=== PATIENT | male | born 1940 | race Caucasian/White ===

== ENCOUNTER 2017-05-02 20:25 | Emergency (ER) | payer BC ==
[~2017-05-02 20:25] MED LIST: AMLO-110 PO; ASPI81TA28 PO; ATEN50TA8 PO; ATOR-24 PO; CLOP1TAB15 PO; MULT-506 PO
[2017-05-02 20:30] VITALS: TEMP 36.4
[2017-05-02] MEDS ORDERED: SODIUM CHLORIDE 0.9% 1000ML 1,000 ML IV STA (20:40)
--- NOTE | 2017-05-02 20:45 | EMERGENCY ROOM VISIT NOTE ---
History Report prepared by Freddieibbolivar: Meri Farias Under the Supervision of: Dr. Brandon Hermosillo M.D. First contact with patient: 20:34 Chief Complaint: HIP PAIN Stated Complaint: R HIP PAIN History of Present Illness The patient is a 76 year old male who presents to the Emergency Room with complaints of persistent right hip pain. He reports he was working on a ladder this afternoon when he fell 4 feet to the ground, and landed on "some boulders" . He states he hit his back, right hip and right arm area when he landed. He complains of right hip and right arm pain, rating his discomfort as a 4/10 in severity. He is still able to move his legs normally and can lift his right leg without difficulty. The patient experienced a syncopal episode in the waiting room here in the ED, and was immediately brought back to . He admits he does take daily Plavix. Source of History: patient Onset: 1500 today Position: other (right hip) Symptom Intensity: 4/10 Timing: other (persistent) Review of Systems See HPI for pertinent positives & negatives. A total of 10 systems reviewed and were otherwise negative. Past Medical & Surgical Medical Problems: (1) Hypertension (2) Transient ischemic attack (TIA) Family History FH: coronary artery disease FATHER MOTHER Social History Smoking Status: Never Smoker Drug Use: none Marital Status: Housing Status: lives with family Occupation Status: retired Current/Historical Medications Scheduled Amlodipine Besylate (Norvasc), 5 MG PO DAILY Aspirin (Aspirin Ec), 81 MG PO DAILY Atenolol (Tenormin), 50 MG PO DAILY Atorvastatin (Lipitor), 40 MG PO DAILY Clopidogrel (Plavix), 75 MG PO DAILY Multivitamin (Multivitamin), 1 TAB PO DAILY Allergies Coded Allergies: No Known Allergies (Unverified , 01/25/16) Physical Exam Vital Signs Date Time Temp Pulse Resp B/P (MAP) Pulse Ox O2 Delivery O2 Flow Rate FiO2 05/02/17 23:13 87 18 125/67 95 05/02/17 22:31 125/67 05/02/17 22:25 76 19 99 05/02/17 22:01 113/68 05/02/17 21:55 63 16 94 05/02/17 21:31 150/68 05/02/17 21:28 129/68 128/76 05/02/17 21:25 73 14 05/02/17 20:52 97 Room Air 05/02/17 20:49 126/65 05/02/17 20:41 69 05/02/17 20:36 112/63 05/02/17 20:30 36.4 57 20 66/46 98 Room Air Physical Exam GENERAL: Patient is a healthy-appearing well-nourished HEAD: Normocephalic atraumatic EYES: Ocular movements intact pupils equal and react to light OROPHARYNX mucous membranes are moist no exudates present no erythema or edema present NECK: Supple no nuchal rigidity CHEST: Good equal expansion LUNGS: Clear and equal to auscultation CARDIAC: Normal S1 and S2 ABDOMEN: Soft nontender no guarding BACK: Large hematoma to right lumbar area. No CVA tenderness EXTREMITIES: No pain upon palpation normal muscle strength in all groups no clubbing cyanosis or edema NEURO: Patient is following commands is answering questions appropriately. Alert and oriented x3 Cranial Nerves 2-12 grossly intact Medical Decision & Procedures ER Provider Diagnostic Interpretation: Radiology results as stated below per my review and radiologist interpretation: ABD/PELVIS IV CONTRAST ONLY CT DOSE: HISTORY: Trauma Pt c/o Rt flank hematoma after fall TECHNIQUE: Multiaxial CT images of the abdomen and pelvis were performed following the use of intravenous contrast. A dose lowering technique was utilized adhering to the principles of ALARA. COMPARISON STUDY: 08/06/2010 FINDINGS: Lung bases are considered generally clear. Soft tissue edematous change and/or post traumatic contusion over the right flank and right posterior gluteal musculature. This extends from the lateral aspect of the right chest posteriorly to the right flank and extending approximately to level of the right acetabulum. Fractures of the right transverse processes of L2-L4. The intra-abdominal structures show liver spleen and pancreas to be unremarkable. The kidneys enhance uniformly. Liver spleen and pancreas are unremarkable. No free fluid within the abdomen or pelvic region. Bladder is midline. No free fluid within the pelvic cul-de-sac. All remaining osseous structures are negative for additional acute bony abnormality. IMPRESSION: 1. Right flank hematoma/contusion extending from the lower chest on the right to the level of the right acetabulum. 2. Fractures of the right transverse processes of L2, L3, and L4. 3. No acute intra-abdominal or intrapelvic abnormality The above report was generated using voice recognition software. It may contain grammatical, syntax or spelling errors. Electronically signed by: Pola Fu M.D. 05/02/2017 9:30 PM CHEST ONE VIEW PORTABLE CLINICAL HISTORY: Pt c/o Rt arm pain s/p fall trauma. Pain. COMPARISON STUDY: 01/25/2016 FINDINGS: The bones soft tissues and hemidiaphragms are normal. The cardiomediastinal silhouette is normal. The lungs are clear. The pulmonary vasculature is normal. IMPRESSION: Negative chest. The above report was generated using voice recognition software. It may contain grammatical, syntax or spelling errors. Electronically signed by: Pola Fu M.D. 05/02/2017 9:31 PM HEAD WITHOUT CONTRAST (CT) CT DOSE: 767.83 mGy.cm HISTORY: Trauma Pt c/o fall TECHNIQUE: Multiaxial CT images of the head were performed without the use of intravenous contrast. A dose lowering technique was utilized adhering to the principles of ALARA. Comparison: 01/25/2016 Findings: The paranasal sinuses and mastoid air cells are clear. The calvarium and skull base are intact. The ventricles and sulci are within normal limits. There is no mass, hematoma, midline shift, or acute infarct. Stable asymmetric atrophy. Stable chronic small vessel change. Impression: Chronic and age-related change. No acute process. The above report was generated using voice recognition software. It may contain grammatical, syntax or spelling errors. Electronically signed by: Pola Fu M.D. 05/02/2017 9:21 PM R HUMERUS MIN 2 VIEWS ROUTINE CLINICAL HISTORY: Pt c/o RT arm pain trauma COMPARISON: None. DISCUSSION: The bones and joint spaces appear intact. There is no evidence of fracture, dislocation or bony disease. There is no evidence for soft tissue swelling. IMPRESSION: Negative study. The above report was generated using voice recognition software. It may contain grammatical, syntax or spelling errors. Electronically signed by: Pola Fu M.D. 05/02/2017 9:32 PM LUMBAR SPINE WITHOUT CT DOSE: 480.29 mGy.cm HISTORY: Pain. Trauma. Pt c/o Rt sided flank pain s/p fall TECHNIQUE: Multiaxial CT images of the lumbar spine were performed and reformatted in the sagittal and coronal plane without the use of contrast. A dose lowering technique was utilized adhering to the principles of ALARA. COMPARISON: None. FINDINGS: Fractures right transverse processes of L2-L3 and L4. Vertebral body stature is unremarkable. Moderate degenerative disc change throughout. All remaining structures of the posterior arch. Intact at all levels. No significant surrounding soft tissue hematoma. IMPRESSION: 1. Fracture right transverse process of L2-L3 and L4. 2. Moderate degenerative change throughout the remainder the lumbar region with no additional acute bony abnormality. The above report was generated using voice recognition software. It may contain grammatical, syntax or spelling errors. Electronically signed by: Pola Fu M.D. 05/02/2017 9:26 PM Laboratory Results 05/02/17 20:40 Red Blood Count 4.04, Mean Corpuscular Volume 90.1, Mean Corpuscular Hemoglobin 30.7, Mean Corpuscular Hemoglobin Concent 34.1, Mean Platelet Volume 10.1, Neutrophils (%) (Auto) 81.4, Lymphocytes (%) (Auto) 10.9, Monocytes (%) (Auto) 5.8, Eosinophils (%) (Auto) 1.3, Basophils (%) (Auto) 0.3, Neutrophils # (Auto) 11.65, Lymphocytes # (Auto) 1.56, Monocytes # (Auto) 0.83, Eosinophils # (Auto) 0.18, Basophils # (Auto) 0.05 05/02/17 20:40 Test 05/02/17 20:40 05/02/17 20:52 White Blood Count 14.32 K/uL (4.8-10.8) Red Blood Count 4.04 M/uL (4.7-6.1) Hemoglobin 12.4 g/dL (14.0-18.0) Hematocrit 36.4 % (42-52) Mean Corpuscular Volume 90.1 fL (80-100) Mean Corpuscular Hemoglobin 30.7 pg (25-34) Mean Corpuscular Hemoglobin Concent 34.1 g/dl (32-36) Platelet Count 194 K/uL (130-400) Mean Platelet Volume 10.1 fL (7.4-10.4) Neutrophils (%) (Auto) 81.4 % Lymphocytes (%) (Auto) 10.9 % Monocytes (%) (Auto) 5.8 % Eosinophils (%) (Auto) 1.3 % Basophils (%) (Auto) 0.3 % Neutrophils # (Auto) 11.65 K/uL (1.4-6.5) Lymphocytes # (Auto) 1.56 K/uL (1.2-3.4) Monocytes # (Auto) 0.83 K/uL (0.11-0.59) Eosinophils # (Auto) 0.18 K/uL (0-0.5) Basophils # (Auto) 0.05 K/uL (0-0.2) RDW Standard Deviation 43.7 fL (36.4-46.3) RDW Coefficient of Variation 13.3 % (11.5-14.5) Immature Granulocyte % (Auto) 0.3 % Immature Granulocyte # (Auto) 0.05 K/uL (0.00-0.02) Prothrombin Time 11.0 SECONDS (9.0-12.0) Prothromb Time International Ratio 1.0 (0.9-1.1) Estimated GFR () 48.5 Estimated GFR (Non- 41.8 BUN/Creatinine Ratio 10.3 (10-20) Calcium Level 9.3 mg/dl (8.5-10.1) Total Bilirubin 0.5 mg/dl (0.2-1) Direct Bilirubin 0.1 mg/dl (0-0.2) Aspartate Amino Transf (AST/SGOT) 19 U/L (15-37) Alanine Aminotransferase (ALT/SGPT) 26 U/L (12-78) Alkaline Phosphatase 49 U/L (45-117) Total Protein 6.6 gm/dl (6.4-8.2) Albumin 3.6 gm/dl (3.4-5.0) Bedside Hemoglobin 12.2 g/dl (14.0-18.0) Bedside Hematocrit 36 % (42-52) Bedside Sodium 139 mEq/L (135-144) Bedside Potassium 3.6 mEq/L (3.3-5.0) Bedside Chloride 101 mEq/L (101-112) Bedside Total CO2 24 mEq/l (24-31) Anion Gap 19.0 mmol/L (16-25) Bedside Blood Urea Nitrogen 18 mg/dl (7-18) Bedside Creatinine 1.6 mg/dl (0.6-1.3) Bedside Glucose (other) 150 mg/dl (70-99) Bedside Ionized Calcium (Macario) 1.24 mmol/l (1.12-1.32) Labs reviewed by ED physician. Medications Administered Medications (Trade) Dose Ordered Sig/Lawrence Route Start Time Stop Time Status Last Admin Dose Admin Sodium Chloride 1,000 ml @ 999 mls/hr Q1H1M STAT IV 05/02/17 20:40 05/02/17 21:40 DC 05/02/17 20:40 999 MLS/HR Hydromorphone HCl (Dilaudid Inj) 0.5 mg NOW STAT IV 05/02/17 21:59 05/02/17 22:00 DC 05/02/17 22:24 0.5 MG Ondansetron HCl (Zofran Inj) 4 mg NOW STAT IV 05/02/17 21:59 05/02/17 22:00 DC 05/02/17 22:24 4 MG ED Course 2034: Past medical records reviewed. The patient was evaluated in room A1. A complete history and physical examination was performed. 2039: A FAST was performed. No evidence of free fluid. 2039: NSS 1000 ml @ 999 mls/hr IV. 2129: I reevaluated the patient. His blood pressure is now 150/70. 2148: I discussed the patients case with Dr. Cuellar, [facility] patient has been accepted as a transfer to [facility]. 2157: I reevaluated the patient. He is resting comfortably. I discussed my recommendation he be transferred to a trauma center for further treatment and evaluation and he is agreeable with this plan. Medical Decision Prior records/ancillary studies reviewed. Triage Nursing notes reviewed. The patient's history was concerning for traumatic injury Differential diagnosis: Etiologies such as fracture, dislocation, intra-abdominal, pneumothorax, intrathoracic , intracranial, neurologic, as well as other traumatic pathologies were entertained. This is a 76-year-old male who presents emergency department complaining of a fall off a ladder at home. The patient is on Plavix. He has a large amount of swelling to his right flank area. A FAST exam was performed in the emergency department and did not reveal any evidence of intra-abdominal fluid however based on the mechanism of injury as well as the large amount of swelling the patient was sent for CAT scan of the abdomen and pelvis as well as lumbar spine. This showed a very large hematoma along with back fractures to L2-L3 and L4. Based on the fact that the patient is on Plavix along with the fact that he was hypotensive and had a significant drop in his hemoglobin I felt he would be better served at a trauma center area and based on the patient's insurance the family elected to go to [facility]. I did discuss the case with the trauma surgeon at [facility] who asked that the rest of the patient be scanned including back and chest. This did not show any significant abnormalities. The patient's pain was controlled here with Dilaudid. Based on the fact that the patient's blood pressure improved and he was asymptomatic I felt that he could be transferred via ambulance. Medication Reconcilliation Current Medication List: was personally reviewed by me Blood Pressure Screening Patient's blood pressure: Low blood pressure Low blood pressure was felt to be situational. Consults Time Called: 2139 Consulting Physician: Dr. Cuellar, [facility] Returned Call: 2148 I discussed the patients case with Dr. Cuellar, [facility]. The patient has been accepted as a transfer to [facility]. Impression Primary Impression: Fall Additional Impressions: L2 vertebral fracture L3 vertebral fracture L4 vertebral fracture Hematoma Critical Care I have personally spent greater than 90 minutes of critical care time in the direct management of this patient. This includes bedside care, interpretation of diagnostic studies, and testing, discussion with consultants, patient, and family members, and other required patient management activities. This 90 minutes is in excess of all separately billable procedures. Scribe Attestation The scribe's documentation has been prepared under my direction and personally reviewed by me in its entirety. I confirm that the note above accurately reflects all work, treatment, procedures, and medical decision making performed by me. Departure Information Dispostion Transfer Acute Care Facility (The patient has been accepted as a transfer to [facility]) Referrals Dillon La D.O. (PCP) Patient Instructions My [facility] Problem Qualifiers Primary Impression: Fall Encounter type: initial encounter Qualified Codes: W19.XXXA - Unspecified fall, initial encounter Additional Impressions: L2 vertebral fracture Encounter type: initial encounter Fracture type: closed Fracture morphology : unspecified fracture morphology Qualified Codes: S32.029A - Unspecified fracture of second lumbar vertebra, initial encounter for closed fracture L3 vertebral fracture Encounter type: initial encounter Fracture type: closed Fracture morphology : unspecified fracture morphology Qualified Codes: S32.039A - Unspecified fracture of third lumbar vertebra, initial encounter for closed fracture L4 vertebral fracture Encounter type: initial encounter Fracture type: closed Fracture morphology : unspecified fracture morphology Qualified Codes: S32.049A - Unspecified fracture of fourth lumbar vertebra, initial encounter for closed fracture
[2017-05-02 20:52] VITALS: O2SAT 97
[2017-05-02 20:59] LABS: BASO % 0.3 %; BASO ABS # 0.05 K/uL (0-0.2); COMPLETE YES; EOS % 1.3 %; HEMATOCRIT 36.4 % (42-52); IG% 0.3 %; LYMPH % 10.9 %; LYMPH ABS # 1.56 K/uL (1.2-3.4); MEAN CELL VOLUME 90.1 fL (80-100); MEAN CORPUSCULAR HEMOGLOBIN 30.7 pg (25-34); MEAN CORPUSCULAR HGB CONC 34.1 g/dl (32-36); MEAN PLATELET VOLUME 10.1 fL (7.4-10.4); MONO % 5.8 %; NEUT % 81.4 %; PLATELET COUNT 194 K/uL (130-400); RED BLOOD COUNT 4.04 M/uL (4.7-6.1); WHITE BLOOD COUNT 14.32 K/uL (4.8-10.8)
[2017-05-02 21:05] LABS: ISTAT CREATININE 1.6 mg/dl (0.6-1.3); ISTAT HEMOGLOBIN 12.2 g/dl (14.0-18.0); ISTAT IONIZED CALCIUM 1.24 mmol/l (1.12-1.32)
[2017-05-02 21:11] LABS: ALT/SGPT 26 U/L (12-78); BLOOD UREA NITROGEN 17 mg/dl (7-18); BUN/CREATININE RATIO 10.3 (10-20); CALCIUM 9.3 mg/dl (8.5-10.1); CARBON DIOXIDE 27 mmol/L (21-32); CHLORIDE 105 mmol/L (98-107); GLUCOSE 148 mg/dl (70-99); POTASSIUM 3.6 mmol/L (3.5-5.1); SODIUM 140 mmol/L (136-145)
[2017-05-02 21:14] LABS: ALKALINE PHOSPHATASE 49 U/L (45-117); AST/SGOT 19 U/L (15-37)
--- NOTE | 2017-05-02 21:23 | DIAGNOSTIC IMAGING REPORT ---
HEAD WITHOUT CONTRAST (CT) CT DOSE: 767.83 mGy.cm HISTORY: Trauma Pt c/o fall TECHNIQUE: Multiaxial CT images of the head were performed without the use of intravenous contrast. A dose lowering technique was utilized adhering to the principles of ALARA. Comparison: 01/25/2016 Findings: The paranasal sinuses and mastoid air cells are clear. The calvarium and skull base are intact. The ventricles and sulci are within normal limits. There is no mass, hematoma, midline shift, or acute infarct. Stable asymmetric atrophy. Stable chronic small vessel change. Impression: Chronic and age-related change. No acute process. The above report was generated using voice recognition software. It may contain grammatical, syntax or spelling errors. Electronically signed by: Pola Fu M.D. 05/02/2017 9:21 PM Dictated Date/Time: 05/02/2017 9:20 PM
--- NOTE | 2017-05-02 21:27 | DIAGNOSTIC IMAGING REPORT ---
LUMBAR SPINE WITHOUT CT DOSE: 480.29 mGy.cm HISTORY: Pain. Trauma. Pt c/o Rt sided flank pain s/p fall TECHNIQUE: Multiaxial CT images of the lumbar spine were performed and reformatted in the sagittal and coronal plane without the use of contrast. A dose lowering technique was utilized adhering to the principles of ALARA. COMPARISON: None. FINDINGS: Fractures right transverse processes of L2-L3 and L4. Vertebral body stature is unremarkable. Moderate degenerative disc change throughout. All remaining structures of the posterior arch. Intact at all levels. No significant surrounding soft tissue hematoma. IMPRESSION: 1. Fracture right transverse process of L2-L3 and L4. 2. Moderate degenerative change throughout the remainder the lumbar region with no additional acute bony abnormality. The above report was generated using voice recognition software. It may contain grammatical, syntax or spelling errors. Electronically signed by: Pola Fu M.D. 05/02/2017 9:26 PM Dictated Date/Time: 05/02/2017 9:22 PM
[2017-05-02] MEDS ORDERED: OPTIRAY 320 IV PRN ×2 (21:30→22:30)
--- NOTE | 2017-05-02 21:32 | DIAGNOSTIC IMAGING REPORT ---
ABD/PELVIS IV CONTRAST ONLY CT DOSE: HISTORY: Trauma Pt c/o Rt flank hematoma after fall TECHNIQUE: Multiaxial CT images of the abdomen and pelvis were performed following the use of intravenous contrast. A dose lowering technique was utilized adhering to the principles of ALARA. COMPARISON STUDY: 08/06/2010 FINDINGS: Lung bases are considered generally clear. Soft tissue edematous change and/or post traumatic contusion over the right flank and right posterior gluteal musculature. This extends from the lateral aspect of the right chest posteriorly to the right flank and extending approximately to level of the right acetabulum. Fractures of the right transverse processes of L2-L4. The intra-abdominal structures show liver spleen and pancreas to be unremarkable. The kidneys enhance uniformly. Liver spleen and pancreas are unremarkable. No free fluid within the abdomen or pelvic region. Bladder is midline. No free fluid within the pelvic cul-de-sac. All remaining osseous structures are negative for additional acute bony abnormality. IMPRESSION: 1. Right flank hematoma/contusion extending from the lower chest on the right to the level of the right acetabulum. 2. Fractures of the right transverse processes of L2, L3, and L4. 3. No acute intra-abdominal or intrapelvic abnormality The above report was generated using voice recognition software. It may contain grammatical, syntax or spelling errors. Electronically signed by: Pola Fu M.D. 05/02/2017 9:30 PM Dictated Date/Time: 05/02/2017 9:26 PM
--- NOTE | 2017-05-02 21:32 | DIAGNOSTIC IMAGING REPORT ---
CHEST ONE VIEW PORTABLE CLINICAL HISTORY: Pt c/o Rt arm pain s/p fall trauma. Pain. COMPARISON STUDY: 01/25/2016 FINDINGS: The bones soft tissues and hemidiaphragms are normal. The cardiomediastinal silhouette is normal. The lungs are clear. The pulmonary vasculature is normal. IMPRESSION: Negative chest. The above report was generated using voice recognition software. It may contain grammatical, syntax or spelling errors. Electronically signed by: Pola Fu M.D. 05/02/2017 9:31 PM Dictated Date/Time: 05/02/2017 9:31 PM
--- NOTE | 2017-05-02 21:33 | DIAGNOSTIC IMAGING REPORT ---
R HUMERUS MIN 2 VIEWS ROUTINE CLINICAL HISTORY: Pt c/o RT arm pain trauma COMPARISON: None. DISCUSSION: The bones and joint spaces appear intact. There is no evidence of fracture, dislocation or bony disease. There is no evidence for soft tissue swelling. IMPRESSION: Negative study. The above report was generated using voice recognition software. It may contain grammatical, syntax or spelling errors. Electronically signed by: Pola Fu M.D. 05/02/2017 9:32 PM Dictated Date/Time: 05/02/2017 9:31 PM
[2017-05-02] MEDS ORDERED: ONDANSETRON INJ 2 MG/ML 2 ML VIAL IV STA (21:59)
[2017-05-02] MEDS ORDERED: HYDROmorphone INJ 0.5 MG/0.5 ML SYR IV STA (21:59)
[2017-05-02] MEDS ORDERED: AMLO5TAB2 PO (22:02)
--- NOTE | 2017-05-02 22:26 | DIAGNOSTIC IMAGING REPORT ---
CERVICAL SPINE W/O CT DOSE: HISTORY: Trauma Pt c/o back pain TECHNIQUE: Multiaxial CT images of the cervical spine were performed and reformatted in the sagittal and coronal plane without the use of contrast. A dose lowering technique was utilized adhering to the principles of ALARA. COMPARISON: None. FINDINGS: No fractures. No subluxation. Prevertebral soft tissues and the C1-C2 interval are intact. No pneumothorax. Degenerative change most prominent from C5 through C7. Moderate degenerative change posterior elements. IMPRESSION: Degenerative change. No acute process. The above report was generated using voice recognition software. It may contain grammatical, syntax or spelling errors. Electronically signed by: Pola Fu M.D. 05/02/2017 10:25 PM Dictated Date/Time: 05/02/2017 10:23 PM
--- NOTE | 2017-05-02 22:28 | DIAGNOSTIC IMAGING REPORT ---
THORACIC SPINE WITHOUT CT DOSE: 1399.96 mGy.cm HISTORY: Pain Pt c/o flank pain TECHNIQUE: Multiaxial CT images of the thoracic spine were performed and reformatted in the sagittal and coronal plane without the use of contrast. A dose lowering technique was utilized adhering to the principles of ALARA. COMPARISON: None. FINDINGS: No fractures. No subluxation. Paraspinal soft tissues are unremarkable. Moderate degenerative disc changes throughout. No evidence for compression deformity. IMPRESSION: Moderate degenerative change. No acute process. The above report was generated using voice recognition software. It may contain grammatical, syntax or spelling errors. Electronically signed by: Pola Fu M.D. 05/02/2017 10:27 PM Dictated Date/Time: 05/02/2017 10:26 PM
--- NOTE | 2017-05-02 22:30 | DIAGNOSTIC IMAGING REPORT ---
(CHEST) THORAX WITH CT DOSE: HISTORY: Pain Pt c/o rt flank pain TECHNIQUE: Multiaxial CT images of the chest were performed following the intravenous administration of contrast. A dose lowering technique was utilized adhering to the principles of ALARA. COMPARISON: None. FINDINGS: The lungs are clear. The mediastinal vascular structures are within normal limits. No mediastinal or hilar lymphadenopathy. No pleural effusion or pneumothorax. Limited views of the upper abdomen demonstrate a normal liver and spleen. IMPRESSION: No significant abnormality identified within the chest. The above report was generated using voice recognition software. It may contain grammatical, syntax or spelling errors. Electronically signed by: Pola Fu M.D. 05/02/2017 10:29 PM Dictated Date/Time: 05/02/2017 10:27 PM
[2017-05-02] MEDS ORDERED: HYDROmorphone INJ 0.5 MG/0.5 ML SYR IV PRN (22:45)
[2017-05-02 23:13] VITALS: BP 125/67; PULSE 87; O2SAT 95
== END 2017-05-02 23:13 | disposition short-term general hospital (02) ==
LOC: C.EDB 20:26 → C.ED 23:13
DX: S32.029A Unspecified fracture of second lumbar vertebra, initial encounter for closed fracture (principal); S32.039A Unspecified fracture of third lumbar vertebra, initial encounter for closed fracture; S32.049A Unspecified fracture of fourth lumbar vertebra, initial encounter for closed fracture; S30.0XXA Contusion of lower back and pelvis, initial encounter; M25.551 Pain in right hip; M79.601 Pain in right arm; R55 Syncope and collapse; I10 Essential (primary) hypertension; Z79.02 Long term (current) use of antithrombotics/antiplatelets; Z79.82 Long term (current) use of aspirin; Z79.899 Other long term (current) drug therapy; Z86.73 Personal history of transient ischemic attack (TIA), and cerebral infarction without residual deficits; Z82.49 Family history of ischemic heart disease and other diseases of the circulatory system; W11.XXXA Fall on and from ladder, initial encounter

== ENCOUNTER 2018-12-14 19:19 | Inpatient (IN) ==
--- OUTSIDE RECORDS SUMMARY | 2018-12-14 19:22 | External Medical Summary | Continuity of Care Document ---
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 Refills: 0 Atenolol 50 MG Oral Tablet; TAKE 1 TABLET DAILY. Quantity: 90 Refills: 3 Aspirin 81 MG TABS; TAKE 1 TABLET DAILY. Refills: 0 amLODIPine Besylate 5 MG Oral Tablet; TAKE 1 TABLET EV [place] Start: 05-May-2014 Quantity: 90 Refills: 3 Flaxseed Oil 1000 MG Oral Capsule; TAKE 2 CAPSULE Daily Refills: 0 Clopidogrel Bisulfate 75 MG Oral Tablet; TAKE 1 TABLET DAILY . Refills: 0 Atorvastatin Calcium 40 MG Oral Tablet; TAKE 1 TABLET DAILY DIRECTED. Refills: 0 Procedures History of Eye Surgery Status: Completed Immunizations Immunizations not documented Social History - Smoking Status Former smoker Plan of Treatment Planned Observations Planned Goals not documented Results No Known Results Results not documented
[2018-12-14] MEDS ORDERED: VALACYCLOVIR HCL 500 MG TABLET PO ONE (19:36)
[2018-12-14] MEDS ORDERED: SODIUM CHLORIDE 0.9% 1000ML 1,000 ML IV SCH (19:45)
[2018-12-14 20:20] LABS: Basophils # (auto) 0.04 K/uL (0-0.2); Basophils % (auto) 0.3 %; Eosinophils # (auto) 0.02 K/uL (0-0.5); Eosinophils % (auto) 0.1 %; Hematocrit (blood only) 41.6 % (42-52); Hemoglobin 14.9 g/dL (14.0-18.0); Immature Granulocytes # (auto) 0.04 K/uL (0.00-0.02); Immature Granulocytes % (auto) 0.3 %; Lymphocytes # (auto) 0.92 K/uL (1.2-3.4); Lymphocytes % (auto) 5.9 %; Mean Corpuscular Hgb Conc 35.8 g/dL (32-36); Mean Corpuscular Volume 88.5 fL (80-100); Mean Platelet Volume 10.2 fL (7.4-10.4); Monocytes # (auto) 0.89 K/uL (0.11-0.59); Monocytes % (auto) 5.7 %; Neutrophils # (auto) 13.68 K/uL (1.4-6.5); Neutrophils % (auto) 87.7 %; Platelet Count 212 K/uL (130-400); RDW Coefficient of Variation 13.6 % (11.5-14.5); RDW Standard Deviation 44.7 fL (36.4-46.3); White Blood Count 15.59 K/uL (4.8-10.8)
--- NOTE | 2018-12-14 20:22 | XRay Report ---
XR chest 1V portable HISTORY: 78 years-old Male weakness acute weakness COMPARISON: Chest radiograph and CT chest 05/02/2017 TECHNIQUE: Portable AP view of the chest FINDINGS: Cardiomediastinal and hilar silhouettes are within normal limits. There is no pneumothorax, pleural e ffusion, lobar airspace consolidation or overt pulmonary edema. Segmental atelectasis/scarring about the lung bases. Small hiatal hernia. Degenerative changes of the shoulders and spine. IMPRESSION: 1. Mild subsegmental atelectasis/scarring of the left lung base. 2. Small hiatal hernia. The above report was generated using voice recognition software. It may contain grammatical, syntax o r spelling errors. Electronically signed by: Fidel Newsome M.D. 12/14/2018 8:20 PM
[2018-12-14 20:38] LABS: Albumin Level 3.6 gm/dl (3.4-5.0); BUN Creatinine Ratio 8.8 (10-20); Calcium 9.1 mg/dl (8.5-10.1); Creatinine Clr Calc Pharmacy 42.9 ml/min; Est GFR (African American) 49.7; Est GFR (Non-African American) 42.8; Potassium 4.1 mmol/L (3.5-5.1)
[2018-12-14 20:49] LABS: Albumin Globulin Ratio 0.8 (0.9-2); Bilirubin,Total 0.9 mg/dl (0.2-1); Globulin 4.4 gm/dl (2.5-4.0)
[2018-12-14] MEDS ORDERED: cefTRIAXone SODIUM 1,000 MG in DEXTROSE 5% 50 ML IV STA (20:54)
[2018-12-14] MEDS ORDERED: SULFAMETHOXAZOLE/TRIMETHOPRIM DS 800/160MG TAB PO ONE (20:54)
--- NOTE | 2018-12-14 20:54 | CT Scan Report ---
CT head/brain wo con CLINICAL HISTORY: 78 years-old Male with Pt c/o headache. Acute headache TECHNIQUE: Multiple axial CT images of the head were obtained without contrast. A dose lowering tech nique was utilized adhering to the principles of ALARA. CT DOSE: 537.48 mGy.cm COMPARISON: CT head 05/02/2017. FINDINGS: No acute intracranial hemorrhage, midline shift, intracranial mass, hydrocephalus, territorial ischem ia or new abnormal extra-axial collection. Age-related involutional changes. Prominent CSF space abou t the right vertebral convexity is unchanged and may reflect a chronic subdural hygroma. Patchy white matter hypodensities suggest chronic microvascular ischemic disease. Cerebral vascular calcification s are noted. The calvarium is intact. Large right marifer bullosa. The paranasal sinuses, mastoid air cells, and mi ddle ear cavities are clear. IMPRESSION: No acute intracranial abnormality. The above report was generated using voice recognition software. It may contain grammatical, syntax o r spelling errors. Electronically signed by: Fidel Newsome M.D. 12/14/2018 8:53 PM
[2018-12-14] MEDS ORDERED: cefTRIAXone SODIUM 1000MG/50ML D5W ONE (21:04)
[2018-12-15] MEDS ORDERED: DOCUSATE SODIUM 100 MG CAP PO PRN (00:07)
[2018-12-15] MEDS ORDERED: VANCOMYCIN CONSULT ACTIVE PRN (00:07)
[2018-12-15] MEDS ORDERED: VANCOMYCIN HCL 2,250 MG in SODIUM CHLORIDE 0.9% 500 ML IV ONE (00:45)
[2018-12-15 01:27] LABS: Phosphorus 2.5 mg/dl (2.5-4.9)
--- NOTE | 2018-12-15 06:20 | History & Physical Report ---
Date of Service December 14, 2018 Assessment & Plan (1) Cellulitis of face: ?cellulitis. Patient is afebrile, hemodynamically stable -Follow culutres -Pola area daily to assess for progression -Empiric antibiotics with Vanc and Ceftriaxone Present on Admission?: Yes (2) Dyslipidemia: Chronic -Continue Lipitor 40mg po daily (3) History of CVA (cerebrovascular accident): Chronic. Neurologically intact. -Continue ASA, Plavix and Statin (4) Hypertension: Blood pressure well controlled. Continue Tenormin 50mg po daily and Amlodipine 5mg po daily. History of Present Illness Chief Complaint: facial redness Primary Care Provider: Dillon La, DO 78yo C male with history of HTN, HLP, prior CVA presenting with facial redness which started today. Patient with two days of weakness and fatigue as well as frontal headache. Seen by PCP today and found to have warmth, redness and pain of right face. Patient denies trauma. No recent dental procedures. No change in detergents or facial products. He has chronic eczema, however, new to the face over the last two days. Also worsening eye drainage. ER Course: Ceftriaxone, NSS, Bactrim, Valcyte Allergies Allergy/AdvReac Type Severity Reaction Status Date / Time No Known Allergies Allergy Unverified 01/25/16 09:42 Home Medications Home Medications Medication Instructions Recorded Confirmed Type amlodipine 5 mg PO DAILY 12/14/18 12/14/18 History aspirin 81 mg PO DAILY 12/14/18 12/14/18 History atenolol 50 mg PO DAILY 12/14/18 12/14/18 History atorvastatin 40 mg PO DAILY 12/14/18 12/14/18 History clopidogrel 75 mg PO DAILY 12/14/18 12/14/18 History multivitamin 1 tab PO DAILY 12/14/18 12/14/18 History Past Med/Surg History Medical History Hypertension (Chronic) Dehydration (Acute) Dyslipidemia History of CVA (cerebrovascular accident) Surgical History S/P eye surgery Family History Other Family history non-contributory Social History Preferred Language: [place] Communication Ability: Effective Purchasing Expeditor Required: No Beliefs That Will Affect Care: None Current Living Situation: Spouse Other Information That Helps Us Care for You: No Feels Safe at Home: Yes Safety Concerns: Feels Safe At This Time Smoking Status: Former smoker Tobacco Type: cigarettes Do You Dip or Chew Tobacco: No Smoking End Date: pt was 28 years old when he quit smoking Second Hand Exposure: No Hx Alcohol Use: No Hx Substance Use: No Review of Systems Review of Systems: All systems reviewed & are unremarkable except as noted in HPI & below +Chills +Nausea +Buttock soreness Physical Exam Physical Exam: General: patient resting comfortably, NAD, non-toxic in appearance, AA&O x 4 Skin: warm, dry, intact, redness and warmth of right face with eczema at the jaw, scant amount of purulent eye drainage HEENT: NC/AT, PERRL, EOMI, anicteric sclera, conjunctiva without injection, external ear normal to inspection and nontender, nares patent, moist mucus membranes, dentition intact, no oropharyngeal lesions, neck supple, trachea midline, no LAD, no thyromegaly, no JVD Heart: +S1/S2, regular, no m/r/g Lungs: equal air entry bilaterally, no rales/rhonchi/wheezes Abd: +BS, soft, NT/ND, no masses/organomegaly/ascites Ext: warm, 2+ pulses in UE/LE bilaterally, no clubbing/cyanosis or edema Neuro: nonfocal, patient AA&O x 4, speech intact, no facial droop, moving all extremities on command with equal strength 5/5 Results & Data Vital Signs (Past 12 Hours) Vital Signs Temp Pulse Pulse Resp BP BP Pulse Ox 12/15/18 01:14 37.0 C 90 16 126/89 96 12/14/18 23:12 90 14 106/51 L 95 12/14/18 19:21 36.7 C 95 H 18 158/74 H 97 Laboratory Results Lab Results 12/14/18 12/14/18 12/15/18 Range/Units 20:00 20:00 00:45 WBC 15.59 H (4.8-10.8) K/uL RBC 4.70 (4.7-6.1) M/uL Hgb 14.9 (14.0-18.0) g/dL Hct 41.6 L (42-52) % MCV 88.5 (80-100) fL MCH 31.7 (25-34) pg MCHC 35.8 (32-36) g/dL RDW Std Deviation 44.7 (36.4-46.3) fL RDW Coeff of Anne-Marie 13.6 (11.5-14.5) % Plt Count 212 (130-400) K/uL MPV 10.2 (7.4-10.4) fL Immature Gran % (Auto) 0.3 % Neut % (Auto) 87.7 % Lymph % (Auto) 5.9 % Gillespie % (Auto) 5.7 % Eos % (Auto) 0.1 % Baso % (Auto) 0.3 % Immature Gran # (Auto) 0.04 H (0.00-0.02) K/uL Neut # (Auto) 13.68 H (1.4-6.5) K/uL Lymph # (Auto) 0.92 L (1.2-3.4) K/uL Gillespie # (Auto) 0.89 H (0.11-0.59) K/uL Eos # (Auto) 0.02 (0-0.5) K/uL Baso # (Auto) 0.04 (0-0.2) K/uL Sodium 133 L (136-145) mmol/L Potassium 4.1 (3.5-5.1) mmol/L Chloride 101 (98-107) mmol/L Carbon Dioxide 26 (21-32) mmol/L Anion Gap 6.0 (3-11) BUN 14 (7-18) mg/dl Creatinine 1.55 H (0.6-1.4) mg/dl Est Cr Clr Drug Dosing 42.9 ml/min Est GFR ( Amer) 49.7 Est GFR (Non-Af Amer) 42.8 BUN/Creatinine Ratio 8.8 L (10-20) Glucose 132 H (70-99) mg/dl Calcium 9.1 (8.5-10.1) mg/dl Phosphorus 2.5 (2.5-4.9) mg/dl Magnesium 2.0 (1.8-2.4) mg/dl Total Bilirubin 0.9 (0.2-1) mg/dl AST 12 L (15-37) U/L ALT 24 (12-78) U/L Alkaline Phosphatase 62 (45-117) U/L Total Creatine Kinase 110 (39-308) U/L Total Protein 8.0 (6.4-8.2) gm/dl Albumin 3.6 (3.4-5.0) gm/dl Globulin 4.4 H (2.5-4.0) gm/dl Albumin/Globulin Ratio 0.8 L (0.9-2) TSH 0.431 (0.300-4.500) uIu/ml Diagnostic Findings XR chest 1V portable HISTORY: 78 years-old Male weakness acute weakness COMPARISON: Chest radiograph and CT chest 05/02/2017 TECHNIQUE: Portable AP view of the chest FINDINGS: Cardiomediastinal and hilar silhouettes are within normal limits. There is no pneumothorax, pleural effusion, lobar airspace consolidation or overt pulmonary edema. Segmental atelectasis/scarring about the lung bases. Small hiatal hernia. Degenerative changes of the shoulders and spine. IMPRESSION: 1. Mild subsegmental atelectasis/scarring of the left lung base. 2. Small hiatal hernia. The above report was generated using voice recognition software. It may contain grammatical, syntax or spelling errors. Electronically signed by: Fidel Newsome M.D. 12/14/2018 8:20 PM Dictated: 12/14/182018 Transcribed: 12/14/182018 CT head/brain wo con CLINICAL HISTORY: 78 years-old Male with Pt c/o headache. Acute headache TECHNIQUE: Multiple axial CT images of the head were obtained without contrast. A dose lowering technique was utilized adhering to the principles of ALARA. CT DOSE: 537.48 mGy.cm COMPARISON: CT head 05/02/2017. FINDINGS: No acute intracranial hemorrhage, midline shift, intracranial mass, hydrocephalus, territorial ischemia or new abnormal extra-axial collection. Age- related involutional changes. 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 Patchy white matter hypodensities suggest chronic microvascular ischemic disease. Cerebral vascular calcifications are noted. The calvarium is intact. Large right marifer bullosa. The paranasal sinuses, mastoid air cells, and middle ear cavities are clear. IMPRESSION: No acute intracranial abnormality. The above report was generated using voice recognition software. It may contain grammatical, syntax or spelling errors. Electronically signed by: Fidel Newsome M.D. 12/14/2018 8:53 PM Dictated: 12/14/182049 Transcribed: 12/14/182049 ECG Additional Comments: NSR at 89, no acute ischemic changes Code Status & VTE Plan Code Status FULL
[2018-12-15 06:29] LABS: Appearance Urine Clear (Clear); Bilirubin Urine Negative (Negative); Blood Urine Negative (Negative); Color Urine Yellow; Glucose Urine UA Negative (Negative); Ketones Urine Negative (Negative); Leukocyte Esterase Urine Negative (Negative); Nitrite Urine Negative (Negative); Protein Urine Negative (Negative); Specific Gravity Urine 1.013 (1.000-1.030); Urobilinogen Urine Negative (Negative); pH Urine 6.5 (4.5-7.5)
[2018-12-15] MEDS ORDERED: PNEUMOCOCCAL ADMINISTRATION CHARGE ONE (08:30)
[2018-12-15] MEDS ORDERED: PNEUMOCOCCAL POLYSACCHARIDES 25 MCG/0.5 ML VIAL/SYR IM ONE (08:30)
[2018-12-15 09:04] LABS: Basophils # (auto) 0.04 K/uL (0-0.2); Basophils % (auto) 0.3 %; Eosinophils # (auto) 0.21 K/uL (0-0.5); Eosinophils % (auto) 1.4 %; Hematocrit (blood only) 37.5 % (42-52); Hemoglobin 12.9 g/dL (14.0-18.0); Immature Granulocytes # (auto) 0.04 K/uL (0.00-0.02); Immature Granulocytes % (auto) 0.3 %; Lymphocytes % (auto) 7.5 %; Mean Corpuscular Hgb Conc 34.4 g/dL (32-36); Mean Corpuscular Volume 89.1 fL (80-100); Monocytes # (auto) 1.03 K/uL (0.11-0.59); Monocytes % (auto) 7.1 %; Neutrophils # (auto) 12.18 K/uL (1.4-6.5); Neutrophils % (auto) 83.4 %; Platelet Count 202 K/uL (130-400); RDW Coefficient of Variation 13.8 % (11.5-14.5); RDW Standard Deviation 45.2 fL (36.4-46.3); Red Blood Count 4.21 M/uL (4.7-6.1)
[2018-12-15] MEDS: AMLODIPINE BESYLATE 5 MG TAB PO SCH (09:15)
[2018-12-15] MEDS: CLOPIDOGREL BISULFATE 75 MG TAB PO SCH (09:15)
[2018-12-15] MEDS: ATORVASTATIN 40 MG TAB PO SCH (09:16)
[2018-12-15] MEDS: ATENOLOL 50 MG TABLET PO SCH (09:16)
[2018-12-15] MEDS: MULTIVITAMIN TAB PO SCH (09:16)
[2018-12-15] MEDS: ASPIRIN 81 MG ECTAB PO SCH (09:16)
[2018-12-15 09:39] LABS: BUN Creatinine Ratio 9.8 (10-20); Calcium 8.7 mg/dl (8.5-10.1); Creatinine Clr Calc Pharmacy 50.7 ml/min; Est GFR (African American) 60.9; Est GFR (Non-African American) 52.5; Potassium 3.8 mmol/L (3.5-5.1)
--- NOTE | 2018-12-15 14:28 | Pharmacy Report ---
Pharmacy Abx Dose Short Note - Date of Service December 15, 2018 - Assessment & Plan Assessment * Mr Ingram is a 78 year old M receiving Vancomycin/Rocephin for treatment of facial cellulitis. * Patient with two days of weakness/fatigue/headache. When seen by PCP, face was found to be warm/red. Patient also reports increased eye drainage. * Today, face remains warm/red and appears to be swollen. * On admission: WBC 15.6, SCr 1.55, patient has been afebrile Plan Vancomycin * Loading dose: Vanc 2250mg (~25mg/kg) IV x1 dose, then: * Vancomycin 1250mg (~14mg/kg) IV q18h * Patient's estimated p'kinetic parameters (based on CrCl ~ 51mL/min): * Vd ~ 0.7L/kg Cash ~ 0.047/hr t1/2 ~ 14.7hr * Goal trough level for SSTI: 10 to 15 mcg/mL * Trough level ordered for: 12/17 prior to the 3rd maintenance dose -- this will not yet be steady-state Ceftriaxone 2gm IV q24h Pharmacy will continue to follow and will adjust dose/frequency as necessary. Thank you.
--- NOTE | 2018-12-15 15:51 | Medical Student Progress Note ---
Date of Service December 15, 2018 Assessment & Plan (1) Cellulitis of face: Facial erythema and edema likely to be erysipelas since the erythema has more of a raised appearance and a clear line of demarcation more consistent with erysipelas than cellulitis, although pt does not have butterfly involvement which is the classic presentation of erysipelas. Pt also has associated sx of chills, malaise, and headache which are more associated with cellulitis than erysipelas. Pt has been started on vancomycin & ceftriaxone Difficult to determine how the erysipelas has progressed since being started on empiric therapy since pt was not aware of the facial erythema initially and the cellulitis had been described as unilateral but seems to be on both sides of the head. Line of demarcation has been drawn out with a marker so that the erythema can be better assessed in morning. Plan is to discontinue vancomycin once infx seems to start subsiding. Pt has been made aware of the complication of loss of vision, was advised to please tell nursing if he experiences any change in vision. (2) Venous insufficiency: Purple discoloration of R & L foot likely to be due to venous insufficiency, which was exacerbated by pt's position of sitting. Discoloration did subside upon re-examining pt for a second time. Line of demarcation was drawn out with marker in case discoloration is sign of a separate infxn. Pt does not have a previous hx of venous insufficiency. Both feet were dry and cool to the touch. Pulses were palpable and all digits could be moved. (3) History of CVA (cerebrovascular accident): stable, no neurological deficits continue aspirin and clopidegrol therapy (4) Dyslipidemia: continue atorvastatin (5) Hypertension: continue amlodopine and atenolol Supervising Attestation See my note for details Subjective Pt is a 78 yo M w/ hx of CVA, htn, hld, and eczema on day 1 of admission for fascial redness due to erysipelas of the face. Pt states he did not notice the facial redness as he had initially gone to his PCP due to fatigue, malaise, and new onset headache. Pt's PCP noticed the facial redness and made the recomendation for a direct admission. Today, the pt states he feels better. He no longer has the head and states the fatigue and weakness has subsided. Pt does feel a tightness in is face, but denies pruritis, burning, stinging, or pain upon touching or moving his face. Pt denies any changes in vision. Pt has been ambulating during his stay and is eating well. No bm today. ROS: negative, pt denies fever/ chills, headache, dizziness, vision changes, n/v, sob, cp, abd pain, constipation, diarrhea, change in bowel movements Physical Exam Vital Signs (Past 24 Hours): Last Vital Signs Temp 37.3 C 12/15/18 15:26 Pulse 78 12/15/18 15:26 Resp 20 12/15/18 15:26 BP 119/74 12/15/18 15:26 Pulse Ox 91 12/15/18 15:26 Constitutional: WD/WN, vitals as above Eyes: PERRL, conjunctivae normal, anicteric sclerae ENMT: erythematous R. external ear Neck: trachea midline, no thyromegaly Respiratory: normal respiratory effort, lungs clear to auscultation Cardiovascular: RRR, no murmur, no edema Gastrointestinal (Abdomen): normal bowel sounds, soft, nontender, no hepatosplenomegaly Musculoskeletal: purple discoloration of R & L foot noted, resolving upon second exam Results & Data Laboratory Results Wbc: 14.6 Rbc: 4.21 Hgb: 12.9 Hct: 37.5 Na: 138 K 3.8 Cl 106 HCO3: 23 BUN 13 Cr 1.31 Glu 113 Diagnostic Findings U/A: normal CXR: unremarkable, minimal subsegmental atelectasis Head CT: unremarkable for acute intracranial abnormality ECG: T wave inversions not present when compared to ECG from Jan 2016
--- NOTE | 2018-12-15 16:12 | Hospitalist Progress Note ---
Date of Service December 15, 2018 Assessment & Plan (1) Cellulitis of face: ?cellulitis. Patient is afebrile, hemodynamically stable -no open region to cx -Empiric antibiotics with Vanc and Ceftriaxone started on 12/14 Marker placed on 12/15, pt is uncertain of full extent of discoloration, but state s tightness is improved and headache is resolved suggesting overall improvement WBC improved d/c vanco 12/15 and monitor on ceftriaxone CT head neg (2) Dyslipidemia: Chronic -Continue Lipitor 40mg po daily (3) History of CVA (cerebrovascular accident): Chronic. Neurologically intact. -Continue ASA, Plavix and Statin (4) Hypertension: Blood pressure well controlled. Continue Tenormin 50mg po daily and Amlodipine 5mg po daily. (5) Venous insufficiency: Seems likely position dependent given improvement in the hour interval between time noted by med student and pt being seen by myself Pulses intact, temp is WNL Monitor for now Subjective Pt states he has no hx of pain to his face and he had not noted the redness prior. He states that the area under and around his R eye had felt "tight" since yesterday and that this is better today. Denies vision changes at any point. Pt denies fever, SOB, chest pain, abd pain, n/v/c/d, LE pain or swelling. He had a headache yesterday but this is now gone. He does feel somewhat weak. He states that he ate without issue. Pt states he has an issue with eczema on his R cheek. It does not itch, but he does shave over it regularly. He uses [place] oatmeal lotion on other areas, but has never used it on his face. Med student noted b/l R>L foot discoloration, more of a purple color when she took off pt's socks. They were not cold and she felt pulses were WNL. Pt had no pain in his feet. He denies that this had been the appearance of his feet in the past. This was a surprise to the pt. When I came in to examine pt, he was sitting in the same chair as when the student examined him, however they both agreed that the discoloration was much improved. It was almost gone on the L foot and had decreased from the ankle to just the bridge of the R foot and was labor representative. Review of Systems Review of Systems: Pertinent positives and negatives reviewed in HPI--all others negative Physical Exam Constitutional: WD/WN, vitals as above Eyes: normal visual richards by confrontation and + anicteric sclerae Neck: normal visual inspection and trachea midline Respiratory: normal respiratory effort, lungs clear to auscultation Cardiovascular: Rate/Rhythm: regular rate and regular rhythm Gastrointestinal (Abdomen): Inspection/Auscultation: abdomen not distended Percussion/Palpation: abdomen soft; abdomen nontender Musculoskeletal: Head/Neck/Chest: normocephalic and head atraumatic feet negative for edema, peripheral pulses intact Warm to the touch, moving toes Skin: Redness noted along entire R side of face moving across frontal region and around scalp to base of skull posteriorly. NonTTP, not warm. No lines placed prior to determine if this is improving or worsening. R foot with light purple discoloration inferior to ankle, mostly on dorsal surface. L has a trace purple discoloration along dorsal surface. Neurologic: awake; not confused Speech / Cognition: normal speech Psychiatric: A+Ox3, euthymic affect Results & Data Vital Signs (Past 12 Hours) Vital Signs Temp Pulse Resp BP Pulse Ox 12/15/18 15:26 37.3 C 78 20 119/74 91 12/15/18 07:00 37.2 C 81 18 106/66 95
[2018-12-15] MEDS ORDERED: VANCOMYCIN HCL 1,250 MG in SODIUM CHLORIDE 0.9% 250 ML IV SCH (20:00)
[2018-12-15] MEDS ORDERED: cefTRIAXone SODIUM 1,000 MG in DEXTROSE 5% 50 ML IV SCH (21:00)
[2018-12-15] MEDS: cefTRIAXone SODIUM 2,000 MG in DEXTROSE 5% 50 ML IV SCH (21:24)
[2018-12-16] MEDS: CLOPIDOGREL BISULFATE 75 MG TAB PO SCH (08:05)
[2018-12-16] MEDS: ATORVASTATIN 40 MG TAB PO SCH (08:05)
[2018-12-16] MEDS: MULTIVITAMIN TAB PO SCH (08:05)
[2018-12-16] MEDS: ASPIRIN 81 MG ECTAB PO SCH (08:06)
[2018-12-16] MEDS: AMLODIPINE BESYLATE 5 MG TAB PO SCH (08:06)
[2018-12-16] MEDS: ATENOLOL 50 MG TABLET PO SCH (08:06)
[2018-12-16] MEDS ORDERED: VANCOMYCIN CONSULT ACTIVE PRN (15:29)
[2018-12-16] MEDS ORDERED: VANCOMYCIN HCL 1,000 MG in SODIUM CHLORIDE 0.9% 250 ML IV SCH (15:30)
[2018-12-16] MEDS ORDERED: VANCOMYCIN HCL 2,000 MG in SODIUM CHLORIDE 0.9% 500 ML IV ONE (16:00)
[2018-12-16] MEDS: TRIAMCINOLONE ACET 0.1% CR 80 GM TUBE EXT SCH ×2 (16:08→21:02)
[2018-12-16] MEDS: EUCERIN CR 120 GM JAR EXT SCH ×2 (16:08→21:02)
[2018-12-16] MEDS: LACTOBACILLUS ACIDOPHILUS (FLORANEX) TAB PO SCH (16:51)
[2018-12-16] MEDS: cefTRIAXone SODIUM 2,000 MG in DEXTROSE 5% 50 ML IV SCH (21:00)
--- NOTE | 2018-12-16 21:44 | Hospitalist Progress Note ---
Date of Service December 16, 2018 Assessment & Plan (1) Cellulitis of face: RIGHT. Slowly improving per pt's account. Add back IV vanco to cover MRSA. Cont rocephin. Present on Admission?: Yes (2) Eczema: eucerin cream with triamcinolone cream TID to dorsum of both feet. (3) Hypertension: cont home meds (4) Dyslipidemia: statin (5) History of CVA (cerebrovascular accident): noted cont asa, plavix for secondary prevention cont statin (6) DVT prophylaxis: add lovenox 40mg daily starting tomorrow am Subjective pt feels right facial cellulitis is improved. less "tightness", less erythema. erythema on feet resolved. has known eczema. eating well -- no other issues. Review of Systems Constitutional: no fever and no chills Respiratory: no cough and no dyspnea Cardiovascular: no chest pain Gastrointestinal: no diarrhea/loose stools Physical Exam Constitutional: WD/WN, vitals as above Eyes: mild swelling of right eyelids but not a true periorbital cellulitis Respiratory: normal respiratory effort, lungs clear to auscultation Cardiovascular: RRR, no murmur, no edema Heart Sounds: normal S1 and normal S2 Vessels: posterior tibial pulses present and dorsalis pedis pulses present Gastrointestinal (Abdomen): normal bowel sounds, soft, nontender, no hepatosplenomegaly Skin: mild right facial cellulitis with slight warmth/erythema; no tenderness; mild background scaly skin on cheek b/l feet with dry skin/eczema Psychiatric: A+Ox3, euthymic affect Results & Data Vital Signs (Past 12 Hours) Vital Signs Temp Pulse Resp BP Pulse Ox 12/16/18 15:33 36.6 C 69 18 118/78 99 (1) Eczema Eczema type: unspecified Qualified Code(s): L30.9 - Dermatitis, unspecified (2) Hypertension Hypertension type: essential hypertension Qualified Code(s): I10 - Essential (primary) hypertension
--- NOTE | 2018-12-16 23:40 | Emergency Department Note ---
Entered by Jeremias Jones acting as a scribe for Brandon Hermosillo MD History of Present Illness General Chief complaint: Skin Problem Stated complaint: SENT FROM , CT SCAN, INFECTION IN FACE Time Seen by Provider: 12/14/18 19:27 Source: patient History of Present Illness Provider complaint: Infection Onset (ago): hour(s) (Today) Location: face Pain Consistency: + other (Worsening) Maximum Pain Intensity: 2 Relieved By: + none Exacerbated By: + none Associated symptoms: + headaches and + rash; no fever/chills The patient is a 78 year old male who presents to the Emergency Room with complaints of an infection that started today and has worsened. The patient has a rash that is on his face, especially on the right side and spreads across his forehead. The patient notes the rash is not itchy and he has not used any new detergents or soaps. He also has a headache that is localized across his forehead, but he denies any eye pain or discharge. The patient has not taken any medication for his headache. He is on blood thinners. Home Medications Home Medications Medication Instructions Recorded Confirmed Type amlodipine 5 mg PO DAILY 12/14/18 12/14/18 History aspirin 81 mg PO DAILY 12/14/18 12/14/18 History atenolol 50 mg PO DAILY 12/14/18 12/14/18 History atorvastatin 40 mg PO DAILY 12/14/18 12/14/18 History clopidogrel 75 mg PO DAILY 12/14/18 12/14/18 History multivitamin 1 tab PO DAILY 12/14/18 12/14/18 History Allergies Allergy/AdvReac Type Severity Reaction Status Date / Time No Known Allergies Allergy Unverified 01/25/16 09:42 Past Med/Surg History Medical History Hypertension (Chronic) Dehydration (Acute) Dyslipidemia History of CVA (cerebrovascular accident) Surgical History S/P eye surgery Family History Other Family history non-contributory Social History Preferred Language: Belarusian Communication Ability: Effective [employer] Required: No Beliefs That Will Affect Care: None Current Living Situation: Spouse Other Information That Helps Us Care for You: No Feels Safe at Home: Yes Safety Concerns: Feels Safe At This Time Smoking Status: Former smoker Tobacco Type: cigarettes Do You Dip or Chew Tobacco: No Smoking End Date: pt was 28 years old when he quit smoking Second Hand Exposure: No Hx Alcohol Use: No Hx Substance Use: No Review of Systems See HPI for pertinent positives & negatives. and A total of 10 systems reviewed and were otherwise negative Physical Exam Vital Signs Vital Signs - 24 hr 12/16/18 00:00 12/16/18 07:19 12/16/18 15:33 Temperature 36.7 C 36.3 C L 36.6 C Temperature Source Oral Oral Oral Pulse Rate [Right Finger] 72 71 69 Respiratory Rate 20 16 18 Respiratory Depth Normal Blood Pressure [Left Arm] 111/69 146/74 H 118/78 Blood Pressure [Right Arm] Blood Pressure Mean [Left Arm] 83 98 91 Blood Pressure Mean [Right Arm] Blood Pressure Position [Left Arm] Lying Lying Lying Blood Pressure Position [Right Arm] Pulse Oximetry 96 100 99 Oxygen Delivery Method Room Air Room Air 12/16/18 23:35 Temperature 36.4 C L Temperature Source Oral Pulse Rate [Right Finger] 68 Respiratory Rate 18 Respiratory Depth Blood Pressure [Left Arm] Blood Pressure [Right Arm] 137/72 Blood Pressure Mean [Left Arm] Blood Pressure Mean [Right Arm] 93 Blood Pressure Position [Left Arm] Blood Pressure Position [Right Arm] Lying Pulse Oximetry 98 Oxygen Delivery Method Room Air GENERAL: Awake, alert, well-appearing, in no distress HENT: Normocephalic, atraumatic. Oropharynx unremarkable. EYES: Normal conjunctiva. Sclera non-icteric. NECK: Supple. No nuchal rigidity. FROM. No masses. RESPIRATORY: Clear to auscultation. No wheezes. No rales. Normal respiratory effort. CARDIAC: Normal rate. Normal rhythm. No murmurs. No rubs. Extremities warm and well perfused. Pulses equal. No JVD. GI: Soft, non-distended. No tenderness to palpation. No rebound or guarding. No masses. RECTAL: Deferred. MUSCULOSKELETAL: Atraumatic. Chest examination reveals no tenderness. The back is symmetrical on inspection without obvious abnormality. There is no CVA tenderness to palpation. No joint edema. LOWER EXTREMITIES: Calves are equal size bilaterally and non-tender. No edema. No discoloration. NEURO: Normal sensorium. No sensory or motor deficits noted. SKIN: Facial rash on the right side of his face that spreads across the forehead with blisters present. Course 1929: The patient was evaluated in room B06, and a complete history and physical examination were performed. 2039: I updated the patient on results and we discussed the treatment plan. 2119: I spoke to Dr. Angelito Junior [facility] Hospitalist about the patient's case and she is going to accept him for further evaluation. Consultations Consultation #1: I spoke to Dr. Angelito Junior [facility] Hospitalist about the patient's case and she is going to accept him for further evaluation. Time: 21:20 Administered Medications Amlodipine Besylate (Norvasc) 5 mg PO DAILY [facility] Stop: 01/14/19 08:59 Last Admin: 12/16/18 08:06 Dose: 5 mg Documented by: [id number] Admin: 12/15/18 09:15 Dose: 5 mg Documented by: [id number] Aspirin (Ecotrin Ectab) 81 mg PO DAILY [facility] Stop: 01/14/19 08:59 Last Admin: 12/16/18 08:06 Dose: 81 mg Documented by: [id number] Admin: 12/15/18 09:16 Dose: 81 mg Documented by: [id number] Atenolol (Tenormin) 50 mg PO DAILY [facility] Stop: 01/14/19 08:59 Last Admin: 12/16/18 08:06 Dose: 50 mg Documented by: [id number] Admin: 12/15/18 09:16 Dose: 50 mg Documented by: [id number] Atorvastatin Calcium (Lipitor) 40 mg PO DAILY [facility] Stop: 01/14/19 08:59 Last Admin: 12/16/18 08:05 Dose: 40 mg Documented by: [id number] Admin: 12/15/18 09:16 Dose: 40 mg Documented by: [id number] Clopidogrel Bisulfate (Plavix) 75 mg PO DAILY [facility] Stop: 01/14/19 08:59 Last Admin: 12/16/18 08:05 Dose: 75 mg Documented by: [id number] Admin: 12/15/18 09:15 Dose: 75 mg Documented by: [id number] Ceftriaxone Sodium 2,000 mg/ (Dextrose) 70 mls @ 100 mls/hr IV Q24H [facility]; Protocol Stop: 12/25/18 20:59 Last Infusion: 12/16/18 22:16 Dose: 0 mls/hr Documented by: [id number] Admin: 12/16/18 21:00 Dose: 100 mls/hr Documented by: [id number] Infusion: 12/15/18 22:30 Dose: 0 mls/hr Documented by: [id number] Admin: 12/15/18 21:24 Dose: 100 mls/hr Documented by: [id number] Lactobacillus Acidophilus (Floranex) 4 tab PO TIDM [facility] Stop: 01/15/19 16:59 Last Admin: 12/16/18 16:51 Dose: 4 tab Documented by: [id number] Multi-Ingredient Cream (Hydrocerin) 1 appln EXT TID [facility]NIE Stop: 01/15/19 15:29 Last Admin: 12/16/18 21:02 Dose: 1 appln Documented by: [id number] Admin: 12/16/18 16:08 Dose: 1 appln Documented by: [id number] Multivitamins (Multivitamin Tab) 1 tab PO DAILY [facility] Stop: 01/14/19 08:59 Last Admin: 12/16/18 08:05 Dose: 1 tab Documented by: [id number] Admin: 12/15/18 09:16 Dose: 1 tab Documented by: [id number] Triamcinolone Acetonide (Aristocort 0.1%) 1 appln EXT TID RONNIE Stop: 01/15/19 15:34 Last Admin: 12/16/18 21:02 Dose: 1 appln Documented by: [id number] Admin: 12/16/18 16:08 Dose: 1 appln Documented by: [id number] Discontinued Medications Ceftriaxone Sodium (Rocephin) Confirm Administered Dose 1,000 mg .ROUTE .STK-MED ONE Stop: 12/14/18 21:05 Last Admin: 12/14/18 21:05 Dose: 1,000 mg Documented by: [id number] Sodium Chloride (Nss 1000ml) 1,000 mls @ 999 mls/hr IV .Q1H1M [facility] Stop: 12/14/18 20:45 Last Infusion: 12/14/18 21:41 Dose: 0 mls/hr Documented by: [id number] Admin: 12/14/18 19:59 Dose: 999 mls/hr Documented by: [id number] Ceftriaxone Sodium 1,000 mg/ (Dextrose) 60 mls @ 100 mls/hr IV NOW STA Stop: 12/14/18 21:29 Last Admin: 12/14/18 21:05 Dose: Not Given Documented by: [id number] Vancomycin HCl 2,250 mg/ (Sodium Chloride) 545 mls @ 200 mls/hr IV ONE ONE; Protocol Stop: 12/15/18 03:28 Last Infusion: 12/15/18 04:25 Dose: 0 mls/hr Documented by: [id number] Admin: 12/15/18 01:10 Dose: 200 mls/hr Documented by: [id number] Vancomycin HCl 2,000 mg/ (Sodium Chloride) 540 mls @ 200 mls/hr IV TODAY@1600 ONE Stop: 12/16/18 18:41 Last Infusion: 12/16/18 20:04 Dose: 0 mls/hr Documented by: [id number] Admin: 12/16/18 16:48 Dose: 200 mls/hr Documented by: [id number] Trimethoprim/Sulfamethoxazole (Septra Ds 800/160mg Tab) 1 tab PO NOW ONE Stop: 12/14/18 20:55 Last Admin: 12/14/18 21:05 Dose: 1 tab Documented by: [id number] Valacyclovir HCl (Valtrex) 1,000 mg PO NOW ONE Stop: 12/14/18 19:37 Last Admin: 12/14/18 19:59 Dose: 1,000 mg Documented by: [id number] Medical Decision Making Differential Diagnosis Differential Diagnosis includes but is not limited to headache, tension headache, cluster headache, migraine, subarachnoid hemorrhage, meningitis, mass, central venous thrombus, concussion, trauma and epidural/subdural hemorrhage. Medical Records Attestation: I reviewed the patient's medical records. Home Medications Current Medication List: was personally reviewed by me Laboratory Data Attestation: I reviewed the patient's lab results. Result diagrams: 12/15/18 08:24 12/15/18 08:24 Lab Results 12/14/18 12/14/18 12/15/18 Range/Units 20:00 20:00 00:45 WBC 15.59 H (4.8-10.8) K/uL RBC 4.70 (4.7-6.1) M/uL Hgb 14.9 (14.0-18.0) g/dL Hct 41.6 L (42-52) % MCV 88.5 (80-100) fL MCH 31.7 (25-34) pg MCHC 35.8 (32-36) g/dL RDW Std Deviation 44.7 (36.4-46.3) fL RDW Coeff of Anne-Marie 13.6 (11.5-14.5) % Plt Count 212 (130-400) K/uL MPV 10.2 (7.4-10.4) fL Immature Gran % (Auto) 0.3 % Neut % (Auto) 87.7 % Lymph % (Auto) 5.9 % [place] % (Auto) 5.7 % Eos % (Auto) 0.1 % Baso % (Auto) 0.3 % Immature Gran # (Auto) 0.04 H (0.00-0.02) K/uL Neut # (Auto) 13.68 H (1.4-6.5) K/uL Lymph # (Auto) 0.92 L (1.2-3.4) K/uL [place] # (Auto) 0.89 H (0.11-0.59) K/uL Eos # (Auto) 0.02 (0-0.5) K/uL Baso # (Auto) 0.04 (0-0.2) K/uL Sodium 133 L (136-145) mmol/L Potassium 4.1 (3.5-5.1) mmol/L Chloride 101 (98-107) mmol/L Carbon Dioxide 26 (21-32) mmol/L Anion Gap 6.0 (3-11) BUN 14 (7-18) mg/dl Creatinine 1.55 H (0.6-1.4) mg/dl Est Cr Clr Drug Dosing 42.9 ml/min Est GFR ( Amer) 49.7 Est GFR (Non-Af Amer) 42.8 BUN/Creatinine Ratio 8.8 L (10-20) Glucose 132 H (70-99) mg/dl Calcium 9.1 (8.5-10.1) mg/dl Phosphorus 2.5 (2.5-4.9) mg/dl Magnesium 2.0 (1.8-2.4) mg/dl Total Bilirubin 0.9 (0.2-1) mg/dl AST 12 L (15-37) U/L ALT 24 (12-78) U/L Alkaline Phosphatase 62 (45-117) U/L Total Creatine Kinase 110 (39-308) U/L Total Protein 8.0 (6.4-8.2) gm/dl Albumin 3.6 (3.4-5.0) gm/dl Globulin 4.4 H (2.5-4.0) gm/dl Albumin/Globulin Ratio 0.8 L (0.9-2) TSH 0.431 (0.300-4.500) uIu/ml Urine Color Urine Appearance (Clear) Urine pH (4.5-7.5) Ur Specific [place] (1.000-1.030) Urine Protein (Negative) Urine Glucose (UA) (Negative) Urine Ketones (Negative) Urine Blood (Negative) Urine Nitrite (Negative) Urine Bilirubin (Negative) Urine Urobilinogen (Negative) Ur Leukocyte Esterase (Negative) 12/15/18 12/15/18 12/15/18 Range/Units 05:30 08:24 08:24 WBC 14.60 H (4.8-10.8) K/uL RBC 4.21 L (4.7-6.1) M/uL Hgb 12.9 L (14.0-18.0) g/dL Hct 37.5 L (42-52) % MCV 89.1 (80-100) fL MCH 30.6 (25-34) pg MCHC 34.4 (32-36) g/dL RDW Std Deviation 45.2 (36.4-46.3) fL RDW Coeff of Anne-Marie 13.8 (11.5-14.5) % Plt Count 202 (130-400) K/uL MPV 10.0 (7.4-10.4) fL Immature Gran % (Auto) 0.3 % Neut % (Auto) 83.4 % Lymph % (Auto) 7.5 % [place] % (Auto) 7.1 % Eos % (Auto) 1.4 % Baso % (Auto) 0.3 % Immature Gran # (Auto) 0.04 H (0.00-0.02) K/uL Neut # (Auto) 12.18 H (1.4-6.5) K/uL Lymph # (Auto) 1.10 L (1.2-3.4) K/uL [place] # (Auto) 1.03 H (0.11-0.59) K/uL Eos # (Auto) 0.21 (0-0.5) K/uL Baso # (Auto) 0.04 (0-0.2) K/uL Sodium 138 (136-145) mmol/L Potassium 3.8 (3.5-5.1) mmol/L Chloride 106 (98-107) mmol/L Carbon Dioxide 23 (21-32) mmol/L Anion Gap 9.0 (3-11) BUN 13 (7-18) mg/dl Creatinine 1.31 (0.6-1.4) mg/dl Est Cr Clr Drug Dosing 50.7 ml/min Est GFR ( Amer) 60.9 Est GFR (Non-Af Amer) 52.5 BUN/Creatinine Ratio 9.8 L (10-20) Glucose 113 H (70-99) mg/dl Calcium 8.7 (8.5-10.1) mg/dl Phosphorus (2.5-4.9) mg/dl Magnesium (1.8-2.4) mg/dl Total Bilirubin (0.2-1) mg/dl AST (15-37) U/L ALT (12-78) U/L Alkaline Phosphatase (45-117) U/L Total Creatine Kinase (39-308) U/L Total Protein (6.4-8.2) gm/dl Albumin (3.4-5.0) gm/dl Globulin (2.5-4.0) gm/dl Albumin/Globulin Ratio (0.9-2) TSH (0.300-4.500) uIu/ml Urine Color Yellow Urine Appearance Clear (Clear) Urine pH 6.5 (4.5-7.5) Ur Specific [place] 1.013 (1.000-1.030) Urine Protein Negative (Negative) Urine Glucose (UA) Negative (Negative) Urine Ketones Negative (Negative) Urine Blood Negative (Negative) Urine Nitrite Negative (Negative) Urine Bilirubin Negative (Negative) Urine Urobilinogen Negative (Negative) Ur Leukocyte Esterase Negative (Negative) Imaging Data Radiologist's Impression: Radiology results as stated below per my review and the radiologist's interpretation: XR chest 1V portable HISTORY: 78 years-old Male weakness acute weakness COMPARISON: Chest radiograph and CT chest 05/02/2017 TECHNIQUE: Portable AP view of the chest FINDINGS: Cardiomediastinal and hilar silhouettes are within normal limits. There is no pneumothorax, pleural effusion, lobar airspace consolidation or overt pulmonary edema. Segmental atelectasis/scarring about the lung bases. Small hiatal hernia. Degenerative changes of the shoulders and spine. IMPRESSION: 1. Mild subsegmental atelectasis/scarring of the left lung base. 2. Small hiatal hernia. The above report was generated using voice recognition software. It may contain grammatical, syntax or spelling errors. Electronically signed by: Fidel Newsome M.D. 12/14/2018 8:[address] head/brain wo con CLINICAL HISTORY: 78 years-old Male with Pt c/o headache. Acute headache TECHNIQUE: Multiple axial CT images of the head were obtained without contrast. A dose lowering technique was utilized adhering to the principles of ALARA. CT DOSE: 537.48 mGy.cm COMPARISON: CT head 05/02/2017. FINDINGS: No acute intracranial hemorrhage, midline shift, intracranial mass, hydrocephalus, territorial ischemia or new abnormal extra-axial collection. Age- related involutional changes. 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 Patchy white matter hypodensities suggest chronic microvascular ischemic disease. Cerebral vascular calcifications are noted. The calvarium is intact. Large right marifer bullosa. The paranasal sinuses, mastoid air cells, and middle ear cavities are clear. IMPRESSION: No acute intracranial abnormality. The above report was generated using voice recognition software. It may contain grammatical, syntax or spelling errors. Electronically signed by: Fidel Newsome M.D. 12/14/2018 8:53 PM Blood Pressure Blood Pressure Findings: Elevated blood pressure Blood Pressure Disposition: further management by hospitalist MDM Narrative This is a 78-year-old male who presents emergency department complaining of right-sided facial cellulitis that extends across the forehead. The patient also almost presents like this is shingles however he does have an elevation in his white blood cell count and has chills based on this cultures were obtained and the patient was started on Rocephin as well as vancomycin. Because of the involvement of a significant amount of the face I did discuss the case with the hospitalist service who agreed to admit the patient. Patient was in agreement with the treatment plan. Impression & Plan Cellulitis of face Discharge Plan Visit Data *Final* Discharge Date/Time: 12/14/18 23:39 Chief Complaint: Skin Problem Stated Complaint: SENT FROM DR, CT SCAN, INFECTION IN FACE Other Complaint: Illness ED Provider: Brandon Hermosillo Discharge Problem: Cellulitis of face Patient Disposition: Admitted As Inpatient Discharge Instructions Interventions: ED Discharge Assessment Last Done: 12/14/18 23:39 The scribe's documentation has been prepared under my direction and personally reviewed by me in its entirety. I confirm that the note above accurately reflects all work, treatment, procedures, and medical decision making performed by me.
[2018-12-17] MEDS ORDERED: VANCOMYCIN TROUGH ONE (07:30)
[2018-12-17] MEDS: LACTOBACILLUS ACIDOPHILUS (FLORANEX) TAB PO SCH ×3 (07:57→17:58)
[2018-12-17] MEDS: TRIAMCINOLONE ACET 0.1% CR 80 GM TUBE EXT SCH ×3 (07:58→21:17)
[2018-12-17] MEDS: EUCERIN CR 120 GM JAR EXT SCH ×3 (07:58→21:17)
[2018-12-17] MEDS: AMLODIPINE BESYLATE 5 MG TAB PO SCH (07:59)
[2018-12-17] MEDS: CLOPIDOGREL BISULFATE 75 MG TAB PO SCH (07:59)
[2018-12-17] MEDS: ATENOLOL 50 MG TABLET PO SCH (07:59)
[2018-12-17] MEDS: MULTIVITAMIN TAB PO SCH (07:59)
[2018-12-17] MEDS: ATORVASTATIN 40 MG TAB PO SCH (07:59)
[2018-12-17] MEDS: ASPIRIN 81 MG ECTAB PO SCH (08:00)
[2018-12-17 08:27] LABS: INR 1.1 (0.9-1.1); Partial Thromboplastin Ratio 0.9; Partial Thromboplastin Time 25.7 Seconds (21.0-31.0); Prothrombin Time 10.8 Seconds (9.0-12.0)
[2018-12-17 08:46] LABS: Creatinine Clr Calc Pharmacy 49.6 ml/min; Est GFR (African American) 59.2; Est GFR (Non-African American) 51.1
[2018-12-17] MEDS: ENOXAPARIN INJ 40 MG/0.4 ML SYR SQ SCH (10:13)
[2018-12-17] MEDS: VANCOMYCIN HCL 1,250 MG in SODIUM CHLORIDE 0.9% 250 ML IV SCH (10:14)
[2018-12-17] MEDS: cefTRIAXone SODIUM 2,000 MG in DEXTROSE 5% 50 ML IV SCH (21:17)
--- NOTE | 2018-12-17 22:16 | Hospitalist Progress Note ---
Date of Service December 17, 2018 Assessment & Plan (1) Cellulitis of face: RIGHT. Continues to improve. MRSA swab +. Cont rocephin and vanco. Hopefully transition to PO abx tomorrow. (2) Eczema: eucerin cream with triamcinolone cream TID to dorsum of both feet. (3) Hypertension: cont home meds (4) Dyslipidemia: statin (5) History of CVA (cerebrovascular accident): noted 2016 - right sided hemispheric embolic strokes on MRI from that admission cont asa, plavix for secondary prevention cont statin (6) DVT prophylaxis: lovenox 40mg daily updated by phone today Subjective right facial cellulitis improved less "tight" feeling rash on feet improved no diarrhea hoping for d/c today Review of Systems Constitutional: no fever and no chills Respiratory: no dyspnea Cardiovascular: no chest pain Physical Exam Constitutional: WD/WN, vitals as above no acute distress Respiratory: normal respiratory effort, lungs clear to auscultation Cardiovascular: RRR, no murmur, no edema Heart Sounds: normal S1 and normal S2 Vessels: posterior tibial pulses present and dorsalis pedis pulses present Gastrointestinal (Abdomen): normal bowel sounds, soft, nontender, no hepatosplenomegaly Skin: right facial cellulitis much improved; less redness and swelling; edema around right eye also improved; eczema on both feet (dorsum) improved Psychiatric: A+Ox3, euthymic affect Results & Data Vital Signs (Past 12 Hours) Vital Signs Temp Pulse Resp BP Pulse Ox 12/17/18 15:18 36.7 C 62 18 121/74 95 Laboratory Results Laboratory Results - last 24 hr 12/17/18 12/17/18 12/17/18 07:32 07:36 Unknown PT 10.8 INR 1.1 APTT 25.7 PTT Ratio 0.9 Creatinine 1.34 Est Cr Clr Drug Dosing 49.6 Est GFR ( Amer) 59.2 Est GFR (Non-Af Amer) 51.1 Nasal Screen MRSA (PCR) Positive A (1) Eczema Eczema type: unspecified Qualified Code(s): L30.9 - Dermatitis, unspecified (2) Hypertension Hypertension type: essential hypertension Qualified Code(s): I10 - Essential (primary) hypertension
[2018-12-18] MEDS: VANCOMYCIN HCL 1,250 MG in SODIUM CHLORIDE 0.9% 250 ML IV SCH (05:00)
[2018-12-18] MEDS: LACTOBACILLUS ACIDOPHILUS (FLORANEX) TAB PO SCH (09:14)
[2018-12-18] MEDS: MULTIVITAMIN TAB PO SCH (09:14)
[2018-12-18] MEDS: ENOXAPARIN INJ 40 MG/0.4 ML SYR SQ SCH (09:15)
[2018-12-18] MEDS: ASPIRIN 81 MG ECTAB PO SCH (09:15)
[2018-12-18] MEDS: CLOPIDOGREL BISULFATE 75 MG TAB PO SCH (09:15)
[2018-12-18] MEDS: ATENOLOL 50 MG TABLET PO SCH (09:15)
[2018-12-18] MEDS: ATORVASTATIN 40 MG TAB PO SCH (09:15)
[2018-12-18] MEDS: AMLODIPINE BESYLATE 5 MG TAB PO SCH (09:15)
[2018-12-18] MEDS: EUCERIN CR 120 GM JAR EXT SCH (09:16)
[2018-12-18] MEDS: TRIAMCINOLONE ACET 0.1% CR 80 GM TUBE EXT SCH (09:16)
[2018-12-18 09:43] LABS: Calcium 9.1 mg/dl (8.5-10.1); Creatinine Clr Calc Pharmacy 49.6 ml/min; Est GFR (African American) 59.2; Est GFR (Non-African American) 51.1; Potassium 3.9 mmol/L (3.5-5.1)
[2018-12-20] MEDS ORDERED: VANCOMYCIN TROUGH ONE (09:30)
--- NOTE | 2018-12-24 08:58 | Discharge Summary ---
Date of Service date of admission - December 15, 2018 date of discharge - December 18, 2018 Admission HPI Per Admitting Provider 78yo C male with history of HTN, hyperlipidemia, and prior CVA presenting with facial redness which started today. Patient reported two days of weakness and fatigue as well as frontal headache. Seen by PCP today and found to have warmth, redness and pain of right face. Patient denies trauma. No recent dental procedures. No change in detergents or facial products. He has chronic eczema, however, new to the face over the last two days. Also worsening eye drainage. ER Course: Ceftriaxone, NSS, Bactrim Principal Diagnosis right-sided facial cellulitis Discharge Exam Constitutional WD/WN, vitals as above no acute distress Respiratory normal respiratory effort, lungs clear to auscultation Cardiovascular RRR, no murmur, no edema Heart Sounds: normal S1 and normal S2 Vessels: posterior tibial pulses present and dorsalis pedis pulses present Gastrointestinal (Abdomen) normal bowel sounds, soft, nontender, no hepatosplenomegaly Skin minimal right-sided facial erythema (pink at most) particularly from the right methodist down to the jaw; mild scaling noted primarily over the right cheek; eczema patches b/l feet (dorsum) Psychiatric A+Ox3, euthymic affect Lymphatic no cervical lymphadenopathy Discharge Data Allergies Allergy/AdvReac Type Severity Reaction Status Date / Time No Known Allergies Allergy Unverified 01/25/16 09:[address] head - FINDINGS: No acute intracranial hemorrhage, midline shift, intracranial mass, hydrocephalus, territorial ischemia or new abnormal extra-axial collection. Age- related involutional changes. 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 Patchy white matter hypodensities suggest chronic microvascular ischemic disease. Cerebral vascular calcifications are noted. The calvarium is intact. Large right marifer bullosa. The paranasal sinuses, mastoid air cells, and middle ear cavities are clear. IMPRESSION: No acute intracranial abnormality. Hospital Course (1) Cellulitis of face: RIGHT. MRSA [employer] swab was indeed POSITIVE. He received a combination of IV rocephin and vancomycin during his stay with steady clinical improvement. He had a significant amount of scaling skin on the face - it was uncertain if this was due to strep or staph infection, or if from baseline eczema. Either way he clinically improved and will discharge home on a 7-day course of KEFLEX, BACTRIM, AND PROBIOTICS. He will have follow-up within 3 days of discharge to re-examine the face and ensure clinical resolution. (2) Eczema: Eucerin cream with triamcinolone cream TID to dorsum of both feet. Improved with such while here. May have had a component of eczema to the face as well. (3) Hypertension: Controlled. He will continue his usual medications post-discharge. (4) Dyslipidemia: Continue statin agent. (5) History of CVA (cerebrovascular accident): Occurred in 2016 - right sided hemispheric embolic strokes were noted on MRI from that admission. cont asa, plavix for secondary prevention. cont statin. (6) Abnormal head CT: There was mention of a possible subdural hygroma but there is no history of trauma or prior SDH. Outpatient follow-up advised. Total Time Total Time Spent Total Time Spent (In Minutes): 30 Total Time Includes: Examination of the Patient, Discharge Planning and Medication Reconciliation Discharge Plan Discharge Items Patient Disposition: Home - Self-Care Reason For Visit: FACIAL CELLULITIS Discharge Diagnosis: right-sided facial cellulitis Discharge Goals: Diagnostic testing and Therapeutic intervention Activity: Resume your previous activity Non-emergency contact: Primary Care Provider Call non-emergency contact if: you have any medication questions, your symptoms worsen and your temperature is above 100.5 Follow-up/Referrals: Dillon La, [Primary Care Provider] - 12/21/18 12:50 pm (Please, follow up at Dr. La's office with his associate, Dr. Jett, on FridayDecember 21 at 12:50 pm. *If you need to change this appointment, call the office at [phone].) Diet: Heart Healthy Add Provider Instructions: From Toni Amador - Hospitalist- You were treated for right-sided facial cellulitis (skin infection). You improved nicely with 4 days of IV antibiotics. We tested you for a common bacterium called "MRSA" (methicillin-resistant staph aureus) via a nasal swab and this returned positive. About 2-3% of Americans will test positive in the nose for MRSA at any given time. You can have the nasal MRSA test repeated in the future to determine if your body has "cleared" it from the nose or if you are a carrier of it. Your primary care doctor can repeat this for you. At this time please - 1. take cephalexin antibiotic THREE TIMES A DAY for 7 days; start this TONIGHT at bedtime. 2. take bactrim (sulfa-trimethoprim) antibiotic TWICE A DAY for 7 days; start this TONIGHT at bedtime. 3. take probiotics (saccharomyces) for 10 days. These may help prevent diarrhea from your 2 antibiotics. Eat plenty of yogurt the next few days. 4. ok to apply small amount of moisturizer to the scaly areas on the right side of your face. 5. with respect to your feet - continue the triamcinolone steroid cream three times a day in thin amounts for another 3-4 days. You can mix the steroid cream with any moisturizer of your choosing. 6. with respect to the MRSA - you don't have to "isolate" yourself at home b ecause of testing positive for this. Remember this organism is EVERYWHERE in our environment and community (schools, churches, grocery store, etc). Try to avoid, however, touching your nose. Practice good handwashing on a regular basis at home. Follow-up -- see your family doctor THIS FRIDAY. Return to [facility] if -- * you have fevers over 100.5 degrees * you have worsening redness, swelling, pain, drainage, etc from the face * you develop severe diarrhea * any other concerns Prescriptions: New triamcinolone acetonide 0.1 % Cream 1 applic EXT TID Qty: 1 RF: 0 sulfamethoxazole-trimethoprim [Bactrim DS] 800-160 mg tablet 1 tab PO BID 7 Days Qty: 14 RF: 0 cephalexin [Keflex] 500 mg capsule 500 mg PO TID 7 Days Qty: 21 RF: 0 Saccharomyces boulardii 250 mg capsule 250 mg PO DAILY 10 Days Qty: 10 RF: 0 Continued multivitamin Tablet 1 tab PO DAILY RF: 0 atorvastatin 40 mg tablet 40 mg PO DAILY RF: 0 clopidogrel 75 mg tablet 75 mg PO DAILY RF: 0 amlodipine 5 mg tablet 5 mg PO DAILY RF: 0 aspirin 81 mg Tablet,Delayed Release (Dr/Ec) 81 mg PO DAILY RF: 0 atenolol 50 mg Tablet 50 mg PO DAILY RF: 0 Stand-Alone Forms: My [facility] Discharge Orders: Discharge Order (Routine); Ordered 12/18/18 Ordered By: Toni Amador Admission Data Admit Date/Time: 12/14/18 23:02 Attending Provider: Toni Amador Admit Provider: Hollie Eaton Primary Care Provider: Dillon La Service: Medical Other Interventions: Discharge Summary Assessment (RN) Last Done: 12/18/18 11:54 Pending Studies at Discharge: No DC Date/Time DO NOT enter until pt leaves facility: 12/18/18 13:29
== END 2018-12-18 13:29 | disposition home or self-care (01) | DRG 603 ==
LOC: ED 19:19 → SUATTDRO 23:02 → 4W 23:02
DX: Z86.73 Personal history of transient ischemic attack (TIA), and cerebral infarction without residual deficits; Z79.899 Other long term (current) drug therapy; E78.5 Hyperlipidemia, unspecified; Z79.82 Long term (current) use of aspirin; I87.2 Venous insufficiency (chronic) (peripheral); L30.9 Dermatitis, unspecified; I10 Essential (primary) hypertension; Z79.02 Long term (current) use of antithrombotics/antiplatelets; A46 Erysipelas; L03.211 Cellulitis of face

== ENCOUNTER 2019-03-27 08:07 | Inpatient (IN) ==
[2019-03-27] MEDS ORDERED: VANCOMYCIN CONSULT ACTIVE PRN ×2 (08:48→11:23)
[2019-03-27] MEDS ORDERED: CEFEPIME 2,000 MG/20 ML VIAL IV STA (08:48)
[2019-03-27] MEDS ORDERED: VANCOMYCIN HCL 2,250 MG in SODIUM CHLORIDE 0.9% 500 ML IV ONE (08:48)
--- NOTE | 2019-03-27 08:52 | Emergency Department Note ---
ED Provider Note CHIEF COMPLAINT: Left ear pain, redness, swelling HISTORY OF PRESENTING ILLNESS: This is a 78-year-old male with past medical history significant for hypertension, dyslipidemia, CVA, and recent hospitalization for facial cellulitis and MRSA infection 3 months ago, who presents to the emergency department by private vehicle with complaint of 2 days of left ear pain, redness, and swelling. The patient states a few days ago he was taking in the left ear to get earwax out, he thinks may be scratch the inside of the ear. He has had increasing pain in the left ear since yesterday, and today when he woke up his entire ear and the side of his face was red and swollen, and is also somewhat painful. He has had some associated chills with this, but is unsure of any fevers and has not checked his temperature. He describes the pain is here as constant, aching and throbbing, and rates it as 3/10. He has taken Tylenol and ibuprofen for his symptoms, his last dose was this morning at 2 AM. He denies any headaches, blurry or double vision, neck pain or stiffness, chest pain, shortness of breath, dizziness or syncope, abdominal pain, nausea or vomiting urinary complaints, or unusual rash. He denies any known insect bites or tick bites. REVIEW OF SYSTEMS: A complete 10 point review of systems was reviewed with the patient with pertinent positives and negatives as per history of present illness. All else were negative. PAST MEDICAL HISTORY: Hypertension, dyslipidemia, history of CVA, history of MRSA cellulitis SOCIAL HISTORY: Lives at home with his , denies tobacco use ALLERGIES: No known allergies PHYSICAL EXAM: CONSTITUTIONAL: Pleasant and cooperative. Nontoxic-appearing and in no acute distress. Well appearing and well nourished. HEENT: Normocephalic, atraumatic. PERRL, EOMI. TMs not visualized bilaterally due to cerumen impaction. The left ear canal is narrowed and slightly edematous, but does not appear erythematous. It is tender to palpation. The entire left external ear is edematous, erythematous, warm to the touch, and tender to palpation. There is some preauricular adenopathy and tenderness. Th ere is surrounding erythema and induration extending anteriorly and posteriorly of the ear which appears consistent with cellulitis. Pharynx normal. Airway patent. NECK: Supple, full active range of motion without discomfort. No cervical adenopathy. RESPIRATORY: Clear to auscultation bilaterally with no wheezing, crackles, rhonchi or stridor. Equal expansion bilaterally. CARDIOVASCULAR: Regular rate and rhythm with no murmurs, rubs or gallops. Normal peripheral perfusion. No edema. GASTROINTESTINAL: Soft, nontender, nondistended. No palpable masses or HSM. Bowel sounds present in all quadrants. MUSCULOSKELETAL: Full range of motion of all joints without discomfort. INTEGUMENTARY: No rash or other significant dermatologic conditions noted. NEUROLOGIC: Alert and oriented X 4 with normal affect. Cranial nerves II-XII grossly intact, no facial droop. No focal neurologic deficits noted. Normal strength and sensation in all 4 extremities. Normal speech. Normal gait observed. ED COURSE AND MEDICAL DECISION MAKING: CC: Patient presenting with complaint of left ear swelling, redness, pain DIFFERENTIAL DIAGNOSIS: Includes, but not limited to cellulitis, mastoiditis, otitis media, otitis externa, bacteremia/sepsis, among others. INTERPRETATION OF LABS: No leukocytosis, no anemia, normal platelets, no significant electrolyte abnormalities, elevated creatinine (appears consistent with baseline), normal liver enzymes. Lactic acid within normal limits. Procalcitonin pending IMAGING: CT mastoid wo con CT DOSE: 639.24 mGy.cm CLINICAL HISTORY: left ear and face cellulitis TECHNIQUE: Unenhanced images were acquired through the mastoids. Sagittal and axial reformatted images were reviewed. A dose lowering technique was utilized adhering to the principles of ALARA. COMPARISON STUDY: Noncontrast head CT dated 12/14/2018 FINDINGS: The mastoid air cells are symmetrically aerated. The middle ear cavities are well aerated. The scutum appears intact bilaterally. There is prominent soft tissue edema involving the left ear. IMPRESSION: 1. No evidence of acute mastoiditis 2. No abnormalities the middle ear cavities are visualized 3. Prominent soft tissue edema of the left ear MEDICATION RECONCILIATION: I attest that I have personally reviewed the patient's current medication list. INITIAL VITAL SIGNS REVIEW: I reviewed the patient's initial vital signs and interpret them as follows: T: Afebrile; BP: Hypertensive; HR: Within normal limits; RR: Within normal limits; Pulse Ox: Within normal limits on room air. Blood pressure screening: The patient was found to have an elevated blood pressure, which was felt to be situational. MDM SUMMARY: Patient was evaluated at bedside, history and physical exam performed. Patient is alert and oriented, in no acute distress, resting calmly on the stretcher. The left external ear is significantly swollen, erythematous, and warm to the touch. The left ear canal is slightly swollen, but no significant erythema or drainage noted. There is erythema and induration extending anteriorly and posteriorly around the which appears consistent with cellulitis. The patient is nontoxic-appearing and afebrile. He is neurologically intact. Orders were placed at bedside for labs, blood cultures x2, lactic acid, CT mastoid to evaluate for mastoiditis/your cellulitis. Patient discussed with Dr. zuluaga, who also evaluated the patient and agrees with my assessment, plan, and disposition. Labs and imaging reviewed as above, no leukocytosis and lactic acid within normal limits. CT findings noting prominent soft tissue edema of the left ear consistent with cellulitis, but no evidence of acute mastoiditis. Cefepime and vancomycin were ordered for broad coverage of cellulitis, given the patient's recent facial cellulitis admission and positive MRSA in the past. Given the ear involvement, pseudomonal coverage was also included with the cefepime. Patient reassessed multiple times throughout ED stay, he has remained hemodynamically stable and afebrile. I spoke on the phone with Dr. Ibarra, [facility] service, who agrees to evaluate the patient for admission. The patient was updated on all results and plan for admission, he verbalized understanding and was agreeable to this plan. The patient was stable at time of admission. The chart was completed utilizing [employer] Speech voice recognition software. Grammatical errors, random word insertions, pronoun errors, and incomplete se ntences are an occasional consequence of this system due to software limitations, ambient noise, and hardware issues. Any formal questions or concerns about the content, text, or information contained within the body of this dictation should be directly addressed to the nurse practitioner for janina vazquez. Impression & Plan Cellulitis of face, Cellulitis of helix of left ear Past Med/Surg History Medical History Hypertension (Chronic) Dehydration (Acute) Dyslipidemia History of CVA (cerebrovascular accident) Surgical History (Reviewed 03/27/19 @ 10:32 by CORKY Wheeler S/P eye surgery Family History Other Family history non-contributory Social History Preferred Language: Armenian Communication Ability: Effective Filer Metal Patterns Required: No Beliefs That Will Affect Care: None marital status: Current Living Situation: Spouse and Family Feels Safe at Home: Yes Smoking Status: Former smoker Tobacco Type: cigarettes ; Age Quit Using To bacco: 28 ; Second Hand Exposure: No ; Hx Alcohol Use: No Hx Substance Use: No Results & Data Vital Signs Vital Signs - 24 hr 03/27/19 08:08 Temperature 36.9 C Temperature Source Oral Sepsis Recent Fever Within 48 Hours No Sepsis Action Taken by Nursing No Action Required Pulse Rate 82 Respiratory Rate 20 Respiratory Effort / Characteristics Non-Labored Respiratory Depth Normal Blood Pressure 161/79 H Blood Pressure Mean 106 Pulse Oximetry 99 Oxygen Delivery Method Room Air Laboratory Data Result diagrams: 03/31/19 06:33 03/31/19 06:33 Lab Results 03/27/19 03/27/19 03/27/19 Range/Units 08:34 08:34 08:34 WBC 10.33 (4.8-10.8) K/uL RBC 4.68 L (4.7-6.1) M/uL Hgb 14.3 (14.0-18.0) g/dL Hct 41.4 L (42-52) % MCV 88.5 (80-100) fL MCH 30.6 (25-34) pg MCHC 34.5 (32-36) g/dL RDW Std Deviation 44.8 (36.4-46.3) fL RDW Coeff of Anne-Marie 13.9 (11.5-14.5) % Plt Count 160 (130-400) K/uL MPV 10.0 (7.4-10.4) fL Immature Gran % (Auto) 0.2 % Neut % (Auto) 82.2 % Lymph % (Auto) 7.6 % Tift % (Auto) 7.3 % Eos % (Auto) 2.4 % Baso % (Auto) 0.3 % Immature Gran # (Auto) 0.02 (0.00-0.02) K/uL Neut # (Auto) 8.49 H (1.4-6.5) K/uL Lymph # (Auto) 0.79 L (1.2-3.4) K/uL Tift # (Auto) 0.75 H (0.11-0.59) K/uL Eos # (Auto) 0.25 (0-0.5) K/uL Baso # (Auto) 0.03 (0-0.2) K/uL Sodium 140 (136-145) mmol/L Potassium 3.7 (3.5-5.1) mmol/L Chloride 108 H (98-107) mmol/L Carbon Dioxide 29 (21-32) mmol/L Anion Gap 4.0 (3-11) BUN 16 (7-18) mg/dl Creatinine 1.46 H (0.6-1.4) mg/dl Est Cr Clr Drug Dosing Not Reportable Est GFR ( Amer) 53.4 Est GFR (Non-Af Amer) 46.1 BUN/Creatinine Ratio 10.6 (10-20) Glucose 114 H (70-99) mg/dl Lactate (0.4-2.0) mmol/L Calcium 8.7 (8.5-10.1) mg/dl Total Bilirubin 0.5 (0.2-1) mg/dl AST 13 L (15-37) U/L ALT 23 (12-78) U/L Alkaline Phosphatase 47 (45-117) U/L Total Protein 7.5 (6.4-8.2) gm/dl Albumin 3.5 (3.4-5.0) gm/dl Globulin 4.0 (2.5-4.0) gm/dl Albumin/Globulin Ratio 0.9 (0.9-2) Procalcitonin 0.15 (0-0.5) ng/ml 03/27/19 Range/Units 09:00 WBC (4.8-10.8) K/uL RBC (4.7-6.1) M/uL Hgb (14.0-18.0) g/dL Hct (42-52) % MCV (80-100) fL MCH (25-34) pg MCHC (32-36) g/dL RDW Std Deviation (36.4-46.3) fL RDW Coeff of Anne-Marie (11.5-14.5) % Plt Count (130-400) K/uL MPV (7.4-10.4) fL Immature Gran % (Auto) % Neut % (Auto) % Lymph % (Auto) % Tift % (Auto) % Eos % (Auto) % Baso % (Auto) % Immature Gran # (Auto) (0.00-0.02) K/uL Neut # (Auto) (1.4-6.5) K/uL Lymph # (Auto) (1.2-3.4) K/uL Tift # (Auto) (0.11-0.59) K/uL Eos # (Auto) (0-0.5) K/uL Baso # (Auto) (0-0.2) K/uL Sodium (136-145) mmol/L Potassium (3.5-5.1) mmol/L Chloride (98-107) mmol/L Carbon Dioxide (21-32) mmol/L Anion Gap (3-11) BUN (7-18) mg/dl Creatinine (0.6-1.4) mg/dl Est Cr Clr Drug Dosing Est GFR ( Amer) Est GFR (Non-Af Amer) BUN/Creatinine Ratio (10-20) Glucose (70-99) mg/dl Lactate 1.2 (0.4-2.0) mmol/L Calcium (8.5-10.1) mg/dl Total Bilirubin (0.2-1) mg/dl AST (15-37) U/L ALT (12-78) U/L Alkaline Phosphatase (45-117) U/L Total Protein (6.4-8.2) gm/dl Albumin (3.4-5.0) gm/dl Globulin (2.5-4.0) gm/dl Albumin/Globulin Ratio (0.9-2) Procalcitonin (0-0.5) ng/ml Administered Medications Discontinued Medications Acetaminophen (Tylenol) 650 mg PO Q4H PRN PRN Reason: pain/fever Stop: 04/26/19 11:22 Last Admin: 03/27/19 23:48 Dose: 650 mg Documented by: [id number] Amlodipine Besylate (Norvasc) 5 mg PO [facility] Stop: 04/27/19 08:59 Last Admin: 03/31/19 08:45 Dose: 5 mg Documented by: [id number] Admin: 03/30/19 08:42 Dose: 5 mg Documented by: [id number] Admin: 03/29/19 09:04 Dose: 5 mg Documented by: [id number] Admin: 03/28/19 08:54 Dose: 5 mg Documented by: [id number] Cosigned by: [id number] Aspirin (Ecotrin Ectab) 81 mg PO [facility] Stop: 04/27/19 08:59 Last Admin: 03/31/19 08:45 Dose: 81 mg Documented by: [id number] Admin: 03/30/19 08:41 Dose: 81 mg Documented by: [id number] Admin: 03/29/19 09:04 Dose: 81 mg Documented by: [id number] Admin: 03/28/19 08:54 Dose: 81 mg Documented by: [id number] Cosigned by: [id number] Atenolol (Tenormin) 50 mg PO [facility] Stop: 04/27/19 08:59 Last Admin: 03/31/19 08:45 Dose: 50 mg Documented by: [id number] Admin: 03/30/19 08:42 Dose: 50 mg Documented by: [id number] Admin: 03/29/19 09:04 Dose: 50 mg Documented by: [id number] Admin: 03/28/19 08:54 Dose: 50 mg Documented by: [id number] Cosigned by: [id number] Atorvastatin Calcium (Lipitor) 40 mg PO [facility] Stop: 04/27/19 08:59 Last Admin: 03/31/19 08:46 Dose: 40 mg Documented by: [id number] Admin: 03/30/19 08:42 Dose: 40 mg Documented by: [id number] Admin: 03/29/19 09:04 Dose: 40 mg Documented by: [id number] Admin: 03/28/19 08:54 Dose: 40 mg Documented by: [id number] Cosigned by: [id number] Ciprofloxacin/Hydrocortisone (Cipro Hc Otic) 4 drops OT BID [facility] Stop: 04/29/19 20:59 Last Admin: 03/31/19 08:46 Dose: 4 drops Documented by: [id number] Admin: 03/30/19 20:26 Dose: 4 drops Documented by: [id number] Clopidogrel Bisulfate (Plavix) 75 mg PO [facility] Stop: 04/27/19 08:59 Last Admin: 03/31/19 08:45 Dose: 75 mg Documented by: [id number] Admin: 03/30/19 08:42 Dose: 75 mg Documented by: [id number] Admin: 03/29/19 09:04 Dose: 75 mg Documented by: [id number] Admin: 03/28/19 08:54 Dose: 75 mg Documented by: [id number] Cosigned by: [id number] Vancomycin HCl 2,250 mg/ (Sodium Chloride) 545 mls @ 200 mls/hr IV NOW ONE Stop: 03/27/19 11:31 Last Infusion: 03/27/19 12:32 Dose: 0 mls/hr Documented by: [id number] Admin: 03/27/19 09:48 Dose: 200 mls/hr Documented by: [id number] Cefepime HCl (Maxipime) 2,000 mg in 20 mls @ 5 mls/min IV NOW STA; Protocol Stop: 03/27/19 08:51 Last Admin: 03/27/19 09:20 Dose: 5 mls/min Documented by: [id number] Potassium Chloride/Sodium Chloride (Normal Saline W/20 Meq Kcl) 20 meq in 1,000 mls @ 80 mls/hr IV .[id number] RONNIE Stop: 04/26/19 12:59 Last Admin: 03/31/19 04:19 Dose: 80 mls/hr Documented by: [id number] Infusion: 03/31/19 04:19 Dose: 80 mls/hr Documented by: [id number] Admin: 03/30/19 16:19 Dose: 80 mls/hr Documented by: [id number] Infusion: 03/30/19 16:19 Dose: 80 mls/hr Documented by: [id number] Infusion: 03/30/19 15:14 Dose: 80 mls/hr Documented by: [id number] Admin: 03/30/19 04:01 Dose: 80 mls/hr Documented by: [id number] Infusion: 03/30/19 04:01 Dose: 80 mls/hr Documented by: [id number] Admin: 03/29/19 15:40 Dose: 80 mls/hr Documented by: [id number] Infusion: 03/29/19 15:26 Dose: 80 mls/hr Documented by: [id number] Infusion: 03/29/19 14:16 Dose: 80 mls/hr Documented by: [id number] Admin: 03/29/19 02:56 Dose: 80 mls/hr Documented by: [id number] Infusion: 03/29/19 02:56 Dose: 80 mls/hr Documented by: [id number] Admin: 03/28/19 14:56 Dose: 80 mls/hr Documented by: [id number] Cosigned by: [id number] Infusion: 03/28/19 14:56 Dose: 80 mls/hr Documented by: [id number] Cosigned by: [id number] Admin: 03/28/19 02:34 Dose: 80 mls/hr Documented by: [id number] Infusion: 03/28/19 01:51 Dose: 80 mls/hr Documented by: [id number] Admin: 03/27/19 13:21 Dose: 80 mls/hr Documented by: [id number] Vancomycin HCl 1,250 mg/ (Sodium Chloride) 275 mls @ 125 mls/hr IV Q20H RONNIE Stop: 04/07/19 05:59 Last Infusion: 03/28/19 08:57 Dose: 0 mls/hr Documented by: [id number] Cosigned by: [id number] Admin: 03/28/19 06:32 Dose: 125 mls/hr Documented by: [id number] Cefepime HCl 2,000 mg/ Syringe 20 mls @ 5.5 mls/min IV Q24H RONNIE; Protocol Stop: 04/07/19 08:59 Last Admin: 03/29/19 09:05 Dose: 5.5 mls/min Documented by: [id number] Admin: 03/28/19 08:54 Dose: 5.5 mls/min Documented by: [id number] Cosigned by: [id number] Vancomycin HCl 1,250 mg/ (Sodium Chloride) 275 mls @ 125 mls/hr IV Q18H RONNIE Stop: 04/07/19 05:59 Last Infusion: 03/29/19 02:10 Dose: 0 mls/hr Documented by: [id number] Admin: 03/28/19 23:58 Dose: 125 mls/hr Documented by: [id number] Piperacillin Sod/Tazobactam (Sod 4.5 gm/ Dextrose) 120 mls @ 200 mls/hr IV ONE ONE; Protocol Stop: 03/29/19 13:20 Last Infusion: 03/29/19 14:17 Dose: 0 mls/hr Documented by: [id number] Admin: 03/29/19 13:30 Dose: 200 mls/hr Documented by: [id number] Piperacillin Sod/Tazobactam (Sod 3.375 gm/ Dextrose) 115 mls @ 28.75 mls/hr IV Q8H RONNIE; Protocol Stop: 04/07/19 17:59 Last Admin: 03/31/19 10:25 Dose: 28.8 mls/hr Documented by: [id number] Infusion: 03/31/19 05:23 Dose: 0 mls/hr Documented by: [id number] Admin: 03/31/19 01:16 Dose: 28.8 mls/hr Documented by: [id number] Infusion: 03/30/19 22:28 Dose: 0 mls/hr Documented by: [id number] Admin: 03/30/19 18:08 Dose: 28.8 mls/hr Documented by: [id number] Infusion: 03/30/19 13:00 Dose: 0 mls/hr Documented by: [id number] Admin: 03/30/19 08:43 Dose: 28.8 mls/hr Documented by: [id number] Infusion: 03/30/19 06:27 Dose: 0 mls/hr Documented by: [id number] Admin: 03/30/19 02:27 Dose: 28.8 mls/hr Documented by: [id number] Infusion: 03/29/19 21:50 Dose: 0 mls/hr Documented by: [id number] Admin: 03/29/19 18:06 Dose: 28.8 mls/hr Documented by: [id number] Vancomycin HCl 1,250 mg/ (Sodium Chloride) 275 mls @ 125 mls/hr IV Q12H RONNIE Stop: 04/07/19 15:59 Last Infusion: 03/30/19 06:13 Dose: 0 mls/hr Documented by: [id number] Admin: 03/30/19 04:01 Dose: 125 mls/hr Documented by: [id number] Infusion: 03/29/19 18:01 Dose: 0 mls/hr Documented by: [id number] Admin: 03/29/19 15:40 Dose: 125 mls/hr Documented by: [id number] Vancomycin HCl 1,250 mg/ (Sodium Chloride) 275 mls @ 125 mls/hr IV Q12H RONNIE Stop: 04/07/19 16:29 Last Infusion: 03/31/19 06:32 Dose: 0 mls/hr Documented by: [id number] Admin: 03/31/19 04:19 Dose: 125 mls/hr Documented by: [id number] Infusion: 03/30/19 19:24 Dose: 0 mls/hr Documented by: [id number] Admin: 03/30/19 17:01 Dose: 125 mls/hr Documented by: [id number] Lactobacillus Acidophilus (Floranex) 4 tab PO TIDM RONNIE Stop: 04/26/19 12:59 Last Admin: 03/31/19 08:45 Dose: 4 tab Documented by: [id number] Admin: 03/30/19 17:02 Dose: 4 tab Documented by: [id number] Admin: 03/30/19 13:10 Dose: 4 tab Documented by: [id number] Admin: 03/30/19 08:41 Dose: 4 tab Documented by: [id number] Admin: 03/29/19 18:07 Dose: 4 tab Documented by: [id number] Admin: 03/29/19 13:05 Dose: 4 tab Documented by: [id number] Admin: 03/29/19 09:03 Dose: 4 tab Documented by: [id number] Admin: 03/28/19 16:40 Dose: 4 tab Documented by: [id number] Admin: 03/28/19 11:49 Dose: 4 tab Documented by: [id number] Cosigned by: [id number] Admin: 03/28/19 08:54 Dose: 4 tab Documented by: [id number] Cosigned by: [id number] Admin: 03/27/19 16:46 Dose: 4 tab Documented by: [id number] Admin: 03/27/19 13:21 Dose: 4 tab Documented by: [id number] Miscellaneous (Patient's Height And/Or Weight Needed) 1 ea N/A Q2H RONNIE Stop: 04/26/19 12:44 Last Admin: 03/27/19 13:22 Dose: 1 ea Documented by: [id number] Multivitamins (Multivitamin Tab) 1 tab PO QAM RONNIE Stop: 04/27/19 08:59 Last Admin: 03/31/19 08:46 Dose: 1 tab Documented by: [id number] Admin: 03/30/19 08:41 Dose: 1 tab Documented by: [id number] Admin: 03/29/19 09:03 Dose: 1 tab Documented by: [id number] Admin: 03/28/19 08:54 Dose: 1 tab Documented by: [id number] Cosigned by: [id number] Mupirocin (Bactroban 2%) 1 appln EXT BID RONNIE Stop: 04/03/19 20:59 Last Admin: 03/31/19 08:46 Dose: 1 appln Documented by: [id number] Admin: 03/30/19 20:26 Dose: 1 appln Documented by: [id number] Admin: 03/30/19 08:42 Dose: 1 appln Documented by: [id number] Admin: 03/29/19 20:25 Dose: 1 appln Documented by: [id number] Discharge Plan Visit Data *Final* Discharge Date/Time: 03/27/19 11:10 Chief Complaint: Ear Pain/Problem Stated Complaint: LEFT EAR SWELLING ED Provider: Doni Zuluaga ED Midlevel Provider: Carissa Franks Discharge Problem: Cellulitis of face, Cellulitis of helix of left ear Patient Disposition: Admitted As Inpatient Condition: Good Discharge Instructions Interventions: ED Discharge Assessment Last Done: 03/27/19 11:10
[2019-03-27 09:17] LABS: Basophils # (auto) 0.03 K/uL (0-0.2); Basophils % (auto) 0.3 %; Eosinophils # (auto) 0.25 K/uL (0-0.5); Eosinophils % (auto) 2.4 %; Hematocrit (blood only) 41.4 % (42-52); Hemoglobin 14.3 g/dL (14.0-18.0); Immature Granulocytes # (auto) 0.02 K/uL (0.00-0.02); Immature Granulocytes % (auto) 0.2 %; Lymphocytes # (auto) 0.79 K/uL (1.2-3.4); Lymphocytes % (auto) 7.6 %; Mean Corpuscular Hgb Conc 34.5 g/dL (32-36); Mean Corpuscular Volume 88.5 fL (80-100); Monocytes # (auto) 0.75 K/uL (0.11-0.59); Monocytes % (auto) 7.3 %; Neutrophils # (auto) 8.49 K/uL (1.4-6.5); Neutrophils % (auto) 82.2 %; Platelet Count 160 K/uL (130-400); RDW Coefficient of Variation 13.9 % (11.5-14.5); RDW Standard Deviation 44.8 fL (36.4-46.3); Red Blood Count 4.68 M/uL (4.7-6.1); White Blood Count 10.33 K/uL (4.8-10.8)
[2019-03-27 09:34] LABS: Alanine Aminotransferase 23 U/L (12-78); Albumin Level 3.5 gm/dl (3.4-5.0); Aspartate Aminotransferase 13 U/L (15-37); BUN Creatinine Ratio 10.6 (10-20); Blood Urea Nitrogen 16 mg/dl (7-18); Calcium 8.7 mg/dl (8.5-10.1); Carbon Dioxide 29 mmol/L (21-32); Chloride 108 mmol/L (98-107); Est GFR (African American) 53.4; Est GFR (Non-African American) 46.1; Glucose 114 mg/dl (70-99); Potassium 3.7 mmol/L (3.5-5.1); Sodium 140 mmol/L (136-145)
[2019-03-27 09:37] LABS: Albumin Globulin Ratio 0.9 (0.9-2); Alkaline Phosphatase 47 U/L (45-117); Bilirubin,Total 0.5 mg/dl (0.2-1); Total Protein 7.5 gm/dl (6.4-8.2)
--- NOTE | 2019-03-27 09:56 | CT Scan Report ---
CT mastoid wo con CT DOSE: 639.24 mGy.cm CLINICAL HISTORY: left ear and face cellulitis TECHNIQUE: Unenhanced images were acquired through the mastoids. Sagittal and axial reformatted image s were reviewed. A dose lowering technique was utilized adhering to the principles of ALARA. COMPARISON STUDY: Noncontrast head CT dated 12/14/2018 FINDINGS: The mastoid air cells are symmetrically aerated. The middle ear cavities are well aerated. The scutum appears intact bilaterally. There is prominent soft tissue edema involving the left ear. IMPRESSION: 1. No evidence of acute mastoiditis 2. No abnormalities the middle ear cavities are visualized 3. Prominent soft tissue edema of the left ear Electronically signed by: Yoel Green M.D. 03/27/2019 9:54 AM
--- NOTE | 2019-03-27 10:39 | History & Physical Report ---
Date of Service March 27, 2019 Assessment & Plan (1) Cellulitis of face: Likely otitis externa given substantial pain of external ear CT noted Started on vanco/cefepime in the ED, will continue WBC WNL, afebrile Monitor Will not involve ENT yet given likely external nature Pt with recent hx of MRSA facial cellulitis that was tx with keflex and bactrim Add probiotic (2) ARF (acute renal failure): Cr was 1.3 on last admission Likely mild dehydration related to infection and heat Monitor with gentle IVF (3) Hypertension: continue home meds (4) History of CVA (cerebrovascular accident): continue home meds (5) Dyslipidemia: continue home meds (6) DVT prophylaxis: SCDs, will avoid Rx given pt is ambulatory to avoid GIB as pt takes aspirin 81mg/plavix at baseline History of Present Illness Primary Care Provider: Dillon La, DO 78 y/o M c/o L ear pain. Pt states that he was using his fingernail to try to remove wax from his L ear on Friday. He had a sudden sharp pain like he had scratched his ear, so he stopped attempting the wax removal. Later that night he noted chills and the onset of L ear pain inside his ear. He felt fine otherwise. He continued to feel more tired than usual over the next day. Yesterday he started to have L ear pain, redness, and swelling that increased over the day. This was worse this AM so he came to the ED for evaluation. Pt denies bleeding or other drainage from the ear. He has been able to eat without issues chewing. No changes in hearing. He feels fine otherwise. Pt denies fever, SOB, chest pain, abd pain, n/v/c/d, LE pain or swelling. Pt was d/c'd on 12/24/18 after being tx for MRSA facial cellulitis. This was on the R side of his face and did not involve his ear. He did finish his outpt abx course and had no further issues related to this infection. Pt feels unchanged s/p abx in the the ED. Allergies Allergy/AdvReac Type Severity Reaction Status Date / Time No Known Allergies Allergy Unverified 03/27/19 09:21 Home Medications Home Medications Medication Instructions Recorded Confirmed Type amlodipine 5 mg PO QAM 12/14/18 03/27/19 History aspirin 81 mg PO QAM 12/14/18 03/27/19 History atenolol 50 mg PO QAM 12/14/18 03/27/19 History atorvastatin 40 mg PO QAM 12/14/18 03/27/19 History clopidogrel 75 mg PO QAM 12/14/18 03/27/19 History multivitamin 1 tab PO QAM 12/14/18 03/27/19 History Equate Allergy Medication 2 tab PO QAM 03/27/19 03/27/19 History acetaminophen [Tylenol Extra 500 mg PO Q6H PRN 03/27/19 03/27/19 History Strength] Past Med/Surg History Medical History Hypertension (Chronic) Dehydration (Acute) Dyslipidemia History of CVA (cerebrovascular accident) Surgical History S/P eye surgery Family History Other Family history non-contributory Social History Preferred Language: Lebanese Communication Ability: Effective Computer Installer Required: No Beliefs That Will Affect Care: None Current Living Situation: Spouse Feels Safe at Home: Yes Smoking Status: Former smoker Tobacco Type: cigarettes ; Age Quit Using Tobacco: 28 ; Second Hand Exposure: No ; Hx Alcohol Use: No Hx Substance Use: No Review of Systems Review of Systems: Pertinent positives and negatives reviewed in HPI--all others negative Physical Exam Constitutional: WD/WN, vitals as above Eyes: normal visual richards by confrontation and + anicteric sclerae ENMT: Ears: + unable to visualize TM (due to pain of outer ear); no hearing impairment External ear is red and swollen, very painful to touch with redness moving into temporal and mandibular region--I did outline in ED Neck: normal visual inspection and trachea midline Respiratory: normal respiratory effort, lungs clear to auscultation Cardiovascular: Rate/Rhythm: regular rate and regular rhythm Gastrointestinal (Abdomen): Inspection/Auscultation: abdomen not distended Percussion/Palpation: abdomen soft; abdomen nontender Musculoskeletal: Head/Neck/Chest: normocephalic and head atraumatic negative for edema, peripheral pulses intact Skin: no rashes, warm and dry Neurologic: awake; not confused Speech / Cognition: normal speech Psychiatric: A+Ox3, euthymic affect Results & Data Vital Signs (Past 12 Hours) Vital Signs Temp Pulse Pulse Resp BP BP Pulse Ox 03/27/19 10:13 82 20 142/68 H 96 03/27/19 08:08 36.9 C 82 20 161/[address] mastoids: neg for mastoiditis, noted for L ear soft tissue swelling Code Status & VTE Plan Code Status Full code VTE Prophylaxis Plan VTE Prophylaxis will be ordered: Yes PG Care Time/CCT Total # of Minutes Spent Total Time Spent with Patient: Total time spent is greater than 50% in coordination of care (as documented) at patient's floor/unit and/or counseling patient: (1) Hypertension Hypertension type: essential hypertension Qualified Code(s): I10 - Essential (primary) hypertension
[2019-03-27] MEDS ORDERED: MAGNESIUM HYDROXIDE SUSP 30 ML UDC PO PRN (11:23)
[2019-03-27] MEDS ORDERED: ACETAMINOPHEN 325 MG TAB PO PRN (11:23)
[2019-03-27] MEDS ORDERED: ACETAMINOPHEN 500 MG TAB PO PRN (11:23)
[2019-03-27] MEDS ORDERED: ONDANSETRON INJ 2 MG/ML 2 ML VIAL IV PRN (11:23)
[2019-03-27] MEDS ORDERED: PATIENT'S HEIGHT AND/OR WEIGHT NEEDED SCH (12:45)
[2019-03-27] MEDS: NSS + 20MEQ KCL 20 MEQ/1,000 ML BAG IV SCH (13:21)
[2019-03-27] MEDS: LACTOBACILLUS ACIDOPHILUS (FLORANEX) TAB PO SCH ×2 (13:21→16:46)
[2019-03-27] MEDS ORDERED: VANCOMYCIN HCL 1,000 MG in SODIUM CHLORIDE 0.9% 250 ML IV SCH (15:00)
--- NOTE | 2019-03-27 16:13 | Pharmacy Report ---
Pharmacy Abx Initial Consult - Date of Service March 27, 2019 - Pharmacy Dosing Scope Date of Consult: 03/27/19 Consultation requested by: Dr. Ibarra Pharmacy is consulted to initiate Vancomycin IV dosing therapy, order appropriate labs and adjust drug dose/frequency. - Subjective The patient is a 78 year old M admitted on 03/27/19 10:13. - Objective Height: 5 ft 7 in Weight: 85.5 kg (BMI 29.5) Vital Signs (Past 12hrs): Vital Signs Temp Pulse Pulse Resp BP BP BP 03/27/19 15:00 36.2 C L 86 20 112/71 03/27/19 11:24 36.8 C 80 18 122/53 L 03/27/19 10:13 82 20 142/68 H 03/27/19 08:08 36.9 C 82 20 161/79 H Pulse Ox 03/27/19 15:00 93 03/27/19 11:24 96 03/27/19 10:13 96 03/27/19 08:08 99 Lab Results (24hrs): Laboratory Tests (24 Hours) 03/27/19 03/27/19 03/27/19 08:34 08:34 08:34 WBC 10.33 Neut # (Auto) 8.49 H Creatinine 1.46 H Est Cr Clr Drug Dosing Not Reportable Procalcitonin 0.15 Micro Results: 03/27/19 08:34 Aerobic Blood Culture - Pending Blood Anaerobic Blood Culture - Pending 03/27/19 09:00 Aerobic Blood Culture - Pending Blood Anaerobic Blood Culture - Pending - Risk Factors for Resistance * Hospitalization for 48 hours or more within the past 90 days * 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 Pt was getting wax out of ear with fingernail when he noticed pain. He stopped and that evening began having chills and pain in left ear. Yesterday, patient noted left ear pain, redness, and swelling that increased over the day. * Was admitted in December 2018 for right sided facial cellulitis. Plan Vancomcyin for treatment of cellulitis Vancomycin IV * Estimated PK Parameters: Vd 0.7 L/kg, Cash 0.038 hr-1, t1/2 18.2 hr * Loading dose: 2250 mg (26.3 mg/kg) * Maintenance dose: 1250 mg IV (14.6 mg/kg) every 20 hours * Goal trough level for cellulitis : ~ 15 mcg/mL * Will order trough on 03/28/19. Want to see if renal function improves. Cefepime: (not consulted) * Was ordered 2gm IV q12h. * Due to renal function, decreased dose to 2gm IV q24h. Will make adjusments to dosing schedule if renal function improves. Pharmacy will continue to follow and will adjust dose/frequency as necessary. Thank you.
[2019-03-27] MEDS ORDERED: CEFEPIME 2,000 MG in SYRINGE 7.5 ML IV SCH (21:00)
[2019-03-28] MEDS: NSS + 20MEQ KCL 20 MEQ/1,000 ML BAG IV SCH ×2 (02:34→14:56)
[2019-03-28] MEDS ORDERED: VANCOMYCIN HCL 1,250 MG in SODIUM CHLORIDE 0.9% 250 ML IV SCH (06:00)
[2019-03-28 07:23] LABS: BUN Creatinine Ratio 11.2 (10-20); Calcium 8.3 mg/dl (8.5-10.1); Creatinine Clr Calc Pharmacy 52.9 ml/min; Est GFR (Non-African American) 56.1; Potassium 3.9 mmol/L (3.5-5.1)
[2019-03-28] MEDS: MULTIVITAMIN TAB PO SCH (08:54)
[2019-03-28] MEDS: AMLODIPINE BESYLATE 5 MG TAB PO SCH (08:54)
[2019-03-28] MEDS: ATENOLOL 50 MG TABLET PO SCH (08:54)
[2019-03-28] MEDS: ASPIRIN 81 MG ECTAB PO SCH (08:54)
[2019-03-28] MEDS: CLOPIDOGREL BISULFATE 75 MG TAB PO SCH (08:54)
[2019-03-28] MEDS: ATORVASTATIN 40 MG TAB PO SCH (08:54)
[2019-03-28] MEDS: LACTOBACILLUS ACIDOPHILUS (FLORANEX) TAB PO SCH ×3 (08:54→16:40)
[2019-03-28] MEDS: CEFEPIME 2,000 MG in SYRINGE 7.5 ML IV SCH (08:54)
[2019-03-28] MEDS ORDERED: [UNRECOGNIZED DRUG - REMARK] PO SCH (09:00)
--- NOTE | 2019-03-28 12:18 | Pharmacy Report ---
Pharmacy Abx Dose Short Note - Date of Service March 28, 2019 - Assessment & Plan Assessment 78 year old M receiving Vancomycin for treatment of facial cellulitis Day # 2 of antimicrobial therapy. Plan Vancomycin * Patient's renal function improved from 40mL/min -----> 53mL/min * Changed dosing interval from q20h to q18h based on new Pk parameters * PK estimates: Cash 0.048 hr-1; t1/2 14.4 hr; initially had been Cash 0.038hr-1; t1/2 18.2hr * Goal trough level for cellulitis : ~15 mcg/mL * Trough level ordered for: 03/29/19 @ 1730 Cefepime: * Even with improvement in renal function will continue with Cefepime 2gm IV q24h. Pharmacy will continue to follow and will adjust dose/frequency as necessary. Thank you.
--- NOTE | 2019-03-28 22:48 | Hospitalist Progress Note ---
Date of Service March 28, 2019 Assessment & Plan (1) Cellulitis of face: Likely otitis externa given substantial pain of external ear CT noted Started on vanco/cefepime in the ED, will continue WBC WNL, afebrile Monitor Will not involve ENT yet given likely external nature Pt with recent hx of MRSA facial cellulitis that was tx with keflex and bactrim Add probiotic. On 03/28, lesion does not appear to be pink and patient states ear is less swollen. Will continue to monitor. PLaced skin marker in room and delineated lesion. will monitor. (2) ARF (acute renal failure): improved. likely pre renal Monitor with gentle IVF (3) Hypertension: continue home meds B/P at goal. (4) History of CVA (cerebrovascular accident): continue home meds (5) Dyslipidemia: continue home meds (6) DVT prophylaxis: SCDs, will avoid Rx given pt is ambulatory to avoid GIB as pt takes aspirin 81mg/plavix at baseline Subjective pleasant 78 yo male. He reports no pain in his face. He ststaes he looked in the mirror today but does not recall if it is spreading or not. He does state that the ear is less swollen. He denies any pain except for when the red area is touched. Review of Systems Review of Systems: All systems reviewed & are unremarkable except as noted in HPI & below Physical Exam Physical Exam: Constitutional: WD/WN, vitals as above Eyes: normal visual richards by confrontation and + anicteric sclerae ENMT: Ears: + unable to visualize TM (due to pain of outer ear); no hearing impairment External ear is red (dark hue), less painful to touch with redness moving into temporal and mandibular region. Unable to se delinieation from prior day. Area again was delineated on 03/28. Neck: normal visual inspection and trachea midline Respiratory: normal respiratory effort, lungs clear to auscultation Cardiovascular: Rate/Rhythm: regular rate and regular rhythm Gastrointestinal (Abdomen): Inspection/Auscultation: abdomen not distended Percussion/Palpation: abdomen soft; abdomen nontender Musculoskeletal: Head/Neck/Chest: normocephalic and head atraumatic negative for edema, peripheral pulses intact Skin: no rashes, warm and dry Neurologic: awake; not confused Speech / Cognition: normal speech Psychiatric: A+Ox3, euthymic affect Results & Data Vital Signs (Past 12 Hours) Vital Signs Temp Pulse Resp BP Pulse Ox 03/28/19 15:43 36.8 C 70 17 104/67 93 PG Care Time/CCT Total # of Minutes Spent Total Time Spent with Patient: Total time spent is greater than 50% in coordination of care (as documented) at patient's floor/unit and/or counseling patient: (1) Hypertension Hypertension type: essential hypertension Qualified Code(s): I10 - Essential (primary) hypertension
[2019-03-29] MEDS ORDERED: VANCOMYCIN HCL 1,250 MG in SODIUM CHLORIDE 0.9% 250 ML IV SCH
[2019-03-29] MEDS: NSS + 20MEQ KCL 20 MEQ/1,000 ML BAG IV SCH ×2 (02:56→15:40)
[2019-03-29 06:28] LABS: Creatinine Clr Calc Pharmacy 59.1 ml/min; Est GFR (African American) 74.4; Est GFR (Non-African American) 64.2
[2019-03-29] MEDS: MULTIVITAMIN TAB PO SCH (09:03)
[2019-03-29] MEDS: LACTOBACILLUS ACIDOPHILUS (FLORANEX) TAB PO SCH ×3 (09:03→18:07)
[2019-03-29] MEDS: ASPIRIN 81 MG ECTAB PO SCH (09:04)
[2019-03-29] MEDS: CLOPIDOGREL BISULFATE 75 MG TAB PO SCH (09:04)
[2019-03-29] MEDS: ATENOLOL 50 MG TABLET PO SCH (09:04)
[2019-03-29] MEDS: ATORVASTATIN 40 MG TAB PO SCH (09:04)
[2019-03-29] MEDS: AMLODIPINE BESYLATE 5 MG TAB PO SCH (09:04)
[2019-03-29] MEDS: CEFEPIME 2,000 MG in SYRINGE 7.5 ML IV SCH (09:05)
[2019-03-29] MEDS ORDERED: PIPERACILL/TAZOBAC CONSULT ACTIVE PRN (12:35)
[2019-03-29] MEDS ORDERED: PIPERACILLIN/TAZOBACTAM 4.5 GM in DEXTROSE 5% 100 ML IV ONE (12:45)
--- NOTE | 2019-03-29 13:39 | Hospitalist Progress Note ---
Date of Service March 29, 2019 Assessment & Plan (1) Cellulitis of face: Pt with recent hx of MRSA facial cellulitis that was tx with keflex and bactrim Likely otitis externa given substantial pain of external ear on admission CT showing prominent soft tissue edema of the left ear Started on vanco/cefepime in the ED, will continue WBC WNL, afebrile (2) ARF (acute renal failure): Resolved (3) Hypertension: continue atenolol (4) History of CVA (cerebrovascular accident): continue atorvastatin, aspirin, clopidegral (5) Dyslipidemia: continue atorvatatin (6) DVT prophylaxis: SCDs, will avoid Rx given pt is ambulatory to avoid GIB as pt takes aspirin 81mg/plavix at baseline Supervising Physician Co-Signing Physician Notes I have seen and examined pt and agree with JACQUELYN Salinas exam , assessment and plan. Subjective Mr. Ingram is having a small amount of improvement of his cellulitis but it is improving very slowly. Review of Systems Review of Systems: All systems reviewed & are unremarkable except as noted in HPI & below Physical Exam Physical Exam: General: no distress Eyes: normal inspection, PERLL Respiratory: chest non tender, clear to auscultation, normal breath sounds, no respiratory distress, no accessory muscle use Cardiac: regular rate and rhythm, no rub or gallop, no murmur, no edema, no jvd GI/: active bowel sounds, no abd pain or tenderness, soft, non distended Extremities: normal range of motion, normal strength, non tender Neuro/Psych: alert and oriented x 3, normal mood and affect Skin: normal color, dry, left face, ear, to posterior base of left skull eryt hematous, edematous and warm, mild improvement of erythema from line of demarcation Results & Data Vital Signs (Past 12 Hours) Vital Signs Temp Pulse Resp BP Pulse Ox 03/29/19 07:56 36.3 C L 75 18 124/79 96 PG Care Time/CCT Total # of Minutes Spent Total Time Spent with Patient: Total time spent is greater than 50% in coordination of care (as documented) at patient's floor/unit and/or counseling patient: (1) Hypertension Hypertension type: essential hypertension Qualified Code(s): I10 - Essential (primary) hypertension
--- NOTE | 2019-03-29 15:30 | Pharmacy Report ---
Pharmacy Abx Dose Short Note - Date of Service March 29, 2019 - Assessment & Plan Assessment 78 year old M receiving IV Vancomycin and Zosyn for treatment of L ear cellulitis vs L otitis externa Day #3 of antimicrobial therapy Patient does have a h/o R facial MRSA cellulitis treated with Keflex/Bactrim Per attending, patient's cellulitis is slow to improve so patient was switched from cefepime to zosyn today Given improvement in renal function, re-calculated PK parameters today: Vd 0.7 L/kg, Cash 0.059 hr^-1, t1/2 13.1 hrs Elected to order a random vancomycin level at 14 hours since last administered dose to ensure patient was not subtherapeutic and required a dose Plan Vancomycin * Random level of 9.5 mcg/mL is subtherapeutic * Change to 1250 mg IV every 12 hours (elected for aggressive dosing regimen given slow improvement in cellulitis which could be secondary to subtherapeutic vancomycin level, especially in a patient with h/o of MRSA cellulitis) * Goal trough level for cellulitis w/ h/o MRSA: 15 to 20 mcg/mL * Trough level ordered for: 03/30/19 prior to the 3rd dose to ensure patient does not go supratherapeutic with current dosing regimen Zosyn * Patient was switched from cefepime to zosyn today per attending given slow improvement in cellulitis and possibility of anaerobic infxn * Zosyn 4.5 gm IV x 1 followed by 3.375 gm IV every 8 hours Pharmacy will continue to follow and will adjust dose/frequency as necessary. Thank you.
[2019-03-29] MEDS: VANCOMYCIN HCL 1,250 MG in SODIUM CHLORIDE 0.9% 250 ML IV SCH (15:40)
[2019-03-29] MEDS ORDERED: VANCOMYCIN TROUGH ONE (17:30)
[2019-03-29] MEDS: PIPERACILLIN/TAZOBACTAM 3.375 GM in DEXTROSE 5% 100 ML IV SCH (18:06)
[2019-03-29] MEDS: MUPIROCIN 2% OINT 22 GM TUBE EXT SCH (20:25)
[2019-03-30] MEDS: PIPERACILLIN/TAZOBACTAM 3.375 GM in DEXTROSE 5% 100 ML IV SCH ×3 (02:27→18:08)
[2019-03-30] MEDS: VANCOMYCIN HCL 1,250 MG in SODIUM CHLORIDE 0.9% 250 ML IV SCH ×2 (04:01→17:01)
[2019-03-30] MEDS: NSS + 20MEQ KCL 20 MEQ/1,000 ML BAG IV SCH ×2 (04:01→16:19)
[2019-03-30 07:09] LABS: Hemoglobin 13.9 g/dL (14.0-18.0); Mean Corpuscular Hgb Conc 35.6 g/dL (32-36); Mean Corpuscular Volume 86.7 fL (80-100); Mean Platelet Volume 9.9 fL (7.4-10.4); Platelet Count 204 K/uL (130-400); RDW Coefficient of Variation 13.9 % (11.5-14.5); RDW Standard Deviation 44.3 fL (36.4-46.3)
[2019-03-30 07:54] LABS: BUN Creatinine Ratio 12.8 (10-20); Calcium 8.5 mg/dl (8.5-10.1); Creatinine Clr Calc Pharmacy 52.1 ml/min; Est GFR (African American) 63.8; Potassium 4.1 mmol/L (3.5-5.1)
[2019-03-30] MEDS: LACTOBACILLUS ACIDOPHILUS (FLORANEX) TAB PO SCH ×3 (08:41→17:02)
[2019-03-30] MEDS: ASPIRIN 81 MG ECTAB PO SCH (08:41)
[2019-03-30] MEDS: MULTIVITAMIN TAB PO SCH (08:41)
[2019-03-30] MEDS: AMLODIPINE BESYLATE 5 MG TAB PO SCH (08:42)
[2019-03-30] MEDS: ATORVASTATIN 40 MG TAB PO SCH (08:42)
[2019-03-30] MEDS: CLOPIDOGREL BISULFATE 75 MG TAB PO SCH (08:42)
[2019-03-30] MEDS: MUPIROCIN 2% OINT 22 GM TUBE EXT SCH ×2 (08:42→20:26)
[2019-03-30] MEDS: ATENOLOL 50 MG TABLET PO SCH (08:42)
--- NOTE | 2019-03-30 12:53 | Hospitalist Progress Note ---
Date of Service March 30, 2019 Assessment & Plan (1) Cellulitis of face: Pt with recent hx of MRSA facial cellulitis that was tx with keflex and bactrim Likely otitis externa given substantial pain of external ear on admission CT showing prominent soft tissue edema of the left ear Started on vanco/cefepime in the ED - changed to Zosyn/vanc due to slow progression of healing Mupiricin for nares MRSA colonization WBC WNL, afebrile (2) ARF (acute renal failure): Resolved (3) Hypertension: continue atenolol (4) History of CVA (cerebrovascular accident): continue atorvastatin, aspirin, clopidegral (5) Dyslipidemia: continue atorvastatin (6) DVT prophylaxis: SCDs, ambulation - will avoid Rx given pt is ambulatory to avoid GIB as pt takes aspirin 81mg/plavix at baseline Supervising Physician Co-Signing Physician Notes I have seen and examined pt with JACQUELYN Salinas and agree with her exam, assessment and plan. Subjective Mr. Ingram's cellulitis is improving today. He denies any pain. Review of Systems Review of Systems: All systems reviewed & are unremarkable except as noted in HPI & below Physical Exam Physical Exam: General: no distress Eyes: normal inspection, PERLL Respiratory: chest non tender, clear to auscultation, normal breath sounds, no respiratory distress, no accessory muscle use Cardiac: regular rate and rhythm, no rub or gallop, no murmur, no edema, no jvd GI/: active bowel sounds, no abd pain or tenderness, soft, non distended Extremities: normal range of motion, normal strength, non tender Neuro/Psych: alert and oriented x 3, normal mood and affect Skin: normal color, dry, erythema and edema left side of head and ear Results & Data Vital Signs (Past 12 Hours) Vital Signs Temp Pulse Resp BP Pulse Ox 03/30/19 07:00 36.6 C 59 L 18 129/79 96 PG Care Time/CCT Total # of Minutes Spent Total Time Spent with Patient: Total time spent is greater than 50% in coordination of care (as documented) at patient's floor/unit and/or counseling patient: (1) Hypertension Hypertension type: essential hypertension Qualified Code(s): I10 - Essential (primary) hypertension
[2019-03-30] MEDS ORDERED: VANCOMYCIN TROUGH ONE (15:30)
--- NOTE | 2019-03-30 16:31 | Pharmacy Report ---
Pharmacy Abx Dose Short Note - Date of Service March 30, 2019 - Assessment & Plan Assessment 78 year old M receiving IV Vancomycin and Zosyn for treatment of L ear cellulitis Day # 4 of antimicrobial therapy. Plan Vancomycin * Trough level of 14.0 mcg/mL is subtherapeutic * Continue dose of 1250 mg IV every 12 hours as trough level was prior to 3rd dose * Goal trough level for cellulitis with h/o MRSA: 15 to 20 mcg/mL * Trough level ordered for: 03/31/19 prior to the 5th dose at steady state Pharmacy will continue to follow and will adjust dose/frequency as necessary. Thank you.
[2019-03-30] MEDS: CIPRO 0.2%/HYDROCORTISONE 1% OTIC SUSP 10 ML BTL OT SCH (20:26)
[2019-03-31] MEDS: PIPERACILLIN/TAZOBACTAM 3.375 GM in DEXTROSE 5% 100 ML IV SCH ×2 (01:16→10:25)
[2019-03-31] MEDS: NSS + 20MEQ KCL 20 MEQ/1,000 ML BAG IV SCH (04:19)
[2019-03-31] MEDS: VANCOMYCIN HCL 1,250 MG in SODIUM CHLORIDE 0.9% 250 ML IV SCH (04:19)
[2019-03-31 06:59] LABS: Hematocrit (blood only) 41.2 % (42-52); Hemoglobin 14.2 g/dL (14.0-18.0); Mean Corpuscular Hgb Conc 34.5 g/dL (32-36); Mean Corpuscular Volume 87.7 fL (80-100); Mean Platelet Volume 10.1 fL (7.4-10.4); Platelet Count 203 K/uL (130-400); RDW Coefficient of Variation 13.8 % (11.5-14.5); RDW Standard Deviation 44.5 fL (36.4-46.3); White Blood Count 5.52 K/uL (4.8-10.8)
[2019-03-31 07:31] LABS: BUN Creatinine Ratio 13.4 (10-20); Calcium 8.6 mg/dl (8.5-10.1); Creatinine Clr Calc Pharmacy 50.9 ml/min; Est GFR (Non-African American) 53.5; Potassium 4.3 mmol/L (3.5-5.1)
[2019-03-31] MEDS: CLOPIDOGREL BISULFATE 75 MG TAB PO SCH (08:45)
[2019-03-31] MEDS: ATENOLOL 50 MG TABLET PO SCH (08:45)
[2019-03-31] MEDS: ASPIRIN 81 MG ECTAB PO SCH (08:45)
[2019-03-31] MEDS: AMLODIPINE BESYLATE 5 MG TAB PO SCH (08:45)
[2019-03-31] MEDS: LACTOBACILLUS ACIDOPHILUS (FLORANEX) TAB PO SCH (08:45)
[2019-03-31] MEDS: MUPIROCIN 2% OINT 22 GM TUBE EXT SCH (08:46)
[2019-03-31] MEDS: CIPRO 0.2%/HYDROCORTISONE 1% OTIC SUSP 10 ML BTL OT SCH (08:46)
[2019-03-31] MEDS: MULTIVITAMIN TAB PO SCH (08:46)
[2019-03-31] MEDS: ATORVASTATIN 40 MG TAB PO SCH (08:46)
--- NOTE | 2019-03-31 11:41 | Discharge Summary ---
Date of Service March 31, 2019 Admission HPI Per Admitting Provider 78 y/o M c/o L ear pain. Pt states that he was using his fingernail to try to remove wax from his L ear on Friday. He had a sudden sharp pain like he had scratched his ear, so he stopped attempting the wax removal. Later that night he noted chills and the onset of L ear pain inside his ear. He felt fine otherwise. He continued to feel more tired than usual over the next day. Yesterday he started to have L ear pain, redness, and swelling that increased over the day. This was worse this AM so he came to the ED for evaluation. Pt denies bleeding or other drainage from the ear. He has been able to eat without issues chewing. No changes in hearing. He feels fine otherwise. Pt denies fever, SOB, chest pain, abd pain, n/v/c/d, LE pain or swelling. Pt was d/c'd on 12/24/18 after being tx for MRSA facial cellulitis. This was on the R side of his face and did not involve his ear. He did finish his outpt abx course and had no further issues related to this infection. Pt feels unchanged s/p abx in the the ED. Principal Diagnosis Cellulitis of the face Discharge Exam Constitutional WD/WN, vitals as above ENMT left ear edema and skin flaking, canal without edema, ear wax blocking tympanic membrane visualization, outer ear and canal non tender to manipulation Respiratory normal respiratory effort, lungs clear to auscultation Cardiovascular RRR, no murmur, no edema Gastrointestinal (Abdomen) Inspection/Auscultation: abdomen normal to inspection and normal bowel sounds; abdomen not distended Percussion/Palpation: abdomen soft; abdomen nontender Musculoskeletal no cyanosis or clubbing, extremities motor strength 5/5 Skin much improved left face cellulitis, decreased edema and erythema left face, ear, base of left skull Neurologic moves all extremities and awake Psychiatric A+Ox3, euthymic affect Discharge Data Allergies Allergy/AdvReac Type Severity Reaction Status Date / Time No Known Allergies Allergy Unverified 03/27/19 09:21 Consultations 03/27/19 10:03 ED Decision to Admit Stat 03/27/19 11:23 Consult Case Management - Discharge Planning Routine Ordered Studies 03/27/19 08:25 CT mastoid wo con Stat Hospital Course (1) Cellulitis of face: Pt with recent hx of MRSA facial cellulitis that was tx with keflex and bactrim - MRSA nares + Likely otitis externa given substantial pain of external ear on admission CT showing prominent soft tissue edema of the left ear Started on vanco/cefepime in the ED - changed to Zosyn/vanc due to slow progression of healing - will discharge with Augmentin and Bactrim for total of 10 days of treatment Mupiricin for nares MRSA colonization x 5 days WBC WNL, afebrile (2) ARF (acute renal failure): Resolved (3) Hypertension: continue atenolol (4) History of CVA (cerebrovascular accident): continue atorvastatin, aspirin, clopidegral (5) Dyslipidemia: continue atorvastatin (6) DVT prophylaxis: SCDs, ambulation -avoid Rx given pt is ambulatory to avoid GIB as pt takes aspirin 81mg/plavix at baseline Total Time Total Time Spent Total Time Spent (In Minutes): greater than 30 minutes Discharge Plan Discharge Items Patient Disposition: Home - Self-Care Reason For Visit: FACIAL CELLULITIS, MRSA HX Discharge Diagnosis: Facial cellulitis Condition: Good Discharge Goals: Decrease discomfort Activity: Resume your previous activity Non-emergency contact: Primary Care Provider Call non-emergency contact if: you have any medication questions, your symptoms worsen, your pain is not controlled and you have a fever Follow-up/Referrals: Dillon aL DO [Primary Care Provider] - 04/05/19 12:50 pm (Please, follow up at Dr. La's office with his associate, Dr. Jairon Plummer, on FridayApril 05 at 12:50 pm. *If you need to change this appointment, call their office at [phone].) Diet: Heart Healthy Addtl Provider Instructions: Please take the tube of Mupirocin from the hospital home with you and continue using twice per day for 3 more days. You can also use some over the counter cream like Cetaphil or Eucerin on your outer ear to help with the peeling as it heals. Please let your provider know right away if you notice the rash worsening again or if you have a return of pain to your ear or if you are running a fever. Prescriptions: New amoxicillin-pot clavulanate [Augmentin] 875-125 mg tablet 1 tab PO BID Qty: 11 RF: 0 sulfamethoxazole-trimethoprim [Bactrim DS] 800-160 mg tablet 1 tab PO BID 5 Days Qty: 11 RF: 0 mupirocin 2 % Ointment 1 applic EXT BID 3 Days Qty: 1 RF: 0 Continued multivitamin Tablet 1 tab PO QAM RF: 0 atorvastatin 40 mg tablet 40 mg PO QAM RF: 0 clopidogrel 75 mg tablet 75 mg PO QAM RF: 0 amlodipine 5 mg tablet 5 mg PO QAM RF: 0 aspirin 81 mg Tablet,Delayed Release (Dr/Ec) 81 mg PO QAM RF: 0 atenolol 50 mg Tablet 50 mg PO QAM RF: 0 acetaminophen [Tylenol Extra Strength] 500 mg Tablet 500 mg PO Q6H PRN (Reason: Pain) RF: 0 Equate Allergy Medication 2 tab PO QAM RF: 0 Stand-Alone Forms: [facility]/Other Patient Handouts: Cotrimoxazole, Amoxicillin Trihydrate Clavulanate Potassium Oral tablet Discharge Orders: Discharge Order (Routine); Ordered 03/31/19 Ordered By: Carissa Dowell Admission Data Admit Date/Time: 03/27/19 10:13 Attending Provider: Niko Washington Admit Provider: Danielle Ibarra Primary Care Provider: Dillon La Other Providers: Niko Washington Service: Medical
[2019-03-31] MEDS ORDERED: VANCOMYCIN TROUGH ONE (15:30)
--- NOTE | 2019-03-31 22:04 | Emergency Department Note ---
ED Visit Note ED visit 03/27/2019: HPI: 78M with left ear/facial redness, swelling, and warmth. AFVSS, NAD WBC wnl. CT head negative for middle ear involvement or mastoiditis. AP: Severe facial/ear cellulitis. IV ABX with Vanc and Cefepime for MRSA and Pseudomonal coverage, respectively. Admit. I reviewed the patient's past medical history, medications, and visit nursing notes. I discussed the case with the physician college sports assistant, examined the patient, and agree with the findings and plan as documented in VALENTIN Franks's note. .
== END 2019-03-31 12:38 | disposition home or self-care (01) | DRG 155 ==
LOC: ED 08:07 → 3N 10:13 → SUATTDRO 10:13 → 3N 11:10

== ENCOUNTER 2020-03-24 10:00 | Inpatient (IN) ==
[2020-03-24] MEDS ORDERED: SODIUM CHLORIDE 0.9% 1000ML 500 ML IV ONE (10:28)
[2020-03-24] MEDS ORDERED: SODIUM CHLORIDE 0.9% 1000ML 1,000 ML IV STA (10:28)
[2020-03-24 11:13] LABS: Basophils # (auto) 0.03 K/uL (0-0.2); Basophils % (auto) 0.3 %; Eosinophils # (auto) 0.21 K/uL (0-0.5); Eosinophils % (auto) 1.9 %; Hematocrit (blood only) 35.1 % (42-52); Immature Granulocytes # (auto) 0.03 K/uL (0.00-0.02); Immature Granulocytes % (auto) 0.3 %; Lymphocytes # (auto) 0.65 K/uL (1.2-3.4); Lymphocytes % (auto) 5.9 %; Mean Corpuscular Hemoglobin 25.5 pg (25-34); Mean Corpuscular Hgb Conc 31.3 g/dL (32-36); Mean Corpuscular Volume 81.3 fL (80-100); Mean Platelet Volume 9.7 fL (7.4-10.4); Monocytes # (auto) 1.03 K/uL (0.11-0.59); Monocytes % (auto) 9.4 %; Neutrophils # (auto) 8.98 K/uL (1.4-6.5); Neutrophils % (auto) 82.2 %; Platelet Count 482 K/uL (130-400); RDW Coefficient of Variation 14.8 % (11.5-14.5); RDW Standard Deviation 44.1 fL (36.4-46.3); Red Blood Count 4.32 M/uL (4.7-6.1); White Blood Count 10.93 K/uL (4.8-10.8)
[2020-03-24 11:22] LABS: Alanine Aminotransferase 14 U/L (12-78); Albumin Level 2.5 gm/dl (3.4-5.0); Aspartate Aminotransferase 13 U/L (15-37); BUN Creatinine Ratio 17.3 (10-20); Blood Urea Nitrogen 18 mg/dl (7-18); Calcium 8.4 mg/dl (8.5-10.1); Carbon Dioxide 27 mmol/L (21-32); Chloride 104 mmol/L (98-107); Creatinine Clr Calc Pharmacy 52.2 ml/min; Est GFR (African American) 80.8; Est GFR (Non-African American) 69.7; Glucose 126 mg/dl (70-99); Lipase 191 U/L (73-393); Potassium 3.3 mmol/L (3.5-5.1); Sodium 137 mmol/L (136-145)
[2020-03-24 11:26] LABS: Albumin Globulin Ratio 0.5 (0.9-2); Alkaline Phosphatase 66 U/L (45-117); Bilirubin,Total 0.4 mg/dl (0.2-1); Globulin 5.1 gm/dl (2.5-4.0); Total Protein 7.6 gm/dl (6.4-8.2); Troponin I < 0.015 ng/ml (0-0.045)
[2020-03-24] MEDS ORDERED: IOVERSOL 100ml IV ONE (12:40)
--- NOTE | 2020-03-24 13:02 | CT Scan Report ---
CT chest w con CT DOSE: 381.48 mGy.cm HISTORY: Dysphagia dysphagia, wt loss TECHNIQUE: Multiaxial CT images of the chest were performed following the intravenous administration of contrast. A dose lowering technique was utilized adhering to the principles of ALARA. COMPARISON: 05/02/2017 Moderate rather significant wall thickening of the mid to distal esophagus. There is been interval de velopment of bulky subcarinal adenopathy which is incontinuity with the thickened esophageal wall. Maximum diameter of the esophageal wall is 5 cm distally. The lumen of the esophagus is compromised a nd narrowed. There is air-fluid level within the proximal aspect esophagus presumably on an obstructive basis. This mass extends over a length of 10 cm in a cephalocaudal dimension to the level of the gastric fun dus. There is moderate infiltrative change of the paraesophageal fat superior to the gastroesophageal junc tion. Several nodes are present in a retrocrural configuration and/or location measuring up to 2 cm. Evaluation of the lung parenchyma shows several small scattered nodules less than 5 mm. Etiology is u nclear. IMPRESSION: 1. Large mass occupying the bulk of the mid to distal esophagus extending from the level of the mae a of the mediastinum to the gastroesophageal junction. 2. This narrows the lumen of the mid to distal esophagus, with evidence for infiltrative change of th e surrounding paraesophageal fat. 3. Significant subcarinal mediastinal adenopathy. 4. Fluid within the proximal esophagus most likely nonobstructive basis. 5. Several small parenchymal nodules throughout both hemithoraces all less than 5 mm. 6. A neoplastic process is the diagnosis of exclusion with endoscopic evaluation recommended. FINDINGS: The lungs are clear. The mediastinal vascular structures are within normal limits. No media stinal or hilar lymphadenopathy. No pleural effusion or pneumothorax. Limited views of the upper abdo men demonstrate a normal liver and spleen. IMPRESSION: No significant abnormality identified within the chest. ACT 112: Negative or not required by law. The above report was generated using voice recognition software. It may contain grammatical, syntax or spelling errors. Electronically signed by: Pola Fu M.D. 03/24/2020 1:01 PM
--- NOTE | 2020-03-24 15:01 | History & Physical Report ---
Date of Service March 24, 2020 Assessment & Plan (1) Dysphagia: Mr. Ingram is an otherwise healthy 79 yo gentleman who presents for evaluation of progressive dysphagia + unintentional weight loss of 20 pounds over the past 8 months, found to have an esophageal mass with mediastinal lymph nodes on cat scan of chest, concerning for malignancy. GI consulted, anticipate EGD today. - progressive since 08/2019, although patient did not bring to medical attention until visit with PCP 03/06/20 - associated unintentional weight loss, progressive weakness, belching, change in voice - chest CT chest on admission showing a large mass occupying the bulk of the mid to distal esophagus extending from the level of the javeir of the mediastinum to the gastroesophageal junction with significant subcarinal mediastinal lymph nodes. - GI consulted, patient NPO in anticipation of EGD today for bipsy/imaging - hold home omeprazole while NPO, start IV protonix (2) Esophageal mass: - Chest CT report as above - EGD for biopsy/further imaging as above - concerning for malignancy given mediastinal LAD (3) Unintentional weight loss: - 20 pounds in past 2 months - likely secondary to reduced PO intake due to dysphagia - EGD as above (4) Hypoalbuminemia: - level 2.5 on admission, down from 3.4 on outside lab drawn 03/08 - likley secondary to reduced PO intake in setting of dysphagia (5) History of CVA (cerebrovascular accident): - patient has held Plavix for 2 days in anticipation of EGD, which was scheduled as an outpatient procedure on 03/29 - hold statin while NPO (6) Dyslipidemia: - hold statin and plavix as above (7) Heart murmur: - appreciated on exam - known hx of aortic stenosis - recent ECHO in december 2019 Dispo: floor Diet: NPO in anticipation of procedure DVT ppx: Lovenox Code: Full History of Present Illness Primary Care Provider: Dillon La DO Mr. Ingram is a otherwise healthy 79 yo male who presents for evaluation of progressive dysphagia over the past 3 months with an unintentional weight loss of 20 lbs. Symptoms began back in August 2019 with coughing with eating, increased belching, and a sensation that food was getting stuck on its way down. He endorses having more difficulty with solids than with liquids. He describes having an acidic taste in his mouth all the time, a constant, dull central chest pain, and night sweats (although he does not have air conditioning in his house). His has noticed a change in the tone of his voice - it is deeper/softer. He denies any nausea/vomiting, globus sensation, abdominal pain, fever/chills. He passes a BM every 2 days, consistency is normal, perhaps meat cutter in coloration in recent weeks, no blood. He brought his symptoms to his PCP's attention for the first time on 03/06 at which time he was placed on omeprazole 20mg, BID and a referral was made to [facility] for an endoscopy. He was scheduled to have this evaluation on 03/29/20, but due to progressive weakness, came to emergency department for evaluation. Labs ordered by his PCP on 03/08 showed a Hgb of 11.9, a normal liver profile, and an albumin level of 3.9. He is on Plavix for his hx of CVA, but has been holding for the past 2 days in anticipation of his upcoming EGD. He has a remote smoking history: 12 pack year history, quit 50 years ago. No family history if GI issues or cancer. ED course: WBC mildly elevated to 10.93. Hgb low at 11.0. Potassium low at 3.3. Albumin low at 2.5. CT chest showing a large mass occupying the bulk of the mid to distal esophagus extending from the level of the javier of the mediastinum to the gastroesophageal junction with significant subcarinal mediastinal lymph nodes. Patient was started on IV normal saline and made NPO in anticipate of possible procedure. Allergies Allergy/AdvReac Type Severity Reaction Status Date / Time No Known Allergies Allergy Unverified 03/24/20 11:13 Home Medications Home Medications Medication Instructions Recorded Confirmed Type amlodipine 5 mg PO QAM 12/14/18 03/24/20 History atenolol 50 mg PO QAM 12/14/18 03/24/20 History atorvastatin 40 mg PO QAM 12/14/18 03/24/20 History clopidogrel 75 mg PO QAM 12/14/18 03/24/20 History multivitamin 1 tab PO QAM 12/14/18 03/24/20 History flaxseed oil 1,000 mg PO QAM 03/24/20 03/24/20 History omeprazole 20 mg PO BID 03/24/20 03/24/20 History Past Med/Surg History Medical History Dehydration Dyslipidemia Heart murmur History of CVA (cerebrovascular accident) Hypertension Transient ischemic attack (TIA) Surgical History S/P eye surgery Family History Other Family history non-contributory Denies family history of Myocardial infarction Stroke Social History Smoking Status: Former smoker Tobacco Type: Cigarettes and Pipe Age Quit Using Tobacco: 28; Second Hand Exposure: No; Do You Dip or Chew Tobacco: No; Hx Alcohol Use: No Hx Substance Use: No Preferred Language: Nepali Communication Ability: Effective 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: No Beliefs That Will Affect Care: None marital status: Current Living Situation: Spouse Other Information That Helps Us Care for You: No Feels Safe at Home: Yes Safety Concerns: Feels Safe At This Time Review of Systems Constitutional: + weakness and + weight loss; no fever and no chills Ear, Nose, Mouth, Throat: + change in voice (deeper) and + dysphagia; no pain with swallowing Gastrointestinal: + belching, + dysphagia and + change in stools (color is meat cutter); no nausea, no vomiting, no change in bowel habits and no blood in stools Physical Exam Constitutional: WD/WN, vitals as above cooperative Eyes: PERRL, conjunctivae normal, anicteric sclerae ENMT: external ear and nose normal, oropharynx normal Neck: normal visual inspection and trachea midline Respiratory: normal respiratory effort, lungs clear to auscultation Cardiovascular: RRR, no murmur, no edema Heart Sounds: normal S1 and normal S2 Extremities: no pedal edema Gastrointestinal (Abdomen): Inspection/Auscultation: abdomen normal to inspection and normal bowel sounds Percussion/Palpation: abdomen soft; abdomen nontender, no hepatosplenomegaly and no abdominal mass Skin: no rashes, warm and dry Psychiatric: A+Ox3, euthymic affect Results & Data Results & Data ([facility]) Vital Signs (Past 12 Hours) Vital Signs Temp Pulse Resp BP Pulse Ox 03/24/20 13:00 71 25 H 03/24/20 12:30 68 19 128/64 97 03/24/20 12:00 67 15 127/65 97 03/24/20 11:30 68 13 126/69 98 03/24/20 10:08 36.5 C 72 20 118/72 98 Supervising Physician Co-Signing Physician Notes I also saw the patient and confirmed kelly portions of the history and physical examination. I discussed the case with the resident physician and I agree with the impression and plan as outlined above. I also personally spoke with the emergency department physician as well as the gastroenterology strategy execution consultant. Mr. Ingram is a 79-year-old male whom I know well from the outpatient office; he is a history of hypertension, dyslipidemia, aortic stenosis, and remote history of a CVA but is in otherwise good health and usually seen in the office every 6 months. About 3 or 4 weeks ago he presented noting a 6-week or so history of progressive dysphasia and weight loss. Blood work at that time showed a very mild anemia, normal CMP -we started him on omeprazole twice daily and made arrangements for an outpatient endoscopy. The outpatient endoscopy was tentatively scheduled for mid next week, although given the progressive symptoms he ultimately presented to the emergency department today. Unfortunately, CT scan today shows a large mass occupying the bulk of the mid to distal esophagus, along with significant subcarinal mediastinal adenopathy. The case was discussed with gastroenterology and they will proceed with EGD today. Esophageal mass Endoscopy today Surgical consultation, either here or at a tertiary care center; will await endoscopy findings Nutritional support Hypertension Hold antihypertensives for the moment Monitor blood pressure History of CVA Hold Plavix Hyperlipidemia Hold atorvastatin pending endoscopy Resident Activity Tracking Resident Involvement: Resident Care Provided Care Provided: Adult [facility]
--- NOTE | 2020-03-24 15:07 | History & Physical Report ---
Date of Service March 24, 2020 History of Present Illness Chief Complaint: dysphagia Primary Care Provider: Dillon La DO For EGD Allergies Allergy/AdvReac Type Severity Reaction Status Date / Time No Known Allergies Allergy Unverified 03/24/20 11:13 Home Medications Home Medications Medication Instructions Recorded Confirmed Type amlodipine 5 mg PO QAM 12/14/18 03/24/20 History atenolol 50 mg PO QAM 12/14/18 03/24/20 History atorvastatin 40 mg PO QAM 12/14/18 03/24/20 History clopidogrel 75 mg PO QAM 12/14/18 03/24/20 History multivitamin 1 tab PO QAM 12/14/18 03/24/20 History flaxseed oil 1,000 mg PO QAM 03/24/20 03/24/20 History omeprazole 20 mg PO BID 03/24/20 03/24/20 History Past Med/Surg History Medical History (Updated 10/16/19 @ 00:03 by Joseph Jimenez) Dehydration Dyslipidemia Heart murmur History of CVA (cerebrovascular accident) Hypertension Transient ischemic attack (TIA) Surgical History S/P eye surgery Family History Other Family history non-contributory Denies family history of Myocardial infarction Stroke Social History Smoking Status: Former smoker Tobacco Type: Cigarettes and Pipe Age Quit Using Tobacco: 28; Second Hand Exposure: No; Hx Alcohol Use: No Hx Substance Use: No Preferred Language: Frisian Communication Ability: Effective 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 Beliefs That Will Affect Care: None marital status: Current Living Situation: Spouse and Family Feels Safe at Home: Yes Physical Exam Constitutional: well developed Respiratory: normal respiratory effort Cardiovascular: Rate/Rhythm: regular rate and regular rhythm Gastrointestinal (Abdomen): Percussion/Palpation: abdomen soft Results & Data ([facility]) Vital Signs (Past 12 Hours) Vital Signs Temp Pulse Resp BP Pulse Ox 03/24/20 13:00 71 25 H 03/24/20 12:30 68 19 128/64 97 03/24/20 12:00 67 15 127/65 97 03/24/20 11:30 68 13 126/69 98 03/24/20 10:08 36.5 C 72 20 118/72 98
--- NOTE | 2020-03-24 15:20 | Emergency Department Note ---
Impression & Plan Obstruction of esophagus, Esophageal mass ED Provider Note INFORMANT: [Patient] family ED PROVIDER(S): Smooth Sanchez MD CHIEF COMPLAINT: Dyspnea PLAN: Disposition: Admitted Condition: [Good] MEDICAL DECISION MAKING: Patient presented the ER due to progressive dysphasia. His blood work and ECG were unremarkable for acute process. The patient was hydrated. CT imaging of the chest was performed. He has a significant narrowing and masslike enlargement of the esophagus distally. This would explain his dysphasia. Consultation was made with GI, Dr. Batista. He evaluated the patient in the ER. After discussion with the patient he felt that tertiary care transfer to [facility] was reasonable given the complexity. Unfortunately [facility] does not have any beds available. Because of this he felt he would scope the patient to get a further idea of the process. I did discuss the situation with his primary physician who will be admitting, Dr. Dillon La. Patient was seen in the ER and admitted for further management. Triage Nursing notes reviewed and agree them. [Additional history obtained from] family [Prior medical records reviewed] office note reviewed. The patient has had progressive dysphasia and was referred to GI. Vital Signs: reviewed and remarkable for [no significant abnormalities] Differential diagnosis: Esophageal obstruction, infection, dehydration, metabolic abnormality, hypo/hyperglycemia, electrolyte disturbance, anemia, cardiac sources, intracerebral event, neurologic, as well as other pathologies. Diagnostics interpreted by me: ECG: Twelve-lead ECG reveals a normal sinus rhythm at 70 bpm. There are inferior Q waves present. QRS duration is normal. Normal axis. No ST elevation or depression. No PACs or PVCs. Imaging studies: CT scan of the chest reveals a significant mass-like lesion in the distal esophagus. Due to the complexity I refer you to the EMR for full details. . Consultation(s): Gastroenterology Hospitalist service HPI: The patient is a 79 year old male who presents to the Emergency Room with complaints of difficulty swallowing going on for the last 2 months. This started slowly and is worsening to the point where he has trouble even with liquids. The patient also notes the following associated symptoms, feeling generally weak and tired. The patient has found no relieving factors. Current pain is rated as 0/10. Patient notes that he saw his primary physician and was referred to GI. That appointment is pending for next week. Pt denies LOC, headache, fevers, chills, diaphoresis, visual changes, neck pain, chest pain, breathing difficulties, nausea, vomiting, abdominal pain, back pain, melena, hematochezia, urinary symptoms, numbness, lymphadenopathy, rash, or other complaints. ROS: See above HPI for pertinent positives & negatives. A total of [10] systems reviewed and were otherwise negative. PAST MEDICAL HISTORY:[See Below] hypertension, history of CVA PAST SURGICAL HISTORY:[See Below] FAMILY HISTORY:[See Below] SOCIAL HISTORY:[See Below] lives with family HOME MEDICATIONS:[See Below] ALLERGIES:[See Below] VITALS:[See Below] PHYSICAL EXAMINATION: GENERAL: Awake, alert, tired-appearing, in no distress HENT: Normocephalic, atraumatic. Oropharynx unremarkable. EYES: Normal conjunctiva. Sclera non-icteric. NECK: Inspection normal. Non-tender. Supple. No nuchal rigidity. FROM. No masses. RESPIRATORY: Clear to auscultation. No wheezes. No rales. Normal respiratory effort. CARDIAC: Normal rate. Normal rhythm. No murmurs. No rubs. Extremities warm and well perfused. Pulses equal. No JVD. GI: Soft, non-distended. No tenderness to palpation. No rebound or guarding. No masses. RECTAL: Deferred. MUSCULOSKELETAL: Atraumatic. Chest examination reveals no tenderness. The back is symmetrical on inspection without obvious abnormality. There is no CVA tenderness to palpation. No joint edema. LOWER EXTREMITIES: Calves are equal size bilaterally and non-tender. No edema. No discoloration. NEURO: Normal sensorium. No sensory or motor deficits noted. SKIN: No rash or jaundice noted. ED COURSE: [Critical Care:] [None] Smooth Sanchez MD Past Med/Surg History Medical History (Updated 03/24/20 @ 15:14 by Smooth Sanchez MD) Dehydration Dyslipidemia Heart murmur History of CVA (cerebrovascular accident) Hypertension Transient ischemic attack (TIA) Surgical History S/P eye surgery Family History Other Family history non-contributory Denies family history of Myocardial infarction Stroke Social History Smoking Status: Former smoker Tobacco Type: Cigarettes and Pipe Age Quit Using Tobacco: 28; Second Hand Exposure: No; Hx Alcohol Use: No Hx Substance Use: No Preferred Language: Lao Communication Ability: Effective 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 Required: No Beliefs That Will Affect Care: None marital status: Current Living Situation: Spouse and Family Feels Safe at Home: Yes Allergies Allergies Allergy/AdvReac Type Severity Reaction Status Date / Time No Known Allergies Allergy Unverified 03/24/20 11:13 Home Meds Home Medications Medication Instructions Recorded Confirmed amlodipine 5 mg PO QAM 12/14/18 03/24/20 atenolol 50 mg PO QAM 12/14/18 03/24/20 atorvastatin 40 mg PO QAM 12/14/18 03/24/20 clopidogrel 75 mg PO QAM 12/14/18 03/24/20 multivitamin 1 tab PO QAM 12/14/18 03/24/20 flaxseed oil 1,000 mg PO QAM 03/24/20 03/24/20 omeprazole 20 mg PO BID 03/24/20 03/24/20 Results & Data (ED) Vital Signs Vital Signs - 24 hr 03/24/20 10:08 03/24/20 11:30 03/24/20 12:00 Temperature 36.5 C Temperature Source Oral Pulse Rate 72 68 67 Pulse Rate from SpO2 Sensor 69 67 Respiratory Rate 20 13 15 Respiratory Effort / Characteristics Non-Labored Respiratory Depth Normal Blood Pressure 118/72 126/69 127/65 Blood Pressure Mean 87 95 95 Pulse Oximetry 98 98 97 Oxygen Delivery Method Room Air Room Air Room Air Sepsis Recent Fever Within 48 Hours No Sepsis New/Unexplained Change in Mental Status N/A Sepsis Action Taken by Nursing No Action Required 03/24/20 12:30 03/24/20 13:00 Temperature Temperature Source Pulse Rate 68 71 Pulse Rate from SpO2 Sensor 68 Respiratory Rate 19 25 H Respiratory Effort / Characteristics Respiratory Depth Blood Pressure 128/64 Blood Pressure Mean 91 Pulse Oximetry 97 Oxygen Delivery Method Room Air Sepsis Recent Fever Within 48 Hours Sepsis New/Unexplained Change in Mental Status Sepsis Action Taken by Nursing Laboratory Data Result diagrams: 03/24/20 10:30 03/24/20 10:45 Lab Results 03/24/20 03/24/20 03/24/20 Range/Units 10:30 10:45 10:45 WBC 10.93 H (4.8-10.8) K/uL RBC 4.32 L (4.7-6.1) M/uL Hgb 11.0 L (14.0-18.0) g/dL Hct 35.1 L (42-52) % MCV 81.3 (80-100) fL MCH 25.5 (25-34) pg MCHC 31.3 L (32-36) g/dL RDW Std Deviation 44.1 (36.4-46.3) fL RDW Coeff of Anne-Marie 14.8 H (11.5-14.5) % Plt Count 482 H (130-400) K/uL MPV 9.7 (7.4-10.4) fL Immature Gran % (Auto) 0.3 % Neut % (Auto) 82.2 % Lymph % (Auto) 5.9 % Spencer % (Auto) 9.4 % Eos % (Auto) 1.9 % Baso % (Auto) 0.3 % Neut # (Auto) 8.98 H (1.4-6.5) K/uL Lymph # (Auto) 0.65 L (1.2-3.4) K/uL Spencer # (Auto) 1.03 H (0.11-0.59) K/uL Eos # (Auto) 0.21 (0-0.5) K/uL Baso # (Auto) 0.03 (0-0.2) K/uL Immature Gran # (Auto) 0.03 H (0.00-0.02) K/uL Sodium 137 (136-145) mmol/L Potassium 3.3 L (3.5-5.1) mmol/L Chloride 104 (98-107) mmol/L Carbon Dioxide 27 (21-32) mmol/L Anion Gap 6.0 (3-11) BUN 18 (7-18) mg/dl Creatinine 1.03 (0.6-1.4) mg/dl Est Cr Clr Drug Dosing 52.2 ml/min Est GFR ( Amer) 80.8 Est GFR (Non-Af Amer) 69.7 BUN/Creatinine Ratio 17.3 (10-20) Glucose 126 H (70-99) mg/dl Calcium 8.4 L (8.5-10.1) mg/dl Total Bilirubin 0.4 (0.2-1) mg/dl AST 13 L (15-37) U/L ALT 14 (12-78) U/L Alkaline Phosphatase 66 (45-117) U/L Ammonia < 10.0 L (11-32) umol/L Troponin I < 0.015 (0-0.045) ng/ml Total Protein 7.6 (6.4-8.2) gm/dl Albumin 2.5 L (3.4-5.0) gm/dl Globulin 5.1 H (2.5-4.0) gm/dl Albumin/Globulin Ratio 0.5 L (0.9-2) Lipase 191 (73-393) U/L Administered Medications Sodium Chloride (Nss 1000ml) 1,000 mls @ 125 mls/hr IV .Q8H STA Stop: 03/24/20 18:27 Last Admin: 03/24/20 11:02 Dose: 125 mls/hr Documented by: [id number] Discontinued Medications Sodium Chloride (Nss 1000ml) 500 mls @ 999 mls/hr IV .Q31M ONE Stop: 03/24/20 10:58 Last Infusion: 03/24/20 11:33 Dose: 0 mls/hr Documented by: [id number] Admin: 03/24/20 11:02 Dose: 999 mls/hr Documented by: [id number] Ioversol (Ioversol 100ml) 93 ml IV ONCE ONE Stop: 03/24/20 12:41 Last Admin: 03/24/20 12:41 Dose: 93 ml Documented by: [id number] Discharge Plan Visit Data Chief Complaint: Referred by Doctor Stated Complaint: LOSS OF MARVA ED Provider: Smooth Sanchez Discharge Problem: Obstruction of esophagus, Esophageal mass Forms Stand Alone Forms: My [facility] Prescriptions Prescriptions: No Action flaxseed oil 1,000 mg Capsule 1,000 mg PO QAM RF: 0 omeprazole 20 mg capsule,delayed release(DR/EC) 20 mg PO BID RF: 0 multivitamin Tablet 1 tab PO QAM RF: 0 atorvastatin 40 mg tablet 40 mg PO QAM RF: 0 clopidogrel 75 mg tablet 75 mg PO QAM RF: 0 amlodipine 5 mg tablet 5 mg PO QAM RF: 0 atenolol 50 mg Tablet 50 mg PO QAM RF: 0
--- NOTE | 2020-03-24 15:34 | Anesthesiology Consultation ---
Date of Service March 24, 2020 Assessment & Plan (1) Encounter for pre-operative examination: Chart Review Chart Review: Acceptable Risk for Surgery and Patient NOT seen in Pre Admission Testing covid prescreen test negatiave 03/24/2020. Consults Requested none History Surgery Operation Date: 03/25/20 09:15 Proposed Procedures p Esophagogastroduodenoscopy Dr Lester Fonseca Operation Date: 03/25/20 09:30 Proposed Procedures p Esophagogastroduodenoscopy Dr Raymundo Fonseca Height/Weight Height: 5 ft 5 in Weight: 69.7 kg Allergies Allergy/AdvReac Type Severity Reaction Status Date / Time No Known Allergies Allergy Unverified 03/24/20 11:13 Medications Home Medications Medication Instructions Recorded Confirmed Last Taken amlodipine 5 mg PO QAM 12/14/18 03/24/20 03/24/20 atenolol 50 mg PO QAM 12/14/18 03/24/20 03/24/20 atorvastatin 40 mg PO QAM 12/14/18 03/24/20 03/24/20 clopidogrel 75 mg PO QAM 12/14/18 03/24/20 03/24/20 multivitamin 1 tab PO QAM 12/14/18 03/24/20 03/24/20 flaxseed oil 1,000 mg PO QAM 03/24/20 03/24/20 03/24/20 omeprazole 20 mg PO BID 03/24/20 03/24/20 03/24/20 Active Medications Generic Name Dose Route Start Last Admin Trade Name Freq PRN Reason Stop Dose Admin Pantoprazole Sodium 40 mg/ 10 mls @ 5 mls/min 03/24/20 21:00 03/25/20 08:19 Syringe IV 04/23/20 20:59 5 mls/min BID RONNIE Administration Sodium Chloride 1,000 mls @ 80 mls/hr 03/25/20 05:45 03/25/20 05:50 Nss 1000ml IV 04/24/20 05:44 80 mls/hr .[id number] RONNIE Administration Potassium Chloride 10 meq in 100 mls @ 100 mls/hr 03/25/20 06:38 03/25/20 09:16 K Pan / Wtr IV 03/25/20 10:37 100 mls/hr Q1H RONNIE Administration Past Medical History Medical History Dehydration Dyslipidemia Heart murmur History of CVA (cerebrovascular accident) Hypertension Transient ischemic attack (TIA) Exercise / Class Metabolic Activity II 4-5 Yardwork/Stairs/Walk up hill Past Family History Family History Other Family history non-contributory Denies family history of Myocardial infarction Stroke Past Surgical History Surgical History S/P eye surgery Past Anesthesia History No Hx of Anesthesia Complications and No Family Hx of Anesthesia Complications History of PONV No Hx of PONV and No Hx of Motion Sickness Social History Smoking Status: Former smoker tobacco type: cigarettes Hx Alcohol Use: No Hx Substance Use: No substance use type: does not use Physical Exam Vital Signs Last Vital Signs Temp 36.6 C 03/25/20 07:29 Pulse 71 03/25/20 07:29 Resp 18 03/25/20 07:29 BP 131/72 03/25/20 07:29 Pulse Ox 97 03/25/20 07:29 Testing Laboratory Results 03/25/20 05:40 03/25/20 05:40 Urine Color Yellow 03/24/20 16:55 Urine Appearance Clear (Clear) 03/24/20 16:55 Urine pH 7.5 (4.5-7.5) 03/24/20 16:55 Ur Specific [place] 1.034 (1.000-1.030) H 03/24/20 16:55 Urine Protein Negative (Negative) 03/24/20 16:55 Urine Glucose (UA) Negative (Negative) 03/24/20 16:55 Urine Ketones Negative (Negative) 03/24/20 16:55 Urine Nitrite Negative (Negative) 03/24/20 16:55 Ur Leukocyte Esterase Negative (Negative) 03/24/20 16:55 Electrocardiogram Date: 03/24/20 Findings: + NSR @ Normal sinus rhythm Possible Inferior infarct , age undetermined Abnormal ECG When compared with ECG of 01-OCT-2019 11:23, Borderline criteria for Inferior infarct are now Present
--- NOTE | 2020-03-24 15:51 | Consultation Report ---
DATE OF CONSULTATION: 03/24/2020 REASON FOR EVALUATION: Difficulty swallowing. HISTORY OF PRESENT ILLNESS: The patient is a 79-year-old male followed by Dr. La, who has been having difficulty swallowing since 12/2019. It has gotten progressively worse and he is only able to swallow liquids currently. The patient has lost 25 pounds during this time period. The patient reports that he smoked but quit 50 years ago and drinks very little alcohol. He has had very little heartburn during his life and does not really take any acid suppressing medications until most recently. He is scheduled for an outpatient EGD, but presented to the Emergency Room today because he is just getting weaker and cannot swallow any solid food. He did have a CT scan in the ER, which showed a large 5 cm diameter tumor in the distal esophagus with penetration through the esophageal wall. It is 10 cm in length and pretty obstructing in that there does not appear to be any visible lumen on the CAT scan. PAST MEDICAL HISTORY: Remarkable for a CVA 3 or 4 years ago for which he is taking Plavix, hypertension, he has a heart murmur, he has dyslipidemia. MEDICATIONS: Amlodipine, atenolol, atorvastatin, Plavix, multiple vitamin, flaxseed oil, omeprazole. ALLERGIES: None. FAMILY HISTORY: Noncontributory. SOCIAL HISTORY: He is and lives with his . Very little alcohol. Does not smoke currently, quit at age 29. PHYSICAL EXAMINATION: GENERAL: The patient appears in no acute distress. VITAL SIGNS: Blood pressure is 128/64, pulse 68, oxygen saturation 97%. MOUTH: Shows a full [place] teeth. ABDOMEN: Soft. There are no masses, tenderness, or hepatosplenomegaly. IMPRESSION AND PLAN: The patient has a large esophageal tumor. We will try to get him scoped today to biopsy it and then he will probably need surgical consultation for a surgically placed gastrostomy tube for nutritional support and an oncology evaluation as well. In the meantime, he will probably need total parenteral nutrition for nutritional support.
[2020-03-24] MEDS ORDERED: ONDANSETRON INJ 2 MG/ML 2 ML VIAL IV PRN (16:28)
[2020-03-24 18:24] LABS: Appearance Urine Clear (Clear); Bilirubin Urine Negative (Negative); Blood Urine Negative (Negative); Color Urine Yellow; Glucose Urine UA Negative (Negative); Ketones Urine Negative (Negative); Leukocyte Esterase Urine Negative (Negative); Nitrite Urine Negative (Negative); Protein Urine Negative (Negative); Specific Gravity Urine 1.034 (1.000-1.030); Urobilinogen Urine Negative (Negative); pH Urine 7.5 (4.5-7.5)
[2020-03-24] MEDS: PANTOprazole 40 MG in SYRINGE 0 ML IV SCH (20:31)
[2020-03-25] MEDS: SODIUM CHLORIDE 0.9% 1000ML 1,000 ML IV SCH ×2 (05:50→18:03)
[2020-03-25 05:56] LABS: Basophils # (auto) 0.05 K/uL (0-0.2); Basophils % (auto) 0.6 %; Eosinophils # (auto) 0.43 K/uL (0-0.5); Eosinophils % (auto) 4.9 %; Hematocrit (blood only) 32.1 % (42-52); Hemoglobin 10.5 g/dL (14.0-18.0); Immature Granulocytes # (auto) 0.01 K/uL (0.00-0.02); Immature Granulocytes % (auto) 0.1 %; Lymphocytes # (auto) 0.95 K/uL (1.2-3.4); Lymphocytes % (auto) 10.7 %; Mean Corpuscular Hemoglobin 26.2 pg (25-34); Mean Corpuscular Hgb Conc 32.7 g/dL (32-36); Mean Platelet Volume 9.5 fL (7.4-10.4); Monocytes # (auto) 1.04 K/uL (0.11-0.59); Monocytes % (auto) 11.7 %; Neutrophils # (auto) 6.38 K/uL (1.4-6.5); Platelet Count 395 K/uL (130-400); RDW Coefficient of Variation 14.6 % (11.5-14.5); RDW Standard Deviation 42.7 fL (36.4-46.3); Red Blood Count 4.01 M/uL (4.7-6.1); White Blood Count 8.86 K/uL (4.8-10.8)
[2020-03-25 06:18] LABS: BUN Creatinine Ratio 14.4 (10-20); Calcium 8.6 mg/dl (8.5-10.1); Creatinine Clr Calc Pharmacy 66.4 ml/min; Est GFR (African American) 99.4; Est GFR (Non-African American) 85.7; Potassium 3.1 mmol/L (3.5-5.1)
--- NOTE | 2020-03-25 07:03 | Electrocardiogram Report ---
Test Reason : Blood Pressure : / mmHG Vent. Rate : 070 BPM Atrial Rate : 070 BPM P-R Int : 140 ms QRS Dur : 086 ms QT Int : 418 ms P-R-T Axes : 055 010 018 degrees QTc Int : 451 ms Normal sinus rhythm Possible Inferior infarct , age undetermined Abnormal ECG When compared with ECG of 01-OCT-2019 11:23, Borderline criteria for Inferior infarct are now Present Confirmed by Virgilio Teague ([id number]) on 03/25/2020 7:02:34 AM Referred By: REFERRED SELF Confirmed By:Virgilio Teague
[2020-03-25] MEDS: POTASSIUM CHLORIDE / WTR 10 MEQ/100 ML PLCT IV SCH ×4 (07:09→11:00)
[2020-03-25] MEDS: PANTOprazole 40 MG in SYRINGE 0 ML IV SCH (08:19)
[2020-03-25] MEDS ORDERED: MIDAZOLAM HCL 1 MG/ML 2ML VIAL ONE (09:30)
[2020-03-25] MEDS ORDERED: PROPOFOL IV EMULSION 10 MG/ML 20 ML VIAL IV ONE ×2 (09:30→10:12)
[2020-03-25] MEDS ORDERED: fentaNYL citrate 100 MCG/2 ML VIAL ONE (09:30)
[2020-03-25] MEDS ORDERED: LIDOCAINE HCL 2% 2 ML VIAL/AMP(20MG/ML) INFIL ONE (09:30)
[2020-03-25] MEDS ORDERED: ROCURONIUM BROMIDE 10 MG/ML 5 ML VIAL IV ONE (09:32)
[2020-03-25] MEDS ORDERED: ATROPINE SULFATE 0.1 MG/ML 10ML SYR IV PRN (09:36)
[2020-03-25] MEDS ORDERED: fentaNYL citrate 100 MCG/2 ML VIAL IV PRN (09:36)
[2020-03-25] MEDS ORDERED: ONDANSETRON INJ 2 MG/ML 2 ML VIAL IV PRN (09:36)
[2020-03-25] MEDS ORDERED: ePHEDrine sulfate 50 MG/ML AMP IV PRN (09:36)
--- NOTE | 2020-03-25 10:28 | GI REPORT ---
Patient Name: Sam Ingram Procedure Date: 03/25/2020 9:51 AM Date of : 1940 Admit Type: Inpatient Age: 79 Gender: Male Attending MD: Stanley Fonseca MD Procedure: Upper GI endoscopy Providers: Stanley Fonseca MD Referring MD: Dillon La Indications: Dysphagia, Abnormal CT of the GI tract Medicines: Propofol per Anesthesia Complications: No immediate complications. Estimated blood loss: Minimal. Estimated Blood Loss: Estimated blood loss was minimal. Procedure: Pre-Anesthesia Assessment: - Prior to the procedure, a History and Physical was performed, and patient medications and allergies were reviewed. The patient's tolerance of previous anesthesia was also reviewed. The risks and benefits of the procedure and the sedation options and risks were discussed with the patient. All questions were answered, and informed consent was obtained. Prior Anticoagulants: The patient has taken Plavix (clopidogrel), last dose was 1 day prior to procedure. ASA Grade Assessment: III - A patient with severe systemic disease. After reviewing the risks and benefits, the patient was deemed in satisfactory condition to undergo the procedure. After obtaining informed consent, the endoscope was passed under direct vision. Throughout the procedure, the patient's blood pressure, pulse, and oxygen saturations were monitored continuously. The Endoscope was introduced through the mouth, and advanced to the antrum of the stomach. The upper GI endoscopy was accomplished without difficulty. The patient tolerated the procedure well. Findings: A large, fungating and ulcerating mass with no stigmata of recent bleeding was found in the middle third of the esophagus and in the lower third of the esophagus, 26 cm from the incisors. The mass was partially obstructing and circumferential. Biopsies were taken with a cold forceps for histology. Verification of patient identification for the specimen was done. Estimated blood loss was minimal. A medium-sized hiatal hernia was present. NOTE: Patient disclosed that he was on plavix. Not listed ias OP meds. The lumen was sizeable enough to pass the upper scope. Peds scope used to take picnch biopsies after holding bit for >30 seconds. We confirmed that ther minialooze slowed down. Only two bites taken. 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 Biopsied. - Medium-sized hiatal hernia. Recommendation: - Return patient to [facility] for ongoing care. - Full liquid diet today. - Continue present medications. - Await pathology results. Stanley Fonseca M.D. Stanley Fonseca MD 03/25/2020 10:27:48 AM This report has been signed electronically. Note Initiated On: 03/25/2020 9:51 AM Number of Addenda: 0 I attest to the content of the Intraoperative Record and orders documented therein, exceptions below {[id number]}
--- NOTE | 2020-03-25 10:48 | Anesthesiology Progress Note ---
Date of Service March 25, 2020 Anesthesia Post Procedure Vital Signs Vital Signs: Temp Pulse Pulse Pulse Resp BP BP 03/25/20 10:41 83 18 113/66 03/25/20 10:34 36.0 C L 82 18 106/61 03/25/20 07:29 36.6 C 71 18 03/25/20 06:05 36.5 C 69 16 03/24/20 23:13 36.8 C 69 16 03/24/20 16:40 36.6 C 70 16 121/73 03/24/20 15:30 69 20 131/72 03/24/20 15:00 72 16 146/74 H 03/24/20 14:30 70 13 131/65 03/24/20 14:00 70 17 132/73 03/24/20 13:30 69 17 138/68 03/24/20 13:29 70 12 138/71 03/24/20 13:00 71 25 H 03/24/20 12:30 68 19 128/64 03/24/20 12:00 67 15 127/65 03/24/20 11:30 68 13 126/69 BP Pulse Ox 03/25/20 10:41 99 03/25/20 10:34 99 03/25/20 07:29 131/72 97 03/25/20 06:05 132/75 97 03/24/20 23:13 126/65 97 03/24/20 16:40 99 03/24/20 15:30 98 03/24/20 15:00 98 03/24/20 14:30 99 03/24/20 14:00 98 03/24/20 13:30 98 03/24/20 13:29 98 03/24/20 13:00 03/24/20 12:30 97 03/24/20 12:00 97 03/24/20 11:30 98 Pain Intensity Midsternal: Pain Intensity: 4 Transfer of Care Handoff Completed per policy Notes Mental Status: alert / awake / arousable and participated in evaluation Patient Amnestic to Procedure: Yes Nausea / Vomiting: adequately controlled Pain: adequately controlled Airway Patency, RR, SpO2: stable & adequate BP & HR: stable & adequate Hydration State: stable & adequate Anesthetic Complications: no major complications apparent and Pt Satisfied with anesthetic care
--- NOTE | 2020-03-25 15:24 | Hospitalist Progress Note ---
Date of Service March 25, 2020 Assessment & Plan (1) Esophageal mass: Mr. Ingram is an otherwise healthy 79 yo gentleman who presents for evaluation of progressive dysphagia + unintentional weight loss of 20 pounds over the past 8 months, found to have an esophageal mass with mediastinal lymph nodes on CT scan of chest, concerning for malignancy. Dysphagia/esophageal mass -Dysphasia progressive since 08/2019, although patient did not bring to medical attention until visit with PCP 03/06/20 - associated unintentional weight loss, progressive weakness, belching, change in voice - chest CT chest on admission showing a large mass occupying the bulk of the mid to distal esophagus extending from the level of the javier of the mediastinum to the gastroesophageal junction with significant subcarinal mediastinal lymph nodes. 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 Biopsied. Medium-sized hiatal hernia. -Awaiting pathology results. Concerning for malignancy given mediastinal LAD -Full liquid diet today. Recommend continuing on this liquid diet -resume home omeprazole -Patient will follow-up with Dr. Kim of oncology as outpatient on discharge. Once pathology results may begin chemoradiation. Once tumor is shrunk in size, then consideration for cardiothoracic surgery consult. Is not available at our facility at present, patient will likely need to go to a tertiary care center Unintentional weight loss: - 20 pounds in past 2 months - likely secondary to reduced PO intake due to dysphagia Hypoalbuminemia: - level 2.5 on admission, down from 3.4 on outside lab drawn 03/08 -Likely secondary to reduced PO intake in setting of dysphagia -Cannot take boost shakes secondary to ?lactulose intolerance History of CVA/ Dyslipidemia/HTN - patient has held Plavix for 2 days in anticipation of EGD, which was scheduled as an outpatient procedure on 03/29 -Resume statin, amlodipine, atenolol. Holding Plavix Heart murmur: - appreciated on exam - known hx of aortic stenosis - recent ECHO in december 2019 Hypokalemia -3.1 this AM. Repleted with Kellen mosley. In setting of poor p.o. intake -daily BMP Diet: Full liquid, lactose intolerant DVT ppx: Lovenox SQ Code: Full Dispo: MedSurg. Hopefully discharge tomorrow Admission and Anticipated Discharge Date Admission Date: March 24, 2020 Supervising Physician Co-Signing Physician Notes I also personally spoke with the gastroenterology industrial methods consultant. I also saw the patient and confirmed kelly portions of the history and physical examination. I discussed the case with the resident physician and I agree with the impression and plan as outlined above. I saw the patient in the postoperative recovery room. His was present at bedside. Given his recent Plavix, patient had EGD but without attempted stenting; tissue for pathology was obtained. The overall thought that the diameter of the esophagus would likely be amenable to liquid diet. Esophageal mass Endoscopy today with tissue sampling for pathology Nutritional support; replete potassium If he is able to tolerate liquids, may be able to be discharged tomorrow. He will need oncology consultation as an outpatient within the next week for consideration of chemotherapy, and perhaps radiation therapy. Surgical consultation could be obtained, although this would likely not be a possibility until after chemotherapy is initiated. If he has problems with the liquid diet, EGD with stent placement could be a possibility. Hypertension Monitor blood pressure May need to adjust home doses given his weight loss History of CVA At this point will hold Plavix in case there is need for repeat EGD/esophageal stenting Hyperlipidemia Hold atorvastatin Subjective Patient found in bed this a.m. with no acute overnight events. Patient seen after EGD in recovery room, tolerated procedure well. Advance diet and patient tolerated. Patient with no other acute concerns or complaints. Review of Systems Review of Systems: All systems reviewed & are unremarkable except as noted in HPI & below Physical Exam Constitutional: WD/WN, vitals as above Eyes: PERRL, conjunctivae normal, anicteric sclerae ENMT: external ear and nose normal, oropharynx normal Respiratory: normal respiratory effort, lungs clear to auscultation Cardiovascular: RRR, no murmur, no edema Gastrointestinal (Abdomen): normal bowel sounds, soft, nontender, no hepatosplenomegaly Skin: no rashes, warm and dry Psychiatric: A+Ox3, euthymic affect Results & Data Results & Data ([facility]) Vital Signs (Past 12 Hours) Vital Signs Temp Pulse Pulse Resp BP BP Pulse Ox 03/25/20 14:42 36.9 C 72 18 138/68 96 03/25/20 13:30 74 16 117/63 99 03/25/20 12:30 72 16 147/71 H 98 03/25/20 12:03 67 16 132/75 99 03/25/20 11:30 36.4 C L 73 16 131/73 99 03/25/20 11:15 77 20 119/71 100 03/25/20 11:00 36.3 C L 73 13 116/69 99 03/25/20 10:50 78 12 106/66 99 03/25/20 10:41 83 18 113/66 99 03/25/20 10:34 36.0 C L 82 18 106/61 99 03/25/20 07:29 36.6 C 71 18 131/72 97 03/25/20 06:05 36.5 C 69 16 132/75 97 Laboratory Results Laboratory Results - last 24 hr 03/24/20 03/24/20 03/24/20 15:33 15:33 16:55 WBC RBC Hgb Hct MCV MCH MCHC RDW Std Deviation RDW Coeff of Anne-Marie Plt Count MPV Immature Gran % (Auto) Neut % (Auto) Lymph % (Auto) [place] % (Auto) Eos % (Auto) Baso % (Auto) Neut # (Auto) Lymph # (Auto) [place] # (Auto) Eos # (Auto) Baso # (Auto) Immature Gran # (Auto) Sodium Potassium Chloride Carbon Dioxide Anion Gap BUN Creatinine Est Cr Clr Drug Dosing Est GFR ( Amer) Est GFR (Non-Af Amer) BUN/Creatinine Ratio Glucose Calcium Urine Color Yellow Urine Appearance Clear Urine pH 7.5 Ur Specific [place] 1.034 H Urine Protein Negative Urine Glucose (UA) Negative Urine Ketones Negative Urine Blood Negative Urine Nitrite Negative Urine Bilirubin Negative Urine Urobilinogen Negative Ur Leukocyte Esterase Negative COVID-19 Eval Order Covid19 [facility]Now [facility] SARS-CoV-2, RNA, NAAT NEGATIVE Blood Type Antibody Screen 03/25/20 03/25/20 03/25/20 05:40 05:40 09:45 WBC 8.86 RBC 4.01 L Hgb 10.5 L Hct 32.1 L MCV 80.0 MCH 26.2 MCHC 32.7 RDW Std Deviation 42.7 RDW Coeff of Anne-Marie 14.6 H Plt Count 395 MPV 9.5 Immature Gran % (Auto) 0.1 Neut % (Auto) 72.0 Lymph % (Auto) 10.7 [place] % (Auto) 11.7 Eos % (Auto) 4.9 Baso % (Auto) 0.6 Neut # (Auto) 6.38 Lymph # (Auto) 0.95 L [place] # (Auto) 1.04 H Eos # (Auto) 0.43 Baso # (Auto) 0.05 Immature Gran # (Auto) 0.01 Sodium 140 Potassium 3.1 L Chloride 107 Carbon Dioxide 27 Anion Gap 6.0 BUN 12 Creatinine 0.81 Est Cr Clr Drug Dosing 66.4 Est GFR ( Amer) 99.4 Est GFR (Non-Af Amer) 85.7 BUN/Creatinine Ratio 14.4 Glucose 91 Calcium 8.6 Urine Color Urine Appearance Urine pH Ur Specific [place] Urine Protein Urine Glucose (UA) Urine Ketones Urine Blood Urine Nitrite Urine Bilirubin Urine Urobilinogen Ur Leukocyte Esterase COVID-19 Eval Order SARS-CoV-2, RNA, NAAT Blood Type B Positive Antibody Screen NEGATIVE Medications Administered Current Inpatient Medications Pantoprazole Sodium 40 mg/ (Syringe) 10 mls @ 5 mls/min IV BID RONNIE Stop: 04/23/20 20:59 Last Admin: 03/25/20 08:19 Dose: 5 mls/min Documented by: Sodium Chloride (Nss 1000ml) 1,000 mls @ 80 mls/hr IV .[id number] RONNIE Stop: 04/24/20 05:44 Last Admin: 03/25/20 05:50 Dose: 80 mls/hr Documented by: Ondansetron HCl (Ondansetron Inj 2 Mg/Ml 2 Ml Vial) 4 mg IV Q6H PRN PRN Reason: Nausea Stop: 04/23/20 16:27 Resident Activity Tracking Resident Involvement: Resident Care Provided Care Provided: Adult Hospital Medicine
[2020-03-25] MEDS: PANTOprazole 40 MG TAB PO SCH (20:47)
[2020-03-26 06:05] LABS: Basophils # (auto) 0.05 K/uL (0-0.2); Basophils % (auto) 0.5 %; Eosinophils # (auto) 0.37 K/uL (0-0.5); Eosinophils % (auto) 3.9 %; Hematocrit (blood only) 33.3 % (42-52); Hemoglobin 10.6 g/dL (14.0-18.0); Immature Granulocytes # (auto) 0.01 K/uL (0.00-0.02); Immature Granulocytes % (auto) 0.1 %; Lymphocytes # (auto) 1.01 K/uL (1.2-3.4); Lymphocytes % (auto) 10.7 %; Mean Corpuscular Hemoglobin 25.4 pg (25-34); Mean Corpuscular Hgb Conc 31.8 g/dL (32-36); Mean Corpuscular Volume 79.9 fL (80-100); Mean Platelet Volume 9.5 fL (7.4-10.4); Monocytes # (auto) 0.63 K/uL (0.11-0.59); Monocytes % (auto) 6.7 %; Neutrophils # (auto) 7.33 K/uL (1.4-6.5); Neutrophils % (auto) 78.1 %; Platelet Count 408 K/uL (130-400); RDW Coefficient of Variation 14.8 % (11.5-14.5); Red Blood Count 4.17 M/uL (4.7-6.1)
[2020-03-26 06:31] LABS: BUN Creatinine Ratio 10.4 (10-20); Calcium 8.2 mg/dl (8.5-10.1); Creatinine Clr Calc Pharmacy 69.9 ml/min; Est GFR (African American) 101.5; Est GFR (Non-African American) 87.5
[2020-03-26] MEDS: SODIUM CHLORIDE 0.9% 1000ML 1,000 ML IV SCH ×2 (06:33→19:18)
[2020-03-26] MEDS: POTASSIUM CHLORIDE / WTR 10 MEQ/100 ML PLCT IV SCH ×6 (07:04→12:24)
[2020-03-26] MEDS ORDERED: CLOPIDOGREL BISULFATE 75 MG TAB PO SCH (09:00)
[2020-03-26] MEDS ORDERED: NON-FORMULARY MEDICATION (Flaxseed Oil 1,000 MG) PO SCH (09:00)
[2020-03-26] MEDS: ATORVASTATIN 40 MG TAB PO SCH (09:05)
[2020-03-26] MEDS: MULTIVITAMIN TAB PO SCH (09:05)
[2020-03-26] MEDS: ATENOLOL 50 MG TABLET PO SCH (09:05)
[2020-03-26] MEDS: ENOXAPARIN INJ 40 MG/0.4 ML SYR SQ SCH (09:06)
[2020-03-26] MEDS: PANTOprazole 40 MG TAB PO SCH ×2 (09:06→21:06)
[2020-03-26] MEDS: AMLODIPINE BESYLATE 5 MG TAB PO SCH (09:07)
[2020-03-26 11:56] LABS: Phosphorus 2.6 mg/dl (2.5-4.9)
--- NOTE | 2020-03-26 15:37 | Hospitalist Progress Note ---
Date of Service March 26, 2020 Assessment & Plan (1) Esophageal mass: Mr. Ingram is an otherwise healthy 79 yo gentleman who presents for evaluation of progressive dysphagia + unintentional weight loss of 20 pounds over the past 8 months, found to have an esophageal mass with mediastinal lymph nodes on CT scan of chest, concerning for malignancy. Dysphagia/esophageal mass -Dysphasia progressive since 08/2019, although patient did not bring to medical attention until visit with PCP 03/06/20 - associated unintentional weight loss, progressive weakness, belching, change in voice - chest CT chest on admission showing a large mass occupying the bulk of the mid to distal esophagus extending from the level of the javier of the mediastinum to the gastroesophageal junction with significant subcarinal mediastinal lymph nodes. 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 Biopsied. Medium-sized hiatal hernia. -Awaiting pathology results. Concerning for malignancy given mediastinal LAD -Full liquid diet tolerating. Recommend continuing on this liquid diet only per recs of GI. If for whatever reason patient is no longer tolerating liquid diet, consideration for EGD with stent placement -resume home omeprazole -Patient will follow-up with Dr. Kim of oncology as outpatient on discharge. Once pathology results may begin appropriate chemoradiation. Once tumor is shrunk in size, then consideration for cardiothoracic surgery consult. This is not available at our facility at present, patient will likely need to go to a tertiary care center Unintentional weight loss: - 20 pounds in past 2 months - likely secondary to reduced PO intake due to dysphagia Hypoalbuminemia: - level 2.5 on admission, down from 3.4 on outside lab drawn 03/08 -Likely secondary to reduced PO intake in setting of dysphagia -Spoke with pharmacy today and began peach flavored boost shakes as patient is l actose intolerant and this specific type does not have dairy History of CVA/ Dyslipidemia/HTN - patient has held Plavix for 2 days in anticipation of EGD, which was schedule d as an outpatient procedure on 03/29 -Resume statin, amlodipine, atenolol. Holding Plavix in case need for repeat EGD/esophageal stenting Heart murmur: - appreciated on exam - known hx of aortic stenosis - recent ECHO in december 2019 Hypokalemia -3.0 this AM. Repleted with K riders. In setting of poor p.o. intake -Patient cannot tolerate potassium tabs as they are very large. Added on potassium elixir 20 mEq twice daily to be added into boost shakes as above -daily BMP Diet: Full liquid, lactose intolerant DVT ppx: Lovenox SQ Code: Full Dispo: MedSurg. Hopefully discharge tomorrow once potassium level stabilizes Admission and Anticipated Discharge Date Admission Date: March 24, 2020 Supervising Physician Co-Signing Physician Notes Also saw the patient concurrent the resident physician confirmed kelly portion of the history and physical examination. Agree with the impression and plan as noted above. Overall, he feels surprisingly well given his current diagnosis and situation. Hopeful plan is to stabilize his potassium -IV replacement this point -while we try to increase his calories and potassium via liquid supplements Pathology from the EGD completed on Friday should be available by Friday or Friday. He will need outpatient appointment with oncology to discuss treatment. Esophageal mass Endoscopy today with tissue sampling for pathology He will need oncology consultation as an outpatient within the next week for consideration of chemotherapy, and perhaps radiation therapy. Surgical consultation could be obtained, although this would likely not be a possibility until after chemotherapy is initiated. If he has problems with the liquid diet, EGD with stent placement could be a possibility. I would continue to hold Plavix at this point Hypertension Monitor blood pressure May need to adjust home doses given his weight loss History of CVA At this point will hold Plavix in case there is need for repeat EGD/esophageal stenting Hyperlipidemia Atorvastatin Subjective Patient found in bed this a.m. with no acute overnight events. Patient tolerating liquid diet without issue. Patient with no other acute concerns or complaints. Review of Systems Review of Systems: All systems reviewed & are unremarkable except as noted in HPI & below Physical Exam Constitutional: WD/WN, vitals as above Eyes: PERRL, conjunctivae normal, anicteric sclerae ENMT: external ear and nose normal, oropharynx normal Respiratory: normal respiratory effort, lungs clear to auscultation Cardiovascular: RRR, no murmur, no edema Gastrointestinal (Abdomen): normal bowel sounds, soft, nontender, no hepatosplenomegaly Skin: no rashes, warm and dry Psychiatric: A+Ox3, euthymic affect Results & Data Results & Data ([facility]) Vital Signs (Past 12 Hours) Vital Signs Temp Pulse Resp BP Pulse Ox 03/26/20 07:59 36.5 C 77 18 154/75 H 99 Laboratory Results Laboratory Results - last 24 hr 03/26/20 03/26/20 03/26/20 05:24 05:24 05:24 WBC 9.40 RBC 4.17 L Hgb 10.6 L Hct 33.3 L MCV 79.9 L MCH 25.4 MCHC 31.8 L RDW Std Deviation 43.0 RDW Coeff of Anne-Marie 14.8 H Plt Count 408 H MPV 9.5 Immature Gran % (Auto) 0.1 Neut % (Auto) 78.1 Lymph % (Auto) 10.7 [place] % (Auto) 6.7 Eos % (Auto) 3.9 Baso % (Auto) 0.5 Neut # (Auto) 7.33 H Lymph # (Auto) 1.01 L [place] # (Auto) 0.63 H Eos # (Auto) 0.37 Baso # (Auto) 0.05 Immature Gran # (Auto) 0.01 Sodium 138 Potassium 3.0 L Chloride 107 Carbon Dioxide 23 Anion Gap 8.0 BUN 8 Creatinine 0.77 Est Cr Clr Drug Dosing 69.9 Est GFR ( Amer) 101.5 Est GFR (Non-Af Amer) 87.5 BUN/Creatinine Ratio 10.4 Glucose 89 Calcium 8.2 L Phosphorus 2.6 Magnesium 2.0 Medications Administered Current Inpatient Medications Amlodipine Besylate (Amlodipine Besylate 5 Mg Tab) 5 mg PO [facility] Stop: 04/25/20 08:59 Last Admin: 03/26/20 09:07 Dose: 5 mg Documented by: Atenolol (Atenolol 50 Mg Tablet) 50 mg PO [facility] Stop: 04/25/20 08:59 Last Admin: 03/26/20 09:05 Dose: 50 mg Documented by: Atorvastatin Calcium (Atorvastatin 40 Mg Tab) 40 mg PO [facility] Stop: 04/25/20 08:59 Last Admin: 03/26/20 09:05 Dose: 40 mg Documented by: Enoxaparin Sodium (Enoxaparin Inj 40 Mg/0.4 Ml Syr) 40 mg SQ [facility] Stop: 04/25/20 08:59 Last Admin: 03/26/20 09:06 Dose: 40 mg Documented by: Sodium Chloride (Nss 1000ml) 1,000 mls @ 80 mls/hr IV .[id number] COUNTS INCLUDE 234 BEDS AT THE [facility] Stop: 04/24/20 05:44 Last Infusion: 03/26/20 14:11 Dose: 80 mls/hr Documented by: Multivitamins (Multivitamin Tab) 1 tab PO QAM COUNTS INCLUDE 234 BEDS AT THE [facility] Stop: 04/25/20 08:59 Last Admin: 03/26/20 09:05 Dose: 1 tab Documented by: Ondansetron HCl (Ondansetron Inj 2 Mg/Ml 2 Ml Vial) 4 mg IV Q6H PRN PRN Reason: Nausea Stop: 04/23/20 16:27 Pantoprazole Sodium (Pantoprazole 40 Mg Tab) 40 mg PO BID COUNTS INCLUDE 234 BEDS AT THE [facility]; Protocol Stop: 04/24/20 20:59 Last Admin: 03/26/20 09:06 Dose: 40 mg Documented by: Potassium Chloride (Potassium Chloride 20 Meq/15 Ml Udc) 20 meq PO BID COUNTS INCLUDE 234 BEDS AT THE [facility] Stop: 04/25/20 20:59 Resident Activity Tracking Resident Involvement: Resident Care Provided Care Provided: Adult Hospital Medicine
[2020-03-26] MEDS: POTASSIUM CHLORIDE 20 MEQ/15 ML UDC PO SCH (21:05)
[2020-03-27] MEDS: SODIUM CHLORIDE 0.9% 1000ML 1,000 ML IV SCH ×2 (05:26→15:23)
[2020-03-27 05:43] LABS: Basophils # (auto) 0.03 K/uL (0-0.2); Basophils % (auto) 0.3 %; Eosinophils # (auto) 0.37 K/uL (0-0.5); Eosinophils % (auto) 4.1 %; Hematocrit (blood only) 33.1 % (42-52); Hemoglobin 10.8 g/dL (14.0-18.0); Immature Granulocytes # (auto) 0.02 K/uL (0.00-0.02); Immature Granulocytes % (auto) 0.2 %; Lymphocytes # (auto) 0.96 K/uL (1.2-3.4); Lymphocytes % (auto) 10.7 %; Mean Corpuscular Hgb Conc 32.6 g/dL (32-36); Mean Corpuscular Volume 79.8 fL (80-100); Mean Platelet Volume 9.4 fL (7.4-10.4); Monocytes # (auto) 0.76 K/uL (0.11-0.59); Monocytes % (auto) 8.5 %; Neutrophils # (auto) 6.83 K/uL (1.4-6.5); Neutrophils % (auto) 76.2 %; Platelet Count 397 K/uL (130-400); RDW Coefficient of Variation 14.8 % (11.5-14.5); RDW Standard Deviation 43.2 fL (36.4-46.3); Red Blood Count 4.15 M/uL (4.7-6.1); White Blood Count 8.97 K/uL (4.8-10.8)
[2020-03-27 05:58] LABS: BUN Creatinine Ratio 8.8 (10-20); Calcium 8.3 mg/dl (8.5-10.1); Creatinine Clr Calc Pharmacy 71.8 ml/min; Est GFR (African American) 102.6; Est GFR (Non-African American) 88.5; Potassium 3.3 mmol/L (3.5-5.1)
[2020-03-27] MEDS: ATENOLOL 50 MG TABLET PO SCH (08:43)
[2020-03-27] MEDS: ATORVASTATIN 40 MG TAB PO SCH (08:44)
[2020-03-27] MEDS: AMLODIPINE BESYLATE 5 MG TAB PO SCH (08:44)
[2020-03-27] MEDS: MULTIVITAMIN TAB PO SCH (08:44)
[2020-03-27] MEDS: PANTOprazole 40 MG TAB PO SCH (08:44)
[2020-03-27] MEDS: ENOXAPARIN INJ 40 MG/0.4 ML SYR SQ SCH (08:45)
[2020-03-27] MEDS: POTASSIUM CHLORIDE 20 MEQ/15 ML UDC PO SCH (08:45)
--- NOTE | 2020-03-27 09:16 | Gastroenterology Progress Note ---
Date of Service March 27, 2020 Assessment & Plan (1) Obstruction of esophagus: (2) Unintentional weight loss: (3) Dysphagia: (4) Esophageal mass: Esophageal mass with subcarinal mediastinal lymphadenopathy. Awaiting pathology results. Concerning for malignancy. Oncology evaluation once pathology results obtained. Tolerating clear to full liquid diet. Will likely require surgical consultation for a surgically placed gastrostomy tube for nutritional support. May require total parenteral nutrition for nutritional support in interim. Admission and Anticipated Discharge Date Admission Date: March 24, 2020 Subjective Patient admitted through the ED on 03/24/2020 due to progressive dysphagia, weakness, and weight loss. CT chest without contrast demonstrated mediastinal lymphadenopathy and a large 5 cm diameter tumor in the distal esophagus with penetration through the esophageal wall. It is 10 cm in length and fairly obstructing. Patient was seen in consult by Dr. Batista on 03/24/2020 and EGD performed by Dr. Fonseca on 03/25/2020. EGD demonstrated a large, fungating and ulcerating mass was found in the middle third of the esophagus and in the lower third of the esophagus, 26 cm from the incisors. The mass was partially obstructing and circumferential. Biopsies were taken and are pending. Medium- sized hiatal hernia. He has had unintentional weight loss, progressive weakness, belching, change in voice prior to admission. Today the patient reports overall he is feeling improved. Sitting in bed in position of comfort. States he is tolerating liquid diet without difficulty. Denies nausea, vomiting, abdominal pain. States he is ready to go home. Review of Systems Constitutional: as per Subjective / HPI Respiratory: as per Subjective / HPI Cardiovascular: no problem reported Gastrointestinal: as per Subjective / HPI Musculoskeletal: no problem reported Psychiatric: no problem reported Physical Exam Constitutional: WD/WN, vitals as above Eyes: PERRL, conjunctivae normal, anicteric sclerae ENMT: external ear and nose normal, oropharynx normal Respiratory: normal respiratory effort, lungs clear to auscultation Cardiovascular: RRR, no murmur, no edema Gastrointestinal (Abdomen): normal bowel sounds, soft, nontender, no hepatosplenomegaly Skin: no rashes, warm and dry Psychiatric: A+Ox3, euthymic affect Results & Data ([facility]) Vital Signs (Past 12 Hours) Vital Signs Temp Pulse Resp BP Pulse Ox 03/27/20 07:49 36.4 C L 70 16 136/79 97 03/26/20 23:39 36.3 C L 70 14 149/63 H 95 Laboratory Results - last 24 hr 03/26/20 03/27/20 03/27/20 05:24 05:23 05:23 WBC 8.97 RBC 4.15 L Hgb 10.8 L Hct 33.1 L MCV 79.8 L MCH 26.0 MCHC 32.6 RDW Std Deviation 43.2 RDW Coeff of Anne-Marie 14.8 H Plt Count 397 MPV 9.4 Immature Gran % (Auto) 0.2 Neut % (Auto) 76.2 Lymph % (Auto) 10.7 [place] % (Auto) 8.5 Eos % (Auto) 4.1 Baso % (Auto) 0.3 Neut # (Auto) 6.83 H Lymph # (Auto) 0.96 L [place] # (Auto) 0.76 H Eos # (Auto) 0.37 Baso # (Auto) 0.03 Immature Gran # (Auto) 0.02 Sodium 139 Potassium 3.3 L Chloride 109 H Carbon Dioxide 25 Anion Gap 5.0 BUN 7 Creatinine 0.75 Est Cr Clr Drug Dosing 71.8 Est GFR ( Amer) 102.6 Est GFR (Non-Af Amer) 88.5 BUN/Creatinine Ratio 8.8 L Glucose 103 H Calcium 8.3 L Phosphorus 2.6 Magnesium 2.0
--- NOTE | 2020-03-27 10:15 | Hospitalist Progress Note ---
Date of Service March 27, 2020 Assessment & Plan (1) Esophageal mass: Mr. Ingram is an otherwise healthy 79 yo gentleman who presents for evaluation of progressive dysphagia + unintentional weight loss of 20 pounds over the past 8 months, found to have an esophageal mass with mediastinal lymph nodes on CT scan of chest, concerning for malignancy. Dysphagia/esophageal mass -Dysphasia progressive since 08/2019, although patient did not bring to medical attention until visit with PCP 03/06/20 - associated unintentional weight loss, progressive weakness, belching, change in voice - chest CT chest on admission showing a large mass occupying the bulk of the mid to distal esophagus extending from the level of the javier of the mediastinum to the gastroesophageal junction with significant subcarinal mediastinal lymph nodes. 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 Biopsied. Medium-sized hiatal hernia. -Awaiting pathology results. Concerning for malignancy given mediastinal LAD -Full liquid diet tolerating. Recommend continuing on this liquid diet only per recs of GI. If for whatever reason patient is no longer tolerating liquid diet, consideration for EGD with stent placement -resume home omeprazole -Patient will follow-up with Dr. Kim of oncology as outpatient on discharge. Once pathology results may begin appropriate chemoradiation. Once tumor is shrunk in size, then consideration for cardiothoracic surgery consult. This is not available at our facility at present, patient will likely need to go to a tertiary care center Unintentional weight loss: - 20 pounds in past 2 months - likely secondary to reduced PO intake due to dysphagia Hypoalbuminemia: - level 2.5 on admission, down from 3.4 on outside lab drawn 03/08 -Likely secondary to reduced PO intake in setting of dysphagia -Spoke with pharmacy today and began peach flavored boost shakes as patient is l actose intolerant and this specific type does not have dairy History of CVA/ Dyslipidemia/HTN - patient has held Plavix for 2 days in anticipation of EGD, which was schedule d as an outpatient procedure on 03/29 -Resume statin, amlodipine, atenolol. Holding Plavix in case need for repeat EGD/esophageal stenting Heart murmur: - appreciated on exam - known hx of aortic stenosis - recent ECHO in december 2019 Hypokalemia -3.0 this AM. Repleted with K riders. In setting of poor p.o. intake -Patient cannot tolerate potassium tabs as they are very large. Added on potassium elixir 20 mEq twice daily to be added into boost shakes as above -daily BMP Diet: Full liquid, lactose intolerant DVT ppx: Lovenox SQ Code: Full Dispo: MedSurg. Hopefully discharge tomorrow once potassium level stabilizes Admission and Anticipated Discharge Date Admission Date: March 24, 2020 Results & Data Results & Data ([facility]) Vital Signs (Past 12 Hours) Vital Signs Temp Pulse Resp BP Pulse Ox 03/27/20 07:49 36.4 C L 70 16 136/79 97 03/26/20 23:39 36.3 C L 70 14 149/63 H 95
[2020-03-27] MEDS ORDERED: POTASSIUM CHLORIDE 20 MEQ/15 ML UDC PO ONE (12:00)
[2020-03-27 14:45] LABS: BUN Creatinine Ratio 9.1 (10-20); Calcium 8.2 mg/dl (8.5-10.1); Creatinine Clr Calc Pharmacy 57.2 ml/min; Est GFR (African American) 90.3; Est GFR (Non-African American) 77.9; Potassium 3.6 mmol/L (3.5-5.1)
[2020-03-27 15:06] VITALS: BP 143/78; PULSE 72; TEMP 97.7; O2SAT 99
--- NOTE | 2020-03-27 17:14 | Discharge Summary ---
Date of Service March 27, 2020 Admission HPI Per Admitting Provider Mr. Ingram is a otherwise healthy 79 yo male who presents for evaluation of progressive dysphagia over the past 3 months with an unintentional weight loss of 20 lbs. Symptoms began back in August 2019 with coughing with eating, increased belching, and a sensation that food was getting stuck on its way down. He endorses having more difficulty with solids than with liquids. He describes having an acidic taste in his mouth all the time, a constant, dull central chest pain, and night sweats (although he does not have air conditioning in his house). His has noticed a change in the tone of his voice - it is moses per/softer. He denies any nausea/vomiting, globus sensation, abdominal pain, fever/chills. 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 He brought his symptoms to his PCP's attention for the first time on 03/06 at which time he was placed on omeprazole 20mg, BID and a referral was made to [facility] for an endoscopy. He was scheduled to have this evaluation on 03/29/20, but due to progressive weakness, came to emergency department for evaluation. Labs ordered by his PCP on 03/08 showed a Hgb of 11.9, a normal liver profile, and an albumin level of 3.9. He is on Plavix for his hx of CVA, but has been holding for the past 2 days in anticipation of his upcoming EGD. He has a remote smoking history: 12 pack year history, quit 50 years ago. No family history if GI issues or cancer. ED course: WBC mildly elevated to 10.93. Hgb low at 11.0. Potassium low at 3.3. Albumin low at 2.5. CT chest showing a large mass occupying the bulk of the mid to distal esophagus extending from the level of the javier of the mediastinum to the gastroesophageal junction with significant subcarinal mediastinal lymph nodes. Patient was started on IV normal saline and made NPO in anticipate of possible procedure. Principal Diagnosis esophageal mass severe protein calorie malnutrition Discharge Exam gen aaox3 pleasant nad. heent nc at mmm breathing unlabored no accessory muscles good effort skin no rashes no pallor or icterus Discharge Data Allergies Allergy/AdvReac Type Severity Reaction Status Date / Time No Known Allergies Allergy Unverified 03/24/20 11:13 Consultations 03/24/20 15:13 ED Decision to Admit Stat 03/24/20 16:28 Consult Gastroenterology Routine 03/25/20 15:35 Consult Case Management - Discharge Planning Routine Procedures Performed Operation Date: 03/25/20 09:15 <No data on this case meets the specified criteria> Operation Date: 03/25/20 09:30 Actual Procedures p Esophagogastroduodenoscopy with biopsies(Not Applicable) - Stanley Fonseca Ordered Studies 03/24/20 12:19 CT chest w con Stat Hospital Course (1) Esophageal mass: biopsied, pending for home - close outpt PCP and oncology follow up (2) Protein-calorie malnutrition, severe: from mass TPN / IV vs Gtube considered, but for now patient seems to be doing OK on liquid diet discussed nutrition - was question of lactose intolerance but he actually questions this himself and notes it was more an upset stomach/nausea issue than true lactose intolerance; outlined nutrition goals in detail he expressed good understanding - to log calories per day goal 1800/day - expressed good understanding of this/how to follow/importance thereof (3) Hypertension: home meds for now (4) History of CVA (cerebrovascular accident): resume plavix for now - although may need to be held off/on depending on future esophageal procedures Total Time Total Time Spent Total Time Spent (In Minutes): >30 Discharge Plan Discharge Items Patient Disposition: Home - Self-Care Reason For Visit: DYSPHAGIA Discharge Diagnosis: esophageal mass causing dysphagia Activity: Resume your previous activity Non-emergency contact: Primary Care Provider, Rn Circulating and Oncologist Call non-emergency contact if: your symptoms worsen Follow-up/Referrals: Dillon La, [Primary Care Provider] - Diet: Full liquid Addtl Attending Provider Instructions: esophageal mass -the pathology is still pending, but certainly looks cancerous -Dr La and Dr Kim (oncology) will work together to coordinate your care -once the pathology is back, Dr Kim will be able to better direct what the best treatments will be nutrition needs -as we discussed - the biggest "job" you'll have is trying to make sure that you're keeping up with nutrition -our technical service representative has calculated that you'll need about 1800 calories a day to maintain your current weight -- so while you'll need to go about this with liquids so that you don't have food obstruct the "funnel" that is your esophagus, as long as you keep adding up what you take in each day it should be an achievable goal. -for example - the boost breeze that you have had here in the hospital has 250 calories in each 8 ounce serving - so while we'll want you to get more variety than simply the boost breeze, you could theoretically meet your calorie goals just with 7-8 boost a day -since the difficulty with lactose is more nebulous - it would be OK to do a "controlled experiment" with different foods/protein shakes/etc -- we'd have you not drink anything for an hour or two, try one type of food/drink, and then follow how you feel over the next hour. if nothing goes wrong, you can count that as a type of food/drink you're able to take in; if it goes wrong then you'll want to avoid that -the boost breeze is tough to find over the counter, but regular boost/ensure are available in a variety of flavors (and also come as a "plus" that has 350 calories per 8 ounces; online if you really needed to pack in calories with minimal amount of volume, boost even makes a 500 calorie per 8 ounce product) -you can also make your own protein shakes/high calorie shakes with a varnish blender and protein powder - allowing you to have a wider variety of flavors ----it is really important to make sure you're getting in enough calories a day - ideally take a notebook that is just for tracking your calories - and then as the day goes on if you see you're coming up short you can increase what you're taking in so that you don't fall short by the end of the day -we'll ask that Dr La follow your situation closely (your weight and your labwork) to make sure that you stop falling behind Pending Studies at Discharge: Yes Studies:: the biopsy from your scope is still pending Stand-Alone Forms: My [facility] [employer]bl[employer]ion, Smoking Cessation Medications and DC Order Prescriptions: Continued flaxseed oil 1,000 mg Capsule 1,000 mg PO QAM RF: 0 omeprazole 20 mg capsule,delayed release(DR/EC) 20 mg PO BID RF: 0 multivitamin Tablet 1 tab PO QAM RF: 0 atorvastatin 40 mg tablet 40 mg PO QAM RF: 0 clopidogrel 75 mg tablet 75 mg PO QAM RF: 0 amlodipine 5 mg tablet 5 mg PO QAM RF: 0 atenolol 50 mg Tablet 50 mg PO QAM RF: 0 Discharge Orders: Discharge Order (Routine); Ordered 03/27/20 Ordered By: Piero Fajardo Admission Data Admit Date/Time: 03/24/20 15:16 Attending Provider: Piero Fajardo Admit Provider: Mary Blanchard Primary Care Provider: Dillon La Other Providers: Dillon La ; Nate Batista ; Yaquelin Teran Coding Level of Care Code D/C Day Management >30 mins Diagnoses Esophageal mass K22.8 Protein-calorie malnutrition, severe E43 Hypertension I10 Hypertension type: essential hypertension History of CVA (cerebrovascular accident) Z86.73
== END 2020-03-27 18:53 | disposition home or self-care (01) | DRG 374 ==
LOC: ED 10:00 → 3E 15:16 → SUATTDRO 15:16 → 3E 15:49

== ENCOUNTER 2020-04-27 02:27 | Inpatient (IN) ==
--- NOTE | 2020-04-27 02:40 | Emergency Department Note ---
Impression & Plan Upper GI bleeding, Carcinoma of lower third of esophagus ED Provider Note Name: JOSÉ MIGUEL CAREY Age: 79 Sex: M Arrives Via: Walk-In Informant: Patient, ED Provider: Bakari Darby MD Chief Complaint: Spitting up blood Impression: Upper GI Bleeding Carcinoma of lower third of esophagus Medical Decision Makin yr old pleasant male with metastatic esophageal cancer yet to start radiation/chemo arrives spitting up blood. Small quarter sized saliva mixed blood on spitting up here which he notes is much decreased from home. Maintaining breathing without difficulty. Patient had peg tube placed 1 week ago and no evidence of bleeding from that at this time. Vitals and labs OK at this time. Reviewed with his GI Specialist who advised hospitalization with rad onc consult for emergent radiation. I discussed with hospitalist who will bring in and they will discuss further with rads/gi. Patient given IV Protonix, though I do not see evidence of varices in his most recent scope thus will hold off on octreotide. I did discuss with patient the severity of the situation, especially if he started bleeding heavily and whether he would want to be on ventilator and this conversation was continued with hospitalist team and patient/. Prior Medical Record and Triage/Nursing Notes reviewed by Me Additional history obtained from chart Differentials:Cancer bleeding, varices, hemoptysis, anemia, bleeding dyscrasia, malnutrition, PUD, PEG Tube issue amongst other pathologies. Vital Signs: reviewed and remarkable for mildly HTN Interventions: protonix IV Labs:Reviewed and remarkable for no significant abnormalities Consults:Dr Lester DUNN and Dr Bhavin MONK Hospitalist Plan: Disposition:Hospitalization. Condition: Fair Blood pressure:Normal.No Referral necessary Prescriptions:none PDMP: na History of Present Illness: 79 male with known esophageal cancer recently diagnosed arrives for evaluation of hematemesis. Patient notes over last 1-2 hours spitting up blood. Denies coughing up blood rather it is coming from esophagus. He notes mild nausea. No other bleeding. Recently had PEG tube placed without difficulty. No bleeding from tube and denies blood in stool nor black/tarry stool. He denies chest pain, sob, back pain, syncope. Admits he feels very tired and weak. He has not received treatment as of yet for his cancer. He is not on hospice and is planning on Chemo in the future. No trauma nor injuries. He is on plavix. He is not on aspirin or other blood thinner. No recent tylenol nor motrin use. ROS: See above HPI for pertinent positives & negatives. A total of 10 systems reviewed and were otherwise negative. Past Medical History: Dyslipidemia, HTN, CVA, Esophageal Cancer Past Surgical History: Eye Surgery, PEG Tube Placement Family History: None Social History: lives with , previous smoker, no etoh, retired Home Medications: amlodipine, atenolol, atorvastatin, clopidogrel, omeprazole Allergies: NKDA Vitals:Blood Pressure: 158/82, Pulse 72, RR 16, T 36.9C, O2 99% on RA Physical Exam: GENERAL: Patient is chronically unwell appearing and in minimal distress. Weak/tired appearing EYES: No scleral icterus, unremarkable pupils. ENT: Mucous membranes moist, no nasal congestion. NECK: No masses appreciated, nomeningismus, trachea is midline. RESPIRATORY: No dyspnea. Clear to auscultation and equal bilaterally. No wheeze, no rhonchi. CARDIOVASCULAR: Regular rate and rhythm.No murmurs, rubs, gallops appreciated. GASTROINTESTINAL: PEG Tube upper abdomen without abnormality. Abdomen soft, non-tender, no peritonitis.Bowel sounds positive.No masses appreciated. BACK: No midline tenderness, no CVA tenderness EXTREMITIES: Normal motion all extremities, no cyanosis, no edema. NEUROLOGIC: Alert and oriented, no acute motor or sensory deficits, no focal weakness, cranial nerves grossly intact. SKIN: No rash, no jaundice, no diaphoresis. PSYCH: Appropriate GCS: 15 ED Course: Times/Reassessments: Stable, only minimal spitting up of blood Bakari Darby MD Past Med/Surg History Medical History (Updated 04/29/20 @ 10:53 by Bakari Darby MD) Abnormal head CT Acute dehydration Constipation Dyslipidemia Dysphagia Eczema Esophageal mass GERD (gastroesophageal reflux disease) Heart murmur NO CARDS History of CVA (cerebrovascular accident) (~2016) Hx of gout Hypertension Hypoalbuminemia Obstruction of esophagus Protein-calorie malnutrition, severe Transient ischemic attack (TIA) 3 YEARS AGO (NO CURRENT PROBLEMS) REASON FOR PLAVIX Unintentional weight loss Weakness Surgical History (Updated 04/20/20 @ 10:40 by Mitchell German) History of cataract surgery RT/LEFT History of colonoscopy History of esophagogastroduodenoscopy (EGD) (03/25/20) with biopsy History of tooth extraction (~2009) Family History (Updated 04/20/20 @ 10:42 by Mitchell German) Mother , passed in her 70s from heart issues No problems noted. Father , passed in his 70s from heart issues No problems noted. Sister No problems noted. Daughter No problems noted. Son No problems noted. Other Family history non-contributory Denies family history of Myocardial infarction Stroke Social History (Updated 04/20/20 @ 10:49 by Mitchell German) Smoking Status: Former smoker Tobacco Type: Cigarettes Age Quit Using Tobacco: 28; Cigarettes Per Day: 1 ppd; Second Hand Exposure: No; Do You Dip or Chew Tobacco: No; Tobacco Cessation Education Requested by Patient: No Hx Alcohol Use: No Hx Substance Use: No Preferred Language: German Communication Ability: Effective Visual Impairment: No Limitations Hearing Ability: Normal Mechanic Marine Engine Required: No Beliefs That Will Affect Care: None marital status: Current Living Situation: Spouse and Family current occupational status: retired 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 How many Children do You have: 2 Other Information That Helps Us Care for You: No Feels Safe at Home: Yes Safety Concerns: Feels Safe At This Time Childhood Exposure to Second-Hand Smoke: Yes Diet Comment: currently on liquid diet via PEG tube (2k calories/day) able to drink Boost caffeine: No during the past year weight has: decreased > 10 lbs Dental Care, Regularly: No Physical Activity Frequency: Does not Exercise Allergies Allergies Allergy/AdvReac Type Severity Reaction Status Date / Time No Known Allergies Allergy Verified 04/27/20 02:57 Home Meds Home Medications Medication Instructions Recorded Confirmed amlodipine 5 mg FEEDING TUBE QAM 12/14/18 04/27/20 atenolol 50 mg FEEDING TUBE QAM 12/14/18 04/27/20 atorvastatin 40 mg FEEDING TUBE QAM 12/14/18 04/27/20 clopidogrel 75 mg FEEDING TUBE QAM 12/14/18 04/27/20 omeprazole 40 mg FEEDING TUBE BID 03/24/20 04/27/20 docusate sodium [Colace] 100 mg PO BID 04/13/20 04/27/20 sennosides [senna] 8.6 mg FEEDING TUBE BID 04/13/20 04/27/20 polyethylene glycol 3350 [Miralax] 17 g FEEDING TUBE DAILY 04/14/20 04/27/20 multivitamin 1 tab FEEDING TUBE DAILY tab 04/20/20 04/27/20 Results & Data (ED) Vital Signs Vital Signs - 24 hr 04/27/20 02:35 Temperature 36.9 C Temperature Source Oral Pulse Rate 72 Respiratory Rate 16 Respiratory Effort / Characteristics Non-Labored Spontaneous Respiratory Depth Normal Blood Pressure 158/82 H Blood Pressure Mean 107 Blood Pressure Position Sitting Pulse Oximetry 99 Oxygen Delivery Method Room Air Sepsis Recent Fever Within 48 Hours No Sepsis New/Unexplained Change in Mental Status N/A Sepsis Action Taken by Nursing No Action Required Laboratory Data Result diagrams: 04/29/20 08:16 04/29/20 02:10 Lab Results 04/27/20 04/27/20 04/27/20 Range/Units 02:47 02:47 02:47 WBC 12.92 H (4.8-10.8) K/uL RBC 5.02 (4.7-6.1) M/uL Hgb 12.9 L (14.0-18.0) g/dL Hct 41.0 L (42-52) % MCV 81.7 (80-100) fL MCH 25.7 (25-34) pg MCHC 31.5 L (32-36) g/dL RDW Std Deviation 48.4 H (36.4-46.3) fL RDW Coeff of Anne-Marie 16.1 H (11.5-14.5) % Plt Count 324 (130-400) K/uL MPV 10.8 H (7.4-10.4) fL Immature Gran % (Auto) 0.2 % Neut % (Auto) 81.3 % Lymph % (Auto) 11.7 % Carlton % (Auto) 4.6 % Eos % (Auto) 2.0 % Baso % (Auto) 0.2 % Neut # (Auto) 10.49 H (1.4-6.5) K/uL Lymph # (Auto) 1.51 (1.2-3.4) K/uL Carlton # (Auto) 0.60 H (0.11-0.59) K/uL Eos # (Auto) 0.26 (0-0.5) K/uL Baso # (Auto) 0.03 (0-0.2) K/uL Immature Gran # (Auto) 0.03 H (0.00-0.02) K/uL RBC Morphology Unremarkable PT 11.8 (9.0-12.0) Seconds INR 1.1 (0.9-1.1) APTT 30.5 (21.0-31.0) Seconds PTT Ratio 1.1 Sodium (136-145) mmol/L Potassium (3.5-5.1) mmol/L Chloride (98-107) mmol/L Carbon Dioxide (21-32) mmol/L Anion Gap (3-11) BUN (7-18) mg/dl Creatinine (0.6-1.4) mg/dl Est Cr Clr Drug Dosing ml/min Est GFR ( Amer) Est GFR (Non-Af Amer) BUN/Creatinine Ratio (10-20) Glucose (70-99) mg/dl Calcium (8.5-10.1) mg/dl Magnesium (1.8-2.4) mg/dl Total Bilirubin (0.2-1) mg/dl Direct Bilirubin (0-0.2) mg/dl AST (15-37) U/L ALT (12-78) U/L Alkaline Phosphatase (45-117) U/L Total Protein (6.4-8.2) gm/dl Albumin (3.4-5.0) gm/dl Blood Type B Positive Antibody Screen NEGATIVE 04/27/20 Range/Units 02:47 WBC (4.8-10.8) K/uL RBC (4.7-6.1) M/uL Hgb (14.0-18.0) g/dL Hct (42-52) % MCV (80-100) fL MCH (25-34) pg MCHC (32-36) g/dL RDW Std Deviation (36.4-46.3) fL RDW Coeff of Anne-Marie (11.5-14.5) % Plt Count (130-400) K/uL MPV (7.4-10.4) fL Immature Gran % (Auto) % Neut % (Auto) % Lymph % (Auto) % Carlton % (Auto) % Eos % (Auto) % Baso % (Auto) % Neut # (Auto) (1.4-6.5) K/uL Lymph # (Auto) (1.2-3.4) K/uL Carlton # (Auto) (0.11-0.59) K/uL Eos # (Auto) (0-0.5) K/uL Baso # (Auto) (0-0.2) K/uL Immature Gran # (Auto) (0.00-0.02) K/uL RBC Morphology PT (9.0-12.0) Seconds INR (0.9-1.1) APTT (21.0-31.0) Seconds PTT Ratio Sodium 133 L (136-145) mmol/L Potassium 4.2 (3.5-5.1) mmol/L Chloride 96 L (98-107) mmol/L Carbon Dioxide 33 H (21-32) mmol/L Anion Gap 4.0 (3-11) BUN 27 H (7-18) mg/dl Creatinine 1.00 (0.6-1.4) mg/dl Est Cr Clr Drug Dosing 53.2 ml/min Est GFR ( Amer) 83.8 Est GFR (Non-Af Amer) 72.3 BUN/Creatinine Ratio 27.3 H (10-20) Glucose 122 H (70-99) mg/dl Calcium 9.5 (8.5-10.1) mg/dl Magnesium 2.2 (1.8-2.4) mg/dl Total Bilirubin 0.3 (0.2-1) mg/dl Direct Bilirubin 0.1 (0-0.2) mg/dl AST 18 (15-37) U/L ALT 19 (12-78) U/L Alkaline Phosphatase 106 (45-117) U/L Total Protein 8.0 (6.4-8.2) gm/dl Albumin 2.8 L (3.4-5.0) gm/dl Blood Type Antibody Screen Administered Medications Amlodipine Besylate (Amlodipine Besylate 5 Mg Tab) 5 mg PEG QAM [facility] Stop: 05/27/20 08:59 Last Admin: 04/29/20 07:41 Dose: 5 mg Documented by: [id number] Admin: 04/28/20 08:41 Dose: 5 mg Documented by: [id number] Admin: 04/27/20 09:22 Dose: 5 mg Documented by: [id number] Atenolol (Atenolol 50 Mg Tablet) 50 mg PEG QAM [facility] Stop: 05/27/20 08:59 Last Admin: 04/29/20 07:42 Dose: 50 mg Documented by: [id number] Admin: 04/28/20 08:41 Dose: 50 mg Documented by: [id number] Admin: 04/27/20 09:22 Dose: 50 mg Documented by: [id number] Atorvastatin Calcium (Atorvastatin 40 Mg Tab) 40 mg PEG QAM RONNIE Stop: 05/27/20 08:59 Last Admin: 04/29/20 07:43 Dose: 40 mg Documented by: [id number] Admin: 04/28/20 08:42 Dose: 40 mg Documented by: [id number] Admin: 04/27/20 09:22 Dose: 40 mg Documented by: [id number] Docusate Sodium (Docusate Sodium Syrup 100 Mg/10 Ml Udc) 100 mg PO BID [facility] Stop: 05/27/20 21:14 Last Admin: 04/29/20 07:42 Dose: 100 mg Documented by: [id number] Admin: 04/28/20 19:44 Dose: Not Given Documented by: [id number] Admin: 04/28/20 08:41 Dose: 100 mg Documented by: [id number] Admin: 04/27/20 22:34 Dose: 100 mg Documented by: [id number] Enteral Nutritional Formula (Peptamen 1.5 Jaguar 1,000 Ml Bag) 1,000 ml PEG TODAY@0830 [facility]; Protocol Stop: 05/28/20 08:29 Last Admin: 04/28/20 10:43 Dose: 1,000 ml Documented by: [id number] Escitalopram Oxalate (Escitalopram Oxalate Oral Soln 10 Mg/10 Ml Udp) 10 mg PO QAM RONNIE Stop: 05/29/20 08:59 Last Admin: 04/29/20 07:43 Dose: 10 mg Documented by: [id number] Pantoprazole Sodium 40 mg/ (Syringe) 10 mls @ 5 mls/min IV BID RONNIE Stop: 05/27/20 08:59 Last Admin: 04/29/20 07:42 Dose: 5 mls/min Documented by: [id number] Admin: 04/28/20 19:43 Dose: 5 mls/min Documented by: [id number] Admin: 04/28/20 08:42 Dose: 5 mls/min Documented by: [id number] Admin: 04/27/20 21:01 Dose: 5 mls/min Documented by: [id number] Admin: 04/27/20 09:21 Dose: 5 mls/min Documented by: [id number] Famotidine 20 mg/ Syringe 5 mls @ 2.5 mls/min IV BID RONNIE Stop: 05/27/20 20:59 Last Admin: 04/29/20 07:42 Dose: 2.5 mls/min Documented by: [id number] Admin: 04/28/20 19:43 Dose: 2.5 mls/min Documented by: [id number] Admin: 04/28/20 09:26 Dose: 2.5 mls/min Documented by: [id number] Admin: 04/27/20 21:01 Dose: 2.5 mls/min Documented by: [id number] Lactated Ringer's (Lr) 1,000 mls @ 80 mls/hr IV .[id number] RONNIE Stop: 05/27/20 17:59 Last Admin: 04/29/20 06:24 Dose: 80 mls/hr Documented by: [id number] Infusion: 04/29/20 06:24 Dose: 80 mls/hr Documented by: [id number] Admin: 04/28/20 18:17 Dose: 80 mls/hr Documented by: [id number] Infusion: 04/28/20 18:16 Dose: 0 mls/hr Documented by: [id number] Admin: 04/28/20 06:02 Dose: 80 mls/hr Documented by: [id number] Infusion: 04/28/20 06:02 Dose: 80 mls/hr Documented by: [id number] Admin: 04/27/20 18:03 Dose: 80 mls/hr Documented by: [id number] Promethazine HCl 6.25 mg/ (Sodium Chloride) 50.25 mls @ 201 mls/hr IV Q6H PRN PRN Reason: Nausea And Vomiting Stop: 05/27/20 17:46 Last Infusion: 04/28/20 20:11 Dose: 0 mls/hr Documented by: [id number] Admin: 04/28/20 19:51 Dose: 201 mls/hr Documented by: [id number] Infusion: 04/28/20 02:35 Dose: 0 mls/hr Documented by: [id number] Admin: 04/28/20 02:16 Dose: 201 mls/hr Documented by: [id number] Ondansetron HCl (Ondansetron Inj 2 Mg/Ml 2 Ml Vial) 4 mg IV Q6H PRN PRN Reason: Nausea Stop: 05/28/20 11:00 Last Admin: 04/29/20 10:31 Dose: 4 mg Documented by: [id number] Polyethylene Glycol (Polyethylene (Miralax) 17 Gm Pack) 17 gm PEG DAILY RONNIE Stop: 05/27/20 08:59 Last Admin: 04/29/20 07:41 Dose: 17 gm Documented by: [id number] Admin: 04/28/20 08:41 Dose: 17 gm Documented by: [id number] Admin: 04/27/20 09:23 Dose: Not Given Documented by: [id number] Discontinued Medications Docusate Sodium (Docusate Sodium 100 Mg Cap) 100 mg PO BID RONNIE Stop: 05/27/20 08:59 Last Admin: 04/27/20 23:13 Dose: Not Given Documented by: [id number] Admin: 04/27/20 09:23 Dose: Not Given Documented by: [id number] Pantoprazole Sodium 80 mg/ (Dextrose) 100 mls @ 400 mls/hr IV ONE STA Stop: 04/27/20 03:36 Last Infusion: 04/27/20 04:11 Dose: 0 mls/hr Documented by: [id number] Admin: 04/27/20 03:51 Dose: 400 mls/hr Documented by: [id number] Desmopressin Acetate 18 mcg/ (Sodium Chloride) 54.5 mls @ 100 mls/hr IV ONE ONE Stop: 04/27/20 06:32 Last Infusion: 04/27/20 06:57 Dose: 0 mls/hr Documented by: [id number] Admin: 04/27/20 06:18 Dose: 100 mls/hr Documented by: [id number] Promethazine HCl 6.25 mg/ (Sodium Chloride) 50.25 mls @ 201 mls/hr IV ONE ONE Stop: 04/27/20 16:29 Last Infusion: 04/27/20 18:39 Dose: 0 mls/hr Documented by: [id number] Admin: 04/27/20 18:02 Dose: 201 mls/hr Documented by: [id number] Promethazine HCl 6.25 mg/ (Sodium Chloride) 50.25 mls @ 201 mls/hr IV NOW STA Stop: 04/27/20 18:01 Last Admin: 04/27/20 18:37 Dose: Not Given Documented by: [id number] Ioversol (Ioversol 100ml) 94 ml IV ONCE ONE Stop: 04/27/20 05:31 Last Admin: 04/27/20 05:30 Dose: 94 ml Documented by: [id number] Ondansetron HCl (Ondansetron Inj 2 Mg/Ml 2 Ml Vial) 4 mg IV Q6H PRN PRN Reason: Nausea Stop: 05/27/20 11:31 Last Admin: 04/27/20 13:25 Dose: 4 mg Documented by: [id number] Admin: 04/27/20 11:51 Dose: 4 mg Documented by: [id number] Ondansetron HCl (Ondansetron Inj 2 Mg/Ml 2 Ml Vial) 4 mg IV Q6H RONNIE Stop: 04/28/20 11:01 Last Admin: 04/28/20 11:00 Dose: 4 mg Documented by: [id number] Admin: 04/28/20 06:00 Dose: 4 mg Documented by: [id number] Admin: 04/28/20 00:09 Dose: 4 mg Documented by: [id number] Admin: 04/27/20 18:03 Dose: 4 mg Documented by: [id number] Discharge Plan Visit Data Chief Complaint: GI Assessment Stated Complaint: SPITTING UP BLOOD ED Provider: Bakari Darby Discharge Problem: Upper GI bleeding, Carcinoma of lower third of esophagus Patient Disposition: Admitted As Inpatient Discharge Instructions Interventions: ED Discharge Assessment Last Done: 04/27/20 05:04
[2020-04-27 02:59] LABS: Hemoglobin 12.9 g/dL (14.0-18.0); Mean Corpuscular Hemoglobin 25.7 pg (25-34); Mean Corpuscular Hgb Conc 31.5 g/dL (32-36); Mean Corpuscular Volume 81.7 fL (80-100); Mean Platelet Volume 10.8 fL (7.4-10.4); Platelet Count 324 K/uL (130-400); RDW Coefficient of Variation 16.1 % (11.5-14.5); RDW Standard Deviation 48.4 fL (36.4-46.3); Red Blood Count 5.02 M/uL (4.7-6.1); White Blood Count 12.92 K/uL (4.8-10.8)
[2020-04-27 03:09] LABS: INR 1.1 (0.9-1.1); Partial Thromboplastin Ratio 1.1; Partial Thromboplastin Time 30.5 Seconds (21.0-31.0); Prothrombin Time 11.8 Seconds (9.0-12.0)
[2020-04-27 03:22] LABS: Basophils # (auto) 0.03 K/uL (0-0.2); Basophils % (auto) 0.2 %; Eosinophils # (auto) 0.26 K/uL (0-0.5); Immature Granulocytes # (auto) 0.03 K/uL (0.00-0.02); Immature Granulocytes % (auto) 0.2 %; Lymphocytes # (auto) 1.51 K/uL (1.2-3.4); Lymphocytes % (auto) 11.7 %; Monocytes % (auto) 4.6 %; Neutrophils # (auto) 10.49 K/uL (1.4-6.5); Neutrophils % (auto) 81.3 %; RBC Morphology Unremarkable
[2020-04-27] MEDS ORDERED: PANTOprazole 80 MG in DEXTROSE 5% 100 ML IV STA (03:22)
[2020-04-27 03:24] LABS: Albumin Level 2.8 gm/dl (3.4-5.0); BUN Creatinine Ratio 27.3 (10-20); Bilirubin Direct 0.1 mg/dl (0-0.2); Calcium 9.5 mg/dl (8.5-10.1); Creatinine Clr Calc Pharmacy 53.2 ml/min; Est GFR (African American) 83.8; Est GFR (Non-African American) 72.3; Magnesium 2.2 mg/dl (1.8-2.4); Potassium 4.2 mmol/L (3.5-5.1)
[2020-04-27 03:26] LABS: Bilirubin,Total 0.3 mg/dl (0.2-1)
--- NOTE | 2020-04-27 04:39 | History & Physical Report ---
Date of Service April 27, 2020 Assessment & Plan (1) Carcinoma of lower third of esophagus: Sam Ingram is a 79 year old man admitted for a bleeding esophageal tumor from his recently diagnosed metastatic esophageal cancer Upper GI bleed Likely from primary tumor Will get CT chest angiogram to better characterize SLow ooze at this point will monitor vitals closely on PCU H and H q6h Pantoprazole 40 mg BID DDAVP to reverse effect of plavix and holding plavix GI consulted [facility] Recommend radiation oncology see patient Radiation oncology consulted Dr. Lee Type and crossed will hold 2 units as there is potential for this to worsen emergently In event of a major bleed patient would likely need a garry tube/transfer to IR capable facility and would have a very poor prognosis this was discussed frankly with patient Esophageal Cancer Metastatic squamous cell Carcinoma Planning to start radiation and chemotherapy with Dr. Salter and Dr. Lee MEts to lung and thoracic lymph nodes AFter discussion patient elects to be a DNR/DNI at this time May consider palliative care consultation F/E/N: REgular diet through PEG tube DVT PPx: SCD's chemical prophylaxis deferred for active bleeding Dispo: admit for GI and radiation oncology evaluation and careful monitoring patient is stable at the moment but I am concerned about acute worsening given patient's large vascular tumor in a difficult position to tamponade DNR/DNI (2) Upper GI bleeding: (3) Hypoalbuminemia: History of Present Illness Chief Complaint: Hematemesis Primary Care Provider: Dillon La DO Sam Ingram is a 79 year old male who was recently diagnosed with metastatic esophageal squamous cell carcinoma last month. He has a large mass extending from the javier to the esophagogastric junction He also has metastatic lesions in b/l lungs. Patient was initially diagnosed after experiencing a foul taste and difficulty swallowing as well as loss of energy and unintentional weight loss for several months. Since that time patient has established care with Dr. Batista of [facility] who placed a PEG tube on 04/14, Dr. Lee of Radiation oncology and Dr. Salter of Oncology. Plan is to begin radiation therapy in conjunction with chemotherapy. Last night between 11pm and 1 am patient began experiencing some upper abdominal pain and bleeding. Bleeding was slow spitting up blood which was coming from his esophagus. Blood is thick and red and only came up slowly. Patient has not had any change to his stool or any difficulty feeding through his PEG tube. He is otherwise feeling in his usual state though that usual state is now fatigued and continuing to lose weight. He is not short of breath, has had no fevers, chills, sweats, tremors, nausea. On presentation to ED vitals wnl apart from some [id number]. labwork significant for a slightly elevated white count, a hgb of 12.9, Albumin of 2.8. Patient was given 80 mg of protonix and ED physician discussed case with Dr. Batista who recommended radiation oncology see the patient for radiation therapy to stop the bleeding. Had thorough discussion with patient and his about the risks of his tumor bleeding and that this does have the potential to worsen and become fatal. Patient understands this. We had aamir discussion about code status and patient would like at this time to change his wishes from full code to DNR/DNI. Patient with a smoking history many years ago and a heavy drinking history that he quit 10 years or so ago. Lives at home with Allergies Allergy/AdvReac Type Severity Reaction Status Date / Time No Known Allergies Allergy Verified 04/27/20 02:57 Home Medications Home Medications Medication Instructions Recorded Confirmed Type amlodipine 5 mg FEEDING TUBE QAM 12/14/18 04/27/20 History atenolol 50 mg FEEDING TUBE QAM 12/14/18 04/27/20 History atorvastatin 40 mg FEEDING TUBE QAM 12/14/18 04/27/20 History clopidogrel 75 mg FEEDING TUBE QAM 12/14/18 04/27/20 History omeprazole 40 mg FEEDING TUBE BID 03/24/20 04/27/20 History docusate sodium [Colace] 100 mg PO BID 04/13/20 04/27/20 History sennosides [senna] 8.6 mg FEEDING TUBE BID 04/13/20 04/27/20 History polyethylene glycol 3350 [Miralax] 17 g FEEDING TUBE DAILY 04/14/20 04/27/20 History multivitamin 1 tab FEEDING TUBE DAILY tab 04/20/20 04/27/20 History Past Med/Surg History Medical History (Updated 04/27/20 @ 09:38 by Selvin Lee MD) Abnormal head CT Acute dehydration Constipation Dyslipidemia Dysphagia Eczema Esophageal mass GERD (gastroesophageal reflux disease) Heart murmur NO CARDS History of CVA (cerebrovascular accident) (~2015) Hx of gout Hypertension Hypoalbuminemia Obstruction of esophagus Protein-calorie malnutrition, severe Transient ischemic attack (TIA) 3 YEARS AGO (NO CURRENT PROBLEMS) REASON FOR PLAVIX Unintentional weight loss Weakness Surgical History (Updated 04/20/20 @ 10:40 by Mitchell German) History of cataract surgery RT/LEFT History of colonoscopy History of esophagogastroduodenoscopy (EGD) (03/25/20) with biopsy History of tooth extraction (~2009) Family History (Updated 04/20/20 @ 10:42 by Mitchell German) Mother , passed in her 70s from heart issues No problems noted. Father , passed in his 70s from heart issues No problems noted. Sister No problems noted. Daughter No problems noted. Son No problems noted. Other Family history non-contributory Denies family history of Myocardial infarction Stroke Social History (Updated 04/20/20 @ 10:49 by Mitchell German) Smoking Status: Former smoker Tobacco Type: Cigarettes Age Quit Using Tobacco: 28; Cigarettes Per Day: 1 ppd; Second Hand Exposure: No; Do You Dip or Chew Tobacco: No; Tobacco Cessation Education Requested by Patient: No Hx Alcohol Use: No Hx Substance Use: No Preferred Language: Sinhala Communication Ability: Effective Visual Impairment: No Limitations Hearing Ability: Normal Control Integration Engineer Required: No Beliefs That Will Affect Care: None marital status: Current Living Situation: Spouse and Family current occupational status: retired 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 How many Children do You have: 2 Other Information That Helps Us Care for You: No Feels Safe at Home: Yes Safety Concerns: Feels Safe At This Time Childhood Exposure to Second-Hand Smoke: Yes Diet Comment: currently on liquid diet via PEG tube (2k calories/day) able to drink Boost caffeine: No during the past year weight has: decreased > 10 lbs Dental Care, Regularly: No Physical Activity Frequency: Does not Exercise Review of Systems 2 Review of Systems: All systems reviewed & are unremarkable except as noted in HPI & below Physical Exam Constitutional: + ill appearing; no acute distress and no altered mental status Eyes: PERRL, conjunctivae normal, anicteric sclerae ENMT: Oropharynx with blood that he is continuously spitting up. no other obvious abnormalities Respiratory: normal respiratory effort, lungs clear to auscultation Cardiovascular: RRR, no murmur, no edema Gastrointestinal (Abdomen): Abdomen soft and nontender, PEG tube in place, mild tenderness around and when manipulating PEG tube bowel sounds normal Neurologic: patellar DTR's 2+ bilat, sensation intact PERRLA, EOMI, accomodation nl, Some facial droop on left which seems to be his baseline mild dysarthria Results & Data Results & Data ([facility]) Vital Signs (Past 12 Hours) Vital Signs Temp Pulse Resp BP Pulse Ox 04/27/20 02:35 36.9 C 72 16 158/82 H 99 Supervising Physician Co-Signing Physician Notes Attending addendum: I have physically seen this patient, have supervised the medical residents activities, and agree with the H&P unless as otherwise noted. Assessment and Plan: Grade 4 metastatic esophageal carcinoma with upper GI bleed- NPO Protonix 40 mg IV twice daily H&H every 6 hours Type and screen DDAVP to reverse Plavix Consult Dr. Lee radiation oncology Consult gastroenterology Dr. Batista. Consult oncology Dr. Salter DNR/DNI Remainder of orders and notations as noted Resident Activity Tracking Resident Involvement: Resident Care Provided Care Provided: Adult [facility] Medicine
[2020-04-27] MEDS ORDERED: IOVERSOL 100ml IV ONE (05:30)
[2020-04-27] MEDS ORDERED: DESMOPRESSIN ACETATE 18 MCG in SODIUM CHLORIDE 0.9% 50 ML IV ONE (06:00)
--- NOTE | 2020-04-27 07:19 | CT Scan Report ---
CT OF THE CHEST WITH IV CONTRAST CLINICAL HISTORY: Bleeding esophageal mass COMPARISON STUDY: Treatment planning CT scan dated 04/24/2020, CT scan of chest dated 03/24/2020 TECHNIQUE: Following the IV administration of 94 mL of Optiray-320, CT of the thorax was performed f rom the thoracic inlet to the lung bases. Images are reviewed in the axial, sagittal, and coronal kieran davis. IV contrast was administered without complication. A dose lowering technique was utilized adher ing to the principles of ALARA. CT DOSE: 392.45 mGy.cm FINDINGS: Thyroid: Imaged portions of the thyroid gland are normal in appearance. Thoracic aorta: The thoracic aorta is normal in course and caliber, noting standard 3-vessel arch hong george. No aneurysm or dissection is seen. Pulmonary vasculature: The pulmonary trunk is normal in caliber. There are no central filling defects identified to suggest pulmonary embolus. Note that this examination was not protocoled for the evalu ation of pulmonary emboli. HEART: The heart is normal in size and configuration, without pericardial effusion. Lungs and pleural spaces: There is interval increase in the size and number of multiple bilateral pul monary nodules, consistent with rapidly progressive pulmonary metastatic disease. There are dependent atelectatic changes. There is no evidence for lobar consolidation. Mediastinum: There is a debris-filled dilated proximal esophagus. There is a large distal esophageal mass. There is pathologic subcarinal and paratracheal adenopathy. There also enlarged supraclavicular lymph nodes. There is a tiny gas bubble within or extrinsic to the esophageal wall. A contained esop hageal perforation cannot be excluded Selin: There is no evidence of pathologic hilar adenopathy Axilla: There is no evidence of pathologic axillary lymphadenopathy Upper abdomen: There is an indeterminate 3.5 cm left renal mass A gastrostomy tube is visualized. Skeletal structures: There are no lytic or blastic osseous lesions. IMPRESSION: 1. Large distal esophageal mass with associated pathologic adenopathy this results in dilatation of t he more proximal esophagus which is debris filled 2. Interval increase in the size and number of the bilateral pulmonary nodules indicative of rapidly progressive metastatic disease 3. Indeterminate 3.5 cm left renal mass. A primary renal neoplasm or metastatic disease must be consi dered 4. On image #[id number], there is a gas bubble within or extrinsic to the esophageal wall. A contained p erforation cannot be excluded. ACT 112: Negative or not required by law. Electronically signed by: Yoel Green M.D. 04/27/2020 7:17 AM
[2020-04-27 08:00] LABS: Hematocrit (blood only) 37.6 % (42-52); Hemoglobin 12.3 g/dL (14.0-18.0)
--- NOTE | 2020-04-27 08:37 | Gastrointestinal Consultation ---
Date of Consultation April 27, 2020 Assessment & Plan (1) Upper GI bleeding: (2) Carcinoma of lower third of esophagus: Reviewed plan of care with Dr. Batista this morning who recommends consulting radiation therapy which was done with admission. Continue Protonix 40 mg IV twice daily and agree with type and cross, H&H every 6. Patient may require transfer to IR capable facility or a temporizing hemo-spray to arrest the bleeding from the tumor but this is not currently indicated. Please refer to supervising physician addendum for further recommendations. History of Present Illness Attending Physician: Piero Fajardo DO History of Present Illness The patient is a pleasant 79-year-old male known from previous admission with history of dyslipidemia, heart murmur, history of CVA, hypertension, TIA, recent diagnosis of metastatic esophageal cancer ([id number]) that presented to the emergency department this morning due to complaints of hematemesis. Subsequently admitted for further management. He reports this morning that symptoms began around 1 AM and he quantifies the amount is quite a bit. He states it was more than several tablespoons at a time. He denies any nausea or vomiting. Denies fever, chills, night sweats. Reports that he has had no noted rectal bleeding including black tarry stools or dark red/bright red blood in the stool. He reports his last bowel movement was yesterday a.m. Ports he has maintained complete n.p.o. and does feed and flushes through PEG tubes only. Feeding tube was inserted during last hospital admission on 04/14/[address] Batista. He reports that he has not started radiation oncology however he has had simulation with Dr. Lee. No bleeding noted with exam this morning. He notes that he has had continued fatigue, weight loss, and significant lack of energy. He reports mild discomfort above umbilicus but below feeding tube with positioning of feeding tube. Denies any discomfort with palpation. The patient is and lives with his in his own home. Reports they do not have family close by the provide assistance. Allergies Allergy/AdvReac Type Severity Reaction Status Date / Time No Known Allergies Allergy Verified 04/27/20 02:57 Home Medications Home Medications Medication Instructions Recorded Confirmed Type amlodipine 5 mg FEEDING TUBE QAM 12/14/18 04/27/20 History atenolol 50 mg FEEDING TUBE QAM 12/14/18 04/27/20 History atorvastatin 40 mg FEEDING TUBE QAM 12/14/18 04/27/20 History clopidogrel 75 mg FEEDING TUBE QAM 12/14/18 04/27/20 History omeprazole 40 mg FEEDING TUBE BID 03/24/20 04/27/20 History docusate sodium [Colace] 100 mg PO BID 04/13/20 04/27/20 History sennosides [senna] 8.6 mg FEEDING TUBE BID 04/13/20 04/27/20 History polyethylene glycol 3350 [Miralax] 17 g FEEDING TUBE DAILY 04/14/20 04/27/20 History multivitamin 1 tab FEEDING TUBE DAILY tab 04/20/20 04/27/20 History Patient History Medical History (Updated 04/27/20 @ 05:44 by Frank Dodd MD) Abnormal head CT Acute dehydration Constipation Dyslipidemia Dysphagia Eczema Esophageal mass GERD (gastroesophageal reflux disease) Heart murmur NO CARDS History of CVA (cerebrovascular accident) (~2015) Hx of gout Hypertension Hypoalbuminemia Obstruction of esophagus Protein-calorie malnutrition, severe Transient ischemic attack (TIA) 3 YEARS AGO (NO CURRENT PROBLEMS) REASON FOR PLAVIX Unintentional weight loss Weakness Surgical History (Updated 04/20/20 @ 10:40 by Mitchell German) History of cataract surgery RT/LEFT History of colonoscopy History of esophagogastroduodenoscopy (EGD) (03/25/20) with biopsy History of tooth extraction (~2009) Family History (Updated 04/20/20 @ 10:42 by Mitchell German) Mother , passed in her 70s from heart issues No problems noted. Father , passed in his 70s from heart issues No problems noted. Sister No problems noted. Daughter No problems noted. Son No problems noted. Other Family history non-contributory Denies family history of Myocardial infarction Stroke Social History (Updated 04/20/20 @ 10:49 by Mitchell German) Smoking Status: Former smoker Tobacco Type: Cigarettes Age Quit Using Tobacco: 28; Cigarettes Per Day: 1 ppd; Second Hand Exposure: No; Do You Dip or Chew Tobacco: No; Tobacco Cessation Education Requested by Patient: No Hx Alcohol Use: No Hx Substance Use: No Preferred Language: Latvian Communication Ability: Effective Visual Impairment: No Limitations Hearing Ability: Normal Driver Sales Required: No Beliefs That Will Affect Care: None marital status: Current Living Situation: Spouse and Family current occupational status: retired 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 How many Children do You have: 2 Other Information That Helps Us Care for You: No Feels Safe at Home: Yes Safety Concerns: Feels Safe At This Time Childhood Exposure to Second-Hand Smoke: Yes Diet Comment: currently on liquid diet via PEG tube (2k calories/day) able to drink Boost caffeine: No during the past year weight has: decreased > 10 lbs Dental Care, Regularly: No Physical Activity Frequency: Does not Exercise Review of Systems Review of Systems: All systems reviewed & are unremarkable except as noted in Subjective Physical Exam Constitutional: + ill appearing; no acute distress and no altered mental status ENMT: Oropharynx with blood, no other obvious abnormalities Neck: trachea midline, no thyromegaly Respiratory: normal respiratory effort, lungs clear to auscultation Cardiovascular: RRR, no murmur, no edema Gastrointestinal (Abdomen): Inspection/Auscultation: normal bowel sounds Percussion/Palpation: + abdomen tender (below feeding tube with manipulation of tube, denies with palpation) and abdomen soft Musculoskeletal: Extremities: no cyanosis and no clubbing Neurologic: PERRLA, EOMI, accomodation nl, Some facial droop on left which seems to be his baseline mild dysarthria Psychiatric: Orientation: alert and oriented x 3 Results & Data ([facility]) Vital Signs (Past 12 Hours) Vital Signs Temp Pulse Pulse Resp BP BP Pulse Ox 04/27/20 07:04 36.6 C 68 18 152/83 H 99 04/27/20 05:46 36.3 C L 69 18 183/89 H 100 04/27/20 04:49 64 18 151/78 H 97 04/27/20 02:35 36.9 C 72 16 158/82 H 99 Laboratory Results - last 24 hr 04/27/20 04/27/20 04/27/20 02:47 02:47 02:47 WBC 12.92 H RBC 5.02 Hgb 12.9 L Hct 41.0 L MCV 81.7 MCH 25.7 MCHC 31.5 L RDW Std Deviation 48.4 H RDW Coeff of Anne-Marie 16.1 H Plt Count 324 MPV 10.8 H Immature Gran % (Auto) 0.2 Neut % (Auto) 81.3 Lymph % (Auto) 11.7 [place] % (Auto) 4.6 Eos % (Auto) 2.0 Baso % (Auto) 0.2 Neut # (Auto) 10.49 H Lymph # (Auto) 1.51 [place] # (Auto) 0.60 H Eos # (Auto) 0.26 Baso # (Auto) 0.03 Immature Gran # (Auto) 0.03 H RBC Morphology Unremarkable PT 11.8 INR 1.1 APTT 30.5 PTT Ratio 1.1 Sodium Potassium Chloride Carbon Dioxide Anion Gap BUN Creatinine Est Cr Clr Drug Dosing Est GFR ( Amer) Est GFR (Non-Af Amer) BUN/Creatinine Ratio Glucose Calcium Magnesium Total Bilirubin Direct Bilirubin AST ALT Alkaline Phosphatase Total Protein Albumin Blood Type B Positive Antibody Screen NEGATIVE 04/27/20 04/27/20 02:47 07:31 WBC RBC Hgb 12.3 L Hct 37.6 L MCV MCH MCHC RDW Std Deviation RDW Coeff of Anne-Marie Plt Count MPV Immature Gran % (Auto) Neut % (Auto) Lymph % (Auto) [place] % (Auto) Eos % (Auto) Baso % (Auto) Neut # (Auto) Lymph # (Auto) [place] # (Auto) Eos # (Auto) Baso # (Auto) Immature Gran # (Auto) RBC Morphology PT INR APTT PTT Ratio Sodium 133 L Potassium 4.2 Chloride 96 L Carbon Dioxide 33 H Anion Gap 4.0 BUN 27 H Creatinine 1.00 Est Cr Clr Drug Dosing 53.2 Est GFR ( Amer) 83.8 Est GFR (Non-Af Amer) 72.3 BUN/Creatinine Ratio 27.3 H Glucose 122 H Calcium 9.5 Magnesium 2.2 Total Bilirubin 0.3 Direct Bilirubin 0.1 AST 18 ALT 19 Alkaline Phosphatase 106 Total Protein 8.0 Albumin 2.8 L Blood Type Antibody Screen
[2020-04-27] MEDS: PANTOprazole 40 MG in SYRINGE 0 ML IV SCH ×2 (09:21→21:01)
[2020-04-27] MEDS: AMLODIPINE BESYLATE 5 MG TAB PEG SCH (09:22)
[2020-04-27] MEDS: ATORVASTATIN 40 MG TAB PEG SCH (09:22)
[2020-04-27] MEDS: ATENOLOL 50 MG TABLET PEG SCH (09:22)
[2020-04-27] MEDS: DOCUSATE SODIUM 100 MG CAP PO SCH ×2 (09:23→23:13)
[2020-04-27] MEDS: POLYETHYLENE (MIRALAX) 17 GM PACK PEG SCH (09:23)
--- NOTE | 2020-04-27 09:38 | Radiation Oncology Progress Nt ---
Date of Service April 27, 2020 Assessment & Plan (1) Carcinoma of lower third of esophagus: Assessment: Mr. Ingram is a locally advanced, metastatic esophageal squamous cell carcinoma ([id number]). The patient is currently symptomatic and does have a diverting feeding tube. The patient has been seen by Dr. Kim from medical oncology was recommended upfront palliative chemotherapy and radiation therapy followed by definitive chemotherapy alone. We agreed to proceed with palliative chemotherapy and radiation therapy in the outpatient setting. Unfortunately, the patient did develop hematemesis/hemoptysis and has been admitted to the hospital for further work-up and evaluation. Gastroenterology has been consulted and they have recommended palliative external beam radiation therapy. I am now seeing the patient in follow-up evaluation in the inpatient setting to discuss radiation therapy. I have spoken with Dr. Kim who is in agreement to proceed with palliative radiation therapy followed by consideration of systemic chemotherapy. Recommendation: Palliative radiation therapy followed by systemic therapy alone. Plan: 1. Plan to start radiation therapy and deliver first fraction of treatment today. 2. Continue rest of medical management as per primary medical team and gastroenterology and medical oncology. 3. Patient and family encouraged to call us with any further questions or concerns. Rationale/Explanation of Treatment: I explained the indications, alternatives, benefits, risks and side effects of external beam radiation therapy. I then discussed radiation therapy side effects for treatment which include, but are not limited to, skin erythema, dry/moist desquamation of the skin, hyperpigmentation, telangiectasias, damage to the heart and development of cardiovascular disease, damage to the lungs including radiation pneumonitis, pulmonary fibrosis, decrease in pulmonary function, cough, fistula formation, tracheal stenosis, esophageal stenosis, esophageal perforation, dysphagia, nausea, vomiting, ulcers in stomach/bowel, gastritis, gastric perforation, bowel perforation, bowel obstruction, weight loss, dehydration, decreased appetite, liver damage including hepatitis and liver failure, damage to the kidneys including decreased renal function and renal failure, spinal cord damage including myelopathy, fatigue and secondary malignancy. The patient and had multiple questions which were answered to their full satisfaction. Thank you for allowing us to participate in the care of this patient. This chart was completed in part utilizing [employer] Speech Voice Recognition software. Attempts were made to minimize the grammatical errors, random word insertions, pronoun errors and incomplete sentences. Any formal questions or concerns about the content, text or information contained within the body of this dictation should be directly addressed to the provider for clarification. Selvin Lee MD Department of Radiation Oncology [facility] Present on Admission?: Yes Admission and Anticipated Discharge Date Admission Date: April 27, 2020 Results & Data ([facility]) Vital Signs (Past 12 Hours) Vital Signs Temp Pulse Pulse Resp BP BP Pulse Ox 04/27/20 07:04 36.6 C 68 18 152/83 H 99 04/27/20 05:46 36.3 C L 69 18 183/89 H 100 04/27/20 04:49 64 18 151/78 H 97 04/27/20 02:35 36.9 C 72 16 158/82 H 99
--- NOTE | 2020-04-27 10:24 | Hospitalist Progress Note ---
Date of Service April 27, 2020 Assessment & Plan (1) Carcinoma of lower third of esophagus: Sam Ingram is a 79 year old man admitted for a bleeding esophageal tumor from his recently diagnosed metastatic esophageal cancer Upper GI bleed Likely from primary tumor CT angiogram 04/27 --- Impression as noted by radiologist: 1. Large distal esophageal mass with associated pathologic adenopathy this results in dilatation of the more proximal esophagus which is debris filled 2. Interval increase in the size and number of the bilateral pulmonary nodules indicative of rapidly progressive metastatic disease 3. Indeterminate 3.5 cm left renal mass. A primary renal neoplasm or metastatic disease must be considered 4. On image #131/301, there is a gas bubble within or extrinsic to the esophageal wall. A contained perforation cannot be excluded. Slow ooze at this point will monitor vitals closely on PCU H and H q6h - Initial H/H on admission: 12.9/41.0 --> 12.3/37.6 Pantoprazole 40 mg BID DDAVP given 04/27 to reverse effect of plavix and holding plavix Zofran 4mg IV q6h scheduled for nausea and w/o relief given prn Phenergan 12.5mg IV x1 provided; continue to monitor complaint of nausea GI consulted; appreciate their recommendations - Recommend continuing Protonix 40mg IV BID - Agree with H&H q6h and with type and cross Radiation oncology consulted Dr. Lee; appreciate his recommendations - Per Dr. Lee, will initiate radiation with first tx today Type and crossed will hold 2 units as there is potential for this to worsen emergently In event of a major bleed patient would likely need a garry tube/transfer to IR capable facility and would have a very poor prognosis this was discussed frankly with patient Esophageal Cancer Metastatic squamous cell Carcinoma Planning to start radiation and chemotherapy with Dr. Salter and Dr. Lee Mets to lung and thoracic lymph nodes After discussion patient elects to be a DNR/DNI at this time May consider palliative care consultation Hx of Hypertension Continue amlodipine 5mg qAM via PEG tube Continue atenolol 50mg qAM via PEG tube Hx of Hyperlipidemia Continue atorvastatin 40mg qAM via PEG tube F/E/N: Regular diet through PEG tube DVT PPx: SCD's chemical prophylaxis deferred for active bleeding Dispo:PCU DNR/DNI (2) Upper GI bleeding: (3) Hypoalbuminemia: Admission and Anticipated Discharge Date Admission Date: April 27, 2020 Supervising Physician Co-Signing Physician Notes I personally examined the patient and verified all kelly points of history and exam, discussed case, and agree with decision making with Dr Herron. feeling nauseated. still had some hematemesis at IR d/w extensively vitals noted nad heent nc at mmm breathing unlabored no accessory muscles good effort skin no rashes no pallor or icterus UGI bleeding from esophageal CA -fortunately hemodynamically stable, continue to follow, blood if needed, transfer if worsens nausea -zofran scheduled, pepcid scheduled phenergan prn -NPO (has PEG) until nausea has passed otherwise as above Subjective Patient was seen and evaluated in room this morning. He had just returned to bed after having a BM in the bathroom; nursing staff reports that the stool was a green-brown, loose (but not diarrhea) output. There was no melena or gross bleeding noted in the stool. Patient reports that the bleeding from the esophagus is still persistent but it has significantly slowed/decreased. He notes associated diffuse "achy" abdominal pain rated at a 5/10. Patient notes that he has been sleepign poorly. He is receiving all nutrition through the PEG tube; last PEG tube feed was at 11:00pm last night. Pt denies fever, chills, sweats, CP, SOB, cough, leg pain, and leg swelling. Review of Systems Constitutional: + fatigue and + weakness; no fever and no chills Respiratory: no cough and no dyspnea Cardiovascular: no chest pain Gastrointestinal: + abdominal pain; no diarrhea/loose stools and no blood in stools + coughing up blood Musculoskeletal: no swelling Physical Exam Physical Exam: GENERAL: Patient resting comfortably in bed. No acute distress. Chronically ill appearing. HENT: Dry mucous membranes. RESPIRATORY: Clear to auscultation bilaterally. No wheezing, rales, or rhonchi. CARDIOVASCULAR: Regular rate and rhythm. No murmurs. ABDOMEN: Soft and non-tender. Normal bowel sounds. PEG tube in place. EXTREMITIES: No edema. Non-tender. NEUROLOGIC: No focal neurological deficits. CN II-XII grossly intact, but not individually tested. PSYCHIATRIC: Cooperative. Appropriate mood and affect. Results & Data Results & Data ([facility]) Vital Signs (Past 12 Hours) Vital Signs Temp Pulse Pulse Resp BP BP Pulse Ox 04/27/20 07:04 36.6 C 68 18 152/83 H 99 04/27/20 05:46 36.3 C L 69 18 183/89 H 100 04/27/20 04:49 64 18 151/78 H 97 04/27/20 02:35 36.9 C 72 16 158/82 H 99 Laboratory Results 04/27/20 04/27/20 04/27/20 Range/Units 07:31 02:47 02:47 WBC (4.8-10.8) K/uL RBC (4.7-6.1) M/uL Hgb 12.3 L (14.0-18.0) g/dL Hct 37.6 L (42-52) % MCV (80-100) fL MCH (25-34) pg MCHC (32-36) g/dL RDW Std Deviation (36.4-46.3) fL RDW Coeff of Anne-Marie (11.5-14.5) % Plt Count (130-400) K/uL MPV (7.4-10.4) fL Immature Gran % (Auto) % Neut % (Auto) % Lymph % (Auto) % Cla[place]orne % (Auto) % Eos % (Auto) % Baso % (Auto) % Neut # (Auto) (1.4-6.5) K/uL Lymph # (Auto) (1.2-3.4) K/uL Cla[place]orne # (Auto) (0.11-0.59) K/uL Eos # (Auto) (0-0.5) K/uL Baso # (Auto) (0-0.2) K/uL Immature Gran # (Auto) (0.00-0.02) K/uL RBC Morphology PT 11.8 (9.0-12.0) Seconds INR 1.1 (0.9-1.1) APTT 30.5 (21.0-31.0) Seconds PTT Ratio 1.1 Sodium 133 L (136-145) mmol/L Potassium 4.2 (3.5-5.1) mmol/L Chloride 96 L (98-107) mmol/L Carbon Dioxide 33 H (21-32) mmol/L Anion Gap 4.0 (3-11) BUN 27 H (7-18) mg/dl Creatinine 1.00 (0.6-1.4) mg/dl Est Cr Clr Drug Dosing 53.2 ml/min Est GFR ( Amer) 83.8 Est GFR (Non-Af Amer) 72.3 BUN/Creatinine Ratio 27.3 H (10-20) Glucose 122 H (70-99) mg/dl Calcium 9.5 (8.5-10.1) mg/dl Magnesium 2.2 (1.8-2.4) mg/dl Total Bilirubin 0.3 (0.2-1) mg/dl Direct Bilirubin 0.1 (0-0.2) mg/dl AST 18 (15-37) U/L ALT 19 (12-78) U/L Alkaline Phosphatase 106 (45-117) U/L Total Protein 8.0 (6.4-8.2) gm/dl Albumin 2.8 L (3.4-5.0) gm/dl Blood Type Antibody Screen 04/27/20 04/27/20 Range/Units 02:47 02:47 WBC 12.92 H (4.8-10.8) K/uL RBC 5.02 (4.7-6.1) M/uL Hgb 12.9 L (14.0-18.0) g/dL Hct 41.0 L (42-52) % MCV 81.7 (80-100) fL MCH 25.7 (25-34) pg MCHC 31.5 L (32-36) g/dL RDW Std Deviation 48.4 H (36.4-46.3) fL RDW Coeff of Anne-Marie 16.1 H (11.5-14.5) % Plt Count 324 (130-400) K/uL MPV 10.8 H (7.4-10.4) fL Immature Gran % (Auto) 0.2 % Neut % (Auto) 81.3 % Lymph % (Auto) 11.7 % Claiborne % (Auto) 4.6 % Eos % (Auto) 2.0 % Baso % (Auto) 0.2 % Neut # (Auto) 10.49 H (1.4-6.5) K/uL Lymph # (Auto) 1.51 (1.2-3.4) K/uL Claiborne # (Auto) 0.60 H (0.11-0.59) K/uL Eos # (Auto) 0.26 (0-0.5) K/uL Baso # (Auto) 0.03 (0-0.2) K/uL Immature Gran # (Auto) 0.03 H (0.00-0.02) K/uL RBC Morphology Unremarkable PT (9.0-12.0) Seconds INR (0.9-1.1) APTT (21.0-31.0) Seconds PTT Ratio Sodium (136-145) mmol/L Potassium (3.5-5.1) mmol/L Chloride (98-107) mmol/L Carbon Dioxide (21-32) mmol/L Anion Gap (3-11) BUN (7-18) mg/dl Creatinine (0.6-1.4) mg/dl Est Cr Clr Drug Dosing ml/min Est GFR ( Amer) Est GFR (Non-Af Amer) BUN/Creatinine Ratio (10-20) Glucose (70-99) mg/dl Calcium (8.5-10.1) mg/dl Magnesium (1.8-2.4) mg/dl Total Bilirubin (0.2-1) mg/dl Direct Bilirubin (0-0.2) mg/dl AST (15-37) U/L ALT (12-78) U/L Alkaline Phosphatase (45-117) U/L Total Protein (6.4-8.2) gm/dl Albumin (3.4-5.0) gm/dl Blood Type B Positive Antibody Screen NEGATIVE
[2020-04-27] MEDS: ONDANSETRON INJ 2 MG/ML 2 ML VIAL IV PRN ×2 (11:51→13:25)
[2020-04-27 11:54] LABS: Hematocrit (blood only) 36.6 % (42-52); Hemoglobin 12.1 g/dL (14.0-18.0)
[2020-04-27] MEDS ORDERED: PROMETHAZINE HCL 6.25 MG in SODIUM CHLORIDE 0.9% 50 ML IV ONE (16:15)
[2020-04-27] MEDS ORDERED: PROMETHAZINE HCL 6.25 MG in SODIUM CHLORIDE 0.9% 50 ML IV STA (17:47)
[2020-04-27] MEDS: LACTATED RINGER'S 1,000 ML IV SCH (18:03)
[2020-04-27] MEDS: ONDANSETRON INJ 2 MG/ML 2 ML VIAL IV SCH (18:03)
--- NOTE | 2020-04-27 19:12 | Billing Data ---
Date of Service April 27, 2020 Coding Level of Care Code 04087 Subseq Hosp Care Lvl 3
[2020-04-27 19:20] LABS: Hematocrit (blood only) 37.6 % (42-52); Hemoglobin 12.4 g/dL (14.0-18.0)
--- NOTE | 2020-04-27 19:39 | Billing Data ---
Date of Service April 27, 2020 Coding Level of Care Code 77230 Initial Inpt Care Lvl 3
[2020-04-27] MEDS: FAMOTIDINE 20 MG in SYRINGE 3 ML IV SCH (21:01)
[2020-04-27] MEDS: DOCUSATE SODIUM SYRUP 100 MG/10 ML UDC PO SCH (22:34)
[2020-04-27 23:56] LABS: Hematocrit (blood only) 35.4 % (42-52); Hemoglobin 11.6 g/dL (14.0-18.0)
[2020-04-28] MEDS: ONDANSETRON INJ 2 MG/ML 2 ML VIAL IV SCH ×3 (00:09→11:00)
[2020-04-28] MEDS: PROMETHAZINE HCL 6.25 MG in SODIUM CHLORIDE 0.9% 50 ML IV PRN ×2 (02:16→19:51)
[2020-04-28] MEDS: LACTATED RINGER'S 1,000 ML IV SCH ×2 (06:02→18:17)
[2020-04-28 06:38] LABS: Basophils # (auto) 0.03 K/uL (0-0.2); Basophils % (auto) 0.3 %; Eosinophils # (auto) 0.18 K/uL (0-0.5); Eosinophils % (auto) 1.8 %; Hematocrit (blood only) 36.6 % (42-52); Hemoglobin 11.6 g/dL (14.0-18.0); Immature Granulocytes # (auto) 0.02 K/uL (0.00-0.02); Immature Granulocytes % (auto) 0.2 %; Lymphocytes # (auto) 0.69 K/uL (1.2-3.4); Lymphocytes % (auto) 6.8 %; Mean Corpuscular Hemoglobin 25.8 pg (25-34); Mean Corpuscular Hgb Conc 31.7 g/dL (32-36); Mean Corpuscular Volume 81.5 fL (80-100); Mean Platelet Volume 10.9 fL (7.4-10.4); Monocytes # (auto) 1.19 K/uL (0.11-0.59); Monocytes % (auto) 11.8 %; Neutrophils # (auto) 7.99 K/uL (1.4-6.5); Neutrophils % (auto) 79.1 %; Platelet Count 282 K/uL (130-400); RDW Coefficient of Variation 16.1 % (11.5-14.5); RDW Standard Deviation 48.2 fL (36.4-46.3); Red Blood Count 4.49 M/uL (4.7-6.1)
[2020-04-28 07:08] LABS: BUN Creatinine Ratio 25.6 (10-20); Calcium 9.2 mg/dl (8.5-10.1); Creatinine Clr Calc Pharmacy 59.1 ml/min; Est GFR (African American) 93.9; Potassium 3.9 mmol/L (3.5-5.1)
[2020-04-28] MEDS: AMLODIPINE BESYLATE 5 MG TAB PEG SCH (08:41)
[2020-04-28] MEDS: ATENOLOL 50 MG TABLET PEG SCH (08:41)
[2020-04-28] MEDS: POLYETHYLENE (MIRALAX) 17 GM PACK PEG SCH (08:41)
[2020-04-28] MEDS: DOCUSATE SODIUM SYRUP 100 MG/10 ML UDC PO SCH ×2 (08:41→19:44)
[2020-04-28] MEDS: PANTOprazole 40 MG in SYRINGE 0 ML IV SCH ×2 (08:42→19:43)
[2020-04-28] MEDS: ATORVASTATIN 40 MG TAB PEG SCH (08:42)
[2020-04-28] MEDS: FAMOTIDINE 20 MG in SYRINGE 3 ML IV SCH ×2 (09:26→19:43)
--- NOTE | 2020-04-28 10:41 | Hospitalist Progress Note ---
Date of Service April 28, 2020 Assessment & Plan (1) Carcinoma of lower third of esophagus: Sam Ingram is a 79 year old man admitted for a bleeding esophageal tumor from his recently diagnosed metastatic esophageal cancer Upper GI bleed Likely from primary tumor CT angiogram 04/27 --- Impression as noted by radiologist: 1. Large distal esophageal mass with associated pathologic adenopathy this results in dilatation of the more proximal esophagus which is debris filled 2. Interval increase in the size and number of the bilateral pulmonary nodules indicative of rapidly progressive metastatic disease 3. Indeterminate 3.5 cm left renal mass. A primary renal neoplasm or metastatic disease must be considered 4. On image #131/301, there is a gas bubble within or extrinsic to the esophageal wall. A contained perforation cannot be excluded. Slow ooze at this point will monitor vitals closely on PCU H and H q6h - Initial H/H on admission: 12.9/41.0; most recent H/H 11.6/35.6 (Hgb has been stable at 11.6 since midnight) Pantoprazole 40 mg BID DDAVP given 04/27 to reverse effect of plavix and holding plavix Zofran 4mg IV q6h scheduled for nausea and w/o relief given prn Phenergan 12.5mg IV x1 provided; continue to monitor complaint of nausea GI consulted; appreciate their recommendations - Recommend continuing Protonix 40mg IV BID - Agree with H&H q6h and with type and cross Radiation oncology consulted Dr. Lee; appreciate his recommendations - Radiation tx started 04/27; he has had a total of 2 radiation treatments Type and crossed will hold 2 units as there is potential for this to worsen emergently In event of a major bleed patient would likely need a garry tube/transfer to IR capable facility and would have a very poor prognosis this was discussed frankly with patient PT/OT ordered - Pt did surprisingly well with PT today despite his subjective weakness - Goals of care upon discharge discussed with patient and - Patient's thoughts on home vs SNF have been waxing and waning, however, most recently pt wanting d/c home - PT agrees with plan for d/c home with wifes support and considering home therapy Esophageal Cancer Metastatic squamous cell Carcinoma Planning to start radiation and chemotherapy with Dr. Salter and Dr. Lee Mets to lung and thoracic lymph nodes After discussion patient elects to be a DNR/DNI at this time May consider palliative care consultation Depression Secondary to cancer diagnosis and rapid decline Will start patient on Lexapro 10mg po daily Hx of Hypertension Continue amlodipine 5mg qAM via PEG tube Continue atenolol 50mg qAM via PEG tube Hx of Hyperlipidemia Continue atorvastatin 40mg qAM via PEG tube F/E/N: Regular diet through PEG tube DVT PPx: SCD's chemical prophylaxis deferred for active bleeding Dispo:PCU DNR/DNI (2) Upper GI bleeding: (3) Hypoalbuminemia: Admission and Anticipated Discharge Date Admission Date: April 27, 2020 Supervising Physician Co-Signing Physician Notes I personally examined the patient and verified all kelly points of history and exam, discussed case, and agree with decision making with Dr Herron. nausea better but still seeing a decent amount of blood. tired. did get up and did surprisinly well w PT vitals noted nad heent nc at mmm breathing unlabored no accessory muscles good effort skin no rashes no pallor or icterus UGI bleeding from esophageal CA -fortunately remains hemodynamically stable, continue to follow, blood if needed, transfer if worsens nausea -improved. continue anti-emetics, can increase tube feeds. otherwise as above Subjective Patient was seen and evaluated in room this morning. Patient resting comfortably in bed and is awake, but he reports "overall feeling crummy." Patient states that he continues to spit up blood; there has been no significant increase or decrease in amount of blood or frequency of spitting up the blood. He does endorse some dizziness with movement/ambulation but there is no dizziness or lightheadedness at rest. He reports diffuse epigastric pain. Patient did have 2 BMs yesterday without rectal bleeding, hematochezia, or melena. He denies CP, SOB, nausea, vomiting, leg pain, or leg swelling. Review of Systems Constitutional: + fatigue; no fever and no chills Respiratory: no cough and no dyspnea Cardiovascular: no chest pain Gastrointestinal: + abdominal pain; no nausea, no vomiting, no diarrhea/loose stools, no blood in stools and no melena + spitting up blood Musculoskeletal: no swelling Physical Exam Physical Exam: GENERAL: Patient resting comfortably in bed. No acute distress. Chronically ill appearing. HENT: Dry mucous membranes. RESPIRATORY: Clear to auscultation bilaterally. No wheezing, rales, or rhonchi. CARDIOVASCULAR: Regular rate and rhythm. No murmurs. ABDOMEN: Soft and non-tender. Normal bowel sounds. PEG tube in place in left upper abdomen with no signs of erythema. EXTREMITIES: No edema. Non-tender. NEUROLOGIC: No focal neurological deficits. PSYCHIATRIC: Cooperative. Appropriate mood and affect. Results & Data Results & Data ([facility]) Vital Signs (Past 12 Hours) Vital Signs Temp Pulse Pulse Resp BP Pulse Ox 04/28/20 07:55 36.6 C 69 50 H 162/81 H 96 04/28/20 07:06 68 04/28/20 04:00 36.5 C 71 16 170/83 H 97 04/28/20 00:12 36.7 C 66 18 136/80 98 04/27/20 23:00 86
[2020-04-28] MEDS: PEPTAMEN 1.5 CAL 1,000 ML BAG PEG SCH (10:43)
[2020-04-28 14:11] LABS: Hematocrit (blood only) 35.6 % (42-52); Hemoglobin 11.6 g/dL (14.0-18.0)
--- NOTE | 2020-04-28 19:03 | Billing Data ---
Date of Service April 28, 2020 Coding Level of Care Code 19257 Subseq Hosp Care Lvl 3
[2020-04-28 20:16] LABS: Hematocrit (blood only) 35.1 % (42-52); Hemoglobin 11.6 g/dL (14.0-18.0)
[2020-04-29 02:36] LABS: Basophils # (auto) 0.02 K/uL (0-0.2); Basophils % (auto) 0.1 %; Eosinophils # (auto) 0.13 K/uL (0-0.5); Eosinophils % (auto) 0.9 %; Hematocrit (blood only) 34.9 % (42-52); Hemoglobin 11.3 g/dL (14.0-18.0); Immature Granulocytes # (auto) 0.03 K/uL (0.00-0.02); Immature Granulocytes % (auto) 0.2 %; Lymphocytes # (auto) 1.16 K/uL (1.2-3.4); Lymphocytes % (auto) 8.4 %; Mean Corpuscular Hemoglobin 26.3 pg (25-34); Mean Corpuscular Hgb Conc 32.4 g/dL (32-36); Mean Corpuscular Volume 81.2 fL (80-100); Mean Platelet Volume 10.7 fL (7.4-10.4); Monocytes % (auto) 4.3 %; Neutrophils # (auto) 11.87 K/uL (1.4-6.5); Neutrophils % (auto) 86.1 %; Platelet Count 279 K/uL (130-400); RDW Coefficient of Variation 16.1 % (11.5-14.5); RDW Standard Deviation 47.7 fL (36.4-46.3); White Blood Count 13.81 K/uL (4.8-10.8)
[2020-04-29 02:56] LABS: Calcium 8.9 mg/dl (8.5-10.1); Creatinine Clr Calc Pharmacy 59.1 ml/min; Est GFR (African American) 93.9; Potassium 3.7 mmol/L (3.5-5.1)
[2020-04-29] MEDS: LACTATED RINGER'S 1,000 ML IV SCH ×2 (06:24→17:45)
[2020-04-29] MEDS: POLYETHYLENE (MIRALAX) 17 GM PACK PEG SCH (07:41)
[2020-04-29] MEDS: AMLODIPINE BESYLATE 5 MG TAB PEG SCH (07:41)
[2020-04-29] MEDS: ATENOLOL 50 MG TABLET PEG SCH (07:42)
[2020-04-29] MEDS: FAMOTIDINE 20 MG in SYRINGE 3 ML IV SCH ×2 (07:42→20:23)
[2020-04-29] MEDS: PANTOprazole 40 MG in SYRINGE 0 ML IV SCH ×2 (07:42→20:44)
[2020-04-29] MEDS: DOCUSATE SODIUM SYRUP 100 MG/10 ML UDC PO SCH ×2 (07:42→17:30)
[2020-04-29] MEDS: ATORVASTATIN 40 MG TAB PEG SCH (07:43)
[2020-04-29] MEDS: ESCITALOPRAM OXALATE ORAL SOLN 10 MG/10 ML UDP PO SCH (07:43)
[2020-04-29 08:29] LABS: Hematocrit (blood only) 34.8 % (42-52); Hemoglobin 11.4 g/dL (14.0-18.0)
[2020-04-29] MEDS: ONDANSETRON INJ 2 MG/ML 2 ML VIAL IV PRN (10:31)
[2020-04-29] MEDS: PROMETHAZINE HCL 6.25 MG in SODIUM CHLORIDE 0.9% 50 ML IV PRN (12:18)
--- NOTE | 2020-04-29 12:21 | Hospitalist Progress Note ---
Date of Service April 29, 2020 Assessment & Plan (1) Carcinoma of lower third of esophagus: Sam Ingram is a 79 year old man admitted for a bleeding esophageal tumor from his recently diagnosed metastatic esophageal cancer Upper GI bleed Likely from primary tumor CT angiogram 04/27 --- Impression as noted by radiologist: 1. Large distal esophageal mass with associated pathologic adenopathy this results in dilatation of the more proximal esophagus which is debris filled 2. Interval increase in the size and number of the bilateral pulmonary nodules indicative of rapidly progressive metastatic disease 3. Indeterminate 3.5 cm left renal mass. A primary renal neoplasm or metastatic disease must be considered 4. On image #131/301, there is a gas bubble within or extrinsic to the esophageal wall. A contained perforation cannot be excluded. Slow ooze at this point will monitor vitals closely on PCU H and H q6h - Initial H/H on admission: 12.9/41.0; most recent H/H 11.1/34.1 Pantoprazole 40 mg BID DDAVP given 04/27 to reverse effect of plavix and holding plavix Zofran 4mg IV q6h scheduled for nausea and w/o relief given prn Phenergan 12.5mg IV x1 provided; continue to monitor complaint of nausea GI consulted; appreciate their recommendations - Recommend continuing Protonix 40mg IV BID - Agree with H&H q6h and with type and cross Radiation oncology consulted Dr. Lee; appreciate his recommendations - Radiation tx started 04/27; he has had a total of 2 radiation treatments Type and crossed will hold 2 units as there is potential for this to worsen emergently In event of a major bleed patient would likely need a garry tube/transfer to IR capable facility and would have a very poor prognosis this was discussed frankly with patient PT/OT ordered - Pt did surprisingly well with PT 04/28 despite his subjective weakness - Goals of care upon discharge discussed with patient and - Patient's thoughts on home vs SNF have been waxing and waning Patient with slowly downtrending H&H. Will continue to monitor patient until Hgb remains stable x24h. Pt currently feels too weak for d/c home. Will continue with inpt therapy at this time. Empathy and support provided to both patient and patient's . Continue with continuous tube feeds via PEG tube. Patient's BEE is 1287 kcal/day (equals ~53 kcal/hr over 24h). With Peptamen 1.5 huy, continue feeds at 40mL/hr (equal 60 kcal/hr). Esophageal Cancer Metastatic squamous cell Carcinoma Planning to start radiation and chemotherapy with Dr. Salter and Dr. Jesus Souza to lung and thoracic lymph nodes After discussion patient elects to be a DNR/DNI at this time May consider palliative care consultation Depression Secondary to cancer diagnosis and rapid decline Will start patient on Lexapro 10mg po daily Hx of Hypertension Continue amlodipine 5mg qAM via PEG tube Continue atenolol 50mg qAM via PEG tube Hx of Hyperlipidemia Continue atorvastatin 40mg qAM via PEG tube F/E/N: Regular diet through PEG tube DVT PPx: SCD's chemical prophylaxis deferred for active bleeding Dispo:med/surg DNR/DNI (2) Upper GI bleeding: (3) Hypoalbuminemia: Admission and Anticipated Discharge Date Admission Date: April 27, 2020 Supervising Physician Co-Signing Physician Notes I personally examined the patient and verified all kelly points of history and exam, discussed case, and agree with decision making with Dr Herron. nausea off and on. tolerating tube feeds. got up some but felt a little weak. no blood today! vitals noted nad heent nc at mmm breathing unlabored no accessory muscles good effort skin no rashes no pallor or icterus UGI bleeding from esophageal CA -hopefully slowing. stable. follow. continue XRT nausea -improved. continue anti-emetics nutrition - tube feeds meeting ~1500 huy/day; if ongoing stability can stop IVF tomorrow and move to water through PEG as well otherwise as above Subjective Patient was seen and evaluated in room this morning. He was resting comfortably in bed. Patient does note some slight discomfort in his left buttock; the discomfort started overnight. He otherwise has no other acute concerns or symptoms. Patient states that he has not spit up any blood "in quite a while." He denies fever, chills, CP, SOB, nausea, vomiting, lightheadedness, leg pain, or leg swelling. Addendum: At time of first evaluation this morning, I recommended that patient get OOB to sit in the chair at bedside for position change and to see how he felt out of bed. On re-evaluation, patient is back in bed and is at bedside. Pt and note that while patient was sitting in the chair, he had progressively worsening lightheadedness and recurrent nausea; however, the do say that his "bottom felt better sitting in the chair." Patient returned to bed, and was given IV Zofran by RN but he states that the nausea has been persistent. Further discussion with patient and reveal that patient currently feels too weak to go home and he is, again, concerned about d/c home vs placement. I explained to patient that we want to continue to monitor his Hgb and that we want to have him continue with therapy as well for strengthening. Pt and acknowledge and agree. Empathy and support provided to both patient and . Review of Systems Constitutional: + fatigue and + weakness; no fever and no chills Respiratory: no cough and no dyspnea Cardiovascular: no chest pain Gastrointestinal: no abdominal pain, no nausea and no vomiting Musculoskeletal: no swelling Physical Exam Physical Exam: GENERAL: Patient resting comfortably in bed. No acute distress. Chronically ill appearing. HENT: Dry mucous membranes. RESPIRATORY: Clear to auscultation bilaterally. No wheezing, rales, or rhonchi. CARDIOVASCULAR: Regular rate and rhythm. No murmurs. ABDOMEN: Soft and non-tender. Normal bowel sounds. PEG tube in place in left upper abdomen with no signs of erythema. EXTREMITIES: No edema. Non-tender. NEUROLOGIC: No focal neurological deficits. PSYCHIATRIC: Cooperative. Appropriate mood and affect. Results & Data Results & Data ([facility]) Vital Signs (Past 12 Hours) Vital Signs Temp Pulse Pulse Resp BP Pulse Ox 04/29/20 11:29 36.3 C L 64 20 135/82 97 04/29/20 09:00 69 139/79 04/29/20 08:03 36.3 C L 70 18 136/77 98 04/29/20 03:56 36.3 C L 71 20 146/81 H 95
[2020-04-29 13:59] LABS: Hematocrit (blood only) 34.1 % (42-52); Hemoglobin 11.1 g/dL (14.0-18.0)
[2020-04-29] MEDS: PEPTAMEN 1.5 CAL 1,000 ML BAG PEG SCH (14:03)
--- NOTE | 2020-04-29 19:48 | Billing Data ---
Date of Service April 29, 2020 Coding Level of Care Code 29093 Subseq Hosp Care Lvl 3
[2020-04-29 19:55] LABS: Hematocrit (blood only) 34.6 % (42-52); Hemoglobin 11.2 g/dL (14.0-18.0)
[2020-04-30] MEDS: LACTATED RINGER'S 1,000 ML IV SCH ×2 (06:14→18:58)
[2020-04-30 06:24] LABS: Basophils # (auto) 0.02 K/uL (0-0.2); Basophils % (auto) 0.2 %; Eosinophils # (auto) 0.17 K/uL (0-0.5); Eosinophils % (auto) 1.6 %; Hematocrit (blood only) 35.5 % (42-52); Hemoglobin 11.4 g/dL (14.0-18.0); Immature Granulocytes # (auto) 0.02 K/uL (0.00-0.02); Immature Granulocytes % (auto) 0.2 %; Lymphocytes # (auto) 0.39 K/uL (1.2-3.4); Lymphocytes % (auto) 3.7 %; Mean Corpuscular Hemoglobin 26.1 pg (25-34); Mean Corpuscular Hgb Conc 32.1 g/dL (32-36); Mean Corpuscular Volume 81.4 fL (80-100); Mean Platelet Volume 10.7 fL (7.4-10.4); Monocytes # (auto) 0.85 K/uL (0.11-0.59); Neutrophils # (auto) 9.19 K/uL (1.4-6.5); Neutrophils % (auto) 86.3 %; Platelet Count 273 K/uL (130-400); RDW Standard Deviation 47.3 fL (36.4-46.3); Red Blood Count 4.36 M/uL (4.7-6.1); White Blood Count 10.64 K/uL (4.8-10.8)
[2020-04-30 06:52] LABS: BUN Creatinine Ratio 22.6 (10-20); Calcium 8.8 mg/dl (8.5-10.1); Creatinine Clr Calc Pharmacy 68.1 ml/min; Est GFR (African American) 100.4; Est GFR (Non-African American) 86.6; Potassium 3.5 mmol/L (3.5-5.1)
[2020-04-30] MEDS: DOCUSATE SODIUM SYRUP 100 MG/10 ML UDC PO SCH ×2 (07:12→18:59)
[2020-04-30] MEDS: POLYETHYLENE (MIRALAX) 17 GM PACK PEG SCH (07:12)
[2020-04-30] MEDS: PANTOprazole 40 MG in SYRINGE 0 ML IV SCH ×2 (09:25→21:09)
[2020-04-30] MEDS: FAMOTIDINE 20 MG in SYRINGE 3 ML IV SCH ×2 (09:25→21:09)
[2020-04-30] MEDS: AMLODIPINE BESYLATE 5 MG TAB PEG SCH (09:44)
[2020-04-30] MEDS: ESCITALOPRAM OXALATE ORAL SOLN 10 MG/10 ML UDP PO SCH (09:44)
[2020-04-30] MEDS: ATENOLOL 50 MG TABLET PEG SCH (09:44)
[2020-04-30] MEDS: ATORVASTATIN 40 MG TAB PEG SCH (09:44)
[2020-04-30] MEDS: ONDANSETRON INJ 2 MG/ML 2 ML VIAL IV PRN (10:22)
[2020-04-30] MEDS: PROMETHAZINE HCL 6.25 MG in SODIUM CHLORIDE 0.9% 50 ML IV PRN (11:42)
[2020-04-30] MEDS: PEPTAMEN 1.5 CAL 1,000 ML BAG PEG SCH ×2 (13:15→15:00)
--- NOTE | 2020-04-30 19:25 | Hospitalist Progress Note ---
Date of Service April 30, 2020 Assessment & Plan (1) Carcinoma of lower third of esophagus: Sam Ingram is a 79 year old man admitted for a bleeding esophageal tumor from his recently diagnosed metastatic esophageal cancer Upper GI bleed Likely from primary tumor CT angiogram 04/27 --- Impression as noted by radiologist: 1. Large distal esophageal mass with associated pathologic adenopathy this results in dilatation of the more proximal esophagus which is debris filled 2. Interval increase in the size and number of the bilateral pulmonary nodules indicative of rapidly progressive metastatic disease 3. Indeterminate 3.5 cm left renal mass. A primary renal neoplasm or metastatic disease must be considered 4. On image #[id number], there is a gas bubble within or extrinsic to the esophageal wall. A contained perforation cannot be excluded. ---small amount of acute blood loss anemia - but remained hemodynamically stable - bleeding clinically appears to have stopped, Hgb now stable ---continue XRT and PPI moderate protein calorie malnutrition Continue with continuous tube feeds via PEG tube. Patient's BEE is 1287 kcal/day (equals ~53 kcal/hr over 24h). With Peptamen 1.5 huy, continue feeds at 40mL/hr (equal 60 kcal/hr) or about 1500 huy/day; notes court interpreter had them trying to achieve ~2100 huy/day. -discussed rationale for nutritional goals and how there is a range of goals -discussed in cancer, malnutrition can be a serious cause of a hastened decline - so meeting at least a minimum of around [id number] is critical - more is better (of note our court interpreter set a goal of ~1700 which also seems reasonable and is in same basic range) -discussed that he doesn't have to be fed on a set/tight schedule any more than one must eat on a set, tight schedule - that really the goal is gettign in the daily calories not necessarily when they get in -since 8oz boluses cause distress - clearly that much at once does not seem to be ideal; tolerating 40/hr continuous but long-term 24/hr feeding would be less than ideal as well -they have trouble getting the feeds in "we need 3 hands" making it hard for them to do things more frequently given his illness but her having to care for him/household/granddtrs -RN and i tried to help troubleshoot this and come up with other solutions; certainly coaching pt on how to use tube and getting him proficient at feeding himself would be huge; also ask for home nursing to help once he is discharged -in this respect once they are able to do the feeds more easily then they can divide things up more // less volume more often much luis to what he's tolerating now --> discussed that "time off" is more related to how he feels through the night w bloating/nausea/indigestion - and if he feels fine then they don't really need 12hrs off - ie if it works for him / he's feeling better it would be OK to spread out feeding with less volume more often and also a longer window of "feeding hours" -RN recalled a gravity drip bag that used to be employed - will ask case managmeent to look into this - perhaps part of his feeds could also be dripped in by gravity during early part of sleep? -ongoing education -right now not safe for home until feeding situation gets better delineated for him and -last resort could be setting up 12-14hr continuous at home via pump but this seems like it would be more cumbersome in the long run if more flexible and feasible solutions can be sought Esophageal Cancer XRT, chemo soon Depression Secondary to cancer diagnosis and rapid decline started Lexapro 10mg po daily Hx of Hypertension Continue amlodipine 5mg qAM via PEG tube Continue atenolol 50mg qAM via PEG tube Hx of Hyperlipidemia Continue atorvastatin 40mg qAM via PEG tube F/E/N: Regular diet through PEG tube DVT PPx: SCD's chemical prophylaxis deferred for active bleeding Dispo:med/surg DNR/DNI Admission and Anticipated Discharge Date Admission Date: April 27, 2020 Subjective feeling ok - tired. confused and overwhelmed with situation. arrived later - d/w pt/ in room with amazingly helpful assistance from RN. pt/ struggle because they've found they need "3 hands" to do tube feeds, and also note that with boluses he gets a lot more mucous/nausea/bloating than he's seen here with continous feed. no bleeding / no further blood noticed. Review of Systems Review of Systems: All systems reviewed & are unremarkable except as noted in HPI & below Physical Exam Physical Exam: gen aaox3 pleasant fatigued appearing nad heent nc at mmm breathing unlabored no accessory muscles good effort skin no rashes no pallor or icterus PEG tube site c/d/i tube working well Results & Data Results & Data ([facility]) Vital Signs (Past 12 Hours) Vital Signs Temp Pulse Resp BP Pulse Ox 04/30/20 15:31 97.7 F 69 16 149/75 H 95 04/30/20 07:49 97.5 F L 77 16 152/81 H 96 PG Care Time/CCT Total # of Minutes Spent Total Time Spent with Patient: Total time spent is greater than 50% in coordination of care (as documented) at patient's floor/unit and/or counseling patient: Coding Level of Care Code 75997 Subseq Hosp Care Lvl 3 Diagnoses Carcinoma of lower third of esophagus C15.5
[2020-05-01] MEDS: PROMETHAZINE HCL 6.25 MG in SODIUM CHLORIDE 0.9% 50 ML IV PRN ×3 (00:30→20:12)
[2020-05-01] MEDS: LACTATED RINGER'S 1,000 ML IV SCH ×2 (06:31→17:22)
[2020-05-01] MEDS: FAMOTIDINE 20 MG in SYRINGE 3 ML IV SCH ×2 (08:35→20:14)
[2020-05-01] MEDS: PANTOprazole 40 MG in SYRINGE 0 ML IV SCH ×2 (08:35→20:14)
[2020-05-01] MEDS: ESCITALOPRAM OXALATE ORAL SOLN 10 MG/10 ML UDP PO SCH (08:38)
[2020-05-01] MEDS: DOCUSATE SODIUM SYRUP 100 MG/10 ML UDC PO SCH ×2 (08:38→20:15)
[2020-05-01] MEDS: ATENOLOL 50 MG TABLET PEG SCH (08:39)
[2020-05-01] MEDS: POLYETHYLENE (MIRALAX) 17 GM PACK PEG SCH (08:39)
[2020-05-01] MEDS: AMLODIPINE BESYLATE 5 MG TAB PEG SCH (08:39)
[2020-05-01] MEDS: ATORVASTATIN 40 MG TAB PEG SCH (08:39)
[2020-05-01] MEDS: ONDANSETRON INJ 2 MG/ML 2 ML VIAL IV PRN (10:48)
--- NOTE | 2020-05-01 13:11 | Hospitalist Progress Note ---
Date of Service May 01, 2020 Assessment & Plan (1) Carcinoma of lower third of esophagus: Sam Ingram is a 79 year old man admitted for a bleeding esophageal tumor from his recently diagnosed metastatic esophageal cancer Upper GI bleed suspect 2/2 esophageal cancer - Pt spitting up tablesspoons of blood, slow/oozing bleed on admit 2/2 bleeding esophageal mass. - CT: Large distal esophageal mass with associated pathologic adenopathy this results in dilatation of the more proximal esophagus which is debris filled, Interval increase in the size and number of the bilateral pulmonary nodules indicative of rapidly progressive metastatic disease, Indeterminate 3.5 cm left renal mass. Gas bubble within or extrinsic to the esophageal wall. A contained perforation cannot be excluded. - CBC Q12H at this time - Hgb 11.1 today, H&H with in 1 point of prior - Pantoprazole 40 mg BID, Famotidine BID - Nausea control with Zofran + Phenergan incomplete, compazine added. If not helpful, swap for reglan trial - GI consulted, appreciate recs. Signed off at this time. - Rad/Onc Consulted. Radiation tx started 04/27; he has had a total of 2 radiation treatments - Repeat T&C if needed (hgb drop or clinically significant bleed) - If major bleed patient would likely need a garry tube/transfer to IR capable facility and would have a very poor prognosis Weakness 2/2 Protein-Calorie Malnutrition and Deconditioning Swallowing dysfunction s/p PEG - PT/OT consulted. Plan for home vs SNF, pt currently very weak - Goals of care revisit tomorrow, palliative consulted. - PT as able, continue nutritional support as above - Pt on 1.5kcal ~6oz (30cc) 6x per day prior to admission (~1620 daily) - BEE is 1287 kcal/day. Adequate nutrition critically important (at least 1500kcal/day) but limited by nausea - Increase Peptamen 1.5kcal/cc continuous to 60cc/hr. Goal either continuous over 14 hours to meet 1500-2000kcal needs (rate 70-80cc/hr), or bolus feeds. If well tolerated, increase to 75cc/hr tomorrow morn. 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 Kim and Dr. Lee, radiation tx as above - Guarded prognosis 2/2 malnutrition, metastatic disease, and low reserve. Recommend connecting the patient with palliative care. Depression - Secondary to cancer diagnosis and rapid decline - Lexapro 10mg po daily Hypertension - OFFICE SPECIALIST Amlodipine 5mg qAM via PEG tube - OFFICE SPECIALIST Atenolol 50mg qAM via PEG tube Hyperlipidemia OFFICE SPECIALIST atorvastatin 40mg qAM via PEG tube F/E/N: Regular diet through PEG tube DVT PPx: SCD's chemical prophylaxis deferred for active bleeding Dispo:PCU DNR/DNI Admission and Anticipated Discharge Date Admission Date: April 27, 2020 Supervising Physician Co-Signing Physician Notes Resident Physician Supervision Note: I independently interviewed and examined the patient and verified the kelly history and physical, reviewed labs and image studies, discussed the case with the resident Dr. Truong and agree with the findings and care plan. Subjective Mr. Ingram is seen at the bedside with his present. He has returned from radiation therapy this morning. He continues to feel nauseous and wiped out. He feels his nausea has not changed much since admission. He denies pain in his throat. He has not coughed up/spit up any blood in the last 24 hours. He denies diarrhea/constipation. He denies fever/chills/sweats. On discussion with his he had been tolerating about six 6-8 ounce feeds daily at home in bolus through his PEG tube. He has had some nausea with his feeds which have been going continuously, has not had much improvement with Zofran. Some improvement but feels sleepy with Phenergan. They had discussed caloric goals previously, short-term goal is to increase his continuous feeds to a level that would maintain 15 [id number] kcals per day over 12 to 14 hours with 12-10 hours of rest between, and then evaluate whether he may tolerate bolus feedings beyond that. Has not had an increase in nausea with his free water pushes at this time. Patient is DNR/DNI, is still considering radiation/chemotherapy as outpatient. He continues to feel weak, and feels a little bit weaker today. He had engaged with PT somewhat successfully previously, but currently feels tired. Given his malnutrition, metastatic disease, and low reserve have a guarded prognosis and recommend acting the patient with palliative care. Review of Systems Review of Systems: All systems reviewed & are unremarkable except as noted in HPI & below Physical Exam Physical Exam: General: A&Ox3. NAD. Cooperative. Fatigued. HEENT: Atraumatic, normocephalic. Pulm: CTAB A&P. -wheezes, -rales, -rhonchi. Symmetrical chest rise. No increased work of breathing. No respiratory distress. Cardiac: RRR, -mrg. Radial pulses intact and symmetrical. Abdominal: Nontender, nondistended, soft. BS present. PEG tube site C/D/I without signs of occlusion/obstruction Results & Data Results & Data ([facility]) Vital Signs (Past 12 Hours) Vital Signs Temp Pulse Resp BP Pulse Ox 05/01/20 07:44 36.4 C L 68 16 155/83 H 97 Resident Activity Tracking Resident Involvement: Resident Care Provided Care Provided: Adult [facility] Medicine
[2020-05-01 14:14] LABS: Basophils # (auto) 0.01 K/uL (0-0.2); Basophils % (auto) 0.1 %; Eosinophils # (auto) 0.12 K/uL (0-0.5); Hematocrit (blood only) 34.1 % (42-52); Hemoglobin 11.1 g/dL (14.0-18.0); Immature Granulocytes # (auto) 0.05 K/uL (0.00-0.02); Immature Granulocytes % (auto) 0.4 %; Mean Corpuscular Hemoglobin 26.6 pg (25-34); Mean Corpuscular Hgb Conc 32.6 g/dL (32-36); Mean Corpuscular Volume 81.6 fL (80-100); Mean Platelet Volume 10.5 fL (7.4-10.4); Monocytes % (auto) 1.7 %; Neutrophils # (auto) 11.05 K/uL (1.4-6.5); Neutrophils % (auto) 91.8 %; Platelet Count 270 K/uL (130-400); RDW Coefficient of Variation 15.9 % (11.5-14.5); RDW Standard Deviation 46.9 fL (36.4-46.3); Red Blood Count 4.18 M/uL (4.7-6.1); White Blood Count 12.03 K/uL (4.8-10.8)
[2020-05-01 14:30] LABS: Albumin Level 2.3 gm/dl (3.4-5.0); BUN Creatinine Ratio 20.9 (10-20); Calcium 8.7 mg/dl (8.5-10.1); Creatinine Clr Calc Pharmacy 73.7 ml/min; Est GFR (African American) 103.7; Est GFR (Non-African American) 89.5; Potassium 3.5 mmol/L (3.5-5.1)
[2020-05-01 14:32] LABS: Albumin Globulin Ratio 0.5 (0.9-2); Bilirubin,Total 0.3 mg/dl (0.2-1); Globulin 4.6 gm/dl (2.5-4.0); Total Protein 6.9 gm/dl (6.4-8.2)
--- NOTE | 2020-05-01 15:05 | Progress Notes ---
DATE: 05/01/2020 The patient is having no further upper GI bleeding. His hemoglobin remained stable at 11.1 and he is receiving radiation and chemotherapy for his esophageal squamous cell carcinoma. At this point, the patient is working on getting his PEG tube feedings adjusted so that he can receive them at home and care for the tube at home. Once that is accomplished, he should be able to complete his treatments as an outpatient. We will sign off the case at this point and please contact if any further GI input is needed.
[2020-05-01] MEDS: PEPTAMEN 1.5 CAL 1,000 ML BAG PEG SCH (15:41)
[2020-05-01] MEDS ORDERED: MELATONIN 3 MG TAB PO PRN (22:39)
[2020-05-02] MEDS: PROMETHAZINE HCL 6.25 MG in SODIUM CHLORIDE 0.9% 50 ML IV PRN ×2 (03:20→22:24)
[2020-05-02] MEDS: LACTATED RINGER'S 1,000 ML IV SCH (04:54)
[2020-05-02 05:54] LABS: Basophils # (auto) 0.01 K/uL (0-0.2); Basophils % (auto) 0.1 %; Eosinophils # (auto) 0.24 K/uL (0-0.5); Eosinophils % (auto) 1.9 %; Hematocrit (blood only) 34.4 % (42-52); Hemoglobin 11.2 g/dL (14.0-18.0); Immature Granulocytes # (auto) 0.05 K/uL (0.00-0.02); Immature Granulocytes % (auto) 0.4 %; Lymphocytes # (auto) 0.82 K/uL (1.2-3.4); Lymphocytes % (auto) 6.6 %; Mean Corpuscular Hemoglobin 26.6 pg (25-34); Mean Corpuscular Hgb Conc 32.6 g/dL (32-36); Mean Corpuscular Volume 81.7 fL (80-100); Mean Platelet Volume 10.4 fL (7.4-10.4); Monocytes # (auto) 0.62 K/uL (0.11-0.59); Neutrophils # (auto) 10.71 K/uL (1.4-6.5); Platelet Count 293 K/uL (130-400); RDW Coefficient of Variation 15.8 % (11.5-14.5); RDW Standard Deviation 46.9 fL (36.4-46.3); Red Blood Count 4.21 M/uL (4.7-6.1); White Blood Count 12.45 K/uL (4.8-10.8)
[2020-05-02 06:25] LABS: BUN Creatinine Ratio 22.1 (10-20); Calcium 8.8 mg/dl (8.5-10.1); Creatinine Clr Calc Pharmacy 74.7 ml/min; Est GFR (African American) 104.3; Potassium 3.5 mmol/L (3.5-5.1)
[2020-05-02] MEDS: PANTOprazole 40 MG in SYRINGE 0 ML IV SCH ×2 (07:52→20:53)
[2020-05-02] MEDS: DOCUSATE SODIUM SYRUP 100 MG/10 ML UDC PO SCH ×2 (07:52→20:35)
[2020-05-02] MEDS: AMLODIPINE BESYLATE 5 MG TAB PEG SCH (07:53)
[2020-05-02] MEDS: ATENOLOL 50 MG TABLET PEG SCH (07:53)
[2020-05-02] MEDS: ESCITALOPRAM OXALATE ORAL SOLN 10 MG/10 ML UDP PO SCH (07:53)
[2020-05-02] MEDS: ATORVASTATIN 40 MG TAB PEG SCH (07:53)
[2020-05-02] MEDS: POLYETHYLENE (MIRALAX) 17 GM PACK PEG SCH (07:55)
[2020-05-02] MEDS: FAMOTIDINE 20 MG in SYRINGE 3 ML IV SCH ×2 (07:55→20:48)
[2020-05-02] MEDS: PROCHLORPERAZINE 5 MG in SYRINGE 4 ML IV PRN ×2 (11:26→23:52)
[2020-05-02] MEDS: ONDANSETRON INJ 2 MG/ML 2 ML VIAL IV PRN (15:26)
[2020-05-02] MEDS ORDERED: PEPTAMEN 1.5 CAL 1,000 ML BAG PO SCH (15:45)
--- NOTE | 2020-05-02 18:27 | Hospitalist Progress Note ---
Date of Service May 02, 2020 Assessment & Plan (1) Carcinoma of lower third of esophagus: Sam Ingram is a 79 year old man admitted for a bleeding esophageal tumor from his recently diagnosed metastatic esophageal cancer Upper GI bleed suspect 2/2 esophageal cancer - Pt spitting up tablesspoons of blood, slow/oozing bleed on admit 2/2 bleeding esophageal mass. - CT: Large distal esophageal mass with associated pathologic adenopathy this results in dilatation of the more proximal esophagus which is debris filled, Interval increase in the size and number of the bilateral pulmonary nodules indicative of rapidly progressive metastatic disease, Indeterminate 3.5 cm left renal mass. Gas bubble within or extrinsic to the esophageal wall. A contained perforation cannot be excluded. - CBC daily - Hgb stable - Pantoprazole 40 mg BID, Famotidine BID - Nausea control with Zofran + Compazine - GI consulted, appreciate recs. Signed off at this time. - Rad/Onc Consulted. Radiation tx started 04/27; continue treatments - Repeat T&C if needed (hgb drop or clinically significant bleed) - If major bleed patient would likely need a garry tube/transfer to IR capable facility and would have a very poor prognosis Weakness 2/2 Protein-Calorie Malnutrition and Deconditioning Swallowing dysfunction s/p PEG - PT/OT consulted. Plan for home once bed equipment available, discussed with CM. - PT as able, continue nutritional support as above - Pt on 1.5kcal ~6oz (30cc) 6x per day prior to admission (~1620 daily) - BEE is 1287 kcal/day. Adequate nutrition critically important (at least 1500kcal/day) but limited by nausea - Tolerated continous feeds @ 80cc/hr well. Converted to and continue bolus feeds 6oz 6x daily with 30cc free water flushes during daytime, rest overnight. If not tolerated or signs of reflux then pause for 2-3 hours then resume 60- 80cc/hr continuous feed. 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 Kmi and Dr. Lee, radiation tx as above - Guarded prognosis 2/2 malnutrition, metastatic disease, and low reserve. 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 Truong and agree with the findings and care plan. Subjective Seen at bedside. Doing OK, nauseus with radiation treatment but improved with compazine. Compazine seems to work well, seen at bedside and reprots they use compazine/zofran combo at home. Case discussed with CM, awaiting hospital bed. Patient requires hospital bed with upright position due to risk of aspiration. Pt endorses fatigue this morning, denies pain. No reflux with feed changes. No pain at PEG. No throat pain. No bloody or thick sputum production. NO questions/concerns at time of visit. Review of Systems Review of Systems: All systems reviewed & are unremarkable except as noted in HPI & below Physical Exam Physical Exam: General: A&Ox3. NAD. Cooperative. Fatigued. HEENT: Atraumatic, normocephalic. Pulm: CTAB A&P. -wheezes, -rales, -rhonchi. Symmetrical chest rise. No increased work of breathing. No respiratory distress. Cardiac: RRR, -mrg. Radial pulses intact and symmetrical. Abdominal: Nontender, nondistended, soft. BS present. PEG tube site C/D/I without signs of occlusion/obstruction Results & Data Results & Data ([facility]) Vital Signs (Past 12 Hours) Vital Signs Temp Pulse Resp BP Pulse Ox 05/02/20 15:10 36.4 C L 73 16 135/70 98 05/02/20 07:20 36.4 C L 74 16 142/68 H 97 Resident Activity Tracking Resident Involvement: Resident Care Provided Care Provided: Adult Hospital Medicine
[2020-05-02] MEDS ORDERED: Nursing to Pharmacy Communication SCH (22:30)
[2020-05-03] MEDS: ONDANSETRON INJ 2 MG/ML 2 ML VIAL IV PRN (00:44)
[2020-05-03 06:03] LABS: Basophils # (auto) 0.01 K/uL (0-0.2); Basophils % (auto) 0.1 %; Eosinophils # (auto) 0.18 K/uL (0-0.5); Eosinophils % (auto) 1.6 %; Hematocrit (blood only) 35.4 % (42-52); Hemoglobin 11.7 g/dL (14.0-18.0); Immature Granulocytes # (auto) 0.09 K/uL (0.00-0.02); Immature Granulocytes % (auto) 0.8 %; Lymphocytes # (auto) 0.88 K/uL (1.2-3.4); Lymphocytes % (auto) 7.6 %; Mean Corpuscular Hemoglobin 26.8 pg (25-34); Mean Corpuscular Hgb Conc 33.1 g/dL (32-36); Monocytes % (auto) 3.5 %; Neutrophils # (auto) 10.02 K/uL (1.4-6.5); Neutrophils % (auto) 86.4 %; Platelet Count 274 K/uL (130-400); RDW Coefficient of Variation 15.9 % (11.5-14.5); RDW Standard Deviation 46.4 fL (36.4-46.3); Red Blood Count 4.37 M/uL (4.7-6.1); White Blood Count 11.58 K/uL (4.8-10.8)
[2020-05-03 06:33] LABS: BUN Creatinine Ratio 21.2 (10-20); Calcium 9.2 mg/dl (8.5-10.1); Creatinine Clr Calc Pharmacy 69.9 ml/min; Est GFR (African American) 101.5; Est GFR (Non-African American) 87.5; Potassium 3.7 mmol/L (3.5-5.1)
[2020-05-03] MEDS: POLYETHYLENE (MIRALAX) 17 GM PACK PEG SCH (07:28)
[2020-05-03] MEDS: DOCUSATE SODIUM SYRUP 100 MG/10 ML UDC PO SCH ×2 (07:29→20:28)
[2020-05-03] MEDS: AMLODIPINE BESYLATE 5 MG TAB PEG SCH (07:29)
[2020-05-03] MEDS: ATENOLOL 50 MG TABLET PEG SCH (07:29)
[2020-05-03] MEDS: ATORVASTATIN 40 MG TAB PEG SCH (07:29)
[2020-05-03] MEDS: ESCITALOPRAM OXALATE ORAL SOLN 10 MG/10 ML UDP PO SCH (07:29)
[2020-05-03] MEDS: PANTOprazole 40 MG in SYRINGE 0 ML IV SCH ×2 (07:29→20:23)
[2020-05-03] MEDS: FAMOTIDINE 20 MG in SYRINGE 3 ML IV SCH ×2 (07:30→20:35)
[2020-05-03] MEDS: PEPTAMEN 1.5 CAL 1,000 ML BAG PEG SCH ×4 (08:27→15:57)
--- NOTE | 2020-05-03 08:42 | Hospitalist Progress Note ---
Date of Service May 03, 2020 Assessment & Plan (1) Unintentional weight loss: Sam Ingram is a 79 year old man admitted for a bleeding esophageal tumor from his recently diagnosed metastatic esophageal cancer Upper GI bleed suspect 2/2 esophageal cancer - Pt spitting up tablesspoons of blood, slow/oozing bleed on admit 2/2 bleeding esophageal mass. - CT: Large distal esophageal mass with associated pathologic adenopathy this results in dilatation of the more proximal esophagus which is debris filled, Interval increase in the size and number of the bilateral pulmonary nodules indicative of rapidly progressive metastatic disease, Indeterminate 3.5 cm left renal mass. Gas bubble within or extrinsic to the esophageal wall. A contained perforation cannot be excluded. - CBC daily - Hgb stable - Pantoprazole 40 mg BID, Famotidine BID - Nausea control with Zofran + Compazine - GI consulted, appreciate recs. Signed off at this time. - Rad/Onc Consulted. Radiation tx started 04/27; continue treatments - Repeat T&C if needed (hgb drop or clinically significant bleed) - If major bleed patient would likely need a garry tube/transfer to IR capable facility and would have a very poor prognosis Weakness 2/2 Protein-Calorie Malnutrition and Deconditioning Swallowing dysfunction s/p PEG - PT/OT consulted. Plan for home once bed equipment available, anticipate tomorrow. discussed with CM. - PT as able, continue nutritional support as above - Pt on 1.5kcal ~6oz (30cc) 6x per day prior to admission (~1620 daily) - BEE is 1287 kcal/day. Adequate nutrition critically important (at least 1500kcal/day) but limited by nausea - Tolerated continous feeds @ 80cc/hr well. Converted to bolus feeds 6oz 6x daily with 30cc free water flushes during daytime,was not able to tolerate. - Restarted continuous feeds at 60cc/hr, increased to 80cc at noon. - Anticipate goal d/c rate 85cc/hr with 30cc flush Q4H. Further titration as outpt if able. 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 Kim and Dr. Lee, radiation tx as above - Guarded prognosis 2/2 malnutrition, metastatic disease, and low reserve. 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 atorvastatin 40mg qAM via PEG tube F/E/N: PEG tube DVT PPx: SCD's chemical prophylaxis deferred for active bleeding Dispo:PCU DNR/DNI (2) History of CVA (cerebrovascular accident): (3) Hx of gout: (4) Hypoalbuminemia: (5) Upper GI bleeding: (6) Carcinoma of lower third of esophagus: Admission and Anticipated Discharge Date Admission Date: April 27, 2020 Supervising Physician Co-Signing Physician Notes Resident Physician Supervision Note: I independently interviewed and examined the patient and verified the kelly history and physical, reviewed labs and image studies, discussed the case with the resident Dr. Truong and agree with the findings and care plan. Subjective Pt seen at the bedside. Reported he became very nauseus and full after 2-3 bolus feeds, and was unable to tolerate his 1930 or 2200 feed due to extreme fullness, belching, and nausea only partially improved with antiemetics. At time of morning reassessment he feels fatiguedl but reports he has not been nauseus yet in the morning and does not feel bloated. No CP/CP/SOB or throat pain. NO spit up or bloody sputum production. Feels overall unchanged from yesterday morning. No additional questions or concerns at time of bedside assessment. Review of Systems Review of Systems: All systems reviewed & are unremarkable except as noted in HPI & below Physical Exam Physical Exam: General: A&Ox3. NAD. Cooperative. Fatigued. HEENT: Atraumatic, normocephalic. Pulm: CTAB A&P. -wheezes, -rales, -rhonchi. Symmetrical chest rise. No increased work of breathing. No respiratory distress. Cardiac: RRR, -mrg. Radial pulses intact and symmetrical. Abdominal: Nontender, nondistended, soft. BS present. PEG tube site C/D/I without signs of occlusion/obstruction Results & Data Results & Data ([facility]) Vital Signs (Past 12 Hours) Vital Signs Temp Pulse Resp BP Pulse Ox 05/03/20 08:05 36.4 C L 71 16 137/82 96 05/03/20 00:23 36.5 C 80 15 149/99 H 97 Resident Activity Tracking Resident Involvement: Resident Care Provided Care Provided: Adult Hospital Medicine
[2020-05-03] MEDS: PROMETHAZINE HCL 6.25 MG in SODIUM CHLORIDE 0.9% 50 ML IV PRN (11:13)
[2020-05-03] MEDS: PROCHLORPERAZINE 5 MG in SYRINGE 4 ML IV PRN (17:57)
[2020-05-04] MEDS: PROMETHAZINE HCL 6.25 MG in SODIUM CHLORIDE 0.9% 50 ML IV PRN (01:41)
[2020-05-04] MEDS: PROCHLORPERAZINE 5 MG in SYRINGE 4 ML IV PRN (06:13)
[2020-05-04 07:44] VITALS: TEMP 97.7
[2020-05-04 07:59] LABS: Basophils # (auto) 0.01 K/uL (0-0.2); Basophils % (auto) 0.1 %; Eosinophils # (auto) 0.14 K/uL (0-0.5); Eosinophils % (auto) 1.2 %; Hematocrit (blood only) 34.7 % (42-52); Hemoglobin 11.2 g/dL (14.0-18.0); Immature Granulocytes # (auto) 0.14 K/uL (0.00-0.02); Immature Granulocytes % (auto) 1.2 %; Lymphocytes # (auto) 0.76 K/uL (1.2-3.4); Lymphocytes % (auto) 6.4 %; Mean Corpuscular Hemoglobin 26.2 pg (25-34); Mean Corpuscular Hgb Conc 32.3 g/dL (32-36); Mean Corpuscular Volume 81.3 fL (80-100); Mean Platelet Volume 10.1 fL (7.4-10.4); Monocytes # (auto) 0.67 K/uL (0.11-0.59); Monocytes % (auto) 5.6 %; Neutrophils # (auto) 10.14 K/uL (1.4-6.5); Neutrophils % (auto) 85.5 %; Platelet Count 301 K/uL (130-400); RDW Coefficient of Variation 16.2 % (11.5-14.5); RDW Standard Deviation 47.6 fL (36.4-46.3); Red Blood Count 4.27 M/uL (4.7-6.1); White Blood Count 11.86 K/uL (4.8-10.8)
[2020-05-04 08:42] LABS: BUN Creatinine Ratio 24.2 (10-20); Calcium 9.2 mg/dl (8.5-10.1); Creatinine Clr Calc Pharmacy 64.1 ml/min; Est GFR (African American) 97.9; Est GFR (Non-African American) 84.5; Potassium 3.8 mmol/L (3.5-5.1)
--- NOTE | 2020-05-04 09:07 | Discharge Summary ---
Date of Service May 04, 2020 Admission HPI Per Admitting Provider Sam Ingram is a 79 year old male who was recently diagnosed with metastatic esophageal squamous cell carcinoma last month. He has a large mass extending from the javier to the esophagogastric junction He also has metastatic lesions in b/l lungs. Patient was initially diagnosed after experiencing a foul taste and difficulty swallowing as well as loss of energy and unintentional weight loss for several months. Since that time patient has established care with Dr. Batista of [facility] who placed a PEG tube on 04/14, Dr. Lee of Radiation oncology and Dr. Kim of Oncology. Plan is to begin radiation therapy in conjunction with chemotherapy. Last night between 11pm and 1 am patient began experiencing some upper abdominal pain and bleeding. Bleeding was slow spitting up blood which was coming from his esophagus. Blood is thick and red and only came up slowly. Patient has not had any change to his stool or any difficulty feeding through his PEG tube. He is otherwise feeling in his usual state though that usual state is now fatigued and continuing to lose weight. He is not short of breath, has had no fevers, chills, sweats, tremors, nausea. On presentation to ED vitals wnl apart from some [id number]. labwork significant for a slightly elevated white count, a hgb of 12.9, Albumin of 2.8. Patient was given 80 mg of protonix and ED physician discussed case with Dr. Batista who recommended radiation oncology see the patient for radiation therapy to stop the bleeding. Had thorough discussion with patient and his about the risks of his tumor bleeding and that this does have the potential to worsen and become fatal. Patient understands this. We had aamir discussion about code status and patient would like at this time to change his wishes from full code to DNR/DNI. Patient with a smoking history many years ago and a heavy drinking history that he quit 10 years or so ago. Lives at home with Admission Exam Per Admitting Provider General: A&Ox3. NAD. Cooperative. Fatigued. HEENT: Atraumatic, normocephalic. Pulm: CTAB A&P. -wheezes, -rales, -rhonchi. Symmetrical chest rise. No increased work of breathing. No respiratory distress. Cardiac: RRR, -mrg. Radial pulses intact and symmetrical. Abdominal: Nontender, nondistended, soft. BS present. PEG tube site C/D/I without signs of occlusion/obstruction Principal Diagnosis UGIB 2/2 Maliganancy Discharge Exam General: A&Ox3. NAD. Cooperative. HEENT: Atraumatic, normocephalic. Pulm: CTAB A&P. -wheezes, -rales, -rhonchi. Symmetrical chest rise. No increased work of breathing. No respiratory distress. Cardiac: RRR, -mrg. Radial pulses intact and symmetrical. Abdominal: Nontender, nondistended, soft. BS present. PEG tube site C/D/I without signs of occlusion/obstruction. Discharge Data Allergies Allergy/AdvReac Type Severity Reaction Status Date / Time No Known Allergies Allergy Verified 04/27/20 02:57 Consultations 04/27/20 03:22 ED Decision to Admit Stat 04/27/20 05:41 Consult Gastroenterology Routine Consult Radiation Oncology Routine 04/28/20 11:46 Consult Case Management - Discharge Planning Routine 04/30/20 19:13 Consult Case Management - Discharge Planning Routine Consult Case Management - Discharge Planning Routine Ordered Studies 04/27/20 05:17 CT chest w con Urgent Hospital Course (1) Unintentional weight loss: Sam Ingram is a 79 year old man admitted for a bleeding esophageal tumor from his recently diagnosed metastatic esophageal cancer Upper GI bleed suspect 2/2 esophageal cancer Admitted after spitting up tables spoons of blood, slow/oozing bleed on admit 2/2 bleeding esophageal mass. - CT: Large distal esophageal mass with associated pathologic adenopathy this results in dilatation of the more proximal esophagus which is debris filled, Interval increase in the size and number of the bilateral pulmonary nodules indicative of rapidly progressive metastatic disease, Indeterminate 3.5 cm left renal mass. - Patient was placed on pantoprazole + famotidine therapy - Nausea control with Zofran + Compazine/Phenergan alternating - Rad/Onc Consulted. Radiation tx started 04/27; pt to continue treatments daily for ~3 weeks. - Pt did not require transfer for IR or garry tube - Plavix stopped 2/2 risk/benefits of secondary prevention vs acute bleed with complications Weakness 2/2 Protein-Calorie Malnutrition and Deconditioning - Swallowing dysfunction s/p PEG - PT/OT consulted. Pt discharged to home with hospital bed for aspiration risk - Pt on 1.5kcal ~6oz (30cc) 6x per day prior to admission (~1620 daily) - BEE is 1287 kcal/day. Adequate nutrition critically important (at least 1500kcal/day) but limited by nausea - Was not able to tolerate bolus feeds (attempted working up to 6oz 6x daily with 30cc free water flushes) - Restarted continuous - pt was able to tolerate up to 85cc/hr without limiting nausea/pauses. Discussed with CM, patient was set up with home hospital bed as above, continuous infusion pump, and d/ethan with a Peptamen 1.5kcal/cc 85cc/hr with 30cc flush Q4H for 14hr/day with Further titration as outpt. Due to concern for aspiration and discomfort limiting sleep his continuous feeds will be started at 14 hours day time ~7a-9pm, but if he tolerates this well without nausea/reflux this can be shifted to overnight feeds. 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 Heme/Onc was consulted, he continued radiation therapy while inpatient via Dr. Lee and was discharged to continue outpatient followup for rad/chemo w/ Dr. Kim and Dr. Lee. He has a guarded prognosis 2/2 malnutrition, metastatic disease, and low reserve. Depression - Secondary to cancer diagnosis and rapid decline - Lexapro 10mg po daily via PEG Hypertension - [employer] Amlodipine 5mg qAM via PEG tube - [employer] Atenolol 50mg qAM via PEG tube - Intermittent mild hypertension during admission to 140s-150s, no outpatient changes to medications made on discharge. Hyperlipidemia - [employer] atorvastatin 40mg qAM via PEG tube DVT PPx: SCD's chemical prophylaxis deferred for active bleeding. No signs of DVT during admission. Total Time Total Time Spent Total Time Spent (In Minutes): See Attending Doc Discharge Plan Discharge Items Patient Disposition: Home - Home Health Services Reason For Visit: ESOPHAGEAL MASS BLEED Discharge Diagnosis: Esopohageal Mass with Bleed Activity: Resume your previous activity Non-emergency contact: Primary Care Provider Call non-emergency contact if: you have any medication questions, your symptoms worsen, your pain is not controlled, your pain is worsening, your pain is unusual for you, your pain is concerning for you and you have a fever Follow-up/Referrals: Dillon La, [Primary Care Provider] - Diet: Other - See Diet Comment Addtl Attending Provider Instructions: You were seen in the hospital for a slow bleed suspected from the cancer in your esophagus and for difficulty tolerating PEG tube nutrition. You blood counts improved with supportive care. You have been started on medications as below. You were not able to tolerate bolus feedings like you had been previously, you have been move to daytime continuous PEG tube nutrition as noted below. You have been prescribed a new medication for mood, escitalopram. Please take escitalopram 10mg via your PEG tube once daily. You have been prescribed antinausea medications as below. Your nutrition regimen has been changed. Please take continuous feeding through your PEG tube via continuous pump with peptamen 1.5kcal/mL at 85mL/hr for 14 hours daily (approximately 7am-9pm), and hold feeds overnight for rest. You should continue 30mL free water flushes every 3-4 hours. Your nutrition regimen will be further evaluated and adjusted by your outpatient providers. A followup appointment is being scheduled for you with Dr. La. You should be seen seen within 1 week. You should receive a call to confirm this appointment. If you do not receive a call within 48 hours to confirm this appointment, or need to change this appointment, please call the provider's office at [phone]. If you develop any new or worsening symptoms including fever, chills, sweats, chest pain, chest pressure, difficulty breathing, uncontrolled nausea/vomiting, rash, wheezing, passing out or nearly passing out, bleeding, black/bloody bowel movements, or other new or concerning symptoms please call your primary care physician at the number above, or call 911 for re-evaluation in the emergency department if you are very concerned. Pending Studies at Discharge: No Stand-Alone Forms: My [facility] [email or web address], Smoking Cessation Medications and DC Order Prescriptions: New escitalopram oxalate 5 mg/5 mL solution 10 mg PO DAILY 30 Days Qty: 300 RF: 2 promethazine 25 mg tablet 25 mg PO Q6H PRN (Reason: nausea) Qty: 30 RF: 0 prochlorperazine maleate 5 mg tablet 5 mg PO Q8H 1 Days Qty: 14 RF: 1 Continued omeprazole 20 mg capsule,delayed release(DR/EC) 40 mg feeding tube BID RF: 0 sennosides [senna] 8.6 mg Tablet 8.6 mg feeding tube BID RF: 0 polyethylene glycol 3350 [Miralax] 17 gram Powder In Packet 17 g feeding tube DAILY RF: 0 atorvastatin 40 mg tablet 40 mg feeding tube QAM RF: 0 amlodipine 5 mg tablet 5 mg feeding tube QAM RF: 0 atenolol 50 mg Tablet 50 mg feeding tube QAM RF: 0 multivitamin Tablet 1 tab feeding tube DAILY RF: 0 Discontinued docusate sodium [Colace] 100 mg Capsule 100 mg PO BID RF: 0 clopidogrel 75 mg tablet 75 mg feeding tube QAM RF: 0 Discharge Orders: Discharge Order (Routine); Ordered 05/04/20 Ordered By: Alpesh Truong Admission Data Admit Date/Time: 04/27/20 04:38 Attending Provider: Mimi Mcgarry Admit Provider: Frank Dodd Primary Care Provider: Dillon La Other Providers: [facility] ; Paul Delcid ; Nate Batista ; Selvin Lee. ; Piero Fajardo Other Interventions: Discharge Summary Assessment (RN) Last Done: 05/04/20 15:36 Supervising Physician Co-Signing Physician Notes Resident Physician Supervision Note: I independently interviewed and examined the patient and verified the kelly history and physical, reviewed labs and image studies, discussed the case with the resident Dr. Truong and agree with the findings and care plan. Resident Activity Tracking Resident Involvement: Resident Care Provided Care Provided: Adult Hospital Medicine
[2020-05-04] MEDS: ESCITALOPRAM OXALATE ORAL SOLN 10 MG/10 ML UDP PO SCH (09:15)
[2020-05-04] MEDS: PEPTAMEN 1.5 CAL 1,000 ML BAG PEG SCH (09:15)
[2020-05-04] MEDS: ATENOLOL 50 MG TABLET PEG SCH (09:15)
[2020-05-04] MEDS: POLYETHYLENE (MIRALAX) 17 GM PACK PEG SCH (09:15)
[2020-05-04] MEDS: ATORVASTATIN 40 MG TAB PEG SCH (09:15)
[2020-05-04] MEDS: AMLODIPINE BESYLATE 5 MG TAB PEG SCH (09:15)
[2020-05-04] MEDS: DOCUSATE SODIUM SYRUP 100 MG/10 ML UDC PO SCH (09:15)
[2020-05-04] MEDS: PANTOprazole 40 MG in SYRINGE 0 ML IV SCH (09:16)
[2020-05-04] MEDS: FAMOTIDINE 20 MG in SYRINGE 3 ML IV SCH (09:17)
[2020-05-04] MEDS: ONDANSETRON INJ 2 MG/ML 2 ML VIAL IV PRN (11:57)
[2020-05-04 15:39] VITALS: BP 131/74; PULSE 78; O2SAT 96
== END 2020-05-04 17:03 | disposition home health service (06) | DRG 375 ==
LOC: ED 02:27 → SUATTDRO 04:38 → 2S 04:38 → 3W 04-29 15:18
DX: Z82.3 Family history of stroke; Z79.899 Other long term (current) drug therapy; C78.01 Secondary malignant neoplasm of right lung; R53.1 Weakness; K92.0 Hematemesis; I10 Essential (primary) hypertension; Z66 Do not resuscitate; C15.5 Malignant neoplasm of lower third of esophagus; E44.0 Moderate protein-calorie malnutrition; Z93.1 Gastrostomy status; E88.09 Other disorders of plasma-protein metabolism, not elsewhere classified; K21.9 Gastro-esophageal reflux disease without esophagitis; Z82.49 Family history of ischemic heart disease and other diseases of the circulatory system; C78.02 Secondary malignant neoplasm of left lung; Z86.73 Personal history of transient ischemic attack (TIA), and cerebral infarction without residual deficits; F32.9 Major depressive disorder, single episode, unspecified; Z87.891 Personal history of nicotine dependence; K59.00 Constipation, unspecified; Z79.02 Long term (current) use of antithrombotics/antiplatelets; E78.5 Hyperlipidemia, unspecified

== ENCOUNTER 2020-05-20 14:43 | Inpatient (IN) ==
[2020-05-20] MEDS ORDERED: SODIUM CHLORIDE 0.9% 500 ML IV ONE (14:58)
[2020-05-20] MEDS ORDERED: PANTOprazole 40 MG in SYRINGE 0 ML IV ONE (14:58)
[2020-05-20] MEDS ORDERED: PROCHLORPERAZINE 1 ML IV ONE (14:58)
--- NOTE | 2020-05-20 15:12 | Emergency Department Note ---
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 PLAN: Disposition: Admit MEDICAL DECISION MAKING: The patient is a pleasant 79-year-old gentleman with a past medical history of metastatic esophageal cancer with a large esophageal mass extending from the javier to the esophageal gastric junction with metastatic disease of bilateral lungs who is status post PEG tube on 04/[address] Batista followed by Dr. Lee of radiation oncology and Dr. Guadalupe of oncology who presents emergency department for bleeding from his PEG tube which was noticed by his home nurse. He reports it was not a brisk hemorrhage rather appears to have some clots that are passing through the tube. He denies any headache, dizziness, chest pain, shortness of breath, fevers, chills, diarrhea constipation, bloody or black stool. He does report mild nausea with some dry heaving but no emesis or hematemesis. Of note, patient was admitted to [facility] from 04/27-05/04 for bleeding from his esophageal tumor where he spit up tablespoons of blood and had slow oozing bleed. He reports since completing radiation therapy that had resolved. On arrival the patient is fatigued appearing but no acute distress, afebrile stable vital signs. On exam patient abdomen is soft, nontender, nondistended. PEG tube site is clean dry and intact. He does have small amount of red clot appearing contents within the PEG tube. Per my direction, RN did flush the patient's PEG tube and sindi and no further bleeding was appreciated. WBC 13.2, nonspecific. H/H 11.6/36.3 similar to prior range of values. Platelets within normal limits. Chemistry without acidosis. Electrolytes and LFTs unremarkable. CT of the chest and abdomen pelvis were performed and demonstrated decrease in the patient's esophageal dilatation compared to April. Progression of pulmonary metastases are noted. Gastrostomy tube is well-positioned. 4 cm mass within the left kidney is appreciated that could reflect metastases or renal cell carcinoma. There are some hypodense hepatic lesions as well that could represent metastases. I did review the patient's finding with the patient who denied any recurrence of bleeding through the PEG tube. He was agreeable with plan for admission for further monitoring. Case was discussed with Dr. Pérez, [facility] hospitalist, who did review the case with Dr. Willard, who had consulted on the patient during his last admission and recommended transfer if the patient has recurrence of bleeding given he would require IR intervention. Upon discussion with the hospitalist service the patient did agree to transfer initially but did not want to go to [facility] as he had an unpleasant experience there. Unfortunately upon review of the patient's insurance we are unable to transfer him to [facility] as it would not be covered. When this was discussed with the patient he was decided that he would not go to [place] and preferred to remain here. Given the patient is not having any recurrence/active bleeding from his PEG tube at this time reasonable to monitor here at [facility]. Dr. Pérez was updated and will admit the patient. Triage Nursing notes reviewed and agree them. Prior medical records reviewed Vital Signs: reviewed and remarkable for no significant abnormalities Differential diagnosis: Diverticulosis, AVM, coagulopathy, colitis, inflammatory bowel disease, malignancy, Joycelyn-Elam tear, esophagitis, peptic ulcer disease, variceal bleed, gastritis, epistaxis, fissure, hemorrhoids, as well as other pathologies. ER treatment provided: See below. Diagnostics interpreted by me: Cardiac Monitoring: An order for continuous cardiac monitoring was placed and demonstrated NSR, 78 bpm, no ectopy Laboratory studies: See below Imaging studies: CT OF THE CHEST WITH IV CONTRAST CLINICAL HISTORY: esophageal cancer, bleeding from PEG tube COMPARISON STUDY: Chest CT April 27, 2022 TECHNIQUE: Following IV administration of 94 mL of Optiray-320, helical axial images of the chest were obtained. Sagittal and coronal reconstructions were viewed as well as maximal intensity projections on an independent 3-D workstation. Automated exposure control was utilized for the study. A dose lo wering technique was utilized adhering to the principles of ALARA. CT DOSE: 569.11 mGy.cm FINDINGS: Note is again made of the large distal esophageal mass consistent with a known primary. There is minimal adjacent infiltration and a small amount of fluid. There is no pneumomediastinum. Numerous necrotic pathologic mediastinal lymph nodes are noted. These are either unchanged or slightly decre ased since exam of April 27, 2020. There is no pneumothorax. There is no pleural effusion. There is no consolidation to suggest pneumonia. Numerous pulmonary metastases have mildly increased since exam April 27, 2020. Index right lower lobe lesion on image 220 of 286 measures 1.6 cm. A previous measured 1.1 cm. The heart is mildly enlarged. There is no thoracic aortic dissection. There is extensive coronary artery calcification. No central pulmonary embolus is identified. The abdomen and pelvis will be reported separate. No suspicious lesions within the bony thorax are noted. IMPRESSION: 1. Progression of pulmonary metastases since CT of April 27, 2020. Extensive mediastinal lymphadenopathy which is either unchanged or slightly decreased since prior CT. 2. Redemonstration of the known distal esophageal primary tumor. Interval decrease in esophageal dilatation. - CT OF THE ABDOMEN AND PELVIS WITH CONTRAST CLINICAL HISTORY: esophageal cancer, bleeding from PEG tube COMPARISON STUDY: CT of the abdomen and pelvis and PET/CT April 12, 2020. TECHNIQUE: Following IV administration of 94 mL of Optiray-320, axial images of the abdomen and pelvis were obtained from the lung bases to the proximal femurs. Images were reviewed in the axial, sagittal, and coronal planes. IV contrast was administered without complication. Automated exposure control was utilized for the study. A dose lowering technique was utilized adhering to the principles of ALARA. FINDINGS: Please note that the chest CT will be reported separately. Gastrostomy tube is appropriately positioned. No pneumatosis, free air or portal venous gas is present. Several subcentimeter hepatic lesions or not present on an earlier CT of May 02, 2017. The spleen, adrenal glands and pancreas are u nremarkable. The known distal esophageal tumor is better depicted on the chest CT. Note is made of a 4 cm mass within the upper pole the left kidney. 2.4 x 1.7 cm additional lesion within the lower pole of the left kidney is noted. There are no right renal lesions. There is no evidence for a bowel obstruction. There is hyperdense material within the bladder. Moderate distention of the bladder is noted. There are no suspicious osseous lesions. No pneumatosis, free air or portal venous gas is present. There is no biliary or pancreatic ductal dilatation. IMPRESSION: 1. Appropriately positioned gastrostomy tube. No acute findings within the abdomen or pelvis. 2. 4 cm mass within the upper pole of the left kidney. This could reflect renal cell carcinoma or a metastasis. Additional indeterminate 2.4 x 1.7 cm left renal lesion. 3. Distended bladder. 4. Moderate amount of stool within the colon and rectum. No evidence for a bowel obstruction. 5. Several subcentimeter hypodense hepatic lesions. These were present on an earlier CT. Small metastases cannot be excluded. Consultation(s): Case was discussed with Dr. Pérez, [facility] hospitalist, who will evaluate the patient for admission. HPI: The patient is a pleasant 79-year-old gentleman with a past medical history of metastatic esophageal cancer with a large esophageal mass extending from the javier to the esophageal gastric junction with metastatic disease of bilateral lungs who is status post PEG tube on 04/[address] Batista followed by Dr. Lee of radiation oncology and Dr. Guadalupe of oncology who presents emergency department for bleeding from his PEG tube which was noticed by his home nurse. He reports it is not a brisk hemorrhage rather appears to have some clots that are passing through the tube. He denies any headache, dizziness, chest pain, shortness of breath, fevers, chills, diarrhea constipation, bloody or black stool. He does report mild nausea with some dry heaving but no emesis or hematemesis. Of note, patient was admitted to [facility] from 04/27-05/04 for bleeding from his esophageal tumor where he spit up tablespoons of blood and had slow oozing bleed. He reports since completing radiation therapy that had resolved. ROS: See above HPI for pertinent positives & negatives. A total of 10 systems reviewed and were otherwise negative. PAST MEDICAL HISTORY:See Below PAST SURGICAL HISTORY:See Below FAMILY HISTORY:See Below SOCIAL HISTORY:See Below HOME MEDICATIONS:See Below ALLERGIES:See Below VITALS:See Below PHYSICAL EXAMINATION: GENERAL: Awake, alert, fatigued-appearing, in no distress HENT: Normocephalic, atraumatic. Oropharynx unremarkable. EYES: Normal conjunctiva. Sclera non-icteric. NECK: Supple. No nuchal rigidity. FROM. No JVD. RESPIRATORY: Clear to auscultation. CARDIAC: Regular rate, normal rhythm. Extremities warm and well perfused. Pulses equal. ABDOMEN: Soft, non-distended. No tenderness to palpation. No rebound or guarding. PEG tube site is clean dry and intact. He does have small amount of red clot appearing contents within the PEG tube. RECTAL: Deferred. MUSCULOSKELETAL: Chest examination reveals no tenderness. The back is symmetrical on inspection without obvious abnormality. There is no CVA tenderness to palpation. No joint edema. LOWER EXTREMITIES: Calves are equal size bilaterally and non-tender. No edema. No discoloration. NEURO: Normal sensorium. No sensory or motor deficits noted. SKIN: No rash or jaundice noted. Doni Abel MD Past Med/Surg History Medical History Abnormal head CT Acute dehydration Constipation Dyslipidemia Dysphagia Eczema Esophageal mass GERD (gastroesophageal reflux disease) Heart murmur NO CARDS History of CVA (cerebrovascular accident) (~2015) Hx of gout Hypertension Hypoalbuminemia Obstruction of esophagus Protein-calorie malnutrition, severe Transient ischemic attack (TIA) 3 YEARS AGO (NO CURRENT PROBLEMS) REASON FOR PLAVIX Unintentional weight loss Upper GI bleeding Weakness Surgical History History of cataract surgery RT/LEFT History of colonoscopy History of esophagogastroduodenoscopy (EGD) (03/25/20) with biopsy History of tooth extraction (~2009) Family History Mother , passed in her 70s from heart issues No problems noted. Father , passed in his 70s from heart issues No problems noted. Sister No problems noted. Daughter No problems noted. Son No problems noted. 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 How many Children do You have: 2 Other Information That Helps Us Care for You: No Feels Safe at Home: Yes Safety Concerns: Feels Safe At This Time Childhood Exposure to Second-Hand Smoke: Yes Diet Comment: currently on liquid diet via PEG tube (2k calories/day) able to drink Boost caffeine: No during the past year weight has: decreased > 10 lbs Dental Care, Regularly: No Physical Activity Frequency: Does not Exercise Assistive Devices: Walker Allergies Allergies Allergy/AdvReac Type Severity Reaction Status Date / Time No Known Allergies Allergy Verified 05/20/20 15:51 Home Meds Home Medications Medication Instructions Recorded Confirmed atenolol 50 mg FEEDING TUBE QAM 12/14/18 05/20/20 atorvastatin 40 mg FEEDING TUBE QAM 12/14/18 05/20/20 omeprazole 40 mg FEEDING TUBE BID 03/24/20 05/20/20 polyethylene glycol 3350 17 gram 17 g FEEDING TUBE DAILY PRN 05/08/20 05/20/20 oral powder packet acetaminophen [Tylenol Extra 500 - 1,000 mg PO Q6H PRN 05/20/20 05/20/20 Strength] dexamethasone 2 mg PO DAILY 05/20/20 05/20/20 prochlorperazine maleate 5 mg PO Q8H PRN 05/20/20 05/20/20 Previous Rx's Medication Instructions Recorded promethazine 25 mg PO Q6H PRN #30 tab 05/04/20 Results & Data (ED) Vital Signs Vital Signs - 24 hr 05/20/20 14:45 05/20/20 15:36 05/20/20 15:39 Temperature 36.4 C L Temperature Source Oral Pulse Rate 80 82 80 Pulse Rate from SpO2 Sensor 82 80 Respiratory Rate 20 14 15 Blood Pressure 120/82 96/62 L Blood Pressure Mean 94 75 Pulse Oximetry 97 96 96 Oxygen Delivery Method Room Air Room Air Room Air Sepsis Recent Fever Within 48 Hours No Sepsis New/Unexplained Change in Mental Status N/A Sepsis Action Taken by Nursing No Action Required 05/20/20 16:00 05/20/20 16:30 05/20/20 17:00 Temperature Temperature Source Pulse Rate 76 80 78 Pulse Rate from SpO2 Sensor 76 81 78 Respiratory Rate 12 16 14 Blood Pressure 123/72 138/85 131/84 Blood Pressure Mean 89 104 95 Pulse Oximetry 99 99 99 Oxygen Delivery Method Room Air Room Air Room Air Sepsis Recent Fever Within 48 Hours Sepsis New/Unexplained Change in Mental Status Sepsis Action Taken by Nursing 05/20/20 17:30 05/20/20 18:00 05/20/20 18:30 Temperature Temperature Source Pulse Rate 81 78 78 Pulse Rate from SpO2 Sensor 81 79 78 Respiratory Rate 14 12 16 Blood Pressure 133/78 140/86 Blood Pressure Mean 93 108 Pulse Oximetry 99 99 99 Oxygen Delivery Method Room Air Room Air Room Air Sepsis Recent Fever Within 48 Hours Sepsis New/Unexplained Change in Mental Status Sepsis Action Taken by Nursing 05/20/20 19:00 05/20/20 19:30 05/20/20 19:46 Temperature Temperature Source Pulse Rate 75 76 77 Pulse Rate from SpO2 Sensor 75 76 76 Respiratory Rate 21 14 17 Blood Pressure 142/79 H 108/61 Blood Pressure Mean 95 76 Pulse Oximetry 99 99 99 Oxygen Delivery Method Room Air Room Air Sepsis Recent Fever Within 48 Hours Sepsis New/Unexplained Change in Mental Status Sepsis Action Taken by Nursing Laboratory Data Attestation: I reviewed the patient's lab results. Result diagrams: 05/20/20 15:23 05/20/20 15:23 Lab Results 05/20/20 05/20/20 05/20/20 Range/Units 15:23 15:23 15:23 WBC 13.26 H (4.8-10.8) K/uL RBC 4.38 L (4.7-6.1) M/uL Hgb 11.6 L (14.0-18.0) g/dL Hct 36.3 L (42-52) % MCV 82.9 (80-100) fL MCH 26.5 (25-34) pg MCHC 32.0 (32-36) g/dL RDW Std Deviation 53.6 H (36.4-46.3) fL RDW Coeff of Anne-Marie 17.6 H (11.5-14.5) % Plt Count 326 (130-400) K/uL MPV 10.0 (7.4-10.4) fL Immature Gran % (Auto) 0.5 % Neut % (Auto) 95.8 % Lymph % (Auto) 1.9 % Parmer % (Auto) 1.8 % Eos % (Auto) 0.0 % Baso % (Auto) 0.0 % Neut # (Auto) 12.71 H (1.4-6.5) K/uL Lymph # (Auto) 0.25 L (1.2-3.4) K/uL Parmer # (Auto) 0.24 (0.11-0.59) K/uL Eos # (Auto) 0.00 (0-0.5) K/uL Baso # (Auto) 0.00 (0-0.2) K/uL Immature Gran # (Auto) 0.06 H (0.00-0.02) K/uL Sodium 136 (136-145) mmol/L Potassium 4.6 (3.5-5.1) mmol/L Chloride 104 (98-107) mmol/L Carbon Dioxide 30 (21-32) mmol/L Anion Gap 2.0 L (3-11) BUN 29 H (7-18) mg/dl Creatinine 0.81 (0.6-1.4) mg/dl Est Cr Clr Drug Dosing 66.4 ml/min Est GFR ( Amer) 99.4 Est GFR (Non-Af Amer) 85.7 BUN/Creatinine Ratio 36.3 H (10-20) Glucose 157 H (70-99) mg/dl Calcium 9.6 (8.5-10.1) mg/dl Phosphorus 2.8 (2.5-4.9) mg/dl Magnesium 2.3 (1.8-2.4) mg/dl Total Bilirubin 0.3 (0.2-1) mg/dl Direct Bilirubin < 0.1 (0-0.2) mg/dl AST 13 L (15-37) U/L ALT 18 (12-78) U/L Alkaline Phosphatase 89 (45-117) U/L Total Protein 7.6 (6.4-8.2) gm/dl Albumin 2.3 L (3.4-5.0) gm/dl Globulin 5.3 H (2.5-4.0) gm/dl Albumin/Globulin Ratio 0.4 L (0.9-2) Lipase 88 (73-393) U/L TSH 0.373 (0.300-4.500) uIu/ml Urine Color Urine Appearance (Clear) Urine pH (4.5-7.5) Ur Specific [place] (1.000-1.030) Urine Protein (Negative) Urine Glucose (UA) (Negative) Urine Ketones (Negative) Urine Blood (Negative) Urine Nitrite (Negative) Urine Bilirubin (Negative) Urine Urobilinogen (Negative) Ur Leukocyte Esterase (Negative) Urine WBC (Auto) (0-5) /hpf Urine RBC (Auto) (0-4) /hpf U Hyaline Cast (Auto) (0-5) /lpf U Epithel Cells (Auto) (0-5) /lpf Urine Bacteria (Auto) (Negative) Ur Renal Epithelial Cell Urine Mucus (None Prsent) Blood Type B Positive Antibody Screen NEGATIVE 05/20/20 Range/Units 17:44 WBC (4.8-10.8) K/uL RBC (4.7-6.1) M/uL Hgb (14.0-18.0) g/dL Hct (42-52) % MCV (80-100) fL MCH (25-34) pg MCHC (32-36) g/dL RDW Std Deviation (36.4-46.3) fL RDW Coeff of Anne-Marie (11.5-14.5) % Plt Count (130-400) K/uL MPV (7.4-10.4) fL Immature Gran % (Auto) % Neut % (Auto) % Lymph % (Auto) % Parmer % (Auto) % Eos % (Auto) % Baso % (Auto) % Neut # (Auto) (1.4-6.5) K/uL Lymph # (Auto) (1.2-3.4) K/uL Parmer # (Auto) (0.11-0.59) K/uL Eos # (Auto) (0-0.5) K/uL Baso # (Auto) (0-0.2) K/uL Immature Gran # (Auto) (0.00-0.02) K/uL Sodium (136-145) mmol/L Potassium (3.5-5.1) mmol/L Chloride (98-107) mmol/L Carbon Dioxide (21-32) mmol/L Anion Gap (3-11) BUN (7-18) mg/dl Creatinine (0.6-1.4) mg/dl Est Cr Clr Drug Dosing ml/min Est GFR ( Amer) Est GFR (Non-Af Amer) BUN/Creatinine Ratio (10-20) Glucose (70-99) mg/dl Calcium (8.5-10.1) mg/dl Phosphorus (2.5-4.9) mg/dl Magnesium (1.8-2.4) mg/dl Total Bilirubin (0.2-1) mg/dl Direct Bilirubin (0-0.2) mg/dl AST (15-37) U/L ALT (12-78) U/L Alkaline Phosphatase (45-117) U/L Total Protein (6.4-8.2) gm/dl Albumin (3.4-5.0) gm/dl Globulin (2.5-4.0) gm/dl Albumin/Globulin Ratio (0.9-2) Lipase (73-393) U/L TSH (0.300-4.500) uIu/ml Urine Color Yellow Urine Appearance Clear (Clear) Urine pH 6.0 (4.5-7.5) Ur Specific [place] 1.037 H (1.000-1.030) Urine Protein Trace H (Negative) Urine Glucose (UA) Negative (Negative) Urine Ketones Negative (Negative) Urine Blood Negative (Negative) Urine Nitrite Negative (Negative) Urine Bilirubin Negative (Negative) Urine Urobilinogen Negative (Negative) Ur Leukocyte Esterase Negative (Negative) Urine WBC (Auto) 10-30 H (0-5) /hpf Urine RBC (Auto) 0-4 (0-4) /hpf U Hyaline Cast (Auto) 5-10 H (0-5) /lpf U Epithel Cells (Auto) >30 H (0-5) /lpf Urine Bacteria (Auto) Negative (Negative) Ur Renal Epithelial Cell Not Reportable Urine Mucus Present A (None Prsent) Blood Type Antibody Screen Administered Medications Sodium Chloride (Nss) 1,000 mls @ 125 mls/hr IV .Q8H RONNIE Stop: 06/19/20 23:21 Last Admin: 05/20/20 23:59 Dose: 125 mls/hr Documented by: [id number] Lansoprazole (Lansoprazole 15 Mg Soltab) 15 mg PEG BID RONNIE; Protocol Stop: 06/19/20 20:59 Last Admin: 05/20/20 22:13 Dose: 15 mg Documented by: [id number] Discontinued Medications Pantoprazole Sodium 40 mg/ (Syringe) 10 mls @ 5 mls/min IV NOW ONE Stop: 05/20/20 14:59 Last Admin: 05/20/20 15:34 Dose: 5 mls/min Documented by: [id number] Sodium Chloride (Nss) 500 mls @ 999 mls/hr IV .Q31M ONE Stop: 05/20/20 15:28 Last Infusion: 10/10/20 16:05 Dose: 0 mls/hr Documented by: [id number] Admin: 05/20/20 15:34 Dose: 999 mls/hr Documented by: [id number] Prochlorperazine (Compazine) 1 mls @ 1 mls/min IV ONE ONE Stop: 05/20/20 14:59 Last Admin: 05/20/20 15:35 Dose: 1 mls/min Documented by: [id number] Famotidine (Pepcid 20mg Iv Push) 20 mg in 5 mls @ 2.5 mls/min IV NOW STA Stop: 05/20/20 19:38 Last Admin: 05/20/20 19:42 Dose: 2.5 mls/min Documented by: [id number] Prochlorperazine 5 mg/ Syringe 5 mls @ 5 mls/min IV ONE ONE Stop: 05/20/20 19:38 Last Admin: 05/20/20 19:42 Dose: Not Given Documented by: [id number] Sodium Chloride (Nss) 500 mls @ 125 mls/hr IV .Q4H RONNIE Stop: 06/19/20 19:44 Last Infusion: 05/20/20 23:24 Dose: 0 mls/hr Documented by: [id number] Admin: 05/20/20 19:42 Dose: 125 mls/hr Documented by: [id number] Ioversol (Ioversol 100ml) 94 ml IV ONCE ONE Stop: 05/20/20 16:48 Last Admin: 05/20/20 16:47 Dose: 94 ml Documented by: [id number] Prochlorperazine (Prochlorperazine 5 Mg/Ml 2 Ml Vial) Confirm Administered Dose 10 mg .ROUTE .STK-MED ONE Stop: 05/20/20 19:41 Last Admin: 05/20/20 19:42 Dose: 5 mg Documented by: [id number] Discharge Plan Visit Data Chief Complaint: Bleeding Stated Complaint: bleeding peg tube ED Provider: Doni Abel Discharge Problem: Carcinoma of lower third of esophagus, S/P percutaneous endoscopic gastrostomy (PEG) tube placement, 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
[2020-05-20 15:38] LABS: Hematocrit (blood only) 36.3 % (42-52); Hemoglobin 11.6 g/dL (14.0-18.0); Immature Granulocytes # (auto) 0.06 K/uL (0.00-0.02); Immature Granulocytes % (auto) 0.5 %; Lymphocytes # (auto) 0.25 K/uL (1.2-3.4); Lymphocytes % (auto) 1.9 %; Mean Corpuscular Hemoglobin 26.5 pg (25-34); Mean Corpuscular Volume 82.9 fL (80-100); Monocytes # (auto) 0.24 K/uL (0.11-0.59); Monocytes % (auto) 1.8 %; Neutrophils # (auto) 12.71 K/uL (1.4-6.5); Neutrophils % (auto) 95.8 %; Platelet Count 326 K/uL (130-400); RDW Coefficient of Variation 17.6 % (11.5-14.5); RDW Standard Deviation 53.6 fL (36.4-46.3); Red Blood Count 4.38 M/uL (4.7-6.1); White Blood Count 13.26 K/uL (4.8-10.8)
[2020-05-20 16:08] LABS: Alanine Aminotransferase 18 U/L (12-78); Albumin Level 2.3 gm/dl (3.4-5.0); Aspartate Aminotransferase 13 U/L (15-37); BUN Creatinine Ratio 36.3 (10-20); Bilirubin Direct < 0.1 mg/dl (0-0.2); Blood Urea Nitrogen 29 mg/dl (7-18); Calcium 9.6 mg/dl (8.5-10.1); Carbon Dioxide 30 mmol/L (21-32); Chloride 104 mmol/L (98-107); Creatinine Clr Calc Pharmacy 66.4 ml/min; Est GFR (African American) 99.4; Est GFR (Non-African American) 85.7; Glucose 157 mg/dl (70-99); Lipase 88 U/L (73-393); Magnesium 2.3 mg/dl (1.8-2.4); Potassium 4.6 mmol/L (3.5-5.1); Sodium 136 mmol/L (136-145)
[2020-05-20 16:17] LABS: Albumin Globulin Ratio 0.4 (0.9-2); Alkaline Phosphatase 89 U/L (45-117); Bilirubin,Total 0.3 mg/dl (0.2-1); Globulin 5.3 gm/dl (2.5-4.0); Phosphorus 2.8 mg/dl (2.5-4.9); Thyroid Stimulating Hormone 0.373 uIu/ml (0.300-4.500); Total Protein 7.6 gm/dl (6.4-8.2)
[2020-05-20] MEDS ORDERED: IOVERSOL 100ml IV ONE (16:47)
--- NOTE | 2020-05-20 17:16 | CT Scan Report ---
CT OF THE CHEST WITH IV CONTRAST CLINICAL HISTORY: esophageal cancer, bleeding from PEG tube COMPARISON STUDY: Chest CT April 27, 2022 TECHNIQUE: Following IV administration of 94 mL of Optiray-320, helical axial images of the chest we re obtained. Sagittal and coronal reconstructions were viewed as well as maximal intensity projectio ns on an independent 3-D workstation. Automated exposure control was utilized for the study. A dose lowering technique was utilized adhering to the principles of ALARA. CT DOSE: 569.11 mGy.cm FINDINGS: Note is again made of the large distal esophageal mass consistent with a known primary. Th ere is minimal adjacent infiltration and a small amount of fluid. There is no pneumomediastinum. Nume kina necrotic pathologic mediastinal lymph nodes are noted. These are either unchanged or slightly de creased since exam of April 27, 2020. There is no pneumothorax. There is no pleural effusion. The re is no consolidation to suggest pneumonia. Numerous pulmonary metastases have mildly increased sinc e exam April 27, 2020. Index right lower lobe lesion on image 220 of 286 measures 1.6 cm. A previ ous measured 1.1 cm. The heart is mildly enlarged. There is no thoracic aortic dissection. There is e xtensive coronary artery calcification. No central pulmonary embolus is identified. The abdomen and p gricel will be reported separate. No suspicious lesions within the bony thorax are noted. IMPRESSION: 1. Progression of pulmonary metastases since CT of April 27, 2020. Extensive mediastinal lymphade nopathy which is either unchanged or slightly decreased since prior CT. 2. Redemonstration of the known distal esophageal primary tumor. Interval decrease in esophageal dila tation. ACT 112: Negative or not required by law. Electronically signed by: Ang Poole M.D. 05/20/2020 5:15 PM
--- NOTE | 2020-05-20 17:27 | CT Scan Report ---
CT OF THE ABDOMEN AND PELVIS WITH CONTRAST CLINICAL HISTORY: esophageal cancer, bleeding from PEG tube COMPARISON STUDY: CT of the abdomen and pelvis and PET/CT April 12, 2020. TECHNIQUE: Following IV administration of 94 mL of Optiray-320, axial images of the abdomen and pelvi s were obtained from the lung bases to the proximal femurs. Images were reviewed in the axial, sagitt al, and coronal planes. IV contrast was administered without complication. Automated exposure contro l was utilized for the study. A dose lowering technique was utilized adhering to the principles of A EDGARD. FINDINGS: Please note that the chest CT will be reported separately. Gastrostomy tube is appropriatel y positioned. No pneumatosis, free air or portal venous gas is present. Several subcentimeter hepatic lesions or not present on an earlier CT of May 02, 2017. The spleen, adrenal glands and pancre as are unremarkable. The known distal esophageal tumor is better depicted on the chest CT. Note is ma de of a 4 cm mass within the upper pole the left kidney. 2.4 x 1.7 cm additional lesion within the lo wer pole of the left kidney is noted. There are no right renal lesions. There is no evidence for a susan wel obstruction. There is hyperdense material within the bladder. Moderate distention of the bladder is noted. There are no suspicious osseous lesions. No pneumatosis, free air or portal venous gas is p resent. There is no biliary or pancreatic ductal dilatation. IMPRESSION: 1. Appropriately positioned gastrostomy tube. No acute findings within the abdomen or pelvis. 2. 4 cm mass within the upper pole of the left kidney. This could reflect renal cell carcinoma or a m etastasis. Additional indeterminate 2.4 x 1.7 cm left renal lesion. 3. Distended bladder. 4. Moderate amount of stool within the colon and rectum. No evidence for a bowel obstruction. 5. Several subcentimeter hypodense hepatic lesions. These were present on an earlier CT. Small metast ases cannot be excluded. ACT 112: Negative or not required by law. Electronically signed by: Ang Poole M.D. 05/20/2020 5:25 PM
[2020-05-20 18:16] LABS: Appearance Urine Clear (Clear); Bacteria Urine Automated Negative (Negative); Bilirubin Urine Negative (Negative); Blood Urine Negative (Negative); Color Urine Yellow; Epithelial Cell Urine Auto >30 /lpf (0-5); Glucose Urine UA Negative (Negative); Ketones Urine Negative (Negative); Leukocyte Esterase Urine Negative (Negative); Nitrite Urine Negative (Negative); Protein Urine Trace (Negative); RBC Urine Automated 0-4 /hpf (0-4); Specific Gravity Urine 1.037 (1.000-1.030); Urobilinogen Urine Negative (Negative)
[2020-05-20 18:41] LABS: Mucus Urine Present (None Prsent)
--- NOTE | 2020-05-20 18:54 | Hospitalist Consultation ---
Date of Consultation May 20, 2020 Assessment & Plan (1) Carcinoma of lower third of esophagus: * Patient with metastatic disease to b/l lung (progression since Apr 2020 imaging), 4cm upper pole L kidney mass, hepatic lesions as well as newly found large intra-axial mass w/i R posterior fossa, 5.2cm along with 1.7cm intra- axial mass suggestive of metastatic disease * s/p radiation x 10 treatments this past Friday * Supervising physician discussed with Dr. Willard big data solutions architect who rec transfer for ID at outside facility * h/h 11.6/36.3 -- improved from previous values, however given he has already completed radiation at this facility and previous hospitalization with recommendations to transfer for IR if bleeding continued which has occurred today, rec transfer for IR * Patient and would like transferred to [facility] after discussion about monitoring inpatient vs transfer for intervention * Would also recommend patient to see palliative care at some point either locally or at transferring facility given extensive nature of metastatic disease (2) Bleeding: * See above -- rec to transfer for IR History of Present Illness Reason for Consultation: bleeding Requesting Physician: Dr Abel Attending Physician: Dr Abel History of Present Illness 79yo male with PMH significant for 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 Passing clots but still flushes well. Patient recently hospitalized from 04/27-05/04 for hemoptysis. Discussion was had at that time about transfer out for IR if bleeding from mass would recur. He states this has resolved since completing radiation with Dr. Lee, 10 total doses, completed this previous Friday with Dr. Lee from radiation oncology. Plans were to begin chemotherapy until newly discovered brain mass on imaging done . Patient states he had been doing well up until this afternoon when this occurred. He has been using continuous feeds during the day due to concerns for aspiration and have not yet tried overnight feeding and have been giving flushes at least every four hours if not more frequently. Discussed case with patient and decision was ultimately made to pursue transfer to [facility] as they had previous bad experience at [place] for possible IR given this is not available at our facility. Patient and agreeable to current plan. Supervising physician to discuss with ER provider regarding transfer. Patient denied recent chills, fever, chest pain, shortness of breath, abdominal pain, nausea/vomiting, hematuria, melena, or dysuria at this time. ER Course: NSS x500cc. Compazine x 1. Protonix 40mg IV push x 1. CBC with WBC 13.2k, hgb/hct 11.6/36.3, plt 326. Chemistries with dehydration, BUN/Cr 36.3. Allergies Allergy/AdvReac Type Severity Reaction Status Date / Time No Known Allergies Allergy Verified 05/20/20 15:51 Home Medications Home Medications Medication Instructions Recorded Confirmed Type atenolol 50 mg FEEDING TUBE QAM 12/14/18 05/20/20 History atorvastatin 40 mg FEEDING TUBE QAM 12/14/18 05/20/20 History omeprazole 40 mg FEEDING TUBE BID 03/24/20 05/20/20 History promethazine 25 mg PO Q6H PRN #30 tab 05/04/20 05/20/20 Rx polyethylene glycol 3350 17 gram 17 g FEEDING TUBE DAILY PRN 05/08/20 05/20/20 History oral powder packet acetaminophen [Tylenol Extra 500 - 1,000 mg PO Q6H PRN 05/20/20 05/20/20 History Strength] dexamethasone 2 mg PO DAILY 05/20/20 05/20/20 History prochlorperazine maleate 5 mg PO Q8H PRN 05/20/20 05/20/20 History Patient History Medical History Abnormal head CT Acute dehydration Constipation Dyslipidemia Dysphagia Eczema Esophageal mass GERD (gastroesophageal reflux disease) Heart murmur NO CARDS History of CVA (cerebrovascular accident) (~2015) Hx of gout Hypertension Hypoalbuminemia Obstruction of esophagus Protein-calorie malnutrition, severe Transient ischemic attack (TIA) 3 YEARS AGO (NO CURRENT PROBLEMS) REASON FOR PLAVIX Unintentional weight loss Upper GI bleeding Weakness Surgical History History of cataract surgery RT/LEFT History of colonoscopy History of esophagogastroduodenoscopy (EGD) (03/25/20) with biopsy History of tooth extraction (~2009) Family History Mother , passed in her 70s from heart issues No problems noted. Father , passed in his 70s from heart issues No problems noted. Sister No problems noted. Daughter No problems noted. Son No problems noted. 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 How many Children do You have: 2 Other Information That Helps Us Care for You: No Feels Safe at Home: Yes Safety Concerns: Feels Safe At This Time Childhood Exposure to Second-Hand Smoke: Yes Diet Comment: currently on liquid diet via PEG tube (2k calories/day) able to drink Boost caffeine: No during the past year weight has: decreased > 10 lbs Dental Care, Regularly: No Physical Activity Frequency: Does not Exercise Assistive Devices: Glasses and Walker Review of Systems Review of Systems: All systems reviewed & are unremarkable except as noted in HPI & below Physical Exam Constitutional: + cachectic, cooperative and comfortable; no acute distress Eyes: + anicteric sclerae and PERRL ENMT: Ears: no hearing impairment Nose: no external nose abnormality dry mm Neck: trachea midline; no tracheal deviation Respiratory: normal respiratory effort; no respiratory distress and no labored breathing Auscultation: + diminished lung sounds and + crackles (bibasilar) Cardiovascular: RRR, no murmur, no edema Gastrointestinal (Abdomen): Inspection/Auscultation: normal bowel sounds Percussion/Palpation: abdomen soft; abdomen nontender, no guarding and abdomen not rigid PEG tube to LLQ with scant bloody drainage Musculoskeletal: Head/Neck/Chest: normocephalic and head atraumatic Skin: warm, dry Neurologic: moves all extremities and awake Psychiatric: Orientation: alert and oriented x 3 Lymphatic: + subclavicular lymphadenopathy Results & Data Results & Data ([facility]) Vital Signs (Past 12 Hours) Vital Signs Temp Pulse Resp BP Pulse Ox 05/20/20 18:30 78 16 140/86 99 05/20/20 18:00 78 12 133/78 99 05/20/20 17:30 81 14 99 05/20/20 17:00 78 14 131/84 99 05/20/20 16:30 80 16 138/85 99 05/20/20 16:00 76 12 123/72 99 05/20/20 15:39 80 15 96 05/20/20 15:36 82 14 96/62 L 96 05/20/20 14:45 36.4 C L 80 20 120/82 97 Laboratory Results 05/20/20 05/20/20 05/20/20 Range/Units 17:44 15:23 15:23 WBC 13.26 H (4.8-10.8) K/uL RBC 4.38 L (4.7-6.1) M/uL Hgb 11.6 L (14.0-18.0) g/dL Hct 36.3 L (42-52) % MCV 82.9 (80-100) fL MCH 26.5 (25-34) pg MCHC 32.0 (32-36) g/dL RDW Std Deviation 53.6 H (36.4-46.3) fL RDW Coeff of Anne-Marie 17.6 H (11.5-14.5) % Plt Count 326 (130-400) K/uL MPV 10.0 (7.4-10.4) fL Immature Gran % (Auto) 0.5 % Neut % (Auto) 95.8 % Lymph % (Auto) 1.9 % [place] % (Auto) 1.8 % Eos % (Auto) 0.0 % Baso % (Auto) 0.0 % Neut # (Auto) 12.71 H (1.4-6.5) K/uL Lymph # (Auto) 0.25 L (1.2-3.4) K/uL [place] # (Auto) 0.24 (0.11-0.59) K/uL Eos # (Auto) 0.00 (0-0.5) K/uL Baso # (Auto) 0.00 (0-0.2) K/uL Immature Gran # (Auto) 0.06 H (0.00-0.02) K/uL Sodium 136 (136-145) mmol/L Potassium 4.6 (3.5-5.1) mmol/L Chloride 104 (98-107) mmol/L Carbon Dioxide 30 (21-32) mmol/L Anion Gap 2.0 L (3-11) BUN 29 H (7-18) mg/dl Creatinine 0.81 (0.6-1.4) mg/dl Est Cr Clr Drug Dosing 66.4 ml/min Est GFR ( Amer) 99.4 Est GFR (Non-Af Amer) 85.7 BUN/Creatinine Ratio 36.3 H (10-20) Glucose 157 H (70-99) mg/dl Calcium 9.6 (8.5-10.1) mg/dl Phosphorus 2.8 (2.5-4.9) mg/dl Magnesium 2.3 (1.8-2.4) mg/dl Total Bilirubin 0.3 (0.2-1) mg/dl Direct Bilirubin < 0.1 (0-0.2) mg/dl AST 13 L (15-37) U/L ALT 18 (12-78) U/L Alkaline Phosphatase 89 (45-117) U/L Total Protein 7.6 (6.4-8.2) gm/dl Albumin 2.3 L (3.4-5.0) gm/dl Globulin 5.3 H (2.5-4.0) gm/dl Albumin/Globulin Ratio 0.4 L (0.9-2) Lipase 88 (73-393) U/L TSH 0.373 (0.300-4.500) uIu/ml Urine Color Yellow Urine Appearance Clear (Clear) Urine pH 6.0 (4.5-7.5) Ur Specific [place] 1.037 H (1.000-1.030) Urine Protein Trace H (Negative) Urine Glucose (UA) Negative (Negative) Urine Ketones Negative (Negative) Urine Blood Negative (Negative) Urine Nitrite Negative (Negative) Urine Bilirubin Negative (Negative) Urine Urobilinogen Negative (Negative) Ur Leukocyte Esterase Negative (Negative) Urine WBC (Auto) 10-30 H (0-5) /hpf Urine RBC (Auto) 0-4 (0-4) /hpf U Hyaline Cast (Auto) 5-10 H (0-5) /lpf U Epithel Cells (Auto) >30 H (0-5) /lpf Urine Bacteria (Auto) Negative (Negative) Ur Renal Epithelial Cell Not Reportable Urine Mucus Present A (None Prsent) Blood Type Antibody Screen 05/20/20 Range/Units 15:23 WBC (4.8-10.8) K/uL RBC (4.7-6.1) M/uL Hgb (14.0-18.0) g/dL Hct (42-52) % MCV (80-100) fL MCH (25-34) pg MCHC (32-36) g/dL RDW Std Deviation (36.4-46.3) fL RDW Coeff of Anne-Marie (11.5-14.5) % Plt Count (130-400) K/uL MPV (7.4-10.4) fL Immature Gran % (Auto) % Neut % (Auto) % Lymph % (Auto) % [place] % (Auto) % Eos % (Auto) % Baso % (Auto) % Neut # (Auto) (1.4-6.5) K/uL Lymph # (Auto) (1.2-3.4) K/uL [place] # (Auto) (0.11-0.59) K/uL Eos # (Auto) (0-0.5) K/uL Baso # (Auto) (0-0.2) K/uL Immature Gran # (Auto) (0.00-0.02) K/uL Sodium (136-145) mmol/L Potassium (3.5-5.1) mmol/L Chloride (98-107) mmol/L Carbon Dioxide (21-32) mmol/L Anion Gap (3-11) BUN (7-18) mg/dl Creatinine (0.6-1.4) mg/dl Est Cr Clr Drug Dosing ml/min Est GFR ( Amer) Est GFR (Non-Af Amer) BUN/Creatinine Ratio (10-20) Glucose (70-99) mg/dl Calcium (8.5-10.1) mg/dl Phosphorus (2.5-4.9) mg/dl Magnesium (1.8-2.4) mg/dl Total Bilirubin (0.2-1) mg/dl Direct Bilirubin (0-0.2) mg/dl AST (15-37) U/L ALT (12-78) U/L Alkaline Phosphatase (45-117) U/L Total Protein (6.4-8.2) gm/dl Albumin (3.4-5.0) gm/dl Globulin (2.5-4.0) gm/dl Albumin/Globulin Ratio (0.9-2) Lipase (73-393) U/L TSH (0.300-4.500) uIu/ml Urine Color Urine Appearance (Clear) Urine pH (4.5-7.5) Ur Specific [place] (1.000-1.030) Urine Protein (Negative) Urine Glucose (UA) (Negative) Urine Ketones (Negative) Urine Blood (Negative) Urine Nitrite (Negative) Urine Bilirubin (Negative) Urine Urobilinogen (Negative) Ur Leukocyte Esterase (Negative) Urine WBC (Auto) (0-5) /hpf Urine RBC (Auto) (0-4) /hpf U Hyaline Cast (Auto) (0-5) /lpf U Epithel Cells (Auto) (0-5) /lpf Urine Bacteria (Auto) (Negative) Ur Renal Epithelial Cell Urine Mucus (None Prsent) Blood Type B Positive Antibody Screen NEGATIVE Diagnostic Findings CHEST CT IMPRESSION: 1. Progression of pulmonary metastases since CT of April 27, 2020. Extensive mediastinal lymphadenopathy which is either unchanged or slightly decreased since prior CT. 2. Redemonstration of the known distal esophageal primary tumor. Interval decrease in esophageal dilatation. CT Abdomen/Pelvis IMPRESSION: 1. Appropriately positioned gastrostomy tube. No acute findings within the abdomen or pelvis. 2. 4 cm mass within the upper pole of the left kidney. This could reflect renal cell carcinoma or a metastasis. Additional indeterminate 2.4 x 1.7 cm left renal lesion. 3. Distended bladder. 4. Moderate amount of stool within the colon and rectum. No evidence for a bowel obstruction. 5. Several subcentimeter hypodense hepatic lesions. These were present on an earlier CT. Small metastases cannot be excluded. CT Head from 05/18 1. Large peripherally enhancing intra-axial mass centered within the right posterior fossa measures up to 5.2 cm. There is a large amount of surrounding vasogenic edema which extends into the brachium pontis and left cerebellar hemisphere with leftward midline shift of the cerebellum. 1.7 cm intra-axial mass with associated vasogenic edema involves the right temporal lobe. These findings are suggestive of metastatic disease. 2. Vasogenic edema of the posterior fossa results in effacement of the fourth ventricle. The right cerebellar tonsil is low-lying. No associated hydrocephalus. PG Care Time/CCT Total # of Minutes Spent Total Time Spent with Patient: Total time spent is greater than 50% in coordination of care (as documented) at patient's floor/unit and/or counseling patient: Coding Level of Care Code None Diagnoses Carcinoma of lower third of esophagus C15.5 Bleeding R58
[2020-05-20] MEDS ORDERED: FAMOTIDINE 20MG IV PUSH 20 MG/5 ML SYR IV STA (19:37)
[2020-05-20] MEDS ORDERED: PROCHLORPERAZINE 5 MG in SYRINGE 4 ML IV ONE (19:37)
[2020-05-20] MEDS ORDERED: PROCHLORPERAZINE 5 MG/ML 2 ML VIAL ONE (19:40)
[2020-05-20] MEDS ORDERED: SODIUM CHLORIDE 0.9% 500 ML IV SCH (19:45)
--- NOTE | 2020-05-20 20:22 | History & Physical Report ---
Date of Service May 20, 2020 Assessment & Plan (1) Carcinoma of lower third of esophagus: * Patient with metastatic disease to b/l lung (progression since Apr 2020 imaging), 4cm upper pole L kidney mass, hepatic lesions as well as newly found large intra-axial mass w/i R posterior fossa, 5.2cm along with 1.7cm intra- axial mass suggestive of metastatic disease. PEG tube previously placed by Dr. Batista and patient will continue tube feeds as given ORTHOPAEDIC DOCTOR * s/p radiation x 10 treatments this past Friday. Not moving forward with chemo given new findings on CT Head this past week * Previous admission with rec for transfer if continued bleeding from mass as IR not at this facility, however insurance only with [facility] as option unless out of pocket by patient and patient decided to stay * Obs with med/surg with telemetry * H/h stable * Type/screen already completed * Consult radiation oncology about further radiation -- appreciate assistance * IVF NSS @125cc/hr * NPO * Hand I Cutter consulted * Labs in AM If patient decompensates or continues to have bleeding, low threshold for transfer to outside facility for IR Consider palliative consultation given extent of metastatic disease as well as patient declining intubation or CPR but /pt state they would like supplemental feeding to continue as only life sustaining treatment in the event of a code (2) Bleeding: H/h stable at this time Continue to monitor (3) S/P percutaneous endoscopic gastrostomy (PEG) tube placement: placed previously for esophageal ca by Dr. 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 Passing clots but still flushes well. Patient recently hospitalized from 04/27-05/04 for hemoptysis. Discussion was had at that time about transfer out for IR if bleeding from mass would recur. He states this has resolved since completing radiation with Dr. Lee, 10 total doses, completed this previous Friday with Dr. Lee from radiation oncology. Plans were to begin chemotherapy until newly discovered brain mass on imaging done . Patient states he had been doing well up until this afternoon when this occurred. He has been using continuous feeds during the day due to concerns for aspiration and have not yet tried overnight feeding and have been giving flushes at least every four hours if not more frequently. Discussed case with patient and decision was ultimately made to pursue transfer to [facility] as they had previous bad experience at [facility] for possible IR given this is not available at our facility. Unfortunately, with patient's insurance, only able to choose [facility] or stay for observation at this time and decision was made to stay for monitoring. Patient and agreeable to current plan. Patient denied recent chills, fever, chest pain, shortness of breath, abdominal pain, nausea/vomiting, hematuria, melena, or dysuria at this time. ER Course: NSS x500cc. Compazine x 1. Protonix 40mg IV push x 1. CBC with WBC 13.2k, hgb/hct 11.6/36.3, plt 326. Chemistries with dehydration, BUN/Cr 36.3. Allergies Allergy/AdvReac Type Severity Reaction Status Date / Time No Known Allergies Allergy Verified 05/20/20 15:51 Home Medications Home Medications Medication Instructions Recorded Confirmed Type atenolol 50 mg FEEDING TUBE QAM 12/14/18 05/20/20 History atorvastatin 40 mg FEEDING TUBE QAM 12/14/18 05/20/20 History omeprazole 40 mg FEEDING TUBE BID 03/24/20 05/20/20 History promethazine 25 mg PO Q6H PRN #30 tab 05/04/20 05/20/20 Rx polyethylene glycol 3350 17 gram 17 g FEEDING TUBE DAILY PRN 05/08/20 05/20/20 History oral powder packet acetaminophen [Tylenol Extra 500 - 1,000 mg PO Q6H PRN 05/20/20 05/20/20 History Strength] dexamethasone 2 mg PO DAILY 05/20/20 05/20/20 History prochlorperazine maleate 5 mg PO Q8H PRN 05/20/20 05/20/20 History Past Med/Surg History Medical History Abnormal head CT Acute dehydration Constipation Dyslipidemia Dysphagia Eczema Esophageal mass GERD (gastroesophageal reflux disease) Heart murmur NO CARDS History of CVA (cerebrovascular accident) (~2015) Hx of gout Hypertension Hypoalbuminemia Obstruction of esophagus Protein-calorie malnutrition, severe Transient ischemic attack (TIA) 3 YEARS AGO (NO CURRENT PROBLEMS) REASON FOR PLAVIX Unintentional weight loss Upper GI bleeding Weakness Surgical History History of cataract surgery RT/LEFT History of colonoscopy History of esophagogastroduodenoscopy (EGD) (03/25/20) with biopsy History of tooth extraction (~2009) Family History Mother , passed in her 70s from heart issues No problems noted. Father , passed in his 70s from heart issues No problems noted. Sister No problems noted. Daughter No problems noted. Son No problems noted. 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 How many Children do You have: 2 Other Information That Helps Us Care for You: No Feels Safe at Home: Yes Safety Concerns: Feels Safe At This Time Childhood Exposure to Second-Hand Smoke: Yes Diet Comment: currently on liquid diet via PEG tube (2k calories/day) able to drink Boost caffeine: No during the past year weight has: decreased > 10 lbs Dental Care, Regularly: No Physical Activity Frequency: Does not Exercise Assistive Devices: Glasses and Walker Review of Systems Review of Systems: All systems reviewed & are unremarkable except as noted in HPI & below Physical Exam Constitutional: + cachectic, cooperative and comfortable; no acute distress Eyes: + anicteric sclerae and PERRL ENMT: Ears: no hearing impairment Nose: no external nose abnormality Neck: trachea midline; no tracheal deviation Respiratory: normal respiratory effort; no respiratory distress and no labored breathing Auscultation: + diminished lung sounds and + crackles (bibasilar) Cardiovascular: RRR, no murmur, no edema Gastrointestinal (Abdomen): Inspection/Auscultation: normal bowel sounds Percussion/Palpation: abdomen soft; abdomen nontender, no guarding and abdomen not rigid Musculoskeletal: Head/Neck/Chest: normocephalic and head atraumatic Skin: cool, dry Neurologic: moves all extremities and awake Psychiatric: Orientation: alert and oriented x 3 Lymphatic: + subclavicular lymphadenopathy Results & Data Results & Data ([facility]) Vital Signs (Past 12 Hours) Vital Signs Temp Pulse Resp BP Pulse Ox 05/20/20 19:30 76 14 99 05/20/20 19:00 75 21 142/79 H 99 05/20/20 18:30 78 16 140/86 99 05/20/20 18:00 78 12 133/78 99 05/20/20 17:30 81 14 99 05/20/20 17:00 78 14 131/84 99 05/20/20 16:30 80 16 138/85 99 05/20/20 16:00 76 12 123/72 99 05/20/20 15:39 80 15 96 05/20/20 15:36 82 14 96/62 L 96 05/20/20 14:45 36.4 C L 80 20 120/82 97 Laboratory Results 05/20/20 05/20/20 05/20/20 Range/Units 17:44 15:23 15:23 WBC 13.26 H (4.8-10.8) K/uL RBC 4.38 L (4.7-6.1) M/uL Hgb 11.6 L (14.0-18.0) g/dL Hct 36.3 L (42-52) % MCV 82.9 (80-100) fL MCH 26.5 (25-34) pg MCHC 32.0 (32-36) g/dL RDW Std Deviation 53.6 H (36.4-46.3) fL RDW Coeff of Anne-Marie 17.6 H (11.5-14.5) % Plt Count 326 (130-400) K/uL MPV 10.0 (7.4-10.4) fL Immature Gran % (Auto) 0.5 % Neut % (Auto) 95.8 % Lymph % (Auto) 1.9 % [place] % (Auto) 1.8 % Eos % (Auto) 0.0 % Baso % (Auto) 0.0 % Neut # (Auto) 12.71 H (1.4-6.5) K/uL Lymph # (Auto) 0.25 L (1.2-3.4) K/uL [place] # (Auto) 0.24 (0.11-0.59) K/uL Eos # (Auto) 0.00 (0-0.5) K/uL Baso # (Auto) 0.00 (0-0.2) K/uL Immature Gran # (Auto) 0.06 H (0.00-0.02) K/uL Sodium 136 (136-145) mmol/L Potassium 4.6 (3.5-5.1) mmol/L Chloride 104 (98-107) mmol/L Carbon Dioxide 30 (21-32) mmol/L Anion Gap 2.0 L (3-11) BUN 29 H (7-18) mg/dl Creatinine 0.81 (0.6-1.4) mg/dl Est Cr Clr Drug Dosing 66.4 ml/min Est GFR ( Amer) 99.4 Est GFR (Non-Af Amer) 85.7 BUN/Creatinine Ratio 36.3 H (10-20) Glucose 157 H (70-99) mg/dl Calcium 9.6 (8.5-10.1) mg/dl Phosphorus 2.8 (2.5-4.9) mg/dl Magnesium 2.3 (1.8-2.4) mg/dl Total Bilirubin 0.3 (0.2-1) mg/dl Direct Bilirubin < 0.1 (0-0.2) mg/dl AST 13 L (15-37) U/L ALT 18 (12-78) U/L Alkaline Phosphatase 89 (45-117) U/L Total Protein 7.6 (6.4-8.2) gm/dl Albumin 2.3 L (3.4-5.0) gm/dl Globulin 5.3 H (2.5-4.0) gm/dl Albumin/Globulin Ratio 0.4 L (0.9-2) Lipase 88 (73-393) U/L TSH 0.373 (0.300-4.500) uIu/ml Urine Color Yellow Urine Appearance Clear (Clear) Urine pH 6.0 (4.5-7.5) Ur Specific Holt 1.037 H (1.000-1.030) Urine Protein Trace H (Negative) Urine Glucose (UA) Negative (Negative) Urine Ketones Negative (Negative) Urine Blood Negative (Negative) Urine Nitrite Negative (Negative) Urine Bilirubin Negative (Negative) Urine Urobilinogen Negative (Negative) Ur Leukocyte Esterase Negative (Negative) Urine WBC (Auto) 10-30 H (0-5) /hpf Urine RBC (Auto) 0-4 (0-4) /hpf U Hyaline Cast (Auto) 5-10 H (0-5) /lpf U Epithel Cells (Auto) >30 H (0-5) /lpf Urine Bacteria (Auto) Negative (Negative) Ur Renal Epithelial Cell Not Reportable Urine Mucus Present A (None Prsent) Blood Type Antibody Screen 05/20/20 Range/Units 15:23 WBC (4.8-10.8) K/uL RBC (4.7-6.1) M/uL Hgb (14.0-18.0) g/dL Hct (42-52) % MCV (80-100) fL MCH (25-34) pg MCHC (32-36) g/dL RDW Std Deviation (36.4-46.3) fL RDW Coeff of Anne-Marie (11.5-14.5) % Plt Count (130-400) K/uL MPV (7.4-10.4) fL Immature Gran % (Auto) % Neut % (Auto) % Lymph % (Auto) % [place] % (Auto) % Eos % (Auto) % Baso % (Auto) % Neut # (Auto) (1.4-6.5) K/uL Lymph # (Auto) (1.2-3.4) K/uL [place] # (Auto) (0.11-0.59) K/uL Eos # (Auto) (0-0.5) K/uL Baso # (Auto) (0-0.2) K/uL Immature Gran # (Auto) (0.00-0.02) K/uL Sodium (136-145) mmol/L Potassium (3.5-5.1) mmol/L Chloride (98-107) mmol/L Carbon Dioxide (21-32) mmol/L Anion Gap (3-11) BUN (7-18) mg/dl Creatinine (0.6-1.4) mg/dl Est Cr Clr Drug Dosing ml/min Est GFR ( Amer) Est GFR (Non-Af Amer) BUN/Creatinine Ratio (10-20) Glucose (70-99) mg/dl Calcium (8.5-10.1) mg/dl Phosphorus (2.5-4.9) mg/dl Magnesium (1.8-2.4) mg/dl Total Bilirubin (0.2-1) mg/dl Direct Bilirubin (0-0.2) mg/dl AST (15-37) U/L ALT (12-78) U/L Alkaline Phosphatase (45-117) U/L Total Protein (6.4-8.2) gm/dl Albumin (3.4-5.0) gm/dl Globulin (2.5-4.0) gm/dl Albumin/Globulin Ratio (0.9-2) Lipase (73-393) U/L TSH (0.300-4.500) uIu/ml Urine Color Urine Appearance (Clear) Urine pH (4.5-7.5) Ur Specific Holt (1.000-1.030) Urine Protein (Negative) Urine Glucose (UA) (Negative) Urine Ketones (Negative) Urine Blood (Negative) Urine Nitrite (Negative) Urine Bilirubin (Negative) Urine Urobilinogen (Negative) Ur Leukocyte Esterase (Negative) Urine WBC (Auto) (0-5) /hpf Urine RBC (Auto) (0-4) /hpf U Hyaline Cast (Auto) (0-5) /lpf U Epithel Cells (Auto) (0-5) /lpf Urine Bacteria (Auto) (Negative) Ur Renal Epithelial Cell Urine Mucus (None Prsent) Blood Type B Positive Antibody Screen NEGATIVE Diagnostic Findings CHEST CT IMPRESSION: 1. Progression of pulmonary metastases since CT of April 27, 2020. Extensive mediastinal lymphadenopathy which is either unchanged or slightly decreased since prior CT. 2. Redemonstration of the known distal esophageal primary tumor. Interval decrease in esophageal dilatation. CT Abdomen/Pelvis IMPRESSION: 1. Appropriately positioned gastrostomy tube. No acute findings within the abdomen or pelvis. 2. 4 cm mass within the upper pole of the left kidney. This could reflect renal cell carcinoma or a metastasis. Additional indeterminate 2.4 x 1.7 cm left renal lesion. 3. Distended bladder. 4. Moderate amount of stool within the colon and rectum. No evidence for a bowel obstruction. 5. Several subcentimeter hypodense hepatic lesions. These were present on an earlier CT. Small metastases cannot be excluded. CT Head from 05/18 1. Large peripherally enhancing intra-axial mass centered within the right posterior fossa measures up to 5.2 cm. There is a large amount of surrounding vasogenic edema which extends into the brachium pontis and left cerebellar hemisphere with leftward midline shift of the cerebellum. 1.7 cm intra-axial mass with associated vasogenic edema involves the right temporal lobe. These findings are suggestive of metastatic disease. 2. Vasogenic edema of the posterior fossa results in effacement of the fourth ventricle. The right cerebellar tonsil is low-lying. No associated hydrocephalus. Supervising Physician Co-Signing Physician Notes During my face to face encounter, I obtained a physical examination and clinical history. I discussed the plan with the patient. Initially given that he is bleeding, with the source being the esophageal mass, and had recently completed radiation treatment. I recommended a transfer to a tertiary center, however patient is not agreeable to transfer as he had a poor experience there. Insurance did not cover transfer to [facility]. At this point, patient wants to stay in the hospital. 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
[2020-05-20] MEDS: LANSOPRAZOLE 15 MG SOLTAB PEG SCH (22:13)
[2020-05-20] MEDS: SODIUM CHLORIDE 0.9% 1,000 ML IV SCH (23:59)
[2020-05-21] MEDS ORDERED: MELATONIN 3 MG TAB PO PRN (01:11)
[2020-05-21] MEDS: SODIUM CHLORIDE 0.9% 1,000 ML IV SCH (07:59)
[2020-05-21 09:01] LABS: Hematocrit (blood only) 36.3 % (42-52); Hemoglobin 11.7 g/dL (14.0-18.0); Mean Corpuscular Hemoglobin 26.8 pg (25-34); Mean Corpuscular Hgb Conc 32.2 g/dL (32-36); Mean Corpuscular Volume 83.3 fL (80-100); Platelet Count 334 K/uL (130-400); RDW Standard Deviation 54.8 fL (36.4-46.3); Red Blood Count 4.36 M/uL (4.7-6.1); White Blood Count 15.35 K/uL (4.8-10.8)
[2020-05-21 09:24] LABS: Albumin Level 2.3 gm/dl (3.4-5.0); BUN Creatinine Ratio 35.8 (10-20); Calcium 9.5 mg/dl (8.5-10.1); Creatinine Clr Calc Pharmacy 65.6 ml/min; Est GFR (African American) 98.9; Est GFR (Non-African American) 85.3; Potassium 4.3 mmol/L (3.5-5.1)
[2020-05-21 09:27] LABS: Albumin Globulin Ratio 0.5 (0.9-2); Bilirubin,Total 0.3 mg/dl (0.2-1); Globulin 4.8 gm/dl (2.5-4.0); Total Protein 7.1 gm/dl (6.4-8.2)
[2020-05-21] MEDS: LANSOPRAZOLE 15 MG SOLTAB PEG SCH ×2 (11:14→20:27)
[2020-05-21] MEDS: ESCITALOPRAM OXALATE ORAL SOLN 10 MG/10 ML UDP PEG SCH (11:14)
[2020-05-21] MEDS: PEPTAMEN 1.5 CAL 1,000 ML BAG PEG SCH (11:15)
[2020-05-21] MEDS: PROMETHAZINE HCL 25 MG/20 ML UDP PO PRN ×2 (13:03→22:54)
[2020-05-21] MEDS ORDERED: PROCHLORPERAZINE 5 MG in SYRINGE 4 ML IV PRN (13:32)
[2020-05-21] MEDS ORDERED: PROMETHAZINE HCL 25 MG in SODIUM CHLORIDE 0.9% 50 ML IV PRN (13:33)
[2020-05-21 16:48] LABS: Hematocrit (blood only) 36.7 % (42-52); Hemoglobin 11.9 g/dL (14.0-18.0)
--- NOTE | 2020-05-21 21:51 | Hospitalist Progress Note ---
Date of Service May 21, 2020 Assessment & Plan (1) Carcinoma of lower third of esophagus: * Patient with metastatic disease to b/l lung (progression since Apr 2020 imaging), 4cm upper pole L kidney mass, hepatic lesions as well as newly found large intra-axial mass w/i R posterior fossa, 5.2cm along with 1.7cm intra- axial mass suggestive of metastatic disease. PEG tube previously placed by Dr. Batista and patient will continue tube feeds as given LATHE SPOTTER * s/p radiation x 10 treatments this past Friday. Not moving forward with chemo given new findings on CT Head this past week * Previous admission with rec for transfer if continued bleeding from mass as IR not at this facility, however insurance only with [facility] as option unless out of pocket by patient and patient decided to stay * Obs with med/surg with telemetry * H/h stable * Type/screen already completed * Consult radiation oncology about further radiation -- appreciate assistance * will stop IVF and resume peg tube intake * will consult dietary. * will discuss case with radioation oncology and discuss with Dr. Kim * will hold dexamethasone due to bleeding. * may need to resume due to brain mets. (2) Bleeding: H/h stable at this time Continue to monitor (3) S/P percutaneous endoscopic gastrostomy (PEG) tube placement: placed previously for esophageal ca by Dr. Batista Continue 14 hour continuous feeds with flushes as taking outpatient, Peptamen Thermal Cutting Tracer Machine Operator consulted -- appreciate assistance (4) Dyslipidemia: Atorvastatin 40mg via PEG (5) GERD (gastroesophageal reflux disease): Continue lansoprazole 15mg via PEG BID (6) Hypertension: BP stable. 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 He is a little nauseous today. Review of Systems Review of Systems: All systems reviewed & are unremarkable except as noted in HPI & below Physical Exam Physical Exam: Constitutional: + cachectic, cooperative and comfortable; no acute distress Eyes: + anicteric sclerae and PERRL ENMT: Ears: no hearing impairment Nose: no external nose abnormality Neck: trachea midline; no tracheal deviation Respiratory: normal respiratory effort; no respiratory distress and no labored breathing Auscultation: + diminished lung sounds and + crackles (bibasilar) Cardiovascular: RRR, no murmur, no edema Gastrointestinal (Abdomen): Inspection/Auscultation: normal bowel sounds Percussion/Palpation: abdomen soft; abdomen nontender, no guarding and abdomen not rigid Musculoskeletal: Head/Neck/Chest: normocephalic and head atraumatic Skin: cool, dry Neurologic: moves all extremities and awake Psychiatric: Orientation: alert and oriented x 3 Lymphatic: + subclavicular lymphadenopathy Results & Data Results & Data ([facility]) Vital Signs (Past 12 Hours) Vital Signs Temp Pulse Pulse Resp BP Pulse Ox 05/21/20 15:00 36.4 C L 79 77 18 131/76 98 05/21/20 11:00 36.5 C 73 18 148/81 H 98 PG Care Time/CCT Total # of Minutes Spent Total Time Spent with Patient: Total time spent is greater than 50% in coordination of care (as documented) at patient's floor/unit and/or counseling patient: Coding Level of Care Code 81329 Subseq Hosp Care Lvl 2 Diagnoses Carcinoma of lower third of esophagus C15.5 Bleeding R58 S/P percutaneous endoscopic gastrostomy (PEG) tube placement Z93.1 Dyslipidemia E78.5 GERD (gastroesophageal reflux disease) K21.9 Hypertension I10 Hypertension type: essential hypertension Depression F32.9 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
[2020-05-22] MEDS: LANSOPRAZOLE 15 MG SOLTAB PEG SCH ×2 (08:56→21:07)
[2020-05-22] MEDS: ESCITALOPRAM OXALATE ORAL SOLN 10 MG/10 ML UDP PEG SCH (08:56)
[2020-05-22] MEDS: PROCHLORPERAZINE MALEATE 5 MG TAB PO PRN (08:57)
--- NOTE | 2020-05-22 09:00 | Radiation OncologyConsultation ---
Date of Consultation May 22, 2020 Assessment & Plan (1) Carcinoma of lower third of esophagus: Assessment: Mr. Ingram is a 79-year-old gentleman with metastatic esophageal cancer. The patient previously finished a course of palliative external beam radiation therapy to the esophagus for bleeding on 05/16/2020. 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 The patient was seen by his primary care physician who recommended hospice. The patient has been admitted to the hospital due to further esophageal bleeding. I am now seeing the patient to discuss further role of radiation therapy. Recommendations: 1. With respect to bleeding from esophageal cancer, I have recommended further radiation therapy as we just recently finished a course of palliative external beam radiation therapy. I believe the probability of further benefit from radiation therapy is low given the fact that patient is already having further bleeding after recently finishing a course of radiation therapy. I will defer management otherwise to the primary medical team. 2. With respect to the brain metastasis, I have recommended just consideration for the supportive care including dexamethasone. The brain metastasis is very large and I believe that the probability of control with external beam radiation therapy is very low and will require a course of least 5-10 fractions of radiation therapy. 3. Patient should be considered for comfort care/hospice. I would recommend a palliative care consultation. 4. Patient and family encouraged to call us with any further questions or concerns. History of Present Illness Attending Physician: Sergio Pérez History of Present Illness 12/2019. Patient started to notice some difficulty with swallowing and unintentional weight loss. 03/24/2020. CT of chest. IMPRESSION: 1. Large mass occupying the bulk of the mid to distal esophagus extending from the level of the javier of the mediastinum to the gastroesophageal junction. 2. This narrows the lumen of the mid to distal esophagus, with evidence for infiltrative change of the surrounding paraesophageal fat. 3. Significant subcarinal mediastinal adenopathy. 4. Fluid within the proximal esophagus most likely nonobstructive basis. 5. Several small parenchymal nodules throughout both hemithoraces all less than 5 mm. 6. A neoplastic process is the diagnosis of exclusion with endoscopic evaluation recommended. 03/25/2020. Upper endoscopy. A large, fungating ulcerating mass with no stigmata of recent bleeding was found in the middle third of the esophagus and in the lower third of the esophagus, 26 cm from the incisors. The mass was partially obstructing and circumferential. Biopsies obtained. 03/25/2020. Esophagus, mass, biopsy: Invasive squamous cell carcinoma. 04/06/2020. Medical oncology consultation with Dr. Kim. Dr. Kim has recommended concurrent chemotherapy and radiation therapy. 04/12/2020. CT of abdomen/pelvis. IMPRESSION: 1. Large amount of stool within the rectum and colon suggestive of fecal impaction. Mild rectal wall thickening with mild adjacent infiltration. No evidence for a bowel obstruction. 2. Redemonstration of the known distal esophageal mass with pathologic lymphadenopathy and pulmonary metastases. 3. Possible mass within the upper pole of the left kidney, measuring approximately 3.5 cm. This is suboptimally assessed on this unenhanced exam. Nonemergent renal protocol CT is recommended. 4. Small bladder calculi. No ureteral calculi. No hydronephrosis. Distended bladder. 04/12/2020. PET/CT. IMPRESSION: 1. Large intensely FDG avid esophageal mass extending from the javier to the esophagogastric junction with an SUV maximum of 15.8. 2. Pathologic FDG avid supraclavicular and mediastinal lymphadenopathy 3. Multiple bilateral pulmonary nodules the largest of which measures 8 mm. This is FDG avid and consistent with pulmonary metastatic disease. 04/14/2020. Upper endoscopy by Dr. Batista. Findings include a large fungating mass with no bleeding or stigmata of recent bleeding. Mass was partially obstructing and circumferential. Placement of PEG tube successfully completed. 04/27/2020. Radiation oncology follow-up in hospital. Recommendations patient had external beam radiation therapy alone as patient as now having esophageal bleeding. 04/27/2020 to 05/16/2020. Palliative external beam radiation therapy to esophagus. 3000 cGy. 10 fractions. 300 cGy per fraction. 05/18/2020. CT of Head. IMPRESSION: 1. Large peripherally enhancing intra-axial mass centered within the right posterior fossa measures up to 5.2 cm. There is a large amount of surrounding vasogenic edema which extends into the brachium pontis and left cerebellar hemisphere with leftward midline shift of the cerebellum. 1.7 cm intra-axial mass with associated vasogenic edema involves the right temporal lobe. These findings are suggestive of metastatic disease. 2. Va sogenic edema of the posterior fossa results in effacement of the fourth ventricle. The right cerebellar tonsil is low-lying. No associated hydrocephalus. 05/20/2020. CT of Chest. IMPRESSION: 1. Progression of pulmonary metastases since CT of April 27, 2020. Extensive mediastinal lymphadenopathy which is either unchanged or slightly decreased since prior CT. 2. Redemonstration of the known distal esophageal primary tumor. Interval decrease in esophageal dilatation. 05/20/2020. CT of Abdomen/Plvis. IMPRESSION: IMPRESSION: 1. Appropriately positioned gastrostomy tube. No acute findings within the abdomen or pelvis. 2. 4 cm mass within the upper pole of the left kidney. This could reflect renal cell carcinoma or a metastasis. Additional indeterminate 2.4 x 1.7 cm left renal lesion. 3. Distended bladder. 4. Moderate amount of stool within the colon and rectum. No evidence for a bowel obstruction. 5. Several subcentimeter hypodense hepatic lesions. These were present on an earlier CT. Small metastases cannot be excluded. Allergies Allergy/AdvReac Type Severity Reaction Status Date / Time No Known Allergies Allergy Verified 05/20/20 15:51 Home Medications Home Medications Medication Instructions Recorded Confirmed Type atenolol 50 mg FEEDING TUBE QAM 12/14/18 05/20/20 History atorvastatin 40 mg FEEDING TUBE QAM 12/14/18 05/20/20 History omeprazole 40 mg FEEDING TUBE BID 03/24/20 05/20/20 History promethazine 25 mg PO Q6H PRN #30 tab 05/04/20 05/20/20 Rx polyethylene glycol 3350 17 gram 17 g FEEDING TUBE DAILY PRN 05/08/20 05/20/20 History oral powder packet acetaminophen [Tylenol Extra 500 - 1,000 mg PO Q6H PRN 05/20/20 05/20/20 History Strength] dexamethasone 2 mg PO DAILY 05/20/20 05/20/20 History prochlorperazine maleate 5 mg PO Q8H PRN 05/20/20 05/20/20 History Patient History Medical History Abnormal head CT Acute dehydration Constipation Dyslipidemia Dysphagia Eczema Esophageal mass GERD (gastroesophageal reflux disease) Heart murmur NO CARDS History of CVA (cerebrovascular accident) (~2016) Hx of gout Hypertension Hypoalbuminemia Obstruction of esophagus Protein-calorie malnutrition, severe Transient ischemic attack (TIA) 3 YEARS AGO (NO CURRENT PROBLEMS) REASON FOR PLAVIX Unintentional weight loss Upper GI bleeding Weakness Surgical History History of cataract surgery RT/LEFT History of colonoscopy History of esophagogastroduodenoscopy (EGD) (03/25/20) with biopsy History of tooth extraction (~2009) Family History Mother , passed in her 70s from heart issues No problems noted. Father , passed in his 70s from heart issues No problems noted. Sister No problems noted. Daughter No problems noted. Son No problems noted. 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
[2020-05-22] MEDS: PEPTAMEN 1.5 CAL 1,000 ML BAG PEG SCH (09:55)
[2020-05-22] MEDS: PROMETHAZINE HCL 25 MG/20 ML UDP PO PRN ×2 (10:44→19:32)
[2020-05-22] MEDS ORDERED: dexAMETHasone 1 MG TAB PO ONE (11:30)
[2020-05-22 12:20] LABS: Hemoglobin 11.5 g/dL (14.0-18.0); Mean Corpuscular Hemoglobin 27.2 pg (25-34); Mean Corpuscular Hgb Conc 32.9 g/dL (32-36); Mean Corpuscular Volume 82.7 fL (80-100); Mean Platelet Volume 9.7 fL (7.4-10.4); Platelet Count 275 K/uL (130-400); RDW Coefficient of Variation 18.1 % (11.5-14.5); RDW Standard Deviation 54.1 fL (36.4-46.3); Red Blood Count 4.23 M/uL (4.7-6.1); White Blood Count 9.53 K/uL (4.8-10.8)
[2020-05-22 12:38] LABS: BUN Creatinine Ratio 30.5 (10-20); Calcium 8.9 mg/dl (8.5-10.1); Creatinine Clr Calc Pharmacy 65.6 ml/min; Est GFR (African American) 98.9; Est GFR (Non-African American) 85.3; Potassium 3.8 mmol/L (3.5-5.1)
[2020-05-22] MEDS: DEXAMETHASONE SOD PHOSPHATE 2 MG in SYRINGE 0 ML IV SCH (14:16)
[2020-05-22] MEDS ORDERED: ACETAMINOPHEN SOLN 650 MG/20.3 ML UDC PEG PRN (17:52)
--- NOTE | 2020-05-22 21:43 | Hospitalist Progress Note ---
Date of Service May 22, 2020 Assessment & Plan (1) Carcinoma of lower third of esophagus: * Patient with metastatic disease to b/l lung (progression since Apr 2020 imaging), 4cm upper pole L kidney mass, hepatic lesions as well as newly found large intra-axial mass w/i R posterior fossa, 5.2cm along with 1.7cm intra- axial mass suggestive of metastatic disease. PEG tube previously placed by Dr. 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 Not moving forward with chemo given new findings on CT Head this past week * Previous admission with rec for transfer if continued bleeding from mass as IR not at this facility, however insurance only with [place] as option unless out of pocket by patient and patient decided to stay * Obs with med/surg with telemetry * H/h stable * Type/screen already completed * Consult radiation oncology about further radiation -- appreciate assistance * will stop IVF and resume peg tube intake * will consult dietary. * D/W radiation oncology patient is not a candidate for further treatemtn, in regards to brain mass, recommend surgery, however this would be pretty invasive and given how advanced his cancer is, unsure if this will do more harm than good. * resumed dexamethasone to help with the swelling from the brain lesion. (2) Bleeding: H/h stable at this time Continue to monitor (3) S/P percutaneous endoscopic gastrostomy (PEG) tube placement: placed previously for esophageal ca by Dr. Batista Continue 14 hour continuous feeds with flushes as taking outpatient, Peptamen Cocoa Roaster consulted -- appreciate assistance (4) Dyslipidemia: Atorvastatin 40mg via PEG (5) GERD (gastroesophageal reflux disease): Continue lansoprazole 15mg via PEG BID (6) Hypertension: BP stable. 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 Review of Systems Review of Systems: All systems reviewed & are unremarkable except as noted in HPI & below Physical Exam Physical Exam: Constitutional: + cachectic, cooperative and comfortable; no acute distress Eyes: + anicteric sclerae and PERRL ENMT: Ears: no hearing impairment Nose: no external nose abnormality Neck: trachea midline; no tracheal deviation Respiratory: normal respiratory effort; no respiratory distress and no labored breathing Auscultation: + diminished lung sounds and + crackles (bibasilar) Cardiovascular: RRR, no murmur, no edema Gastrointestinal (Abdomen): Inspection/Auscultation: normal bowel sounds Percussion/Palpation: abdomen soft; abdomen nontender, no guarding and abdomen not rigid Musculoskeletal: Head/Neck/Chest: normocephalic and head atraumatic Skin: cool, dry Neurologic: moves all extremities and awake Psychiatric: Orientation: alert and oriented x 3 Lymphatic: + subclavicular lymphadenopathy Results & Data Results & Data ([facility]) Vital Signs (Past 12 Hours) Vital Signs Temp Pulse Pulse Resp BP BP Pulse Ox 05/22/20 19:55 36.4 C L 84 18 129/74 94 05/22/20 15:25 85 05/22/20 15:00 36.7 C 82 18 108/64 97 05/22/20 11:14 36.4 C L 92 H 18 150/85 H 95 PG Care Time/CCT Total # of Minutes Spent Total Time Spent with Patient: Total time spent is greater than 50% in coordination of care (as documented) at patient's floor/unit and/or counseling patient: Coding Level of Care Code 24119 Subseq Hosp Care Lvl 2 Diagnoses Carcinoma of lower third of esophagus C15.5 Bleeding R58 S/P percutaneous endoscopic gastrostomy (PEG) tube placement Z93.1 Dyslipidemia E78.5 GERD (gastroesophageal reflux disease) K21.9 Hypertension I10 Hypertension type: essential hypertension Depression F32.9 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
[2020-05-23] MEDS: PROMETHAZINE HCL 25 MG/20 ML UDP PO PRN ×2 (02:09→07:10)
[2020-05-23] MEDS: DEXAMETHASONE SOD PHOSPHATE 2 MG in SYRINGE 0 ML IV SCH (09:08)
[2020-05-23] MEDS: PROCHLORPERAZINE MALEATE 5 MG TAB PO PRN (09:09)
[2020-05-23] MEDS: ESCITALOPRAM OXALATE ORAL SOLN 10 MG/10 ML UDP PEG SCH (09:10)
[2020-05-23] MEDS: LANSOPRAZOLE 15 MG SOLTAB PEG SCH ×2 (09:10→20:36)
[2020-05-23] MEDS: PEPTAMEN 1.5 CAL 1,000 ML BAG PEG SCH (09:10)
--- NOTE | 2020-05-23 09:13 | Palliative Care Consultation ---
Date of Consultation May 23, 2020 Assessment & Plan (1) Palliative care encounter: This is a 79 year old male who presented to the [facility] ED when he noticed bleeding from his PEG tube. Additional significant PMH includes metastatic esophageal squamous cell carcinoma with mets to multiple lung lobes, renal, hepatic lesions and a newly discovered brain mass found on head CT this past . The patient had a recent inpatient hospitalization from April 27- for hemoptysis. Mr. Ingram is a patient of Dr. Kat and has recently completed his 10th fraction of palliative external beam radiation last Friday (May 16). He was to start additional chemotherapy; however, this was placed on hold due to the new cerebral lesions noted. He has been evaluated this admission by Dr. Lee, who stated that the likelihood of any future benefits from treatment are low, as evidenced by additional metastatic disease progression and additional bleeding. Palliative Care was consulted to discuss goals of care. -I met with the patient in room 287-2. He was lying on his left side in acute distress. He was wincing and furrowing at his brow. He appears frail. -He states that he just generally feels terrible with intractable nausea. -Patient stated that he really 'just wants to '. He explained he understands that he is not going to get better and does not want to be a burdon to his family. -I think a lot of his discomfort is emotional pain and he may feel overall be tter if his nausea is more controlled. -He currently has tube feedings infusing at 80mL/hour, I discussed with nursing that this could be contributing to some of his nausea. Nursing checked residuals and they were > 150mL. Advised nursing to hold tube feedings for 2 hours and restart. -Pt has been receiving Compazine and Phenergan without relief. -I D/C the Phenergan and started scheduled Zofran 4mg IV Q 6 and an additional Zofran 4mg IV Q8 PRN for breakthrough. QTI evaluated and benefit> risk. -Should the patients nausea not improve, would consider Haldol SL 2mg Q4 PRN for antiemetic use. -I did talk at length with his , Haleigh on the phone about the above, She was tearful throughout the conversation. We discussed that his body may not be tolerating the TF and may eventually consider stopping tube feedings and focus on comfort feeds. She said "I am not ready to stop the feeds yet", but the patient did indicate he was ready. Ultimately, this could be that emotional discomfort related to how bad his nausea is at the moment. -They have been using [facility] in the past and have started the process to transition to [facility]. She is awaiting equipment delivery today. -I expressed that I would want his symptoms more controlled prior to discharge. -Should the patient continue to have intractable nausea despite medication changes, would approach [facility] for possibility of GIP as there is a goal for him to get home with Hospice services once symptoms are more improved. Relationship and rapport could begin while inpatient. -[facility] would be helpful prior to DC -All of the above collaborated with Hospitalist and IDT, including welfare case worker. 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 Pérez Attending Physician: Sergio Pérez History of Present Illness This is a 79 year old male who presented to the [facility] ED when he noti ethan bleeding from his PEG tube. Additional significant PMH includes metastatic esophageal squamous cell carcinoma with mets to multiple lung lobes, renal, hepatic lesions and a newly discovered brain mass found on head CT this past . The patient had a recent inpatient hospitalization from April 27- for hemoptysis. Mr. Ingram is a patient of Dr. aKt and has recently completed his 10th fraction of palliative external beam radiation last Friday (May 16). He was to start additional chemotherapy; however, this was placed on hold due to the new cerebral lesions noted. He has been evaluated this admission by Dr. Lee, who stated that the likelihood of any future benefits from treatment are low, as evidenced by additional metastatic disease progression and additional bleeding. Palliative Care was consulted to discuss goals of care. Please see A/P for further details. Thank you kindly for involving the palliative care team with this patient. Allergies Allergy/AdvReac Type Severity Reaction Status Date / Time No Known Allergies Allergy Verified 05/20/20 15:51 Home Medications Home Medications Medication Instructions Recorded Confirmed Type atenolol 50 mg FEEDING TUBE QAM 12/14/18 05/20/20 History atorvastatin 40 mg FEEDING TUBE QAM 12/14/18 05/20/20 History omeprazole 40 mg FEEDING TUBE BID 03/24/20 05/20/20 History promethazine 25 mg PO Q6H PRN #30 tab 05/04/20 05/20/20 Rx polyethylene glycol 3350 17 gram 17 g FEEDING TUBE DAILY PRN 05/08/20 05/20/20 History oral powder packet acetaminophen [Tylenol Extra 500 - 1,000 mg PO Q6H PRN 05/20/20 05/20/20 History Strength] dexamethasone 2 mg PO DAILY 05/20/20 05/20/20 History prochlorperazine maleate 5 mg PO Q8H PRN 05/20/20 05/20/20 History Patient History Medical History (Updated 05/23/20 @ 09:13 by JACQUELYN Salas) Abnormal head CT Acute dehydration Constipation Dyslipidemia Dysphagia Eczema Esophageal mass GERD (gastroesophageal reflux disease) Heart murmur NO CARDS History of CVA (cerebrovascular accident) (~2015) Hx of gout Hypertension Hypoalbuminemia Obstruction of esophagus Palliative care encounter Protein-calorie malnutrition, severe Transient ischemic attack (TIA) 3 YEARS AGO (NO CURRENT PROBLEMS) REASON FOR PLAVIX Unintentional weight loss Upper GI bleeding Weakness Surgical History History of cataract surgery RT/LEFT History of colonoscopy History of esophagogastroduodenoscopy (EGD) (03/25/20) with biopsy History of tooth extraction (~2009) Family History Mother , passed in her 70s from heart issues No problems noted. Father , passed in his 70s from heart issues No problems noted. Sister No problems noted. Daughter No problems noted. Son No problems noted. 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 How many Children do You have: 2 Other Information That Helps Us Care for You: No Feels Safe at Home: Yes Safety Concerns: Feels Safe At This Time Childhood Exposure to Second-Hand Smoke: Yes Diet Comment: currently on liquid diet via PEG tube (2k calories/day) able to drink Boost caffeine: No during the past year weight has: decreased > 10 lbs Dental Care, Regularly: No Physical Activity Frequency: Does not Exercise Assistive Devices: Walker Review of Systems Review of Systems: All systems reviewed & are unremarkable except as noted in HPI & below General: Pt reports generalized discomfort HEENT: Pt denies dizziness CV: Pt denies chest pain Resp: Pt denies SOB GI: Pt reports + nausea/dry heaves Physical Exam Constitutional: + acute distress, + frail appearing, cooperative and + in distress Respiratory: normal respiratory effort; no respiratory distress Auscultation: + diminished lung sounds Cardiovascular: RRR, no murmur, no edema Gastrointestinal (Abdomen): Inspection/Auscultation: abdomen normal to inspection Percussion/Palpation: abdomen soft PEG tube Skin: no rashes, warm and dry Psychiatric: Orientation: alert and oriented x 3 Lymphatic: no cervical or axillary lymphadenopathy Results & Data ([facility]) Vital Signs (Past 12 Hours) Vital Signs Temp Pulse Pulse Resp BP Pulse Ox 05/23/20 07:57 36.5 C 83 18 163/80 H 94 05/23/20 07:25 91 H 05/23/20 02:32 88 05/22/20 23:22 36.5 C 82 18 130/75 95 PG Care Time/CCT Total # of Minutes Spent Total Time Spent with Patient: Total time spent is greater than 50% in coordination of care (as documented) at patient's floor/unit and/or counseling patient: 100 Coding Level of Care Code 35706 Inpt Consult Level 4 Diagnoses Palliative care encounter Z51.5 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
[2020-05-23] MEDS ORDERED: ondansetron HCL 8 MG in DEXTROSE 5% 50 ML IV PRN (10:30)
[2020-05-23] MEDS ORDERED: ondansetron HCL 4 MG in DEXTROSE 5% 50 ML IV PRN (10:42)
[2020-05-23] MEDS: ONDANSETRON INJ 2 MG/ML 2 ML VIAL IV SCH ×3 (11:12→23:35)
[2020-05-23] MEDS: ONDANSETRON INJ 2 MG/ML 2 ML VIAL IV PRN (15:35)
[2020-05-23] MEDS: HALOPERIDOL 2 MG/1 ML UDP PO PRN (20:37)
--- NOTE | 2020-05-23 23:32 | Hospitalist Progress Note ---
Date of Service May 23, 2020 Assessment & Plan (1) Carcinoma of lower third of esophagus: * Patient with metastatic disease to b/l lung (progression since Apr 2020 imaging), 4cm upper pole L kidney mass, hepatic lesions as well as newly found large intra-axial mass w/i R posterior fossa, 5.2cm along with 1.7cm intra- axial mass suggestive of metastatic disease. PEG tube previously placed by Dr. 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 Not moving forward with chemo given new findings on CT Head this past week * Previous admission with rec for transfer if continued bleeding from mass as IR not at this facility, however insurance only with [facility] as option unless out of pocket by patient and patient decided to stay * Obs with med/surg with telemetry * H/h stable * Type/screen already completed * Consult radiation oncology about further radiation -- appreciate assistance * will stop IVF and resume peg tube intake * will consult dietary. * D/W radiation oncology patient is not a candidate for further treatemtn, in regards to brain mass, recommend surgery, however this would be pretty invasive and given how advanced his cancer is, unsure if this will do more harm than good. * resumed dexamethasone to help with the swelling from the brain lesion. * On 05/23: Palliative care saw patient: switched his Compazine and Phenergan to zofran Recommended Haldol if symptoms do not improve. Working on getting equipment home, if patient continues to decompensate, may become a GIP candidate. (2) Bleeding: H/h stable at this time Continue to monitor (3) S/P percutaneous endoscopic gastrostomy (PEG) tube placement: placed previously for esophageal ca by Dr. Batista Continue 14 hour continuous feeds with flushes as taking outpatient, Pept[employer] Director Integrated consulted -- appreciate assistance (4) Dyslipidemia: Atorvastatin 40mg via PEG (5) GERD (gastroesophageal reflux disease): Continue lansoprazole 15mg via PEG BID (6) Hypertension: BP stable. 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: See above DVT prophylaxis -- contraindicated in setting of bleeding Admission and Anticipated Discharge Date Admission Date: May 22, 2020 Subjective Patient is a 79 yo male who reports having nausea has improved today Review of Systems Review of Systems: All systems reviewed & are unremarkable except as noted in HPI & below Physical Exam Physical Exam: Constitutional: + cachectic, cooperative and comfortable; no acute distress Eyes: + anicteric sclerae and PERRL ENMT: Ears: no hearing impairment Nose: no external nose abnormality Neck: trachea midline; no tracheal deviation Respiratory: normal respiratory effort; no respiratory distress and no labored breathing Auscultation: + diminished lung sounds Cardiovascular: RRR, no murmur, no edema Gastrointestinal (Abdomen): Inspection/Auscultation: normal bowel sounds Percussion/Palpation: abdomen soft; abdomen nontender, no guarding and abdomen not rigid Musculoskeletal: Head/Neck/Chest: normocephalic and head atraumatic Skin: cool, dry Neurologic: moves all extremities and awake Psychiatric: Orientation: alert and oriented x 3 Lymphatic: + subclavicular lymphadenopathy Results & Data Results & Data ([facility]) Vital Signs (Past 12 Hours) Vital Signs Temp Pulse Pulse Resp BP BP Pulse Ox 05/23/20 23:00 36.4 C L 93 H 18 162/87 H 96 05/23/20 19:32 36.3 C L 89 18 160/89 H 100 05/23/20 15:48 36.6 C 86 20 163/95 H 96 05/23/20 15:00 79 05/23/20 11:37 36.6 C 80 18 151/85 H 97 PG Care Time/CCT Total # of Minutes Spent Total Time Spent with Patient: Total time spent is greater than 50% in coordination of care (as documented) at patient's floor/unit and/or counseling patient: Coding Level of Care Code 81433 Subseq Hosp Care Lvl 2 Diagnoses Carcinoma of lower third of esophagus C15.5 Bleeding R58 S/P percutaneous endoscopic gastrostomy (PEG) tube placement Z93.1 Dyslipidemia E78.5 GERD (gastroesophageal reflux disease) K21.9 Hypertension I10 Hypertension type: essential hypertension Depression F32.9 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
[2020-05-24] MEDS: ONDANSETRON INJ 2 MG/ML 2 ML VIAL IV SCH ×3 (06:26→17:06)
[2020-05-24 07:47] VITALS: TEMP 97.7
[2020-05-24] MEDS: LANSOPRAZOLE 15 MG SOLTAB PEG SCH (08:59)
[2020-05-24] MEDS: DEXAMETHASONE SOD PHOSPHATE 2 MG in SYRINGE 0 ML IV SCH (09:02)
[2020-05-24] MEDS: ESCITALOPRAM OXALATE ORAL SOLN 10 MG/10 ML UDP PEG SCH (09:02)
[2020-05-24] MEDS: PEPTAMEN 1.5 CAL 1,000 ML BAG PEG SCH (09:18)
[2020-05-24] MEDS: HALOPERIDOL 2 MG/1 ML UDP PO PRN (09:49)
[2020-05-24 11:21] VITALS: O2SAT 98
[2020-05-24 13:06] VITALS: BP 162/87
--- NOTE | 2020-05-24 15:41 | Discharge Summary ---
Date of Service May 24, 2020 Admission HPI Per Admitting Provider 79yo male with PMH significant for 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 Passing clots but still flushes well. Patient recently hospitalized from 04/27-05/04 for hemoptysis. Discussion was had at that time about transfer out for IR if bleeding from mass would recur. He states this has resolved since completing radiation with Dr. Lee, 10 total doses, completed this previous Friday with Dr. Lee from radiation oncology. Plans were to begin chemotherapy until newly discovered brain mass on imaging done . Patient states he had been doing well up until this afternoon when this occurred. He has been using continuous feeds during the day due to concerns for aspiration and have not yet tried overnight feeding and have been giving flushes at least every four hours if not more frequently. Discussed case with patient and decision was ultimately made to pursue transfer to [facility] as they had previous bad experience at [facility] for possible IR given this is not available at our facility. Unfortunately, with patient's insurance, only able to choose [place] or stay for observation at this time and decision was made to stay for monitoring. Patient and agreeable to current plan. Patient denied recent chills, fever, chest pain, shortness of breath, abdominal pain, nausea/vomiting, hematuria, melena, or dysuria at this time. ER Course: NSS x500cc. Compazine x 1. Protonix 40mg IV push x 1. CBC with WBC 13.2k, hgb/hct 11.6/36.3, plt 326. Chemistries with dehydration, BUN/Cr 36.3. Principal Diagnosis PEG bleeding Discharge Exam Constitutional WD/WN, vitals as above Eyes EOM intact bilaterally; no conjunctival abnormality ENMT external ear and nose normal, oropharynx normal Neck trachea midline, no thyromegaly normal visual inspection Respiratory normal respiratory effort, lungs clear to auscultation no respiratory distress Cardiovascular RRR, no murmur, no edema Gastrointestinal (Abdomen) Inspection/Auscultation: abdomen normal to inspection; abdomen not distended Musculoskeletal no cyanosis or clubbing, extremities motor strength 5/5 Skin no rashes, warm and dry Neurologic moves all extremities and awake Psychiatric Orientation: alert, oriented to person and cooperative Discharge Data Allergies Allergy/AdvReac Type Severity Reaction Status Date / Time No Known Allergies Allergy Verified 05/20/20 15:51 Consultations 05/20/20 17:34 ED Decision to Admit Stat 05/20/20 19:52 Consult Radiation Oncology Routine 05/22/20 11:51 Consult Palliative Care Routine Ordered Studies 05/20/20 15:02 CT abd pelvis IV con only Stat CT chest w con Stat Hospital Course (1) Carcinoma of lower third of esophagus: * Patient with metastatic disease to b/l lung (progression since Apr 2020 imaging), 4cm upper pole L kidney mass, hepatic lesions as well as newly found large intra-axial mass w/i R posterior fossa, 5.2cm along with 1.7cm intra- axial mass suggestive of metastatic disease. PEG tube previously placed by Dr. Batista and patient will continue tube feeds as given [employer] * s/p radiation x 10 treatments this past Friday. Not moving forward with chemo given new findings on CT Head this past week * Previous admission with rec for transfer if continued bleeding from mass as IR not at this facility, however insurance only with [facility] as option unless out of pocket by patient and patient decided to stay * Obs with med/surg with telemetry * H/h stable * Type/screen already completed * Consult radiation oncology about further radiation -- appreciate assistance * will stop IVF and resume peg tube intake * will consult dietary. * D/W radiation oncology patient is not a candidate for further treatemtn, in regards to brain mass, recommend surgery, however this would be pretty invasive and given how advanced his cancer is, unsure if this will do more harm than good. * resumed dexamethasone to help with the swelling from the brain lesion. * On 05/23: Palliative care saw patient: switched his Compazine and Phenergan to zofran Recommended Haldol if symptoms do not improve. Working on getting equipment home, if patient continues to decompensate, may become a GIP candidate. Discharged on hospice with improved symptoms. (2) Bleeding: H/h stable at this time Continue to monitor (3) S/P percutaneous endoscopic gastrostomy (PEG) tube placement: placed previously for esophageal ca by Dr. Batista Continue 14 hour continuous feeds with flushes as taking outpatient, Peptamen Truck Rental Service Attendant consulted -- appreciate assistance (4) Dyslipidemia: Atorvastatin 40mg via PEG (5) GERD (gastroesophageal reflux disease): Continue lansoprazole 15mg via PEG BID (6) Hypertension: BP stable. 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: See above DVT prophylaxis -- contraindicated in setting of bleeding Total Time Total Time Spent Total Time Spent (In Minutes): 35 Discharge Plan Discharge Items Patient Disposition: Hospice - Home Reason For Visit: BLEEDING Discharge Diagnosis: Metastatic cancer Activity: Resume your previous activity Non-emergency contact: Primary Care Provider Call non-emergency contact if: your symptoms worsen and your pain is not controlled Follow-up/Referrals: Dillon La, [Primary Care Provider] - Diet: Nothing by Mouth Addtl Attending Provider Instructions: You were admitted to the hospital with nausea and other symptoms stemming from your cancer. Unfortunately, your cancer has progressed. We have tried our best to control your symptoms and are getting you home with hospice. Pending Studies at Discharge: No Stand-Alone Forms: [facility] Medications and DC Order Prescriptions: New lansoprazole [Prevacid SoluTab] 15 mg Tablet,Disintegrat, Delay Rel 15 mg PEG BID Qty: 60 RF: 0 haloperidol lactate 2 mg/mL Concentrate 2 mg PO Q4H PRN (Reason: nausea and vomiting) Qty: 120 RF: 0 escitalopram oxalate 5 mg/5 mL Solution 10 mg PEG QAM Qty: 1 RF: 0 acetaminophen 160 mg/5 mL (5 mL) Solution 640 mg PEG Q6H PRN (Reason: fever or pain) Qty: 500 RF: 0 ondansetron HCl [Zofran] 4 mg tablet 4 mg PO Q6H Qty: 30 RF: 0 Continued polyethylene glycol 3350 [Miralax] 17 gram powder in packet 17 g feeding tube DAILY PRN (Reason: Constipation) RF: 0 acetaminophen [Tylenol Extra Strength] 500 mg Tablet 500 - 1,000 mg PO Q6H PRN (Reason: Fever Or Pain) RF: 0 dexamethasone 4 mg tablet 2 mg PO DAILY RF: 0 prochlorperazine maleate 5 mg tablet 5 mg PO Q8H PRN (Reason: Nausea) RF: 0 atenolol 50 mg Tablet 50 mg feeding tube QAM RF: 0 promethazine 25 mg tablet 25 mg PO Q6H PRN (Reason: nausea) Qty: 30 RF: 0 Discontinued omeprazole 20 mg capsule,delayed release(DR/EC) 40 mg feeding tube BID RF: 0 atorvastatin 40 mg tablet 40 mg feeding tube QAM RF: 0 Discharge Orders: Discharge Order (Routine); Ordered 05/24/20 Ordered By: Niko Washington Admission Data Admit Date/Time: 05/22/20 12:33 Attending Provider: Niko Washington Admit Provider: Sergio Pérez Primary Care Provider: Dillon La Other Providers: Sergio Pérez ; Susannah Clancy ; Selvin Lee ; Eugene Burr ; Yazan Crabtree ; Wendy Grubbs ; [facility] Other Interventions: Discharge Summary Assessment (RN) Last Done: 05/24/20 13:03 Coding Level of Care Code D/C Day Management >30 mins Diagnoses Carcinoma of lower third of esophagus C15.5 Bleeding R58 S/P percutaneous endoscopic gastrostomy (PEG) tube placement Z93.1 Dyslipidemia E78.5 GERD (gastroesophageal reflux disease) K21.9 Hypertension I10 Hypertension type: essential hypertension Depression F32.9 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
[2020-05-24 15:56] VITALS: PULSE 89
[2020-05-24] MEDS: ONDANSETRON INJ 2 MG/ML 2 ML VIAL IV PRN (16:46)
== END 2020-05-24 17:40 | disposition hospice, home (50) | DRG 375 ==
LOC: 2N 14:43 → ED 14:43 → 2N 20:28 → SUATTDRO 05-22 12:33